=== PATIENT | female | born 1995 | race Caucasian/White ===

== ENCOUNTER 2019-03-24 20:38 | Emergency (ER) | payer OTHER ==
--- OUTSIDE RECORDS SUMMARY | 2019-03-24 20:40 | XMS REPORT | Clinical Summary ---
:1995 Author Organization [facility] Address [address] [place] [address] Care Team Providers Name Role Phone Unavailable Primary Care Provider Unavailable Allergies Active Allergy Reactions Severity Noted Date Comments Codeine Swelling 01/05/2016 Morphine Itching 01/05/2016 Penicillins Hives 01/05/2016 Medications Medication Sig Dispensed Refills Start Date End Date Status ibuprofen Take 1 tablet 20 tablet 0 11/20/2018 11/30/2018 (ADVIL,MOTRIN) 600 MG (600 mg total) tablet by mouth every 6 (six) hours as needed for up to 10 days. traMADol (ULTRAM) 50 Take 1 tablet 20 tablet 0 11/20/2018 11/30/2018 mg tablet (50 mg total) by mouth every 6 (six) hours as needed for up to 10 days. 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 Never 11/20/2018 How many drinks containing alcohol do you have on a typical Not asked day when you are drinking? How often do you have six or more drinks on one occasion? Not asked Sex Assigned at Date Recorded Not on file Job Start Date Occupation Industry Not on file Not on file Not on file Travel History Travel Start Travel End No recent travel history available. Last Filed Vital Signs Vital Sign Reading Time Taken Blood Pressure 114/84 11/20/2018 9:16 PM CDT Pulse 99 11/20/2018 9:16 PM CDT Temperature 37 C (98.6 F) 11/20/2018 9:16 PM CDT Respiratory Rate 18 11/20/2018 9:16 PM CDT Oxygen Saturation 100% 11/20/2018 9:16 PM CDT Inhaled Oxygen Concentration - - Weight 86.2 kg (190 lb) 11/20/2018 7:00 PM CDT Height 177.8 cm (5' 10") 11/20/2018 7:00 PM CDT Body Mass Index 27.26 11/20/2018 7:00 PM CDT Plan of Treatment Not on file Procedures Procedure Name Priority Date/Time Associated Comments Diagnosis REPORT OF PROCEDURE - 11/28/2018 3:11 ENDOSCOPY SCAN PM CDT CBC W/PLT COUNT & STAT 11/20/2018 7:56 Results for this AUTO DIFFERENTIAL PM CDT procedure are in the results section. PT/APTT STAT 11/20/2018 7:56 Results for this PM CDT procedure are in the results section. CBC W/PLT COUNT & STAT 11/20/2018 7:56 Results for this AUTO DIFFERENTIAL PM CDT procedure are in the results section. TROPONIN I STAT 11/20/2018 7:56 Results for this PM CDT procedure are in the results section. MAGNESIUM STAT 11/20/2018 7:56 Results for this PM CDT procedure are in the results section. BASIC METABOLIC PANEL STAT 11/20/2018 7:56 Results for this (7) PM CDT procedure are in the results section. XR CHEST 1 VIEW STAT 11/20/2018 7:21 Results for this PORTABLE/BEDSIDE PM CDT procedure are in the results section. ECG 12-LEAD Routine 11/20/2018 6:57 PM CDT Procedure Note - Interface, External Ris In - 11/20/2018 7:13 PM CDT Ventricular Rate 78 BPM Atrial Rate 78 BPM P-R Interval 126 ms QRS Duration 90 ms Q-T Interval 360 ms QTC Calculation(Bazett) 410 ms P Belmont 70 degrees R Belmont 75 degrees T Belmont 39 degrees Normal sinus rhythm Nonspecific ST and T wave abnormality Abnormal ECG No previous ECGs available ECG 12-LEAD STAT 11/20/2018 6:57 PM CDT after 03/23/2018 Results EKG-SCANNED (11/28/2018 3:11 PM CDT) Narrative Performed At PT/PTT (11/20/2018 7:56 PM CDT) Protime 13.1 11.7 - 14.[address] [facility] INR 1.0 <=[address]9 [facility] PTT 31.3 22.5 - 36.[address] [facility] Specimen Blood Narrative Performed At RECOMMENDED COUMADIN/WARFARIN INR THERAPY [facility] RANGES STANDARD DOSE: 2.0 - 3.0 Includes: PROPHYLAXIS for venous thrombosis, systemic embolization; TREATMENT for venous thrombosis and/or pulmonary embolus. HIGH RISK: Target INR is 2.5-3.5 for patients with mechanical heart valves. Performing Organization Address City/State/Zipcode Phone Number [facility] [address] [place] [address] [phone] CENTER CBC with platelet count + automated diff (11/20/2018 7:56 PM CDT) WBC 9.2 3.5 - 10.5 K/L [facility] RBC 4.81 3.93 - 5.22 M/L [facility] Hemoglobin 13.1 11.2 - 15.7 GM/DL [facility] Hematocrit 40.8 34.1 - 44.9 % [facility] MCV 84.8 79.4 - 94.[address] [facility] MCH 27.2 25.6 - 32.[address] [facility] MCHC 32.1 (L) 32.2 - 35.5 GM/DL [facility] RDW 14.1 11.7 - 14.4 % [facility] Platelets 279 150 - 450 K/CU MM [facility] MPV 10.3 9.4 - 12.[address] [facility] nRBC 0 0 - 0 /[address] [facility] % Neutros 64 % [facility] % Lymphs 26 % [facility] % Monos 7 % [facility] % Eos 3 % [facility] % Baso 1 % [facility] # Neutros 5.91 1.56 - 6.13 K/L [facility] # Lymphs 2.35 1.18 - 3.74 K/L [facility] # Monos 0.60 (H) 0.24 - 0.36 K/L [facility] # Eos 0.27 0.04 - 0.36 K/L [facility] # Baso 0.06 0.01 - 0.08 K/L [facility] Immature Granulocytes-Relative 0 0 - 1 % [facility] Specimen Blood Performing Organization Address City[facility] Phone Number [address] [address] [phone] CENTER Troponin I (11/20/2018 7:56 PM CDT) Troponin I <0.01 0.00 - 0.03 ng/mL [facility] Specimen Blood Narrative Performed At Troponin I (TnI) levels must be interpreted [facility] in the context of the presenting symptoms and the clinical findings. Elevated TnI levels indicate myocardial damage, but are not specific for ischemic heart disease. Elevated TnI levels are seen in patients with other cardiac conditions (including myocarditis and congestive heart failure), and slight TnI elevations occur in patients with other conditions, including sepsis, renal failure, acidosis, acute neurological disease, and persistent tachyarrhythmia. Performing Organization Address City/State/[facility] Phone Number [address] [phone] CENTER Magnesium (11/20/2018 7:56 PM CDT) Magnesium 2.4 1.6 - 2.6 mg/dL [facility] Specimen Blood Performing Organization Address City/State/Zipcode Phone Number [facility] [address] [place] [address] [place] Basic Metabolic Panel (11/20/2018 7:56 PM CDT) Sodium 139 136 - 145 meq/L [facility] Potassium 3.9 3.5 - 5.1 meq/L [facility] Chloride 108 (H) 98 - 107 meq/L [facility] CO2 21 (L) 22 - 29 meq/L [facility] BUN 10 7 - 21 mg/dL [facility] Creatinine 0.78 0.57 - 1.25 mg/dL [facility] Glucose 87 70 - 105 mg/dL [facility] Calcium 9.8 8.4 - 10.2 mg/dL [facility] EGFR Comment: INSUFFICIENT CLINICAL mL/min/1.73 sq m [facility] DATA TO CALCULATE ESTIMATED [facility] CENTER GFR. Specimen Blood Performing Organization Address City/State/Zipcode Phone Number [facility] [address] [place] [address] [place] XR chest 1 view portable / bedside (11/20/2018 7:21 PM CDT) Specimen Narrative Performed At FINAL REPORT RIS History: Chest pain. Comparison: None. Findings: A single view of the chest is submitted. The cardiomediastinal contours are unremarkable. There is no focal consolidation, pneumothorax, large pleural effusion or evidence of overt pulmonary edema. There is no acute bony abnormality. Impression: No acute abnormality. Signed: Davin Oconnell MD Report Verified Date/Time:11/20/2018 19:41:51 Reading Location: [address] Reading Room Procedure Note Interface, External Ris In - 11/20/2018 7:44 PM CDT FINAL REPORT History: Chest pain. Comparison: None. Findings: A single view of the chest is submitted. The cardiomediastinal contours are unremarkable. There is no focal consolidation, pneumothorax, large pleural effusion or evidence of overt pulmonary edema. There is no acute bony abnormality. Impression: No acute abnormality. Signed: Davin Oconnell MD Report Verified Date/Time: 11/20/2018 19:41:51 Reading Location: [address] Reading Room Performing Organization Address City/State/Zipcode Phone Number [facility] RIS ECG 12 lead (11/20/2018 6:57 PM CDT) Specimen Narrative Performed At Ventricular Rate 78 BPM [facility] MUSE Atrial Rate 78 BPM P-R Interval 126 ms QRS Duration 90 ms Q-T Interval 360 ms QTC Calculation(Bazett) 410 ms P Belmont 70 degrees R Belmont 75 degrees T [place] 39 degrees Normal sinus rhythm Nonspecific ST and T wave abnormality Abnormal ECG No previous ECGs available Confirmed by Annie LORA MICHAEL ([id number]) on 11/21/2018 7:27:53 AM Procedure Note Interface, External Ris In - 11/21/2018 7:28 AM CDT Ventricular Rate 78 BPM Atrial Rate 78 BPM P-R Interval 126 ms QRS Duration 90 ms Q-T Interval 360 ms QTC Calculation(Bazett) 410 ms P Belmont 70 degrees R Belmont 75 degrees T [place] 39 degrees Normal sinus rhythm Nonspecific ST and T wave abnormality Abnormal ECG No previous ECGs available Confirmed by Annie LORA MICHAEL ([id number]) on 11/21/2018 7:27:53 AM Performing Organization Address City/State/[facility] Phone Number GE MUSE after 03/23/2018 Insurance Payer Benefit Plan / Group Subscriber ID Type Phone Address [employer] - [place] C[employer] CIG[employer] HMO/POS/OPEN ACCESS xxxxxxxxx HMO/POS
--- OUTSIDE RECORDS SUMMARY | 2019-03-24 20:40 | XMS REPORT ---
:1995 Author Organization [facility] Address [address] [place] [id number] Care Team Providers Name Role Phone Unavailable Unavailable Unavailable Problems This patient has no known problems. Allergies, Adverse Reactions, Alerts This patient has no known allergies or adverse reactions. Medications This patient has no known medications. Results Test Description Test Time Test Comments Text Results Atomic Results Result Comments TROPONIN I 2018-11-20 20:25:00 Test Item Value Reference Range Comments TROPONIN I (BEAKER) (test pibn=869) < ng/mL 0.00-0.03 Troponin I (TnI) levels must be interpreted in the context of the presenting symptoms and the clinical findings. Elevated TnI levels indicate myocardial damage, but are not specific for ischemic heart disease. Elevated TnI levels are seen in patients with other cardiac conditions (including myocarditis and congestive heart failure), and slight TnI elevations occur in patients with other conditions, including sepsis, renal failure, acidosis, acute neurological disease, and persistent tachyarrhythmia.[id number] 20:18:00 Test Item Value Reference Range Comments MAGNESIUM (BEAKER) (test hlhq=505) 2.4 mg/dL 1.6-2.6 BASIC METABOLIC [id number] 20:18:00 Test Item Value Reference Range Comments SODIUM (BEAKER) (test 139 meq/L 136-145 swsw=997) POTASSIUM (BEAKER) (test 3.9 meq/L 3.5-5.1 bvle=089) CHLORIDE (BEAKER) (test 108 meq/L 98-107 gsbt=660) CO2 (BEAKER) (test 21 meq/L 22-29 obwp=400) BLOOD UREA NITROGEN 10 mg/dL 7-21 (BEAKER) (test tqhy=818) CREATININE (BEAKER) (test 0.78 mg/dL 0.57-1.25 audx=308) GLUCOSE RANDOM (BEAKER) 87 mg/dL 70-105 (test vtho=233) CALCIUM (BEAKER) (test 9.8 mg/dL 8.4-10.2 qqjz=449) EGFR (BEAKER) (test mL/min/1.73 sq m INSUFFICIENT CLINICAL DATA ylir=4434) TO CALCULATE ESTIMATED GFR. [id number] 20:13:00 Test Item Value Reference Range Comments PROTIME (BEAKER) (test ydwr=317) 13.1 seconds 11.7-14.7 INR (BEAKER) (test yjjd=430) 1.0 <=5.9 PARTIAL THROMBOPLASTIN TIME (BEAKER) (test 31.3 seconds 22.5-36.0 yuze=201) RECOMMENDED COUMADIN/WARFARIN INR THERAPY RANGESSTANDARD DOSE: 2.0 - 3.0 Includes: PROPHYLAXIS forvenous thrombosis, systemic embolization; TREATMENT for venous thrombosis and/or pulmonary embolus.HIGH RISK: Target INR is 2.5-3.5 for patients with mechanical heart valves.CBC W/PLT COUNT & AUTO [id number] 20:04:00 Test Item Value Reference Range Comments WHITE BLOOD CELL COUNT (BEAKER) (test wsme=931) 9.2 K/ L 3.5-10.5 RED BLOOD CELL COUNT (BEAKER) (test xttk=923) 4.81 M/ L 3.93-5.22 HEMOGLOBIN (BEAKER) (test ysnz=752) 13.1 GM/DL 11.2-15.7 HEMATOCRIT (BEAKER) (test rrkx=437) 40.8 % 34.1-44.9 MEAN CORPUSCULAR VOLUME (BEAKER) (test nnmy=194) 84.8 fL 79.4-94.8 MEAN CORPUSCULAR HEMOGLOBIN (BEAKER) (test 27.2 pg 25.6-32.2 gkgt=276) MEAN CORPUSCULAR HEMOGLOBIN CONC (BEAKER) (test 32.1 GM/DL 32.2-35.5 otvx=224) RED CELL DISTRIBUTION WIDTH (BEAKER) (test 14.1 % 11.7-14.4 fyno=451) PLATELET COUNT (BEAKER) (test gqqd=107) 279 K/CU MM 150-450 MEAN PLATELET VOLUME (BEAKER) (test lxkg=821) 10.3 fL 9.4-12.3 NUCLEATED RED BLOOD CELLS (BEAKER) (test 0 /100 WBC 0-0 ucnk=991) NEUTROPHILS RELATIVE PERCENT (BEAKER) (test 64 % gvwy=839) LYMPHOCYTES RELATIVE PERCENT (BEAKER) (test 26 % bfqb=698) MONOCYTES RELATIVE PERCENT (BEAKER) (test 7 % dvlh=739) EOSINOPHILS RELATIVE PERCENT (BEAKER) (test 3 % hqpa=969) BASOPHILS RELATIVE PERCENT (BEAKER) (test 1 % ymlj=549) NEUTROPHILS ABSOLUTE COUNT (BEAKER) (test 5.91 K/ L 1.56-6.13 nbsj=113) LYMPHOCYTES ABSOLUTE COUNT (BEAKER) (test 2.35 K/ L 1.18-3.74 vrcw=021) MONOCYTES ABSOLUTE COUNT (BEAKER) (test 0.60 K/ L 0.24-0.36 ipso=243) EOSINOPHILS ABSOLUTE COUNT (BEAKER) (test 0.27 K/ L 0.04-0.36 kfti=131) BASOPHILS ABSOLUTE COUNT (BEAKER) (test 0.06 K/ L 0.01-0.08 jcgw=156) IMMATURE GRANULOCYTES-RELATIVE PERCENT (BEAKER) 0 % 0-1 (test smtu=6315) RAD, CHEST, 1 VIEW, NON [id number] 19:41:00Reason for exam:->CHEST PAINIs the patient ?->UnknownFINAL REPORT History: Chest pain. Comparison: None. Findings: A single view of the chest is submitted. The cardiomediastinal contours are unremarkable. There is no focal consolidation, pneumothorax, large pleural effusion or evidence of overt pulmonary edema. There is no acute bony abnormality. Impression: No acute abnormality. Signed: Davin England MDReport Verified Date/Time: 11/20/2018 19: 41:51 Reading Location: [address] Reading Room
[2019-03-24 21:11] LABS: Absolute Lymphocytes (CBC) 2.9 K/uL (0.7-4.9); Basophils % 0.6 % (0-1.3); Eosinophils % 3.5 % (0-4.4); Hematocrit 39.2 % (36.0-45.0); Lymphocytes % 26.7 % (15.3-44.8); MPV 8.6 fL (7.6-11.3); Monocytes % 7.6 % (3.3-12.3); RBC Red Blood Cell Count 4.72 M/uL (3.86-4.86)
[2019-03-24 21:27] LABS: ALT/SGPT 27 U/L (12-78); AST/SGOT 12 U/L (15-37); Albumin 4.1 g/dL (3.4-5.0); Alkaline Phosphatase 89 U/L (45-117); BUN Blood Urea Nitrogen 16 mg/dL (7-18); Bicarbonate 25 mmol/L (21-32); Bilirubin Direct < 0.1 mg/dL (0-0.2); Bilirubin Total 0.2 mg/dL (0.2-1.0); Glucose Level 93 mg/dL (74-106); Lipase 126 U/L (73-393); Potassium 3.7 mmol/L (3.5-5.1); Protein, Total 7.9 g/dL (6.4-8.2); Sodium Level 142 mmol/L (136-145)
[2019-03-24] MEDS ORDERED: KETOROLAC 30 MG/ML INJ ONE (21:33)
[2019-03-24] MEDS ORDERED: ONDANSETRON 4 MG/2 ML VIAL ONE (21:35)
[2019-03-24 21:42] LABS: Urine Blood 2+ (NEG); Urine Glucose NEGATIVE (NEG); Urine Protein NEGATIVE (NEG); Urine Specific Gravity >1.030 (1.005-1.030); Urine pH 5.5 (5.0-7.0)
--- NOTE | 2019-03-24 22:40 | ER ---
Nurse's Notes [facility] Name: Cathleen Willson Age: 24 yrs Sex: Female : 1995 Arrival Date: 03/24/2019 Time: 20:42 Bed 25 Private MD: Diagnosis: Unspecified abdominal pain Presentation: 03/24 20:43 Presenting complaint: Patient states: "Im on my period, but I don't regularly cramp, so aj1 at first I thought it was just period cramps. I have pain at my belly button, and its just not getting better. I tried taking Tylenol, Motrin, and a hot bath" Denies N/V/D. Denies fever. Transition of care: patient was not received from another setting of care. Onset of symptoms was March 24, 2019 at 11:00. Risk Assessment: Do you want to hurt yourself or someone else? Patient reports no desire to harm self or others. Initial Sepsis Screen: Does the patient meet any 2 criteria? No. Patient's initial sepsis screen is negative. Does the patient have a suspected source of infection? Yes: Acute abdominal pain. Care prior to arrival: None. 20:43 Method Of Arrival: Ambulatory aj1 20:43 Acuity: MIGUEL 3 aj1 Triage Assessment: 20:46 General: Appears in no apparent distress. comfortable, Behavior is calm, cooperative, aj1 appropriate for age. Pain: Complains of pain in umbilical area Pain currently is 6 out of 10 on a pain scale. Neuro: Level of Consciousness is awake, alert, obeys commands. Cardiovascular: Patient's skin is warm and dry. Respiratory: Airway is patent Respiratory effort is even, unlabored, Respiratory pattern is regular, symmetrical. GI: Reports nausea. 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 - Social history:: Smoking status: Patient/guardian denies using tobacco. - Ebola Screening: : Patient denies travel to an Ebola-affected area in the 21 days before illness onset. Screenin:52 Abuse screen: Denies threats or abuse. Denies injuries from another. Nutritional ca1 screening: No deficits noted. Tuberculosis screening: No symptoms or risk factors identified. Fall Risk IV access (20 points). Assessment: 20:52 General: Appears in no apparent distress. comfortable, Behavior is calm, cooperative, ca1 appropriate for age. Pain: Complains of pain in umbilical area Pain does not radiate. Pain currently is 6 out of 10 on a pain scale. Pain began around 1100. Neuro: Level of Consciousness is awake, alert, obeys commands, Oriented to person, place, time, situation. Cardiovascular: Heart tones S1 S2 present Capillary refill < 3 seconds Patient's skin is warm and dry. Respiratory: Airway is patent Respiratory effort is even, unlabored, Respiratory pattern is regular, symmetrical, Breath sounds are clear bilaterally. GI: Abdomen is round non-distended, Bowel sounds present X 4 quads. Abd is soft X 4 quads Abdomen is tender to palpation in right upper quadrant. GI: Reports nausea, Patient currently denies diarrhea, vomiting. : Urine is clear. EENT: No deficits noted. No signs and/or symptoms were reported regarding the EENT system. Derm: Skin is intact, is healthy with good turgor, Skin is pink, warm \\T\\ dry. Musculoskeletal: Circulation, motion, and sensation intact. Capillary refill < 3 seconds, Range of motion: intact in all extremities. 21:39 Reassessment: Patient appears in no apparent distress at this time. Patient and/or ca1 family updated on plan of care and expected duration. Pain level reassessed. Patient is alert, oriented x 3, equal unlabored respirations, skin warm/dry/pink. 22:30 Reassessment: Patient appears in no apparent distress at this time. Patient and/or ca1 family updated on plan of care and expected duration. Pain level reassessed. Patient is alert, oriented x 3, equal unlabored respirations, skin warm/dry/pink. Vital Signs: 20:46 BP 141 / 91; Pulse 82; Resp 18; Temp 98.4; Pulse Ox 100% on R/A; Weight 87.09 kg (R); aj1 Height 5 ft. 10 in. (177.80 cm) (R); Pain 6/10; 21:39 BP 116 / 79; Pulse 96; Resp 16 S; Pulse Ox 100% on R/A; ca1 22:30 BP 122 / 77; Pulse 87; Resp 16 S; Temp 98.8(O); Pulse Ox 100% ; ca1 20:46 Body Mass Index 27.55 (87.09 kg, 177.80 cm) aj1 ED Course: 20:42 Patient arrived in ED. ds1 20:45 Triage completed. aj1 20:46 Arm band placed on Patient placed in an exam room. aj1 20:50 Marcela Alcantar, LUCIO is Primary Nurse. ca1 20:51 Mumtaz Graham, JOAN is PHCP. pm1 20:51 Tong Erickson MD is Attending Physician. pm1 20:52 Patient has correct armband on for positive identification. Placed in gown. Bed in low ca1 position. Call light in reach. Side rails up X 1. Pulse ox on. NIBP on. Warm blanket given. 20:52 No provider procedures requiring assistance completed. Inserted saline lock: 20 gauge ca1 in left antecubital area, using aseptic technique. Blood collected. 21:00 Radiology exam delayed due to lab results not completed at this time. (BUN/Creatinine) mw3 test not completed at this time. 21:[address] via wheelchair. ca1 21:53 Urine Dipstick--Ancillary (enter results) Sent. ca1 22:07 CT Abd/Pelvis - IV Contrast Only In Process Unspecified. EDMS 22:50 IV discontinued, intact, bleeding controlled, No redness/swelling at site. Pressure ca1 dressing applied. Administered Medications: 21:15 Drug: TORadol 30 mg Route: IVP; Site: left antecubital; ca1 22:30 Follow up: Response: No adverse reaction; Pain is decreased ca1 21:22 Drug: Zofran 4 mg Route: IVP; Site: left antecubital; ca1 22:00 Follow up: Response: No adverse reaction; Nausea is decreased ca1 Outcome: 22:38 Discharge ordered by . pm1 22:50 Discharged to home ambulatory. ca1 22:50 Condition: stable 22:50 Discharge instructions given to patient, Instructed on discharge instructions, follow up and referral plans. medication usage, Demonstrated understanding of instructions, follow-up care, medications, Prescriptions given X 2. 22:51 Patient left the ED. ca1 Signatures: Dispatcher [employer] EDAdeline Gomez, LUCIO RN aj1 Marta Guthrei ds1 Mumtaz Graham, PATENT LEATHER SORTER PATENT LEATHER SORTER pm1 Lala Brennan mw3 Marcela Alcantar RN RN ca1
--- NOTE | 2019-03-24 22:40 | EDPHYS ---
Physician Documentation [facility] Name: Cathleen Willson Age: 24 yrs Sex: Female : 1995 Arrival Date: 03/24/2019 Time: 20:42 Bed 25 Private MD: ED Physician Tong Erickson HPI: 03/24 21:00 This 24 yrs old Female presents to ER via Ambulatory with complaints of pm1 Abdominal Pain. 21:00 The patient presents with abdominal pain in the periumbilical area. Onset: The pm1 symptoms/episode began/occurred today. The symptoms do not radiate. Associated signs and symptoms: none. Pertinent negatives: nausea, vomiting, and diarrhea, chest pain, constipation, dysuria, fever, shortness of breath. The symptoms are described as crampy. Modifying factors: The symptoms are alleviated by nothing, the symptoms are aggravated by nothing. Severity of pain: in the emergency department the pain is actually worse. The patient has experienced a previous episode, many years ago, symptoms feel similar to ruptured ovarian cyst. The patient has not recently seen a physician. 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 - Social history:: Smoking status: Patient/guardian denies using tobacco. - Ebola Screening: : Patient denies travel to an Ebola-affected area in the 21 days before illness onset. ROS: 21:00 Constitutional: Negative for fever, chills, and weight loss, Eyes: Negative for injury, pm1 pain, redness, and discharge, ENT: Negative for injury, pain, and discharge, Neck: Negative for injury, pain, and swelling, Cardiovascular: Negative for chest pain, palpitations, and edema, Respiratory: Negative for shortness of breath, cough, wheezing, and pleuritic chest pain. 21:00 Back: Negative for injury and pain, : Negative for injury, discharge, and swelling, Patient currently on menstrual cycle MS/Extremity: Negative for injury and deformity, Skin: Negative for injury, rash, and discoloration, Neuro: Negative for headache, weakness, numbness, tingling, and seizure. 21:00 Abdomen/GI: Positive for abdominal pain, of the umbilical area, Negative for nausea, vomiting, and diarrhea. Exam: 21:00 Constitutional: This is a well developed, well nourished patient who is awake, alert, pm1 and in no acute distress. Head/Face: Normocephalic, atraumatic. Neck: Trachea midline, no thyromegaly or masses palpated, and no cervical lymphadenopathy. Supple, full range of motion without nuchal rigidity, or vertebral point tenderness. No Meningismus. Chest/axilla: Normal chest wall appearance and motion. Nontender with no deformity. No lesions are appreciated. Cardiovascular: Regular rate and rhythm with a normal S1 and S2. No gallops, murmurs, or rubs. Normal PMI, no JVD. No pulse deficits. Respiratory: Lungs have equal breath sounds bilaterally, clear to auscultation and percussion. No rales, rhonchi or wheezes noted. No increased work of breathing, no retractions or nasal flaring. 21:00 Back: No spinal tenderness. No costovertebral tenderness. Full range of motion. Skin: Warm, dry with normal turgor. Normal color with no rashes, no lesions, and no evidence of cellulitis. MS/ Extremity: Pulses equal, no cyanosis. Neurovascular intact. Full, normal range of motion. 21:00 Abdomen/GI: Inspection: abdomen appears normal, Bowel sounds: normal, Palpation: soft, mild abdominal tenderness, in the umbilical area, mass, is not appreciated, rebound tenderness, is not appreciated. 21:00 Neuro: Orientation: is normal, Motor: is normal, moves all fours, Sensation: is normal, no obvious gross deficits. Vital Signs: 20:46 BP 141 / 91; Pulse 82; Resp 18; Temp 98.4; Pulse Ox 100% on R/A; Weight 87.09 kg (R); aj1 Height 5 ft. 10 in. (177.80 cm) (R); Pain 6/10; 21:39 BP 116 / 79; Pulse 96; Resp 16 S; Pulse Ox 100% on R/A; ca1 22:30 BP 122 / 77; Pulse 87; Resp 16 S; Temp 98.8(O); Pulse Ox 100% ; ca1 20:46 Body Mass Index 27.55 (87.09 kg, 177.80 cm) aj1 MDM: 20:51 Patient medically screened. pm1 21:20 Data reviewed: vital signs. Data interpreted: Pulse oximetry: on room air is 100 %. pm1 Interpretation: normal. 22:37 Counseling: I had a detailed discussion with the patient and/or guardian regarding: the pm1 historical points, exam findings, and any diagnostic results supporting the discharge/admit diagnosis, lab results, radiology results, the need for outpatient follow up, to return to the emergency department if symptoms worsen or persist or if there are any questions or concerns that arise at home. 22:37 ED course: Patient does not want any medications or prescriptions stronger than pm1 ibuprofen or Tylenol because she has two children. . 22:37 Special discussion: Based on the patient's Hx, exam, and Dx evaluation, there is no pm1 indication for emergent surgery or inpatient Tx. It is understood by the patient/guardian that if the Sx's persist or worsen they need to return immediately for re-evaluation. 03/24 20:54 Order name: Basic Metabolic Panel; Complete Time: 21:30 pm03/24 20:54 Order name: CBC with Diff; Complete Time: 21:15 pm1 03/24 20:54 Order name: Creatinine for Radiology; Complete Time: 21:30 pm1 03/24 20:54 Order name: Hepatic Function; Complete Time: 21:30 pm03/24 20:54 Order name: Lipase; Complete Time: 21:30 pm03/24 21:13 Order name: Urine Dipstick--Ancillary (enter results) [facility] 03/24 20:54 Order name: IV Saline Lock; Complete Time: 21:21 pm03/24 20:54 Order name: Labs collected and sent; Complete Time: 21:22 pm1 03/24 20:54 Order name: Urine Dipstick-Ancillary (obtain specimen); Complete Time: 21:21 pm1 03/24 20:54 Order name: CT Abd/Pelvis - IV Contrast Only pm1 03/24 21:13 Order name: Urine --Ancillary (enter results); Complete Time: 21:48 [facility] 03/24 21:13 Order name: Urine Dipstick-Ancillary; Complete Time: 21:48 EDAR 03/24 20:54 Order name: Urine Test (obtain specimen); Complete Time: 21:21 pm1 Administered Medications: 21:15 Drug: TORadol 30 mg Route: IVP; Site: left antecubital; ca1 22:30 Follow up: Response: No adverse reaction; Pain is decreased ca1 21:22 Drug: Zofran 4 mg Route: IVP; Site: left antecubital; ca1 22:00 Follow up: Response: No adverse reaction; Nausea is decreased ca1 Disposition: 03/24/19 22:38 Discharged to Home. Impression: Unspecified abdominal pain. - Condition is Stable. - Discharge Instructions: Abdominal Pain, Adult. - Prescriptions for Bentyl 20 mg Oral Tablet - take 1 tablet by ORAL route every 6 hours As needed; 20 tablet. Zofran 4 mg Oral Tablet - take 1 tablet by ORAL route every 12 hours As needed; 20 tablet. - Medication Reconciliation Form, Thank You Letter, Antibiotic Education, Prescription Opioid Use form. - Follow up: Emergency Department; When: As needed; Reason: Worsening of condition. Follow up: Private Physician; When: 2 - 3 days; Reason: Recheck today's complaints, Continuance of care, Re-evaluation by your physician. - Problem is new. - Symptoms have improved. Addendum: 03/26/2019 04:46 Co-signature as Attending Physician, Tong Erickson MD I agree with the assessment and t w4 plan of care. Signatures: Dispatcher [employer] EDAR Adeline Watson RN RN aj1 Mumtaz Graham, NEW ORDER CLERK NEW ORDER CLERK pm1 Tong Erickson MD MD tw4 Marcela Alcantar RN RN ca1 Corrections: (The following items were deleted from the chart) 03/24 22:51 22:38 03/24/2019 22:38 Discharged to Home. Impression: Unspecified abdominal pain. ca1 Condition is Stable. Forms are Medication Reconciliation Form, Thank You Letter, Antibiotic Education, Prescription Opioid Use. Follow up: Emergency Department; When: As needed; Reason: Worsening of condition. Follow up: Private Physician; When: 2 - 3 days; Reason: Recheck today's complaints, Continuance of care, Re-evaluation by your physician. Problem is new. Symptoms have improved. pm1
[2019-03-24 22:57] VITALS: O2SAT 100
[2019-03-24 23:00] VITALS: BP 122/77; TEMP 98.8
--- NOTE | 2019-03-25 11:06 | RAD REPORT ---
EXAM DESCRIPTION: CT - Abdomen Pelvis W Contrast - 03/24/2019 10:35 pm CLINICAL HISTORY: 24-year-old female with abdominal pain. COMPARISON: None. TECHNIQUE: CT of the abdomen and pelvis was performed following intravenous administration of contra st. Oral contrast was not administered. Multiplanar reformatted images were provided. This exam was p erformed according to our departmental dose optimization program which includes use of automated expo sure control, adjustment of the mA and/or kV according to patient size and/or use of iterative recons truction technique. FINDINGS: Chest: Evaluation through the lung bases reveals no focal opacity, pleural effusion or pne umothorax. Heart size is within normal limits. No pericardial effusion. Abdomen and pelvis: The liver, gallbladder, pancreas, spleen, bilateral kidneys and bilateral adrenal glands are within normal limits. The vessels are patent and normal in caliber. No abdominopelvic lymph nodes are noted to be pathologically enlarged by CT measurement criteria. The bowel is within normal limits without abnormal bowel wall thickness or bowel dilation. No free air. No free abdominopelvic fluid collections. The appendix is within normal limits. The osseous structures are within normal limits. IMPRESSION: 1. No specific acute intra-abdominal findings are noted to suggest etiology of the patie nt's abdominal pain. Electronically signed by: Marie Graves MD 03/24/2019 10:31 PM CDT Due to temporary technical issues with the PACS/Fluency reporting system, reports are being signed by the in house radiologist as a courtesy to ensure prompt reporting. The interpreting radiologist is f ully responsible for the content of the report.
== END 2019-03-24 22:51 | disposition home or self-care (01) ==
LOC: ER 20:38
DX: R10.33 Periumbilical pain (principal); Z88.0 Allergy status to penicillin
CPT/HCPCS: 36415; 74177; 80048; 80076; 81003; 81025; 83690; 85025; 96374; 96375; 99284; J2405; Q9967

== ENCOUNTER 2019-10-06 15:11 | Emergency (ER) | payer OTHER ==
--- OUTSIDE RECORDS SUMMARY | 2019-10-06 15:14 | XMS REPORT ---
:1995 Author Organization [facility] Address [address] [place] [id number] Care Team Providers Name Role Phone Unavailable Unavailable Unavailable Problems This patient has no known problems. Allergies, Adverse Reactions, Alerts This patient has no known allergies or adverse reactions. Medications This patient has no known medications. Results Test Description Test Time Test Comments Text Results Atomic Results Result Comments TROPONIN I 2018-11-20 20:25:00 Test Item Value Reference Range Comments TROPONIN I (BEAKER) (test essa=172) < ng/mL 0.00-0.03 Troponin I (TnI) levels [...] failure, acidosis, acute neurological disease, and persistent tachyarrhythmia.[id number] 20:18:00 Test Item Value Reference Range Comments MAGNESIUM (BEAKER) (test nmey=510) 2.4 mg/dL 1.6-2.6 BASIC METABOLIC [id number] 20:18:00 Test Item Value Reference Range Comments SODIUM (BEAKER) (test 139 meq/L 136-145 gyit=524) POTASSIUM (BEAKER) (test 3.9 meq/L 3.5-5.1 ozrl=520) CHLORIDE (BEAKER) (test 108 meq/L 98-107 iauu=708) CO2 (BEAKER) (test 21 meq/L 22-29 obxz=248) BLOOD UREA NITROGEN 10 mg/dL 7-21 (BEAKER) (test wwqv=647) CREATININE (BEAKER) (test 0.78 mg/dL 0.57-1.25 turl=498) GLUCOSE RANDOM (BEAKER) 87 mg/dL 70-105 (test swll=639) CALCIUM (BEAKER) (test 9.8 mg/dL 8.4-10.2 nksb=768) EGFR (BEAKER) (test mL/min/1.73 sq m INSUFFICIENT CLINICAL DATA lrcs=3045) TO CALCULATE ESTIMATED GFR. [id number] 20:13:00 Test Item Value Reference Range Comments PROTIME (BEAKER) (test nyav=892) 13.1 seconds 11.7-14.7 INR (BEAKER) (test kirm=379) 1.0 <=5.9 PARTIAL THROMBOPLASTIN TIME (BEAKER) (test 31.3 seconds 22.5-36.0 bedw=074) RECOMMENDED COUMADIN/WARFARIN INR THERAPY RANGESSTANDARD DOSE: 2.0 - 3.0 Includes: PROPHYLAXIS forvenous thrombosis, systemic embolization; TREATMENT for venous thrombosis and/or pulmonary embolus.HIGH RISK: Target INR is 2.5-3.5 for patients with mechanical heart valves.CBC W/PLT COUNT & AUTO [id number] 20:04:00 Test Item Value Reference Range Comments WHITE BLOOD CELL COUNT (BEAKER) (test yluy=108) 9.2 K/ L 3.5-10.5 RED BLOOD CELL COUNT (BEAKER) (test lqxf=525) 4.81 M/ L 3.93-5.22 HEMOGLOBIN (BEAKER) (test hqvg=915) 13.1 GM/DL 11.2-15.7 HEMATOCRIT (BEAKER) (test bdqh=274) 40.8 % 34.1-44.9 MEAN CORPUSCULAR VOLUME (BEAKER) (test iwvo=721) 84.8 fL 79.4-94.8 MEAN CORPUSCULAR HEMOGLOBIN (BEAKER) (test 27.2 pg 25.6-32.2 borj=082) MEAN CORPUSCULAR HEMOGLOBIN CONC (BEAKER) (test 32.1 GM/DL 32.2-35.5 orud=836) RED CELL DISTRIBUTION WIDTH (BEAKER) (test 14.1 % 11.7-14.4 lgag=466) PLATELET COUNT (BEAKER) (test akck=003) 279 K/CU MM 150-450 MEAN PLATELET VOLUME (BEAKER) (test hrth=299) 10.3 fL 9.4-12.3 NUCLEATED RED BLOOD CELLS (BEAKER) (test 0 /100 WBC 0-0 notu=277) NEUTROPHILS RELATIVE PERCENT (BEAKER) (test 64 % zohx=757) LYMPHOCYTES RELATIVE PERCENT (BEAKER) (test 26 % pcyd=305) MONOCYTES RELATIVE PERCENT (BEAKER) (test 7 % vecv=866) EOSINOPHILS RELATIVE PERCENT (BEAKER) (test 3 % spdg=527) BASOPHILS RELATIVE PERCENT (BEAKER) (test 1 % kuwy=639) NEUTROPHILS ABSOLUTE COUNT (BEAKER) (test 5.91 K/ L 1.56-6.13 ldre=938) LYMPHOCYTES ABSOLUTE COUNT (BEAKER) (test 2.35 K/ L 1.18-3.74 ckyy=533) MONOCYTES ABSOLUTE COUNT (BEAKER) (test 0.60 K/ L 0.24-0.36 ejdn=419) EOSINOPHILS ABSOLUTE COUNT (BEAKER) (test 0.27 K/ L 0.04-0.36 wuhn=176) BASOPHILS ABSOLUTE COUNT (BEAKER) (test 0.06 K/ L 0.01-0.08 amqq=121) IMMATURE GRANULOCYTES-RELATIVE PERCENT (BEAKER) 0 % 0-1 (test cwox=9085) RAD, CHEST, 1 VIEW, NON [id number] 19:41:00Reason for exam:->CHEST PAINIs the patient ?->UnknownFINAL REPORT History: Chest pain. Comparison: None. Findings: A single view of the chest is submitted. The cardiomediastinal contours are unremarkable. There is no focal consolidation, pneumothorax, large pleural effusion or evidence of overt pulmonary edema. There is no acute bony abnormality. Impression: No acute abnormality. Signed: Davin England MDReport Verified Date/Time: 11/20/2018 19: 41:51 Reading Location: [address] Reading Room
[2019-10-06 15:51] LABS: Urine Blood NEGATIVE (NEG); Urine Glucose NEGATIVE (NEG); Urine Protein NEGATIVE (NEG)
[2019-10-06] MEDS ORDERED: KETOROLAC 30 MG/ML INJ ONE (16:08)
[2019-10-06] MEDS ORDERED: ONDANSETRON 4 MG/2 ML VIAL ONE (16:08)
[2019-10-06] MEDS ORDERED: NA CHLORIDE 0.9% 1,000 ML ONE (16:08)
[2019-10-06 16:21] LABS: Absolute Lymphocytes (CBC) 2.3 K/uL (0.7-4.9); Basophils % 0.9 % (0-1.3); Hematocrit 39.2 % (36.0-45.0); Lymphocytes % 28.6 % (15.3-44.8); MPV 9.2 fL (7.6-11.3); RBC Red Blood Cell Count 4.85 M/uL (3.86-4.86)
[2019-10-06 16:32] LABS: ALT/SGPT 26 U/L (12-78); AST/SGOT 16 U/L (15-37); Albumin 3.8 g/dL (3.4-5.0); Alkaline Phosphatase 77 U/L (45-117); BUN Blood Urea Nitrogen 12 mg/dL (7-18); Bicarbonate 25 mmol/L (21-32); Bilirubin Direct < 0.1 mg/dL (0-0.2); Bilirubin Total 0.2 mg/dL (0.2-1.0); Glucose Level 103 mg/dL (74-106); Lipase 112 U/L (73-393); Potassium 3.6 mmol/L (3.5-5.1); Protein, Total 7.3 g/dL (6.4-8.2); Sodium Level 142 mmol/L (136-145)
--- NOTE | 2019-10-06 16:35 | RAD REPORT ---
EXAM DESCRIPTION: CT - Abdomen Pelvis W Contrast - 10/06/2019 4:26 pm CLINICAL HISTORY: ABD PAIN COMPARISON: Abdomen Pelvis W Contrast dated 03/24/2019 TECHNIQUE: Biphasic, helical CT imaging of the abdomen and pelvis was performed following 100 ml non -ionic IV contrast. No oral contrast administered. All CT scans are performed using dose optimization technique as appropriate and may include automated exposure control or mA/KV adjustment according to patient size. FINDINGS: No suspicious findings in the lung bases. The liver, spleen, and pancreas show no suspicious findings. Gallbladder and biliary tree are also wi thout suspicious finding. Symmetric renal function is seen with no hydronephrosis or suspicious renal mass. No pyelonephritis o r acute parenchymal process. No bladder abnormalities. No adrenal abnormalities. No stomach or small bowel abnormality. No acute colon finding seen. Appendix is normal. Uterus and ov cole show no suspicious findings. No free air, free fluid or inflammatory stranding. No mass or bul ky lymphadenopathy. No omental thickening. No acute bone finding. Transverse oriented stranding is seen in the lower pelvic subcutaneous fat typical for a sc ar. There is abdominoplasty change to the anterior abdominal wall. No hernia defect is present. No ab scess, seroma or other suspicious soft tissue finding. IMPRESSION: Abdominoplasty surgical changes are noted with no abdominal wall hernia identified. No s eroma, mass or other suspicious abdominal wall or subcu fat finding. Intraperitoneal and retroperitoneal structures show no acute or significant finding.
--- NOTE | 2019-10-06 16:48 | EDPHYS ---
Physician Documentation [facility] Name: Cathleen Willson Age: 24 yrs Sex: Female : 1995 Arrival Date: 10/06/2019 Time: 15:14 Bed 7 Private MD: RAYMON Physician Alex Ibanez HPI: 10/06 15:42 This 24 yrs old Female presents to ER via Ambulatory with complaints of pm1 Dizziness, Abdominal Pain, Vomiting/Diarrhea. 15:42 The patient presents with abdominal pain in the left upper quadrant. Onset: The pm1 symptoms/episode began/occurred 1 month(s) ago. The symptoms do not radiate. Associated signs and symptoms: Pertinent positives: nausea, vomiting, and diarrhea, Pertinent negatives: chest pain, constipation, shortness of breath. The symptoms are described as vague. Modifying factors: The symptoms are alleviated by nothing, the symptoms are aggravated by movement. Severity of pain: in the emergency department the pain is actually worse. The patient has been recently seen by a physician: Sebastian SHIN for same complaint and has an Ultrasound ordered for Monday. Patient with on and off abdominal pain to LUQ for one month. Has occasional vomiting and diarrhea with it also. Recently saw Sebastian SHIN for same complaints and has an ultrasound ordered for Monday since MD believes that the pain might be attributed to a hernia. Patient had tummy tuck and breast lift in July. 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 - Coronavirus screen:: The patient has NOT traveled to [place], [place], or [place] in the past 14 days. - Social history:: Smoking status: Patient/guardian denies using tobacco. - Ebola Screening: : Patient denies travel to an Ebola-affected area in the 21 days before illness onset. ROS: 15:42 Constitutional: Negative for fever, chills, and weight loss, Cardiovascular: Negative pm1 for chest pain, palpitations, and edema, Respiratory: Negative for shortness of breath, cough, wheezing, and pleuritic chest pain. 15:42 Back: Negative for injury and pain, : Negative for injury, bleeding, discharge, and swelling, MS/Extremity: Negative for injury and deformity, Skin: Negative for injury, rash, and discoloration, Neuro: Negative for headache, weakness, numbness, tingling, and seizure. 15:42 Abdomen/GI: Positive for abdominal pain, nausea, vomiting, and diarrhea, Negative for constipation. 15:42 All other systems are negative. Exam: 15:42 Constitutional: This is a well developed, well nourished patient who is awake, alert, pm1 and in no acute distress. Head/Face: Normocephalic, atraumatic. Chest/axilla: Normal chest wall appearance and motion. Nontender with no deformity. No lesions are appreciated. Cardiovascular: Regular rate and rhythm with a normal S1 and S2. No gallops, murmurs, or rubs. No pulse deficits. Respiratory: Lungs have equal breath sounds bilaterally, clear to auscultation and percussion. No rales, rhonchi or wheezes noted. No increased work of breathing, no retractions or nasal flaring. 15:42 Back: No spinal tenderness. No costovertebral tenderness. Full range of motion. Skin: Warm, dry with normal turgor. Normal color with no rashes, no lesions, and no evidence of cellulitis. MS/ Extremity: Pulses equal, no cyanosis. Neurovascular intact. Full, normal range of motion. 15:42 Abdomen/GI: Inspection: abdomen appears normal, Bowel sounds: normal, Palpation: abdomen is soft and non-tender, in all quadrants, mass, is not appreciated, rebound tenderness, is not appreciated, Hernia: not appreciated. 15:42 Neuro: Orientation: is normal, Motor: is normal, moves all fours. Vital Signs: 15:19 BP 136 / 97; Pulse 85; Resp 18; Temp 97.9(TE); Pulse Ox 100% on R/A; Weight 95.25 kg aj1 (R); Height 5 ft. 10 in. (177.80 cm) (R); Pain 6/10; 16:50 BP 122 / 88; Pulse 80; Resp 16 S; Pulse Ox 100% on R/A; aa5 15:19 Body Mass Index 30.13 (95.25 kg, 177.80 cm) aj1 MDM: 15:21 Patient medically screened. arvind 16:46 Data reviewed: vital signs. Data interpreted: Pulse oximetry: on room air is 100 %. pm1 Interpretation: normal. Counseling: I had a detailed discussion with the patient and/or guardian regarding: the historical points, exam findings, and any diagnostic results supporting the discharge/admit diagnosis, lab results, radiology results, the need for outpatient follow up, to return to the emergency department if symptoms worsen or persist or if there are any questions or concerns that arise at home. 10/06 15:41 Order name: Urine Dipstick--Ancillary (enter results); Complete Time: 16:12 ms 10/06 15:41 Order name: Urine --Ancillary (enter results); Complete Time: 16:12 ms 10/06 15:57 Order name: Basic Metabolic Panel; Complete Time: 16:33 pm1 10/06 15:57 Order name: CBC with Diff; Complete Time: 16:33 pm1 10/06 15:57 Order name: Creatinine for Radiology; Complete Time: 16:33 pm1 10/06 15:57 Order name: Hepatic Function; Complete Time: 16:33 pm1 10/06 15:57 Order name: Lipase; Complete Time: 16:33 pm1 10/06 15:57 Order name: IV Saline Lock; Complete Time: 16:17 pm1 10/06 15:57 Order name: Labs collected and sent; Complete Time: 16:17 pm1 10/06 15:57 Order name: CT Abd/Pelvis - IV Contrast Only; Complete Time: 16:39 pm1 Administered Medications: 16:10 Drug: NS 0.9% 1000 ml Route: IV; Rate: 1000 ml; Site: right upper arm; aa5 16:56 Follow up: IV Status: Completed infusion; IV Intake: 200ml ; Provider notified pt only aa5 received 200mls, METER INSTALLER states it's ok to d/c pt home now. 16:10 Drug: Zofran 4 mg Route: IVP; Site: right upper arm; aa5 16:15 Follow up: Response: No adverse reaction aa5 16:12 Drug: TORadol - Ketorolac 15 mg Route: IVP; Site: right upper arm; aa5 16:15 Follow up: Response: No adverse reaction aa5 Disposition: 10/07 07:44 Co-signature as Attending Physician, Alex Ibanez MD I agree with the assessment and arvind plan of care. Disposition: 10/06/19 16:47 Discharged to Home. Impression: Unspecified abdominal pain, Vomiting, Diarrhea, unspecified. - Condition is Stable. - Discharge Instructions: Abdominal Pain, Adult, Diarrhea, Adult, Nausea and Vomiting, Adult. - Prescriptions for Bentyl 20 mg Oral Tablet - take 1 tablet by ORAL route every 6 hours As needed; 20 tablet. Zofran 4 mg Oral Tablet - take 1 tablet by ORAL route every 12 hours As needed; 20 tablet. - Medication Reconciliation Form, Thank You Letter, Antibiotic Education, Prescription Opioid Use form. - Follow up: Emergency Department; When: As needed; Reason: Worsening of condition. Follow up: Private Physician; When: 2 - 3 days; Reason: Recheck today's complaints, Continuance of care, Re-evaluation by your physician. - Problem is new. - Symptoms have improved. Signatures: Dispatcher [employer] EDMS Adeline Watson RN RN aj1 Alex Ibanez MD MD cha Calderon, Audri, RN RN aa5 Mumtaz Graham NP METER INSTALLER pm1 Corrections: (The following items were deleted from the chart) 10/06 17:00 16:47 10/06/2019 16:47 Discharged to Home. Impression: Unspecified abdominal pain; aa5 Vomiting; Diarrhea, unspecified. Condition is Stable. Forms are Medication Reconciliation Form, Thank You Letter, Antibiotic Education, Prescription Opioid Use. Follow up: Emergency Department; When: As needed; Reason: Worsening of condition. Follow up: Private Physician; When: 2 - 3 days; Reason: Recheck today's complaints, Continuance of care, Re-evaluation by your physician. Problem is new. Symptoms have improved. pm1
--- NOTE | 2019-10-06 16:48 | ER ---
Nurse's Notes [facility] Name: Cathleen Willson Age: 24 yrs Sex: Female : 1995 Arrival Date: 10/06/2019 Time: 15:14 Bed 7 Private MD: Diagnosis: Unspecified abdominal pain;Vomiting;Diarrhea, unspecified Presentation: 10/06 15:15 Presenting complaint: Patient states: LUQ abdominal pain, states that she went to her aj1 doctor about it on the 20 of September, and was told it was probably a hernia, she is scheduled to have an ultrasound on Monday, but today she decided that she couldn't wait because she is in too much pain. Patient also reports nausea and vomiting. Transition of care: patient was not received from another setting of care. Onset of symptoms was 2019. Risk Assessment: Do you want to hurt yourself or someone else? Patient reports no desire to harm self or others. Initial Sepsis Screen: Does the patient meet any 2 criteria? No. Patient's initial sepsis screen is negative. Does the patient have a suspected source of infection? Yes: Acute abdominal pain. Care prior to arrival: None. 15:15 Method Of Arrival: Ambulatory aj1 15:15 Acuity: MIGUEL 3 aj1 Triage Assessment: 15:19 General: Appears in no apparent distress. comfortable, Behavior is calm, cooperative, aj1 appropriate for age. Pain: Complains of pain in left upper quadrant. Neuro: Level of Consciousness is awake, alert, obeys commands. Cardiovascular: Patient's skin is warm and dry. Respiratory: Airway is patent Respiratory effort is even, unlabored, Respiratory pattern is regular, symmetrical. GI: Reports upper abdominal pain. 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 - Coronavirus screen:: The patient has NOT traveled to [place], [place], or [place] in the past 14 days. - Social history:: Smoking status: Patient/guardian denies using tobacco. - Ebola Screening: : Patient denies travel to an Ebola-affected area in the 21 days before illness onset. Screenin:30 Abuse screen: Denies threats or abuse. Nutritional screening: No deficits noted. aa5 Tuberculosis screening: No symptoms or risk factors identified. Fall Risk None identified. Assessment: 15:30 General: Appears uncomfortable, Behavior is calm, cooperative. Pain: Complains of pain aa5 in umbilical area and left upper quadrant Pain does not radiate. Pain currently is 6 out of 10 on a pain scale. Quality of pain is described as sharp, Is continuous. Neuro: Level of Consciousness is awake, alert, obeys commands, Oriented to person, place, time, situation. Cardiovascular: Patient's skin is warm and dry. Respiratory: Airway is patent Respiratory effort is even, unlabored, Respiratory pattern is regular, symmetrical. GI: Abdomen is flat, non-distended, Last BM was October 05, 2019. Bowel sounds present X 4 quads. Abd is soft X 4 quads Abdomen is tender to palpation in umbilical area and left upper quadrant Reports nausea, vomiting, Patient currently denies diarrhea. : No signs and/or symptoms were reported regarding the genitourinary system. EENT: No signs and/or symptoms were reported regarding the EENT system. Derm: Skin is pink, warm \T\ dry. Musculoskeletal: Range of motion: intact in all extremities. 16:10 Reassessment: Patient is alert, oriented x 3, equal unlabored respirations, skin aa5 warm/dry/pink. 16:16 Reassessment: Pt taken to CT via wheelchair . aa5 16:57 Reassessment: Patient is alert, oriented x 3, equal unlabored respirations, skin aa5 warm/dry/pink. Vital Signs: 15:19 BP 136 / 97; Pulse 85; Resp 18; Temp 97.9(TE); Pulse Ox 100% on R/A; Weight 95.25 kg aj1 (R); Height 5 ft. 10 in. (177.80 cm) (R); Pain 6/10; 16:50 BP 122 / 88; Pulse 80; Resp 16 S; Pulse Ox 100% on R/A; aa5 15:19 Body Mass Index 30.13 (95.25 kg, 177.80 cm) aj1 ED Course: 15:14 Patient arrived in ED. mr 15:18 Triage completed. aj1 15:19 Arm band placed on Patient placed in an exam room. aj1 15:20 Mumtaz Graham, JOAN is PHCP. pm1 15:20 Alex Ibanez MD is Attending Physician. pm1 15:24 Nuha Molina, LUCIO is Primary Nurse. aa5 15:30 Patient has correct armband on for positive identification. Placed in gown. Bed in low aa5 position. Call light in reach. Side rails up X 1. Pulse ox on. NIBP on. 16:10 Inserted saline lock: 22 gauge in right upper arm, using aseptic technique. aa5 16:25 CT Abd/Pelvis - IV Contrast Only In Process Unspecified. EDMS 16:26 CT completed. Patient tolerated procedure well. Patient moved back from CT. mw3 16:57 No provider procedures requiring assistance completed. IV discontinued, intact, aa5 bleeding controlled, No redness/swelling at site. Pressure dressing applied. 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 16:10 Drug: Zofran 4 mg Route: IVP; Site: right upper arm; aa5 16:15 Follow up: Response: No adverse reaction aa5 16:12 Drug: TORadol - Ketorolac 15 mg Route: IVP; Site: right upper arm; aa5 16:15 Follow up: Response: No adverse reaction aa5 Intake: 16:56 IV: 200ml; Total: 200ml. aa5 Outcome: 16:47 Discharge ordered by . pm1 16:57 Discharged to home ambulatory. aa5 16:57 Condition: stable 16:57 Discharge instructions given to patient, Instructed on discharge instructions, follow up and referral plans. medication usage, Demonstrated understanding of instructions, follow-up care, medications, Prescriptions given X 2. 17:00 Patient left the ED. aa5 Signatures: Dispatcher [employer] Adeline Hernandez, RN RN aj1 Tsering Grissom mr MolinaNuha ramirez RN RN aa5 Mumtaz Graham, JOAN HANDICRAFTS TEACHER pm1 Lala Brennan mw3 Corrections: (The following items were deleted from the chart) 16:59 16:56 IV Status: Completed infusion; IV Intake: 200ml aa5 aa5
[2019-10-06 17:07] VITALS: TEMP 97.9; O2SAT 100
[2019-10-06 17:08] VITALS: BP 122/88
== END 2019-10-06 17:00 | disposition home or self-care (01) ==
LOC: ER 15:11
DX: R11.10 Vomiting, unspecified (principal); R19.7 Diarrhea, unspecified; Z88.0 Allergy status to penicillin; Z88.5 Allergy status to narcotic agent
CPT/HCPCS: 96361; 85025; 80048; 36415; 81025; 80076; 81003; 83690; 74177; 96375; 96374; 99284; Q9967; J7030; J2405

== ENCOUNTER 2020-02-10 12:51 | Emergency (ER) | payer OTHER ==
[2020-02-10 15:08] LABS: Urine Blood 3+ (NEG); Urine Glucose NEGATIVE (NEG); Urine Protein NEGATIVE (NEG); Urine Specific Gravity 1.025 (1.005-1.030); Urine pH 5.5 (5.0-7.0)
[2020-02-10] MEDS ORDERED: MORPHINE 2 MG/ML SYR ONE (15:34)
[2020-02-10] MEDS ORDERED: NA CHLORIDE 0.9% 1,000 ML ONE (15:34)
[2020-02-10] MEDS ORDERED: ONDANSETRON 4 MG/2 ML VIAL ONE (15:34)
--- OUTSIDE RECORDS SUMMARY | 2020-02-10 16:18 | XMS REPORT | Continuity of Care Document ---
:1995 Author Organization [facility] t Address [facility] [place] [address] Care Team Providers Name Role Phone Unavailable Unavailable Unavailable Problems This patient has no known problems. Allergies, Adverse Reactions, Alerts Allergy Allergy Status Severity Reaction(s) Onset Inactive Treating Comm ents Source Name Type Date Date Clinician Codeine [facility] Morphine [facility] Active [facility] Penicill [facility] Active Hives [facility] reaction [facility] Social History Social Habit Start Date Stop Date Quantity Comments Source History [facility] Alcohol [facility] Std Drinks [facility] History [facility] Alcohol [facility] Binge [facility] Sex Assigned At [facility] History SDOH Alcohol 2018-11-20 2018-11-[address] [facility] - Frequency 00:00:00 00:00:00 [facility] Smoking Status Start Date Stop Date Source Never smoker [facility] Medications This patient has no known medications. Procedures This patient has no known procedures. Results Test Description Test Time Test Comments Results Result Comments Source TROPONIN I 2018-11-20 20:25:00 Test Item Value Reference Range Interpretation Comme nts TROPONIN I (BEAKER) (test code = 397) < ng/mL 0.00-0.03 Troponin I (TnI) levels [...] failure, acidosis, acute neurological disease, and persistent tachyarrhythmia.[id number] 20:18:00 Test Item Value Reference Range Interpretation Comments MAGNESIUM (BEAKER) (test code = 2.4 mg/dL 1.6-2.6 627) BASIC METABOLIC [id number] 20:18:00 Test Item Value Reference Range Interpretation Comments SODIUM (BEAKER) 139 meq/L 136-145 (test code = 381) POTASSIUM (BEAKER) 3.9 meq/L 3.5-5.1 (test code = 379) CHLORIDE (BEAKER) 108 meq/L 98-107 H (test code = 382) CO2 (BEAKER) (test 21 meq/L 22-29 L code = 355) BLOOD UREA NITROGEN 10 mg/dL 7-21 (BEAKER) (test code = 354) CREATININE (BEAKER) 0.78 mg/dL 0.57-1.25 (test code = 358) GLUCOSE RANDOM 87 mg/dL 70-105 (BEAKER) (test code = 652) CALCIUM (BEAKER) 9.8 mg/dL 8.4-10.2 (test code = 697) EGFR (BEAKER) (test mL/min/1.73 INSUFFIC IENT CLINICAL code = 1092) sq m DATA TO CALCULA TE ESTIMATED GFR. [id number] 20:13:00 Test Item Value Reference Range Interpretation Comments PROTIME (BEAKER) (test code = 13.1 seconds 11.7-14.7 759) INR (BEAKER) (test code = 370) 1.0 <=5.9 PARTIAL THROMBOPLASTIN TIME 31.3 seconds 22.5-36.0 (BEAKER) (test code = 760) RECOMMENDED COUMADIN/WARFARIN INR THERAPY RANGESSTANDARD DOSE: 2.0 - 3.0 Includes: PROPHYLAXIS forvenous thrombosis, systemic embolization; TREATMENT for venous thrombosis and/or pulmonary embolus.HIGH RISK: Target INR is 2.5-3.5 for patients with mechanical heart valves.CBC W/PLT COUNT & AUTO DIFFERENTIAL 2018-11-20 20:04:00 Test Item Value Reference Range Interpretation Comments WHITE BLOOD CELL COUNT (BEAKER) 9.2 K/ L 3.5-10.5 (test code = 775) RED BLOOD CELL COUNT (BEAKER) 4.81 M/ L 3.93-5.22 (test code = 761) HEMOGLOBIN (BEAKER) (test code = 13.1 GM/DL 11.2-15.7 410) HEMATOCRIT (BEAKER) (test code = 40.8 % 34.1-44.9 411) MEAN CORPUSCULAR VOLUME (BEAKER) 84.8 fL 79.4-94.8 (test code = 753) MEAN CORPUSCULAR HEMOGLOBIN 27.2 pg 25.6-32.2 (BEAKER) (test code = 751) MEAN CORPUSCULAR HEMOGLOBIN CONC 32.1 GM/DL 32.2-35.5 L (BEAKER) (test code = 752) RED CELL DISTRIBUTION WIDTH 14.1 % 11.7-14.4 (BEAKER) (test code = 412) PLATELET COUNT (BEAKER) (test 279 K/CU MM 150-450 code = 756) MEAN PLATELET VOLUME (BEAKER) 10.3 fL 9.4-12.3 (test code = 754) NUCLEATED RED BLOOD CELLS 0 /100 WBC 0-0 (BEAKER) (test code = 413) NEUTROPHILS RELATIVE PERCENT 64 % (BEAKER) (test code = 429) LYMPHOCYTES RELATIVE PERCENT 26 % (BEAKER) (test code = 430) MONOCYTES RELATIVE PERCENT 7 % (BEAKER) (test code = 431) EOSINOPHILS RELATIVE PERCENT 3 % (BEAKER) (test code = 432) BASOPHILS RELATIVE PERCENT 1 % (BEAKER) (test code = 437) NEUTROPHILS ABSOLUTE COUNT 5.91 K/ L 1.56-6.13 (BEAKER) (test code = 670) LYMPHOCYTES ABSOLUTE COUNT 2.35 K/ L 1.18-3.74 (BEAKER) (test code = 414) MONOCYTES ABSOLUTE COUNT (BEAKER) 0.60 K/ L 0.24-0.36 H (test code = 415) EOSINOPHILS ABSOLUTE COUNT 0.27 K/ L 0.04-0.36 (BEAKER) (test code = 416) BASOPHILS ABSOLUTE COUNT (BEAKER) 0.06 K/ L 0.01-0.08 (test code = 417) IMMATURE GRANULOCYTES-RELATIVE 0 % 0-1 PERCENT (BEAKER) (test code = 2801) RAD, CHEST, 1 VIEW, NON [id number] 19:41:00Reason for exam:->CHEST PAINIs the patient ?->UnknownFINAL REPORT History: Chest pain. Comparison: None. Findings: A single view of the chest is submitted. The cardiomediastinal contours are unremarkable. There is no focal consoli dation, pneumothorax, large pleural effusion or evidence of overt pulmonary edema. There is no acute bony abnormality. Impression: No acute abnormality. Signed: Davin England MDReport Verified Date/Time: 11/20/2018 19:41:51 Reading Location: [address] Reading Room
--- OUTSIDE RECORDS SUMMARY | 2020-02-10 16:18 | XMS REPORT | Clinical Summary ---
:1995 Author Organization [facility] Address [address] [place] [id number] Care Team Providers Name Role Phone Unavailable Primary Care Provider Unavailable Allergies Active Allergy Reactions Severity Noted Date Comments Codeine Swelling 01/05/2016 Morphine Itching 01/05/2016 Penicillins Hives 01/05/2016 Medications Not on file Active Problems Not on file Social History Tobacco Use Types Packs/Day Years [...] six or more drinks on one occasion? No t asked Sex Assigned at Date Recorded Not on file Job Start Date Occupation Industry Not on file Not on file Not on file Travel History Travel Start Travel End No recent travel history available. Last Filed Vital Signs Not on file Plan of Treatment Not on file Results Not on fileafter 02/09/2019 Insurance Payer Benefit Plan / Group Subscriber ID Type Phone A ddress C[employer] - MGD CARE CIGNA HMO/POS/OPEN ACCESS xxxxxxxxx HMO/POS
--- NOTE | 2020-02-10 18:25 | ER ---
Nurse's Notes [facility] Name: Cathleen Willson Age: 24 yrs Sex: Female : 1995 Arrival Date: 02/10/2020 Time: 12:55 Bed 26 Private MD: Diagnosis: Dysmenorrhea, unspecified Presentation: 02/09 13:15 Chief complaint:. Chief complaint: Patient states: low back throbbing, vaginal bleeding ss and pelvic discomfort that began this morning. Coronavirus screen: Proceed with normal triage. Patient denies a cough. Patient denies shortness of breath or difficulty breathing. Patient denies measured and/or subjective temperature greater than 100.4F prior to today's visit. Patient denies travel on a cruise ship or to a country the [facility] currently lists as an affected area. Patient denies contact with known and/or suspected case of COVID-19. Ebola Screen: Patient denies exposure to infectious person. Patient denies travel to an Ebola-affected area in the 21 days before illness onset. Initial Sepsis Screen: Does the patient meet any 2 criteria? No. Patient's initial sepsis screen is negative. Does the patient have a suspected source of infection? No. Patient's initial sepsis screen is negative. Risk Assessment: Do you want to hurt yourself or someone else? Patient reports no desire to harm self or others. Onset of symptoms was February 10, 2020. 13:15 Method Of Arrival: Ambulatory ss 13:15 Acuity: MIGUEL 3 ss Triage Assessment: 15:25 General: Appears in no apparent distress. Behavior is calm, cooperative. ls4 15:25 Pain: Complains of pain in groin Pain currently is 7 out of 10 on a pain scale. Quality ls4 of pain is described as heavy, pressure. : Reports pain in suprapubic area flank(s), with urination, vaginal bleeding that is PT IS ON HER MENSES Denies burning with urination, inability to void, urgency, vaginal itching. 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 - Social history:: Smoking status: Patient denies any tobacco usage or history of. Screenin:35 Abuse screen: Denies threats or abuse. Denies injuries from another. Nutritional ls4 screening: No deficits noted. Tuberculosis screening: No symptoms or risk factors identified. Fall Risk None identified. Assessment: 14:00 : Urine is clear. Derm: Skin is pink, warm \T\ dry. Musculoskeletal: No deficits noted. ls4 No signs and/or symptoms reported regarding the musculoskeletal system. 15:37 Reassessment: Patient appears in no apparent distress at this time. Patient and/or ls4 family updated on plan of care and expected duration. Pain level reassessed. Patient is alert, oriented x 3, equal unlabored respirations, skin warm/dry/pink. 15:50 Reassessment: Patient is alert, oriented x 3, equal unlabored respirations, skin aa5 warm/dry/pink. 16:00 Reassessment: Patient appears in no apparent distress at this time. Patient and/or ls4 family updated on plan of care and expected duration. Pain level reassessed. Patient is alert, oriented x 3, equal unlabored respirations, skin warm/dry/pink. 18:12 Reassessment: Patient appears in no apparent distress at this time. Patient and/or ls4 family updated on plan of care and expected duration. Pain level reassessed. Patient is alert, oriented x 3, equal unlabored respirations, skin warm/dry/pink. Vital Signs: 13:15 BP 125 / 82; Pulse 80; Resp 15; Temp 98.6(TE); Pulse Ox 100% on R/A; Weight 99.79 kg; Height 5 ft. 10 in. (177.80 cm); 18:12 BP 118 / 86; Pulse 79; Resp 18; Temp 98.4; Pulse Ox 99% on R/A; Pain 5/10; ls4 13:15 Body Mass Index 31.57 (99.79 kg, 177.80 cm) ED Course: 12:55 Patient arrived in ED. as 13:17 Triage completed. ss 13:18 Arm band placed on right wrist. ss 14:00 No apparent distress. ls4 14:00 Patient has correct armband on for positive identification. Bed in low position. Call ls4 light in reach. Side rails up X 1. 14:00 Pulse ox on. NIBP on. Warm blanket given. Verbal reassurance given. ls4 14:00 Assist provider with pelvic exam: Set up pelvic tray. Patient maintains SpO2 saturation ls4 greater than 95% on room air. 14:20 [facility]C [facility]. snw 14:20 Ugo Tellez MD is Attending Physician. snw 14:24 Kristy Greenfield, RN is Primary Nurse. ls4 15:50 Assist provider with pelvic exam: Performed by Verenice WRIGHT Specimens sent to aa5 lab. Patient tolerated well. 16:00 Patient did not have IV access during this emergency room visit. ls4 18:12 US Transvaginal Study (Probe) In Process Unspecified. EDMS Administered Medications: 19:54 Not Given (Patient Refused): TORadol 30 mg IM once ls4 Outcome: 18:24 Discharge ordered by . snw 18:58 Patient left the ED. ls4 18:58 Discharged to home ambulatory. ls4 18:58 Condition: good 18:58 Discharge instructions given to patient, Instructed on discharge instructions, follow up and referral plans. medication usage, safety practices, Demonstrated understanding of instructions, follow-up care, medications, Prescriptions given X 2. Signatures: Dispatcher [employer] EDMS Verenice Smith FNP-C GATE KEEPER-CsnAlexa Gneao Audri RN RN aa5 Marci Hui RN RN Kristy Greenfield, RN RN ls4 Corrections: (The following items were deleted from the chart) 22:50 19:55 Patient left the ED. ls4 ls4
--- NOTE | 2020-02-10 18:25 | EDPHYS ---
Physician Documentation [facility] Name: Cathleen Willson Age: 24 yrs Sex: Female : 1995 Arrival Date: 02/10/2020 Time: 12:55 Bed 26 Private MD: ED Physician Ugo Tellez HPI: 02/09 16:26 This 24 yrs old Female presents to ER via Ambulatory with complaints of snw Vaginal Bleeding, Pelvic Pain, Back Pain. 16:26 The patient presents with pelvic pain, that is located in/on the bilateral lower abd, snw the pain radiates to the back, the pain is described as constant, vaginal bleeding that is vaginal discharge, that is clear discharge, patient has not had similar discharge in the past. Onset: The symptoms/episode began/occurred suddenly. hemorrhagic cyst that necessitated emergent surgery. The patient has not recently seen a physician. 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 - Social history:: Smoking status: Patient denies any tobacco usage or history of. ROS: 16:25 Constitutional: Negative for fever, chills, and weight loss, Eyes: Negative for injury, snw pain, redness, and discharge, ENT: Negative for injury, pain, and discharge, Neck: Negative for injury, pain, and swelling, Cardiovascular: Negative for chest pain, palpitations, and edema, Respiratory: Negative for shortness of breath, cough, wheezing, and pleuritic chest pain, Abdomen/GI: Negative for abdominal pain, nausea, vomiting, diarrhea, and constipation, Back: Negative for injury and pain, MS/Extremity: Negative for injury and deformity, Skin: Negative for injury, rash, and discoloration, Neuro: Negative for headache, weakness, numbness, tingling, and seizure, Psych: Negative for depression, anxiety, suicide ideation, homicidal ideation, and hallucinations. 16:25 : Positive for pelvic pain, vaginal bleeding, vaginal discharge, menstrual abnormality, of the LMP 01/17/20. Exam: 16:25 Constitutional: This is a well developed, well nourished patient who is awake, alert, snw and in no acute distress. Head/Face: Normocephalic, atraumatic. Eyes: Pupils equal round and reactive to light, extra-ocular motions intact. Lids and lashes normal. Conjunctiva and sclera are non-icteric and not injected. Cornea within normal limits. Periorbital areas with no swelling, redness, or edema. ENT: Nares patent. No nasal discharge, no septal abnormalities noted. Tympanic membranes are normal and external auditory canals are clear. Oropharynx with no redness, swelling, or masses, exudates, or evidence of obstruction, uvula midline. Mucous membranes moist. Neck: Trachea midline, no thyromegaly or masses palpated, and no cervical lymphadenopathy. Supple, full range of motion without nuchal rigidity, or vertebral point tenderness. No Meningismus. Chest/axilla: Normal chest wall appearance and motion. Nontender with no deformity. No lesions are appreciated. Cardiovascular: Regular rate and rhythm with a normal S1 and S2. No gallops, murmurs, or rubs. Normal PMI, no JVD. No pulse deficits. Respiratory: Lungs have equal breath sounds bilaterally, clear to auscultation and percussion. No rales, rhonchi or wheezes noted. No increased work of breathing, no retractions or nasal flaring. Abdomen/GI: Soft, non-tender, with normal bowel sounds. No distension or tympany. No guarding or rebound. tenderness throughout left and right lower abdomen. Pelvic Exam: Normal external genitalia. Speculum exam with closed cervical os, no discharge + bleeding noted. Bimanual exam with normal adnexa, no adnexal or cervical motion tenderness. Normal uterus. Skin: Warm, dry with normal turgor. Normal color with no rashes, no lesions, and no evidence of cellulitis. MS/ Extremity: Pulses equal, no cyanosis. Neurovascular intact. Full, normal range of motion. Neuro: Awake and alert, GCS 15, oriented to person, place, time, and situation. Cranial nerves II-XII grossly intact. Motor strength 5/5 in all extremities. Sensory grossly intact. Cerebellar exam normal. Normal gait. Psych: Awake, alert, with orientation to person, place and time. Behavior, mood, and affect are within normal limits. Vital Signs: 13:15 BP 125 / 82; Pulse 80; Resp 15; Temp 98.6(TE); Pulse Ox 100% on R/A; Weight 99.79 kg; ss Height 5 ft. 10 in. (177.80 cm); 18:12 BP 118 / 86; Pulse 79; Resp 18; Temp 98.4; Pulse Ox 99% on R/A; Pain 5/10; ls4 13:15 Body Mass Index 31.57 (99.79 kg, 177.80 cm) ss MDM: 15:25 Patient medically screened. snw 18:24 Data reviewed: vital signs, nurses notes. Data interpreted: Pulse oximetry: on room air snw is 99 %. Interpretation: normal. Counseling: I had a detailed discussion with the patient and/or guardian regarding: the historical points, exam findings, and any diagnostic results supporting the discharge/admit diagnosis, lab results, radiology results, the need for outpatient follow up, to return to the emergency department if symptoms worsen or persist or if there are any questions or concerns that arise at home. Special discussion: Based on the patient's Hx, exam, and Dx evaluation, there is no indication for emergent surgery or inpatient Tx. It is understood by the patient/guardian that if the Sx's persist or worsen they need to return immediately for re-evaluation. Based on the history and exam findings, there is no indication for further emergent testing or inpatient evaluation. I discussed with the patient/guardian the need to see the OB Gyne specialist for further evaluation of the symptoms. I discussed with the patient/guardian the need to see the primary care provider for further evaluation of the symptoms. 02/09 14:22 Order name: Wet Prep; Complete Time: 16:28 snw 02/09 14:22 Order name: GC Probe snw 02/09 14:22 Order name: Urine Culture w 02/09 14:36 Order name: Urine Dipstick--Ancillary (enter results); Complete Time: 15:11 em1 02/09 14:36 Order name: Urine --Ancillary (enter results); Complete Time: 15:11 em1 02/09 14:22 Order name: Pelvic Exam Setup; Complete Time: 14:35 snw 02/09 14:22 Order name: Urine Test (obtain specimen); Complete Time: 14:34 snw 02/09 14:22 Order name: Urine Dipstick-Ancillary (obtain specimen); Complete Time: 14:34 snw 02/09 16:24 Order name: US Transvaginal Study (Probe); Complete Time: 18:54 snw Administered Medications: 19:54 Not Given (Patient Refused): TORadol 30 mg IM once ls4 Disposition: 02/10 03:34 Co-signature as Attending Physician, Ugo Tellez MD I agree with the assessment and kdr plan of care. Disposition: 02/10/20 18:24 Discharged to Home. Impression: Dysmenorrhea, unspecified. - Condition is Stable. - Discharge Instructions: Dysmenorrhea. - Prescriptions for Vitamin 27- 0.8 mg Oral Tablet - take 1 tablet by ORAL route once daily; 60 tablet. Diclofenac Sodium 75 mg Oral Tablet Sustained Release - take 1 tablet by ORAL route 2 times per day; 30 tablet. - Medication Reconciliation Form, Thank You Letter, Antibiotic Education, Prescription Opioid Use form. - Follow up: Emergency Department; When: As needed; Reason: Worsening of condition. Follow up: Private Physician; When: 2 - 3 days; Reason: Recheck today's complaints, Continuance of care, Re-evaluation by your physician. Signatures: Dispatcher [employer] EDIN Ugo Tellez MD MD [facility] Verenice Smith, PARTNERSHIP DEVELOPMENT MANAGER-C PARTNERSHIP DEVELOPMENT MANAGER-Csnw Marci Hui RN RN ss Kristy Greenfield RN RN ls4 Corrections: (The following items were deleted from the chart) 02/09 19:55 18:24 02/10/2020 18:24 Discharged to Home. Impression: Dysmenorrhea, unspecified. ls4 Condition is Stable. Forms are Medication Reconciliation Form, Thank You Letter, Antibiotic Education, Prescription Opioid Use. Follow up: Emergency Department; When: As needed; Reason: Worsening of condition. Follow up: Private Physician; When: 2 - 3 days; Reason: Recheck today's complaints, Continuance of care, Re-evaluation by your physician. snw
--- NOTE | 2020-02-10 18:36 | RAD REPORT ---
EXAM DESCRIPTION: US - Transvaginal Study Probe - 02/10/2020 6:11 pm CLINICAL HISTORY: Pelvic pain COMPARISON: none FINDINGS: The uterus measures 9 x 5 x 6cm. A fibroid is not seen. The endometrial stripe measures 1 centimeter The ovaries are normal in size and echotexture. The right and left adnexa unremarkable No significant free fluid is seen. IMPRESSION: Unremarkable pelvic ultrasound
[2020-02-10 20:26] VITALS: BP 118/86; TEMP 98.4; O2SAT 99
[2020-02-13 20:30] LABS: C.trachomatis RNA,TMA Not Detected (Not Detected)
== END 2020-02-10 19:55 | disposition home or self-care (01) ==
LOC: ER 12:51
DX: N94.6 Dysmenorrhea, unspecified (principal); Z88.0 Allergy status to penicillin; Z88.5 Allergy status to narcotic agent
CPT/HCPCS: 87088; 81025; 87210; 81003; 87590; 87490; 76830; 99284; J2270; J7030; J2405; 87086

== ENCOUNTER 2021-09-05 22:12 | Emergency (ER) | payer OTHER, SELFPAY ==
--- OUTSIDE RECORDS SUMMARY | 2021-09-05 22:16 | XMS REPORT | Continuity of Care Document ---
:1995 Author Organization [facility] t Address [address] [place] [address] Care Team Providers Name Role Phone Loi Hood Primary Care Physician DOV Attending Clinician Unavailable Omaghomamanda ENTERPRISE APPLICATION ADMINISTRATOR Attending Clinician Dvo ENTERPRISE APPLICATION ADMINISTRATOR Attending Clinician ANENE Attending Clinician Unavailable Haja Attending Clinician Patric Paul MD Attending Clinician Patric PAUL Attending Clinician Unavailable Patric PAUL Attending Clinician Unavailable Provider, Urgent Care Attending Clinician Unavailable Payers Payer Name Policy Type Policy Number Effective Date Expiration Date Halley MARTIN II [id number] 2018 00:00:00 [employer]ET[employer] O [id number] 2015 00:00:00 Problems Condition Condition Condition Status Onset Resolution Last Treating Co mments Source Name Details Category Date Date Treatment Clinician Date No known No known Disease Unive rs active active ity of problems problems [facility] Allergies, Adverse Reactions, Alerts Allergy Allergy Status Severity Reaction(s) Onset Inactive Treating Comm ents Source Name Type Date Date Clinician CODEINE Allergy Active Swelling [facility] MORPHINE Allergy Active Itching [facility] 00 [place] PENICILL Allergy Active Hives [facility] 00 [place] CODEINE DRUG Active Swelling [facility] INGREDI 01-04 ity of 00:00: [address] MORPHINE DRUG Active ITCHING Univers INGREDI 5-03 ity of 00:00: [place] 00 [facility] PENICILL Drug Active Hives [facility] INS Class 5-03 ity of 00:00: [place] 00 [facility] Codeine Propensi Active Swelling Unive rs ty to 5-03 ity of adverse 00:00: [place] reaction 00 Medical s Branch Morphine Propensi Active Itching Unive rs ty to 5 ity of adverse 00:00: [place] reaction 00 Medical s Branch Penicill Propensi Active Hives Univer s ins ty to 5 ity of adverse 00:00: [place] reaction 00 Medical s Branch Social History Social Habit Start Date Stop Date Quantity Comments Source Exposure to Yes [facility] SARS-CoV-2 (event) [facility] [place] Tobacco use and 2021-09-05 2021-09-05 Never used [facility] exposure [facility]:00[facility] Sex Assigned At [birth year] [facility] 00:00:00 00:00:00 Medical [place] Smoking Status Start Date Stop Date Source Never smoker [facility] Unknown if ever smoked [facility] Medications Ordered Filled Start Stop Current Ordering Indication Dosage Frequency Signature Comments Components Source Medication Medication Date Date Medication? Clinician (SIG) Name Name predniSONE 2019-09 Yes [id number] Prednisone [facility] 20 mg 0-26 40mg PO ity of tablet 00:00: daily X 5 [place] 00 days, then Medical 20mg PO Branch daily x 5 days, then 20mg PO every other day x 10 days triamcinolo 2019-09 Yes [id number] Apply to Univers ne 0-26 area(s) 2 ity of acetonide 00:00: (two) [place] 0.1 % cream 00 times Medical daily. Branch predniSONE 2019-09 Yes [id number] Prednisone Univers 20 mg 0-26 40mg PO ity of tablet 00:00: daily X 5 [place] 00 days, then Medical 20mg PO Branch daily x 5 days, then 20mg PO every other day x 10 days triamcinolo 2019-09 Yes [id number] Apply to Univers ne 0-26 area(s) 2 ity of acetonide 00:00: (two) [place] 0.1 % cream 00 times Medical daily. Branch predniSONE 2019-09 Yes [id number] Prednisone Univers 20 mg 0-26 40mg PO ity of tablet 00:00: daily X 5 [place] 00 days, then Medical 20mg PO Branch daily x 5 days, then 20mg PO every other day x 10 days triamcinolo 2019-09 Yes [id number] Apply to Univers ne 0-26 area(s) 2 ity of acetonide 00:00: (two) [place] 0.1 % cream 00 times Medical daily. Branch hydrocortis 2019-09 2020- No [id number] Apply to Univers one 1 % 0-10 10-18 affected ity of cream 00:00: 04:59 area(s) 2 [place] 00 :00 (two) Medical times Branch daily for 7 days. traMADOL 2016-0 Yes 50mg Take 1 Univers (ULTRAM) 50 5-03 tablet by ity of mg tablet 00:00: mouth [place] 00 every 6 Medical (six) Branch hours as needed for Pain (scale 7-10). naproxen 2016-0 Yes 550mg Take 1 Univer s sodium 5-03 tablet by ity of (ANAPROX) 00:00: mouth 2 [place] 550 mg 00 (two) Medical tablet times Branch daily with meals. Nitrofurant 2016-0 Yes 100mg Take 1 Uni vers oin&Nit. 5-03 capsule by ity o f [place] 00:[place]: mouth [place] (MACROBID) 00 (two) Medical 100 mg times Branch capsule daily. traMADOL 2016-0 Yes 50mg Take 1 Univers (ULTRAM) 50 5-03 tablet by ity of mg tablet 00:00: mouth [place] 00 every 6 Medical (six) Branch hours as needed for Pain (scale 7-10). naproxen 2016-0 Yes 550mg Take 1 Univer s sodium 5-03 tablet by ity of (ANAPROX) 00:00: mouth 2 [place] 550 mg 00 (two) Medical tablet times Branch daily with meals. Nitrofurant 2016-0 Yes 100mg Take 1 Uni vers oin&Nit. 5-03 capsule by ity o f [place] 00:[place]: mouth 2 [place] (MACROBID) 00 (two) Medical 100 mg times Branch capsule daily. traMADOL 2016-0 Yes 50mg Take 1 Univers (ULTRAM) 50 5-03 tablet by ity of mg tablet 00:00: mouth [place] 00 every 6 Medical (six) Branch hours as needed for Pain (scale 7-10). naproxen 2016-0 Yes 550mg Take 1 Univer s sodium 5-03 tablet by ity of (ANAPROX) 00:00: mouth 2 [place] 550 mg 00 (two) Medical tablet times Branch daily with meals. Nitrofurant 2016-0 Yes 100mg Take 1 Uni vers oin&Nit. 5-03 capsule by ity o f [place] 00:[place]: mouth 2 [place] (MACROBID) 00 (two) Medical 100 mg times Branch capsule daily. traMADOL 2016-0 Yes 50mg Take 1 Univers (ULTRAM) 50 5-03 tablet by ity of mg tablet 00:00: mouth [place] 00 every 6 Medical (six) Branch hours as needed for Pain (scale 7-10). naproxen 2016-0 Yes 550mg Take 1 Univer s sodium 5-03 tablet by ity of (ANAPROX) 00:00: mouth 2 [place] 550 mg 00 (two) Medical tablet times Branch daily with meals. Nitrofurant 2016-0 Yes 100mg Take 1 Uni vers oin&Nit. 5-03 capsule by ity o f [place] 00:00: mouth 2 [place] (MACROBID) 00 (two) Medical 100 mg times Branch capsule daily. Vital Signs Vital Name Observation Time Observation Value Comments Source BMI 2021-09-05 16:13:00 24.01 kg/m2 [facility] Oxygen saturation in 2021-09-05 16:13:00 98 /min [facility] Arterial blood by [facility] Pulse oximetry Branch Systolic blood 2021-09-05 16:13:00 113 mm[Hg] [facility] Diastolic blood 2021-09-05 16:13:00 79 mm[Hg] [facility] rate 2021-09-05 16:13:00 90 /min [facility] Body temperature 2021-09-05 16:13:00 37.33 Apple [facility] Respiratory rate 2021-09-05 16:13:00 18 /min [facility] Body height 2021-09-05 16:13:00 177.8 cm [facility] Body weight 2021-09-05 16:13:00 75.887 kg Universi ty [facility] Systolic blood 2020-06-13 14:46:00 125 mm[Hg] Univer sity of pressure [facility] Diastolic blood 2020-06-13 14:46:00 84 mm[Hg] Unive rsity of pressure [facility] Heart rate 2020-06-13 14:46:00 78 /min Universi [facility] Body temperature 2020-06-13 14:46:00 36.83 Apple [facility] 2020-06-13 14:46:00 18 /min [facility] Body height 2020-06-13 14:46:00 177.8 cm Universi ty [facility] Body weight 2020-06-13 14:46:00 104.327 kg Universi [facility] BMI 2020-06-13 14:46:00 33.00 kg/m2 [facility] Oxygen saturation in 2020-06-13 14:46:00 96 /min [facility] Arterial blood by [facility] Pulse oximetry Branch Procedures This patient has no known procedures. Encounters Start End Encounter Admission Attending Care Care Encounter Source Date/Time Date/Time Type Type Clinicians Facility Department ID 2021-09-05 2021-09-05 Outpatient R DOV [facility] [id number] Univers 10:20:00 10:38:43 [facility] 2021-09-05 2021-09-05 Urgent Maceyi, Chandrai [facility] [id number] Univers 10:20:00 10:38:43 [facility] [id number] [facility] [id number] Abhilash as ASTER?BLEA [id number] [address] MEDICAL OFFICE BUILDING 2021-09-05 2021-09-05 Outpatient R [facility] [id number] Univers 10:20:00 10:20:00 [id number] 2020-10-27 2020-10-27 Outpatient R [facility] [id number] Univers 13:20:00 13:20:00 [id number] [facility] 2020-10-27 2020-10-27 Outpatient R MAREN [facility] [id number] Univers 13:20:00 13:20:00 BATSHEVA marcia [facility] 2020-06-29 2020-06-29 Office Nick Smyth UN[facility]ERSIT [id number] Univers 14:16:22 15:06:03 Visit Abdulaziz Paul [facility] [id number] ity of [facility] [id number] [place] [id number] [address] 2020-06-29 2020-06-29 Outpatient R [facility] [id number] Univers 14:30:00 14:30:00 [id number] [facility] 2020-06-29 2020-06-29 Outpatient R ABDULAZIZ APUL [facility] [id number] Univers 14:30:00 14:30:00 ABDULAZIZ PAUL i [facility] 2020-06-13 2020-06-13 Urgent Provider, [facility] Care [facility] [id number] Univers 09:41:31 10:01:31 Care Dov [facility] [id number] ity of [place] [id number] Abhilash as Zia [id number] [address] Office [address] 2020-06-13 2020-06-[address] [facility] [id number] Univers 09:40:00 09:40:00 [facility] Results Test Description Test Time Test Comments [...] failure, acidosis, acute neurological disease, and persistent tachyarrhythmia.[id number] 20:18:00 Test Item Value Reference Range Interpretation Comments MAGNESIUM (BEAKER) (test code = 2.4 mg/dL 1.6-2.6 627) BASIC METABOLIC [id number] 20:18:00 Test Item Value Reference Range Interpretation [...] m DATA TO CALCULA TE ESTIMATED GFR. PT/[id number] 20:13:00 Test Item Value Reference Range Interpretation [...] = 2801) RAD, CHEST, 1 VIEW, NON [id number] 19:41:00Reason for exam:->CHEST PAINIs the patient ?->UnknownFINAL REPORT History: Chest pain. Comparison: None. Findings: A single view of the chest is submitted. The cardiomediastinal contours are unremarkable. There is no focal consoli dation, pneumothorax, large pleural effusion or evidence of overt pulmonary edema. There is no acute bony abnormality. Impression: No acute abnormality. Signed: Logan Oconnell Verified Date/Time: 11/20/2018 19:41:51 Reading Location: [address] Reading Room
--- NOTE | 2021-09-06 01:50 | ER ---
Nurse's Notes [facility] Name: Cathleen Willson Age: 26 yrs Sex: Female : 1995 Arrival Date: 09/05/2021 Time: 22:20 Bed Waiting Private MD: Diagnosis: Presentation: 09/06 00:00 Chief complaint: Patient states: she was feeling really sick yesterday with body aches, bb chills, fever went to urgent care and tested for Covid ut told results wouldn't be back for several days last night she started vomiting and afterwards has been having continuous body tremors. Coronavirus screen: chills, fever, muscle pain. Ebola Screen: No symptoms or risks identified at this time. Initial Sepsis Screen: Does the patient meet any 2 criteria? No. Patient's initial sepsis screen is negative. Does the patient have a suspected source of infection? No. Patient's initial sepsis screen is negative. Risk Assessment: Do you want to hurt yourself or someone else? Patient reports no desire to harm self or others. Onset of symptoms was September 05, 2021. 00:00 Method Of Arrival: Ambulatory bb 00:00 Acuity: MIGUEL 3 bb Triage Assessment: 00:02 General: Appears uncomfortable, Behavior is calm, cooperative. Pain: Complains of pain bb in back. Neuro: Level of Consciousness is awake, alert, obeys commands, Oriented to person, place, time, situation. Cardiovascular: Capillary refill < 3 seconds Patient's skin is warm and dry. Respiratory: Respiratory effort is even, unlabored. GI: Reports vomiting. Derm: Skin is pink, warm \T\ dry. Musculoskeletal: Circulation, motion, and sensation intact. pt with tremors. 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 - Social history:: Smoking status: Patient denies any tobacco usage or history of. Vital Signs: 00:00 BP 126 / 86; Pulse 84; Resp 16 S; Temp 98.3(O); Pulse Ox 99% on R/A; Weight 75.75 kg bb (R); Height 5 ft. 10 in. (177.80 cm) (R); 00:00 Body Mass Index 23.96 (75.75 kg, 177.80 cm) anita ED Course: 09/05 22:20 Patient arrived in ED. wm 09/06 00:02 Triage completed. bb 00:02 Arm band placed on Patient placed in waiting room, Patient notified of wait time. bb 01:48 Patient's name was called from ER lobby. No response. Unable to locate patient. Will bb disposition as left without being seen by a provider. Administered Medications: No medications were administered Outcome: 01:49 Patient left the ED. bb Signatures: Samantha Arnold RN RN bb Madelyn Adame
[2021-09-06 01:54] VITALS: BP 126/86; TEMP 98.3; O2SAT 99
== END 2021-09-06 01:49 | disposition left against medical advice (07) ==
LOC: ER 22:12
DX: Z53.21 Procedure and treatment not carried out due to patient leaving prior to being seen by health care provider (principal)
CPT/HCPCS: 99281

== ENCOUNTER 2023-02-12 00:31 | Emergency (ER) | payer SELFPAY ==
--- OUTSIDE RECORDS SUMMARY | 2023-02-12 00:38 | XMS REPORT | Continuity of Care Document ---
:1995 Author Organization [facility] t Address [address] [place] [address] Care Team Providers Name Role Phone BATSHEVA ENGEL Primary Care Physician Unavailable BATSHEVA ENGEL Attending Clinician Unavailable Taz SALES RECRUITING COORDINATOR, Batsheva Attending Clinician LISA ROSA Attending Clinician Unavailable Benedicto SALES RECRUITING COORDINATORLisa Ring Attending Clinician Unknown, Attending Attending Clinician Unavailable Doctor Unassigned, [place] Attending Clinician Unavailable Ebedvyn SALES RECRUITING COORDINATORTarun Attending Clinician TARUN MORILLO Attending Clinician Unavailable Kenia Easton Attending Clinician Unavailable Raya Woodall Attending Clinician Unavailable TED MONAE Attending Clinician Unavailable Omaghomi SALES RECRUITING COORDINATOR, Omayemamanda Attending Clinician Raúl SALES RECRUITING COORDINATORTed Ring Attending Clinician Nick Smyth Attending Clinician Abdulaziz Gentile MD Attending Clinician ABDULAZIZ GENTILE Attending Clinician Unavailable ABDULAZIZ GENTILE Attending Clinician Unavailable Provider, [facility] Attending Clinician Unavailable Kenia Easton Admitting Clinician Unavailable Payers Payer Name Policy Type Policy Number Effective Date Expiration Date Halley medina CIGPEGGY II [id number] 2018 00:00:00 [employer] [facility] [id number] 2015 00:00:00 Problems Condition Condition Condition Status Onset Resolution Last Treating Co mments Source Name Details Category Date Date Treatment Clinician Date Abscess of Abscess of Disease Active Overview : [facility] left thigh left thigh 2-20 Formattin ity of 00:00: g of this [place] note Medical might be Branch different from the original. Last Assessmen t & Plan: Formattin g of this note might be different from the original. Discussed different options of treatment with pt including I&D, Abx treatment , observati on.I&D would not necessari ly be beneficia l at this stage as the lesion seems to be very soft and not draining. Will go ahead to start Bactrim DS BID for 14 days, Reviewed possible side effects of med (s) with patient who agrees and voices emanuel causey.rtc in 2 weeks.Tarah rocha agrees with treatment plan and voices emanuel causey. All questions answered. Periumbili Periumbili Disease Active Overview : [facility] laura laura 1- Formattin ity of abdominal abdominal 00:00: [place] of [place] pain pain 00 note Medical might be Branch different from the original. Last Assessmen t & Plan: Formattin g of this note might be different from the original. Could be due to hernia. Recommend to get ultrasoun d. In the meantime avoid constipat ion, sneezing or coughing. In these situation s recommend to use a pillow to place on the abdomen and help decrease that sudden increased intra-abd ominal pressure. Will call with imaging report and if needed consider referring back to surgeon.P atient agrees with treatment plan and voices emanuel causey. All questions answered. Other Other Disease Active 2018-09 Overview: Univer s insomnia insomnia 10-09 Formattin ity of 00:00: g of this [place] note Medical might be Branch different from the original. Last Assessmen t & Plan: Formattin g of this note might be different from the original. Sx have not significa ntly improved. Will increase dose of atarax to 50 mg and may go up to 75 mg QHSReview ed possible side effects of med (s) with patient who agrees and voices emanuel causey.Penny ent agrees with treatment plan and voices emanuel causey. All questions answered. 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 Last Assessmen t & Plan: Formattin g of this note might be different from the original. Psycholog ical condition is improving with treatment .Continue current treatment regimen.P sychologi laura condition will be reassesse d 2 months. No known No known Disease Unive rs active active ity of problems problems [facility] Allergies, Adverse Reactions, Alerts Allergy Allergy Status Severity Reaction(s) Onset Inactive Treating Comm ents Source Name Type Date Date Clinician Penicill DA Active [place] diarrhea, 2016-09 [facility]ives[facility] [place] morphine DA Active MO itch,HIVES 2016-09 [facility] 09-22 [facility] [place] codeine DA Active MO Gums swell 2016-09 [facility] 09-22 [facility] [place] Codeine Drug Active Swelling [facility] Allergy -03 ity of 00:00: [place] 00 Medical Branch CODEINE DRUG Active High Swelling Univers INGREDI -03 ity of 00:00: [place] 00 Medical Branch MORPHINE DRUG Active ITCHING [facility] INGREDI -03 ity of 00:00: [place] 00 Medical Branch PENICILL Drug Active Hives Univers INS Class 5-03 ity of 00:00: [place] 00 Medical Branch Penicill Propensi Active Hives Univer s ins ty to 503 ity of adverse 00:00: [place] reaction 00 Medical s Branch CODEINE Allergy [facility] MORPHINE Allergy Active [facility] Codeine Propensi Active Swelling [facility] adverse 00:00: Medical reaction 00 Center s Morphine Propensi Active Itching [facility] adverse 00:00: Medical reaction 00 Center s Penicill Propensi Active Hives [facility] adverse 00:00: Medical reaction 00 Center s PENICILL Allergy Active Hives [facility] Social History Social Habit Start Date Stop Date Quantity Comments Source History SDOH [facility] Alcohol Binge Medical [facility] [facility] History SDOH [facility] Alcohol Std Medical Cent[facility] r Drinks Exposure to 2022-10-14 2022-10-24 Not sure [facility] [place] [facility]-CoV-2 00:00:00 14:43:00 [place] Medical (event) Branch Tobacco use and 2021-09-05 2021-09-05 Smokeless tobacco Un iversity of exposure 00:00:00 00:00:00 non-user [place] Medical Branch History SDOH 2018-11-21 2018-11-[address] [facility] Alcohol Frequency 00:00:00 00:00:[address] [facility] Alcohol intake 2018-11-20 2018-11-[address] [facility] 00:[facility]:00 00:00:00 non-drinker of Medical Ce nter alcohol (finding) Sex Assigned At [address] 00:[facility]00 [facility]00 [facility] Center Smoking Status Start Date Stop Date Source Never smoked tobacco [facility] [place] Tobacco smoking consumption [facility] unknown Branch Medications Ordered Filled Start Stop Current Ordering Indication Dosage Frequency Signature Comments Components Source Medication Medication Date Date Medication? Clinician (SIG) Name Name acetaminoph 2022- No Take by Un sherita en (TYLENOL 2-20 02-20 mouth. ity o f 8 HOUR 15:15: 00:00 [place] ORAL) 31 :00 Medical Branch acetaminoph 2022- No Take by Un sherita en (TYLENOL 2-20 02-20 mouth. ity o f 8 HOUR 15:15: 00:00 [place] ORAL) 31 :00 Medical Branch acetaminoph 2022- No Take by Un sherita en (TYLENOL 2-20 02-20 mouth. ity o f 8 HOUR 15:15: 00:00 [place] ORAL) 31 :00 Medical Branch diphenhydra 2022- No Take by Un sherita mine HCl 2-20 02-20 mouth. ity of (UNISOM 15:15: 00:00 [place] SLEEPMELTS 29 :00 Medical ORAL) Branch diphenhydra 0 2022- No Take by Un sherita mine HCl 2-20 02-20 mouth. ity of (UNISOM 15:15: 00:00 [place] SLEEPMELTS 29 :00 Medical ORAL) Branch diphenhydra 0 2022- No Take by Un sherita mine HCl 2-20 02-20 mouth. ity of (UNISOM 15:15: 00:00 [place] SLEEPMELTS 29 :00 Medical ORAL) Branch buPROPion 2022-0 Yes [id number] 300mg Take 1 U nivers XL 2-20 tablet by ity of (WELLBUTRIN 00:00: mouth [place] XL) 300 mg 00 the Medical 24 hr morning. Branch tablet buPROPion 2022-0 Yes [id number] 150mg Take 1 U nivers XL 2-20 tablet by ity of (WELLBUTRIN 00:[place]: [place] XL[place] 150 mg 00 bedtime. Medic al 24 hr Branch tablet buPROPion 2022-0 Yes [id number] 300mg Take 1 U nivers XL 2-20 tablet by ity of (WELLBUTRIN 00:00: [place] XL) 300 mg 00 the Medical 24 hr morning. Branch tablet buPROPion 2022-0 Yes [id number] 150mg Take 1 U nivers XL 2-20 tablet by ity of (WELLBUTRIN 00:00: [place] XL[place] 150 mg 00 bedtime. Medic al 24 hr Branch tablet buPROPion 2022-0 Yes [id number] 300mg Take 1 U nivers XL 2-20 tablet by ity of (WELLBUTRIN 00:00: [place] XL) 300 mg 00 the Medical 24 hr morning. Branch tablet buPROPion 2022-0 Yes [id number] 150mg Take 1 U nivers XL 2-20 tablet by ity of (WELLBUTRIN 00:00: [place] XL) 150 mg 00 bedtime. Medic al 24 hr Branch tablet methylPREDN 0 2022- No [id number] Take by Univers ISolone 4 2-20 02-27 mouth ity of mg tablets 00:00: 05:59 SEE-INSTRU [place] 00 :00 CTIONS for Medical 6 days. Branch follow package directions methylPREDN 2022- No [id number] [facility] mouth ity of mg tablets 00:00: 05:59 SEE-INSTRU [place] 00 :00 CTIONS for Medical 6 days. Branch follow package directions methylPREDN 2022- No [id number] Take by [facility] 4 10-24 mouth ity of mg tablets 00:00: 05:59 SEE-INSTRU [place] 00 :00 CTIONS for Medical 6 days. Branch follow package directions azithromyci Yes [id number] Z pack as Univers n 2-17 directed. ity of (ZITHROMAX 00:00: [place] Z-STEPHEN) 250 00 Medical mg tablet Branch azithromyci 2022- No [id number] Z pack as Univers n 2-17 - directed. ity of (ZITHROMAX 00:00: 00:00 [place] Z-STEPHEN) 250 00 :00 Medical mg tablet Branch azithromyci 2022- No [id number] Z pack as Univers n 2-17 - directed. ity of (ZITHROMAX 00:00: 00:00 [place] Z-STEPHEN) 250 00 :00 Medical mg tablet Branch azithromyci 2022- No [id number] Z pack as Univers n 2-17 - directed. ity of (ZITHROMAX 00:00: 00:00 [place] Z-STEPHEN) 250 00 :00 Medical mg tablet Branch doxepin 25 2022-0 Yes [id number] 25mg Take 1 U nivers mg capsule 1-30 capsule by ity of 00:00: mouth at [place] [address] bedtime. Medical Branch doxepin 25 2022-0 Yes [id number] 25mg Take 1 U nivers mg capsule 1-30 capsule by ity of 00:00: mouth at [place] [address] bedtime. Medical Branch doxepin 25 2022-0 Yes [id number] 25mg Take 1 U nivers mg capsule 1-30 capsule by ity of 00:00: mouth at [place] [address] bedtime. Medical Branch doxepin 25 0 3- No [id number] 25mg Take 1 Univers mg capsule 1-30 -20 capsule by it y of 00:00: 00:00 mouth at [place] 00 :00 bedtime. Medical Branch doxepin 25 2022-0 2022- No [id number] 25mg Take 1 Univers mg capsule 1-30 02-20 capsule by it y of 00:00: 00:00 mouth at [place] 00 :00 bedtime. Medical Branch doxepin 25 2022-0 2022- No [id number] 25mg Take 1 Univers mg capsule 1-30 02-20 capsule by it y of 00:00: 00:00 mouth at [place] 00 :00 bedtime. Medical Branch doxepin 50 2022-0 Yes [id number] 50mg Take 1 U nivers mg capsule 1-24 capsule by ity of 00:00: mouth at [place] [address] bedtime. Medical Branch propranoloL 2022-0 Yes [id number] 10mg Take 1 Univers 10 mg 1-24 tablet by ity of tablet 00:00: mouth 3 [place] [address] (three) Medical times Branch daily as needed for Other (anxiety). doxepin 50 2022-0 Yes [id number] 50mg Take 1 U nivers mg capsule 1-24 capsule by ity of 00:00: mouth at [place] [address] bedtime. Medical Branch propranoloL 2022-0 Yes [id number] 10mg Take 1 Univers 10 mg 1-24 tablet by ity of tablet 00:00: mouth 3 [place] (three) Medical times Branch daily as needed for Other (anxiety). doxepin 50 2022-0 Yes [id number] 50mg Take 1 U nivers mg capsule 1-24 capsule by ity of 00:00: mouth at [place] [address] bedtime. Medical Branch propranoloL 2022-0 Yes [id number] 10mg Take 1 Univers 10 mg 1-24 tablet by ity of tablet 00:00: mouth 3 [place] (three) Medical times Branch daily as needed for Other (anxiety). doxepin 50 2022-0 Yes [id number] 50mg Take 1 U nivers mg capsule 1-24 capsule by ity of 00:00: mouth at [place] [address] bedtime. Medical Branch propranoloL 2022-0 Yes [id number] 10mg Take 1 Univers 10 mg 1-24 tablet by ity of tablet 00:00: mouth 3 [place] [address] (three) Medical times Branch daily as needed for Other (anxiety). propranoloL 2022-0 Yes [id number] 10mg Take 1 Univers 10 mg 1-24 tablet by ity of tablet 00:00: mouth 3 [place] 00 (three) Medical times Branch daily as needed for Other (anxiety). propranoloL 3-0 Yes [id number] 10mg Take 1 Univers 10 mg 1-24 tablet by ity of tablet 00:00: mouth 3 [place] 00 (three) Medical times Branch daily as needed for Other (anxiety). propranoloL 2023-0 Yes [id number] 10mg Take 1 Univers 10 mg 1-24 tablet by ity of tablet 00:00: mouth 3 [place] 00 (three) Medical times Branch daily as needed for Other (anxiety). propranoloL 2022-0 2022- No [id number] 10mg Take 1 Univers 10 mg 1-24 02-20 tablet by ity of tablet 00:00: 00:00 mouth 3 [place] 00 :00 (three) Medical times Branch daily as needed for Other (anxiety). propranoloL 2022-0 2022- No [id number] 10mg Take 1 Univers 10 mg 1-24 02-20 tablet by ity of tablet 00:00: 00:00 mouth 3 [place] 00 :00 (three) Medical times Branch daily as needed for Other (anxiety). propranoloL 2022-0 2022- No [id number] 10mg Take 1 Univers 10 mg 1-24 02-20 tablet by ity of tablet 00:00: 00:00 mouth 3 [place] 00 :00 (three) Medical times Branch daily as needed for Other (anxiety). doxepin 50 2022-0 2022- No [id number] 50mg Take 1 Univers mg capsule 09-27-30 capsule by it y of 00:00: 00:00 mouth at [place] 00 :00 bedtime. Medical Branch doxepin 50 2022-0 2022- No [id number] 50mg Take 1 Univers mg capsule 09-27-30 capsule by it y of 00:00: 00:00 mouth at [place] 00 :00 bedtime. Medical Branch citalopram 2022-0 3- No [id number] 20mg Take 1 Univers (CELEXA) 20 -27 09-24 tablet by it y of mg tablet 00:00: 00:00 mouth in [place] 00 :00 the Medical morning. Branch citalopram 2022-0 3- No [id number] 20mg Take 1 Univers (CELEXA) 20 1-24 -24 tablet by it y of mg tablet 00:00: 00:00 mouth in [place] 00 :00 the Medical morning. Branch doxepin 50 2022- No [id number] 50mg Take 1 Univers mg capsule 09-27 capsule by it y of 00:00: 00:00 mouth at [place] 00 :00 bedtime. Medical Branch propranoloL 2022- No [id number] 10mg Take 1 Univers 10 mg 09-27 tablet by ity of tablet 00:00: 00:00 mouth 3 [place] 00 :00 (three) Medical times Branch daily as needed for Other (anxiety). traZODone 2021-09 Yes [id number] 50mg Take 1 Un sherita 50 mg 1-18 tablet by ity of tablet 00:00: mouth at [place] [address] bedtime. Medical Branch buPROPion 2021-09 Yes [id number] 150mg Take 1 Univers SR 1-18 tablet by ity of (WELLBUTRIN 00:00: [place] in [place] SR) 150 mg 00 the Medical SR tablet morning Branch and 1 tablet in the evening. traZODone 2021-09 Yes [id number] 50mg Take 1 Un sherita 50 mg 1-18 tablet by ity of tablet 00:00: mouth at [place] 00 bedtime. Medical Branch buPROPion 2021-09 Yes [id number] 150mg Take 1 Univers SR 1-18 tablet by ity of (WELLBUTRIN 00:00: mouth in [place] SR) 150 mg 00 the Medical SR tablet morning Branch and 1 tablet in the evening. traZODone 2021-09 Yes [id number] 50mg Take 1 Un sherita 50 mg 1-18 tablet by ity of tablet 00:00: mouth at [place] [address] bedtime. Medical Branch buPROPion 2021-09 Yes [id number] 150mg Take 1 Univers SR 1-18 tablet by ity of (WELLBUTRIN 00:00: mouth in [place] SR) 150 mg 00 the Medical SR tablet morning Branch and 1 tablet in the evening. buPROPion 2021-09 Yes [id number] 150mg Take 1 Univers SR 1-18 tablet by ity of (WELLBUTRIN 00:00: mouth in [place] SR) 150 mg 00 the Medical SR tablet morning Branch and 1 tablet in the evening. buPROPion 2021-09 Yes [id number] 150mg Take 1 Univers SR 1-18 tablet by ity of (WELLBUTRIN 00:00: mouth in [place] SR) 150 mg 00 the Medical SR tablet morning Branch and 1 tablet in the evening. buPROPion 2021-09 Yes [id number] 150mg Take 1 Univers SR 1-18 tablet by ity of (WELLBUTRIN 00:00: mouth in [place] SR) 150 mg 00 the Medical SR tablet morning Branch and 1 tablet in the evening. buPROPion 2021-09 Yes [id number] 150mg Take 1 Univers SR 1-18 tablet by ity of (WELLBUTRIN 00:00: mouth in [place] SR) 150 mg 00 the Medical SR tablet morning Branch and 1 tablet in the evening. buPROPion 2021-09 Yes [id number] 150mg Take 1 Univers SR 1-18 tablet by ity of (WELLBUTRIN 00:00: mouth in [place] SR) 150 mg 00 the Medical SR tablet morning Branch and 1 tablet in the evening. buPROPion 2021-09 Yes [id number] 150mg Take 1 Univers SR 1-18 tablet by ity of (WELLBUTRIN 00:00: mouth in [place] SR) 150 mg 00 the Medical SR tablet morning Branch and 1 tablet in the evening. buPROPion 2021-09 Yes [id number] 150mg Take 1 Univers SR 1-18 tablet by ity of (WELLBUTRIN 00:00: mouth in [place] SR) 150 mg 00 the Medical SR tablet morning Branch and 1 tablet in the evening. buPROPion 2021-09- No [id number] 150mg Take 1 Univers SR 1-18 02-20 tablet by ity of (WELLBUTRIN 00:00: 00:00 mouth in [place] SR) 150 mg 00 :00 the Medical SR tablet morning Branch and 1 tablet in the evening. buPROPion 2021-09- No [id number] 150mg Take 1 Univers SR 1-18 02-20 tablet by ity of (WELLBUTRIN 00:00: 00:00 mouth in [place] SR) 150 mg 00 :00 the Medical SR tablet morning Branch and 1 tablet in the evening. buPROPion 2021-09- No [id number] 150mg Take 1 Univers SR 1-18 02-20 tablet by ity of (WELLBUTRIN 00:00: 00:00 mouth in [place] SR) 150 mg 00 :00 the Medical SR tablet morning Branch and 1 tablet in the evening. traZODone 2021-09- No [id number] 50mg Take 1 U nivers 50 mg 1-18 -24 tablet by ity of tablet 00:00: 00:00 mouth at [place] 00 :00 bedtime. Medical Branch traZODone 2021-09- No [id number] 50mg Take 1 U nivers 50 mg 18 -24 tablet by ity of tablet 00:00: 00:00 mouth at [place] 00 :00 bedtime. Medical Branch No known 2021-09 No No known Unive rs medications 0-21 medication it y of 13:31: s [place] 57 Medical Branch diphenhydra 2021-09 Yes Take by Uni vers mine HCl 0-17 mouth. ity of (UNISOM 11:09: [place] [address] Medical ORAL) Branch acetaminoph 2021-09 Yes Take by Uni vers en (TYLENOL 0-17 mouth. ity of 8 HOUR 11:09: [place] ORAL) Medical Branch diphenhydra 2021-09 Yes Take by Uni vers mine HCl 0-17 mouth. ity of (UNISOM 11:09: [place] [address] Medical ORAL) Branch acetaminoph 2021-09 Yes Take by Uni vers en (TYLENOL 0-17 mouth. ity of 8 HOUR 11:09: [place] ORAL) Medical Branch diphenhydra 2021-09 Yes Take by Uni vers mine HCl 0-17 mouth. ity of (UNISOM 11:09: [place] [address] Medical ORAL) Branch acetaminoph 2021-09 Yes Take by Uni vers en (TYLENOL 0-17 mouth. ity of 8 HOUR 11:09: [place] ORAL) Medical Branch diphenhydra 2021-09 Yes Take by Uni vers mine HCl 0-17 mouth. ity of (UNISOM 11:09: [place] [address] Medical ORAL) Branch acetaminoph 2021-09 Yes Take by Uni vers en (TYLENOL 0-17 mouth. ity of 8 HOUR 11:09: [place] ORAL) Medical Branch diphenhydra 2021-09 Yes Take by Uni vers mine HCl 0-17 mouth. ity of (UNISOM 11:09: [place] [address] Medical ORAL) Branch acetaminoph 2021-09 Yes Take by Uni vers en (TYLENOL 0-17 mouth. ity of 8 HOUR 11:09: [place] ORAL) Medical Branch diphenhydra 2021-09 Yes Take by Uni vers mine HCl 0-17 mouth. ity of (UNISOM 11:09: [place] [address] Medical ORAL) Branch acetaminoph 2021-09 Yes Take by Uni vers en (TYLENOL 0-17 mouth. ity of 8 HOUR 11:09: [place] ORAL) Medical Branch diphenhydra 2021-09 Yes Take by Uni vers mine HCl 0-17 mouth. ity of (UNISOM 11:09: [place] [address] Medical ORAL) Branch acetaminoph 2021-09 Yes Take by Uni vers en (TYLENOL 0-17 mouth. ity of 8 HOUR 11:09: [place] ORAL) Medical Branch diphenhydra 2021-09 Yes Take by Uni vers mine HCl 0-17 mouth. ity of [facility]: [place] [address] Medical ORAL) Branch acetaminoph 2021-09 Yes Take by Uni vers en (TYLENOL 0-17 mouth. ity of 8 HOUR 11:09: [place] ORAL) Medical Branch diphenhydra 2021-09 Yes Take by Uni vers mine HCl 0-17 mouth. ity of (UNISOM 11:09: [place] [address] Medical ORAL) Branch acetaminoph 2021-09 Yes Take by Uni vers en (TYLENOL 0-17 mouth. ity of 8 HOUR 11:09: [place] ORAL) Medical Branch diphenhydra 2021-09 Yes Take by Uni vers mine HCl 0-17 mouth. ity of (UNISOM 11:09: [place] [address] Medical ORAL) Branch acetaminoph 2021-09 Yes Take by Uni vers en (TYLENOL 0-17 mouth. ity of 8 HOUR 11:09: [place] ORAL) Medical Branch diphenhydra 2021-09 Yes Take by Un sherita mine HCl 0-17 mouth. ity of (UNISOM 11:09: [place] [address] Medical ORAL) Branch acetaminoph 2021-09 Yes Take by Uni vers en (TYLENOL 0-17 mouth. ity of 8 HOUR 11:09: [place] ORAL) Medical Branch diphenhydra 2021-09 Yes Take by Uni vers mine HCl 0-17 mouth. ity of (UNISOM 11:09: [place] [address] Medical ORAL) Branch acetaminoph 2021-09 Yes Take by Uni vers en (TYLENOL 0-17 mouth. ity of 8 HOUR 11:09: [place] ORAL) 32 Medical Branch diphenhydra 2021-09 Yes Take by Uni vers mine HCl 0-17 mouth. ity of (UNISOM 11:09: [place] [address] Medical ORAL) Branch acetaminoph 2021-09 Yes Take by Uni vers en (TYLENOL 0-17 mouth. ity of 8 HOUR 11:09: [place] ORAL) Medical Branch diphenhydra 2021-09 Yes Take by Uni vers mine HCl 0-17 mouth. ity of (UNISOM 11:09: [place] [address] Medical ORAL) Branch acetaminoph 2021-09 Yes Take by Uni vers en (TYLENOL 0-17 mouth. ity of 8 HOUR 11:09: [place] ORAL) Medical Branch buPROPion 2021-09 Yes [id number] 150mg Take 1 Univers SR 0-17 tablet by ity of (WELLBUTRIN 00:00: mouth in [place] SR) 150 mg 00 the Medical SR tablet morning Branch and 1 tablet in the evening. buPROPion 2021-09 Yes [id number] 150mg Take 1 Univers SR 0-17 tablet by ity of (WELLBUTRIN 00:00: mouth in [place] SR) 150 mg 00 the Medical SR tablet morning Branch and 1 tablet in the evening. buPROPion 2021-09 Yes [id number] 150mg Take 1 Univers SR 0-17 tablet by ity of (WELLBUTRIN 00:00: mouth in [place] SR) 150 mg 00 the Medical SR tablet morning Branch and 1 tablet in the evening. buPROPion 2021-09 Yes [id number] 150mg Take 1 Univers SR 0-17 tablet by ity of (WELLBUTRIN 00:00: mouth in [place] SR) 150 mg 00 the Medical SR tablet morning Branch and 1 tablet in the evening. busPIRone 2021-09- No [id number] 10mg Take 1 Univers 10 mg 0-17 12- tablet by ity of tablet 00:00: 05:59 mouth 2 [place] 00 :00 (two) Medical times Branch daily as needed for Other (anxiety) for up to 45 days. busPIRone 2021-09- No [id number] 10mg Take 1 Univers 10 mg 0-17 12-02 tablet by ity of tablet 00:00: 05:59 mouth 2 [place] 00 :00 (two) Medical times Branch daily as needed for Other (anxiety) for up to 45 days. busPIRone 2021-09- No [id number] 10mg Take 1 Univers 10 mg 0-17 12-02 tablet by ity of tablet 00:00: 05:59 mouth 2 [place] 00 :00 (two) Medical times Branch daily as needed for Other (anxiety) for up to 45 days. busPIRone 2021-09- No [id number] 10mg Take 1 Univers 10 mg 0-17 12-02 tablet by ity of tablet 00:00: 05:59 mouth 2 [place] 00 :00 (two) Medical times Branch daily as needed for Other (anxiety) for up to 45 days. busPIRone 2021-09- No [id number] 10mg Take 1 Univers 10 mg 0-17 12-02 tablet by ity of tablet 00:00: 05:59 mouth 2 [place] 00 :00 (two) Medical times Branch daily as needed for Other (anxiety) for up to 45 days. busPIRone 2021-09- No [id number] 10mg Take 1 Univers 10 mg 0-17 12-02 tablet by ity of tablet 00:00: 05:59 mouth 2 [place] 00 :00 (two) Medical times Branch daily as needed for Other (anxiety) for up to 45 days. buPROPion 2021-09- No [id number] 150mg Take 1 Univers SR 0-17 11-18 tablet by ity of (WELLBUTRIN 00:00: 00:00 mouth in [place] SR) 150 mg 00 :00 the Medical SR tablet morning Branch and 1 tablet in the evening. buPROPion 2021-09- No [id number] 150mg Take 1 Univers SR 0-17 11-18 tablet by ity of (WELLBUTRIN 00:00: 00:00 mouth in [place] SR) 150 mg 00 :00 the Medical SR tablet morning Branch and 1 tablet in the evening. predniSONE 2019-09 Yes [id number] Prednisone Univers 20 mg 0-26 40mg PO ity of tablet 00:00: daily X 5 [place] 00 days, then Medical 20mg PO Branch daily x 5 days, then 20mg PO every other day x 10 days triamcinolo 2019-09 Yes [id number] Apply to Univers ne 0-26 area(s) 2 ity of acetonide 00:00: (two) [place] 0.1 % cream 00 times Medical daily. Branch predniSONE 2019-09 Yes [id number] Prednisone Univers 20 mg 0-26 40mg PO ity of tablet 00:00: daily X 5 [place] 00 days, then Medical 20mg PO Branch daily x 5 days, then 20mg PO every other day x 10 days triamcinolo 2019-09 Yes [id number] Apply to Univers ne 0-26 area(s) 2 ity of acetonide 00:00: (two) [place] 0.1 % cream 00 times Medical daily. [place] predniSONE 2019-09 Yes [id number] Prednisone Univers 20 mg 0-26 40mg PO ity of tablet 00:00: daily X 5 [place] 00 days, then Medical 20mg PO Branch daily x 5 days, then 20mg PO every other day x 10 days triamcinolo 2019-09 Yes [id number] Apply to Univers ne 0-26 area(s) 2 ity of acetonide 00:00: (two) [place] 0.1 % cream 00 times Medical daily. [place] predniSONE 2019-09 Yes [id number] Prednisone Univers 20 mg 0-26 40mg PO ity of tablet 00:00: daily X 5 [place] 00 days, then Medical 20mg PO Branch daily x 5 days, then 20mg PO every other day x 10 days triamcinolo 2019-09 Yes [id number] Apply to Univers ne 0-26 area(s) 2 ity of acetonide 00:00: (two) [place] 0.1 % cream 00 times Medical daily. Branch predniSONE 2019-09- No [id number] Prednisone Univers 20 mg 0-26 10-17 40mg PO ity of tablet 00:00: 00:00 daily X 5 [place] 00 :00 days, then Medical 20mg PO Branch daily x 5 days, then 20mg PO every other day x 10 days triamcinolo 2019-09- No [id number] Apply to Univers ne 0-26 10-17 area(s) 2 ity of acetonide 00:00: 00:00 (two) [place] 0.1 % cream 00 :00 times Medical daily. Branch predniSONE 2019-09- No [id number] Prednisone Univers 20 mg 06-20 40mg PO ity of tablet 00:00: 00:00 daily X 5 [place] 00 :00 days, then Medical 20mg PO Branch daily x 5 days, then 20mg PO every other day x 10 days triamcinolo 2019-09- No [id number] Apply to Univers ne 06-20 area(s) 2 ity of acetonide 00:00: 00:00 (two) [place] 0.1 % cream 00 :00 times Medical daily. Branch hydrocortis 2019-09- No [id number] Apply to Univers one 1 % 06-21 affected ity of cream 00:00: 04:59 area(s) [...] 100 mg times Branch capsule daily. traMADOL 2021- No 50mg Take 1 Univer s (ULTRAM) 50 5-03 10-17 tablet by it y of mg tablet 00:00: 00:00 mouth [place] 00 :00 every 6 Medical (six) Branch hours as needed for Pain (scale 7-10). naproxen 2021- No 550mg Take 1 Unive rs sodium 5-03 10-17 tablet by ity of (ANAPROX) 00:00: 00:00 mouth [place] 550 mg 00 :00 (two) Medical tablet times Branch daily with meals. Nitrofurant 2021- No 100mg Take 1 Un sherita oin&Nit. 5-03 10-17 capsule by ity of Macrocryst 00:00: 00:00 mouth 2 Abhilash as (MACROBID) 00 :00 (two) Medical 100 mg times Branch capsule daily. traMADOL No 50mg Take 1 Univer s (ULTRAM) 50 5-03 10-17 tablet by it y of mg tablet 00:00: 00:00 mouth [place] 00 :00 every 6 Medical (six) Branch hours as needed for Pain (scale 7-10). naproxen No 550mg Take 1 Unive rs sodium 5-03 10-17 tablet by ity of (ANAPROX) 00:00: 00:00 mouth 2 [place] 550 mg 00 :00 (two) Medical tablet times Branch daily with meals. Nitrofurant 2021- No 100mg Take 1 Un sherita oin&Nit. 5-03 10-17 capsule by ity of [place] 00:00: 00:00 mouth 2 Abhilash as (MACROBID) 00 :00 (two) Medical 100 mg times Branch capsule daily. Immunizations Ordered Filled Immunization Date Status Comments [facility] e Immunization Name Name Influenza Virus 2017-06-25 Completed Universit y of Vaccine Quad .5 mL 00:00:00 [facility] IM 6+ MO Branch TDAP 2017-06-25 Completed University 00:00:[address] [facility] Influenza Virus 2017-06-25 Completed Universit y of Vaccine [place] .5 mL 00:00:00 [facility] IM 6+ MO Branch TDAP 2017-06-25 Completed University 00:00:[address] [facility] Influenza Virus 2017-06-25 Completed Universit y of Vaccine [place] .5 mL 00:00:00 [facility] 6+ MO Branch TDAP 2017-06-25 Completed University of 00:00:[address] [facility] Influenza Virus 2016-06-10 Completed Universit y of Vaccine [place] .5 mL 00:00:00 [facility] 6+ MO Branch Influenza Virus 2016-06-10 Completed Universit y of Vaccine [place] .5 mL 00:00:00 [facility] 6+ MO Branch Influenza Virus 2016-06-10 Completed Universit y of Vaccine [place] .5 mL 00:00:00 [facility] 6+ MO Branch Influenza Virus 2016-05-20 Completed Universit y of Vaccine 00:00:[address] [facility] Influenza Virus 2016-05-20 Completed Universit y of Vaccine 00:00:[address] [facility] Influenza Virus 2016-05-20 Completed Universit y of Vaccine 00:00:[address] [facility] Influenza Virus 2016-05-20 Completed Universit y of Vaccine 00:00:[address] [facility] Influenza Virus 2016-05-20 Completed Universit y of Vaccine 00:00:[address] [facility] Influenza Virus 2016-05-20 Completed Universit y of Vaccine 00:00:[address] [facility] Influenza Virus 2016-05-20 Completed Universit y of Vaccine 00:00:[address] [facility] Influenza Virus 2016-05-20 Completed Universit y of Vaccine 00:00:[address] [facility] Influenza Virus 2016-05-20 Completed Universit y of Vaccine 00:00:[address] [facility] Influenza Virus 2016-05-20 Completed Universit y of Vaccine 00:00:[address] [facility] Influenza Virus 2016-05-20 Completed Universit y of Vaccine 00:00:[address] [facility] Influenza Virus 2016-05-20 Completed Universit y of Vaccine 00:00:[address] [facility] Influenza Virus 2016-05-20 Completed Universit y of Vaccine 00:00:[address] [facility] Influenza Virus 2016-05-20 Completed Universit y of Vaccine 00:00:[address] [facility] Influenza Virus 2016-05-20 Completed Universit y of Vaccine 00:00:[address] [facility] Influenza Virus 2016-05-20 Completed Universit y of Vaccine 00:00:[address] [facility] Influenza Virus 2016-05-20 Completed Universit y of Vaccine 00:00:[address] [facility] Vital Signs Vital Name Observation Time Observation Value Comments Source Systolic blood 2022-10-24 21:09:00 121 mm[Hg] Univer sity of pressure [place] [facility] Diastolic blood 2022-10-24 21:09:00 78 mm[Hg] Unive rsity of pressure [place] [facility] Heart rate 2022-10-24 21:09:00 72 /min Universi ty of [place] [facility] Body height 2022-10-24 21:09:00 177.8 cm Universi ty of [place] [facility] Body weight 2022-10-24 21:09:00 74.39 kg Universi ty of [place] [facility] BMI 2022-10-24 21:09:00 23.53 kg/m2 Universi ty of [place] [facility] Oxygen saturation in 2022-10-24 21:09:00 100 /min University of Arterial blood by [facility] Pulse oximetry Branch Systolic blood 2022-10-21 19:25:00 139 mm[Hg] Univer sity of pressure [place] [facility] Diastolic blood 2022-10-21 19:25:00 92 mm[Hg] Unive rsity of pressure [place] [facility] Heart rate 2022-10-21 19:25:00 87 /min Universi ty of [place] [facility] Body temperature 2022-10-21 19:25:00 37.28 Apple Univ ersity of [place] [facility] Respiratory rate 2022-10-21 19:25:00 16 /min Univ ersity of [place] [facility] Body weight 2022-10-21 19:25:00 73.891 kg Universi ty of [place] [facility] BMI 2022-10-21 19:25:00 23.37 kg/m2 Universi ty [facility] [place] [facility] Oxygen saturation in 2022-10-21 19:25:00 98 /min University of Arterial blood by [facility] Pulse oximetry Branch Systolic blood 2022-09-27 19:47:00 112 mm[Hg] Univer sity of pressure [place] [facility] Diastolic blood 2022-09-27 19:47:00 74 mm[Hg] Unive rsity of pressure [place] [facility] Heart rate 2022-09-27 19:47:00 88 /min Universi ty of [place] [facility] Body height 2022-09-27 19:47:00 177.8 cm Universi ty [facility] [place] [facility] Body weight 2022-09-27 19:47:00 71.895 kg Universi ty of [place] [facility] BMI 2022-09-27 19:47:00 22.74 kg/m2 Universi ty [facility] [place] [facility] Oxygen saturation in 2022-09-27 19:47:00 98 /min University of Arterial blood by [place] [facility] Pulse oximetry Branch Systolic blood 2022-07-22 19:39:00 120 mm[Hg] Univer sity of pressure [place] [facility] Diastolic blood 2022-07-22 19:39:00 81 mm[Hg] Unive rsity of pressure [place] [facility] Heart rate 2022-07-22 19:39:00 77 /min Universi ty of [place] [facility] Body height 2022-07-22 19:39:00 177.8 cm Universi ty [facility] [place] [facility] Body weight 2022-07-22 19:39:00 71.26 kg Universi ty [facility] [place] [facility] BMI 2022-07-22 19:39:00 22.54 kg/m2 Universi ty [facility] [place] [facility] Oxygen saturation in 2022-07-22 19:39:00 99 /min University of Arterial blood by [facility] Pulse oximetry Branch Systolic blood 2022-06-24 18:13:00 118 mm[Hg] Univer sity of pressure [place] [facility] Diastolic blood 2022-06-24 18:13:00 80 mm[Hg] Unive rsity of pressure [place] [facility] Heart rate 2022-06-24 18:13:00 88 /min Universi ty of [place] [facility] Body temperature 2022-06-24 18:13:00 37.56 Apple Univ ersity of [place] [facility] Respiratory rate 2022-06-24 18:13:00 16 /min Univ ersity of [place] [facility] Body height 2022-06-24 18:13:00 177.8 cm Universi ty [facility] [place] [facility] Body weight 2022-06-24 18:13:00 73.165 kg Universi ty [facility] [place] [facility] BMI 2022-06-24 18:13:00 23.14 kg/m2 Universi ty [facility] [place] [facility] Oxygen saturation in 2022-06-24 18:13:00 97 /min University of Arterial blood by [place] [facility] laura Pulse oximetry Branch Systolic blood 2022-06-20 16:09:00 120 mm[Hg] Univer sity of pressure [place] [facility] Diastolic blood 2022-06-20 16:09:00 82 mm[Hg] Unive rsity of pressure [place] [facility] Heart rate 2022-06-20 16:09:00 69 /min Universi ty of [place] [facility] Body height 2022-06-20 16:09:00 177.8 cm Universi ty [facility] [place] [facility] Body weight 2022-06-20 16:09:00 74.254 kg Universi ty [facility] [place] [facility] BMI 2022-06-20 16:09:00 23.49 kg/m2 Universi ty [facility] [place] [facility] Oxygen saturation in 2022-06-20 16:09:00 99 /min University of Arterial blood by [place] [employer] laura Pulse oximetry Branch Systolic blood 2021-09-05 16:13:00 113 mm[Hg] Univer sity of pressure [place] [facility] Diastolic blood 2021-09-05 16:13:00 79 mm[Hg] Unive rsity of pressure [place] [facility] Heart rate 2021-09-05 16:13:00 90 /min Universi ty [facility] [place] [facility] Body temperature 2021-09-05 16:13:00 37.33 Apple Univ ersity of [place] [facility] Respiratory rate 2021-09-05 16:13:00 18 /min Univ ersity of [place] [facility] Body height 2021-09-05 16:13:00 177.8 cm Universi ty [facility] [place] [facility] Body weight 2021-09-05 16:13:00 75.887 kg [facility]i [facility] [place] [facility] BMI 2021-09-05 16:13:00 24.01 kg/m2 [facility]i [facility] [place] [facility] Oxygen saturation in 2021-09-05 16:13:00 98 /min University of Arterial blood by [place] [employer] laura Pulse oximetry Branch Systolic blood 2020-06-13 14:46:00 125 mm[Hg] Univer sity of pressure [place] [facility] Diastolic blood 2020-06-13 14:46:00 84 mm[Hg] Unive rsity of pressure [place] [facility] Heart rate 2020-06-13 14:46:00 78 /min Universi ty [facility] [place] [facility] Body temperature 2020-06-13 14:46:00 36.83 Apple Univ ersity of [place] [facility] Respiratory rate 2020-06-13 14:46:00 18 /min Univ ersity of [place] [facility] Body height 2020-06-13 14:46:[address] [facility] Body weight 2020-06-13 14:46:[address] [facility] BMI 2020-06-13 14:46:00 33.00 kg/m2 [facility] Oxygen saturation in 2020-06-13 14:46:00 96 /min [facility] blood by [facility] Pulse oximetry Branch Procedures Procedure Date / Time Performing Clinician Source Performed EXTERNAL PROVIDER RECORDS 2022-09-12 06:01:00 Doctor Unassjohny, [facility] [place] [facility] POCT SARS-COV-2 ANTIGEN 2022-06-24 18:23:00 Tarun Morillo [facility] (BINAX NOW) [facility] POCT MOLECULAR FLU 2022-06-24 18:16:00 Unknown, Attending [facility] POCT MOLECULAR STREP 2022-06-24 18:10:00 Unknown, Attending [facility] CONSENT/REFUSAL FOR 2022-06-20 15:53:02 Doctor Unasasha, [facility] DIAGNOSIS AND TREATMENT [place] [facility] PATIENT FINANCIAL Doctor Meek, [facility] RESPONSIBILITY - ALL [place] [facility] FORMS Encounters Start End Encounter Admission Attending Care Care Encounter Source Date/Time Date/Time Type Type Clinicians Facility Department ID 2022-11-04 2022-11-04 Outpatient R TAZ [facility] [id number] Univers 14:30:00 14:30:00 [facility] 2022-10-24 2022-10-24 Outpatient R TAZ [facility] [id number] Univers 15:00:00 15:56:16 BATSHEVA tyler [facility] 2022-10-24 2022-10-24 [facility] [id number] Univers 15:00:00 15:56:16 [facility] [id number] it y andie HERNANDEZ 4.2.7.2.686 Abhilash as ASTER?BLEA [phone] Nj malcolm [address] MEDICAL OFFICE BUILDING 2022-10-21 2022-10-21 Outpatient R [facility] [id number] Univers 13:20:00 13:46:53 REENU ity of [facility] 2022-10-21 2022-10-21 Urgent Lisa Rosa [facility] 1.2.840.11 [id number] Univers 13:20:00 13:46:53 Care Unknown, Attending HEALTH [id number] ity of [place] 4.2.7.2.686 Abhilash as ASTER?BLEA [phone] [facility] [address] MEDICAL OFFICE BUILDING 2022-09-30 2022-09-30 Patient [facility] 1.2.840.114 [id number] Univers 00:00:00 00:00:00 Secure Msg Batsheva HEALTH [id number] ity of [place] 4.2.7.2.686 Abhilash as ASTER?BLEA [phone] [address] MEDICAL OFFICE [facility] 2022-09-27 2022-09-27 Outpatient R TAZ [facility] [id number] Univers 14:00:00 14:34:33 BATSHEVA ity [facility] 2022-09-27 2022-09-27 Office Taz [facility] 1.2.840.114 [id number] Univers 14:00:00 14:34:33 Visit Batsheva HEALTH 350.1.13.10 it y of [facility] 4.2.7.2.686 Abhilash as ASTER?BLEA [phone] [address] MEDICAL OFFICE [facility] 2022-09-27 2022-09-27 Telephone Taz [facility] 1.2.074.035 [id number] Univers 00:00:00 00:00:00 Batsheva HEALTH 350.1.13.10 it y of [place] 4.2.7.2.686 Abhilash as ASTER?BLEA [phone] [address] MEDICAL OFFICE BUILDING 2022-09-12 2022-09-12 Orders Doctor ANÍBAL 1.2.840.114 [id number] Univers 00:00:00 00:00:00 Only Unassigned, JOSE 350.1.13.10 ity of [place] [facility] 4.2.7.2.686 Abhilash as [phone] [address] 2022-07-22 2022-07-22 Office Taz [facility] 1.2.840.114 [id number] Univers 13:30:00 14:19:21 Visit [facility] 350.1.13.10 it y of [place] 4.2.7.2.686 Abhilash as ASTER?BLEA [phone] [facility] [address] MEDICAL OFFICE [facility] 2022-07-22 2022-07-22 Outpatient R TAZ [facility] [id number] Univers 13:30:00 14:19:21 BATSHEVA scott [facility] 2022-06-24 2022-06-24 Urgent VivianTarun hutchinson [facility] 1.2.840.114 [id number] Univers 11:00:00 11:20:00 Care Unknown, Attending HEALTH 350.1.13.10 ity of [place] 4.2.7.2.686 Abhilash as ASTER?BLEA [phone] [facility] [address] MEDICAL OFFICE [facility] 2022-06-24 2022-06-24 Outpatient R ROCIO [facility] [id number] Univers 11:00:00 11:00:00 TARUN scott [facility] 2022-06-22 2022-06-22 [facility] 1.2.840.114 [id number] Univers 00:00:00 00:00:00 Secure Msg [facility] 350.1.13.10 ity of [place] 4.2.7.2.686 Abhilash as ASTER?BLEA [phone] [address] MEDICAL OFFICE [facility] 2022-06-21 2022-06-21 Outpatient R TAZ [facility] [id number] Univers 10:00:00 10:00:00 BATSHEVA gerardomarcia [facility] 2022-06-20 2022-06-20 Outpatient R TAZ [facility] [id number] Univers 11:00:00 11:38:45 BATSHEVA ity [facility] 2022-06-20 2022-06-20 [facility] 1.2.840.114 [id number] Univers 11:00:00 11:38:45 Visit [facility] 350.1.13.10 it y of [place] 4.2.7.2.686 Abhilahs as ASTER?BLEA [id number] [facility] [address] MEDICAL OFFICE BUILDING 2022-06-20 2022-06-20 Orders Doctor ANÍBAL 1.2.840.114 [id number] Univers 00:00:00 00:00:00 Only Unassigned, JOSE 350.1.13.10 ity of [facility] 4.2.7.2.686 Abhilash as [phone] [address] 2022-01-01 2022-01-02 Inpatient EM Rustam [facility].01 [id number] [facility] 18:18:00 10:13:00 Kenia [facility] [place] 2022-01-01 2022-01-02 Inpatient EM Rustam [facility].01 [id number] [facility] 18:18:00 10:13:00 Kenia [id number] [facility] [place] 2021-12-30 2021-12-30 Emergency EM Jose C [facility] [id number] [facility] 10:50:00 16:24:00 Raya [address] [facility] [address] [facility] 2021-09-05 2021-09-05 Outpatient Martine MONAE [facility] [id number] Univers 10:20:00 10:38:43 TED ity [facility] 2021-09-05 2021-09-05 Urgent Omaghomi, Omayemi [facility] 1.2.840. 114 [id number] Univers 10:20:00 10:38:43 Cynthia Monae [facility] 350.1.13.10 ity of [place] 4.2.7.2.686 Abhilash as ASTER?BLEA [phone] [facility] [address] MEDICAL OFFICE [facility] 2020-10-27 2020-10-27 Outpatient R TAZ [facility] [id number] Univers 13:20:00 13:20:00 BATSHEVA ity [facility] 2020-06-29 2020-06-29 Office Nick Smyth UNIVERSIT 1.2.8 40.114 [id number] Univers 14:16:22 15:06:03 Visit Abdulaziz Gentile [facility] 350.1.13.10 ity of [facility] 4.2.7.2.686 [place] [phone] [facility] [address] 2020-06-29 2020-06-29 Outpatient R HUMBERTO ABDULAZIZ [facility] [id number] Univers 14:30:00 14:30:00 ABDULAZIZ GENTILE i ty [facility] 2020-06-13 2020-06-13 Urgent Provider, [facility] 1.2.840.114 [id number] Univers 09:41:31 10:01:31 [facility] 350.1.13.10 ity of [place] 4.2.7.2.686 Abhilash as Professio [phone] [address] Office Building One 2020-06-13 2020-06-13 Outpatient R RAÚL [facility] [id number] Univers 09:40:00 09:40:00 TED ity [facility] Orders Doctor ANÍBAL 1.2.840.114 [id number] Univers 00:00:00 00:00:00 Only Unassigned, JOSE 350.1.13.10 ity of [place] [facility] 4.2.7.2.686 Abhilash as [phone] [address] Results Test Description Test Time Test Comments Results Result Comments Source POCT MOLECULAR FLU 2022-06-24 18:28:02 Test Item Value Reference Range Interpretation Comme nts POCT Molecular FluA (test code = 91858-1) Negative Negative POCT Molecular FluB (test code = 07807-3) Negative Negative Lab Interpretation (test code = 60494-5) Normal [facility] SARS-COV-2 ANTIGEN (BINAX NOW)2022-06-24 18:23:00 Test Item Value Reference Range Interpretation Comments POCT SARS-COV-2 ANTIGEN Not Detected Not Detected (test code = 14938-8) On board controls Yes acceptable with C Line (test code = 3574) LOYDA (test code = LOYDA) accurate development and interpretation of all internal controls Lab Interpretation Normal (test code = 19812-9) [facility] MOLECULAR [id number] 18:18:49 Test Item Value Reference Range Interpretation Comments POCT Molecular Strep (test code = Negative Negative 34916-5) Lab Interpretation (test code = Normal 98803-0) [facility] 16:55:00 Test Item Value Reference Range Interpretation Comments SURGICAL (test code = SR) R UN DATE: 01/05/22 [facility] PAGE 1 RUN TIME: 1655 Specimen Inquiry RUN USER: INTERFACE P ATIENT: RUBIO WHITE LOC: U U #: [id number] AGE/SX: 26/F ROOM: [facility] RE01/01/22[facility] DR: Kenia Easton MD : 94 BED: A DIS: 01/02/22 STATUS: DIS Nirmala TLOC: SPEC #: [id number] RECD: 01/03/22 STATUS: SANDIP MESA #: [id number] SHIRLEY: 01/01/22- SUBM DR: Kenia Easton MD ENTERED: 01/03/22 SP TYPE: SURGICAL OTHR DR: DOES_NOT KNOW ORDERED: ANATOMIC SPEC, SPEC TRACK, [id number] COPIES TO: DOES_NOT KNOW Kenia Easton MD [address] [facility] [address] [place] [address] PROCEDURES: [id number] (01/05/22-1353) TISSUES: A. FALLOPIAN TUBE, LEFT - LEFT TUBE FINAL DIAGNOSIS A. FALLOPIAN TUBE, LEFT, ECTOPIC, SALPINGECTOMY: - Dilated fallopian tube with hemorrhage and scant chorionic villi, consistent with ectopic . GROSS DESCRIPTION Received in formalin labeled with Patient's name, , MRN and "fallopian tube ectopic";consists of a fallopian tube with fimbria that measures 7.5 cm in length; diameter rangesin size from 0.6 to 1.5 cm in greatest dimension (distal end close to the fimbria); themost distal end has a defect that measures 0.4 cm in diameter. Upon sectioning reveals alumen that measures up to 1.5 cm in diameter, filled by arora-brown, spongy material andblood clots. Hydrogen [employer] Operator sections are submitted in A1-Remaining specimen entirely submitted in 4 cassettes [id number] Technical component performed at [facility],[place] [address] , [place] [address] Unless gross only, the diagnosis is based upon microscopic examination.Immunohistochemistr y: This test was developed and its performance characteristicsdetermined by this laboratory. It has not been approved nor does it need approval by the CONTINUED ON NEXT PAGE R UN DATE: 01/05/22 [facility] PAGE 2 RUN TIME: 1655 Specimen Inquiry RUN USER: INTERFACE Halley FARIAS #: [id number] PATIENT: RUBIO WHITE #[id number] (Continued) GROSS DESCRIPTION (Continued) [facility]. Appropriate positive and negative controls are reviewed and judged to beacceptable. This laboratory is certified under the Clinical Laboratory ImprovementAmendments (CLIA-88) as qualified to perform high complexity clinical laboratory testing. CLINICAL INFORMATION 01/01/22, TIME IN FORMALIN 09:33, ECTOPIC . --------- Signed SIGNATURE ON FILE Prieto Redd 01/05/22 1655 END OF REPORT COVID 19 Asymptomatic IH [id number] 18:50:00 Test Item Value Reference Range Interpretation Comments COVID 19 NEGATIVE NEGATIVE This test has b een Asymptomatic IH AG authorize d only for the (test code = detection ofpro teins from COVNONPUIAG) SARS-CoV-2, not for any other viruses orpathogens. Ne gative results should be treated as presumptive andconfirmed wi th a molecular assay , if necessary for patientmanageme nt. Negative result s do not rule out COVID- 19 andshould not b e used as the sole basis for treatment orpat ient management deci sions, including infec tion controldecision s. Negative result s should be considered i n thecontext of a patient's recent exposure s, history and thepresence of clinical signs and symptoms consis tent withCOVID-19. T his test has not been FD A cleared or approved; th e test hasbeen authori rubid by FDA under an Emerge ncy Use Authorization(E UA) for use by laborato omid certified under the CLIA thatmeet the re quirements to perform mode rate, high or waivedcomple xity tests. This nicole t is authorized for use at thePoint of Car e (POC), i.e., in patien t care settingsoperati ng under a CLIA Certificat e of Waiver, Certifi bridgette ofCompliance, o r Certificate of Accreditation. This test is only authori zed for the duration of thedeclaration that circumstances e xist justifying theauthorizatio n of emergency use o f in vitro diagnostic test sfor detection and/o r diagnosis of CO VID-19 under Ejkljuy37 4(b)(1) of the Act, 21 U.S .C. 360bbb-3(b)(1), unless theauthorizatio n is terminated or r evoked sooner. HCG [id number] 16:19:00 Test Item Value Reference Range Interpretation Comments HCG SERUM (test 432 INTERPRETATI ON:VALUES BETWEEN code = HCG) 15-20 milliInte rnational units/mL NEED T O BERETESTED WITHIN 48 HOURS . All units for these ranges ar e in milliInternatio nalunits/mL0-1 WK AFTER CONCEP TION 0-50 1-2 WKS AFTER CORI PTION 40-3002-3 WKS AFTER CORI PTION 100-1,0003-4 WK S AFTER CONCEPTION 500- 6,0001-2 MONTHS AFTER CONCEPTIO N 5,000-200,0002- 3 MONTHS AFTER CONCEPTION 10,0 00-100,0002ND TRIMESTER 3,000 -50,0003RD TRIMESTER 1,000 -50,000 SPECIMENS WITH AN HCG LEVEL FROM 0-6 milliInternatio nalunits/mL SHOULD BE CONSI DERED NEGATIVE COMPREHENSIVE METABOLIC [id number] 16:15:00 Test Item Value Reference Range Interpretation Comments SODIUM (test code = NA) 138 mEq/L 135-145 N POTASSIUM (test code = K) 3.7 mEq/L 3.5-5.0 N CHLORIDE (test code = CL) 104 mEq/L 100-115 N CARBON DIOXIDE (test code = CO2) 26 mEq/L 22-31 N ANION GAP (test code = GAP) 11.40 10-20 N GLUCOSE (test code = GLU) 95 mg/dL 65-110 N BLOOD UREA NITROGEN (test code = 13 mg/dL 7-18 N BUN) GLOMERULAR FILTRATION RATE (test 100 ml/min >60 N code = GFR) CREATININE (test code = CREAT) 0.7 mg/dL 0.5-1.0 N TOTAL PROTEIN (test code = PROT) 7.1 gm/dL 6.3-8.2 N ALBUMIN (test code = ALB) 4.0 gm/dL 3.4-4.8 N CALCIUM (test code = CA) 8.5 mg/dL 8.4-10.2 N BILIRUBIN TOTAL (test code = BILT) 0.4 mg/dL 0.2-1.0 N SGOT/AST (test code = AST) 13 units/L 15-37 L SGPT/ALT (test code = ALT) 22 units/L 12-78 N ALKALINE PHOSPHATASE TOTAL (test 88 units/L 46-116 N code = ALKP) CBC W/AUTO [id number] 15:58:00 Test Item Value Reference Range Interpretation Comments WHITE BLOOD CELL (test code = WBC) 10.6 K/mm3 6.5-12.3 N RED BLOOD CELL (test code = RBC) 3.79 M/mm3 3.51-4.69 N HEMOGLOBIN (test code = HGB) 11.2 g/dL 10.1-13.8 N HEMATOCRIT (test code = HCT) 33.1 % 32.5-41.8 N MEAN CELL VOLUME (test code = MCV) 87.3 fL 84.6-96.6 N MEAN CELL HGB (test code = MCH) 29.6 pg 27.3-33.9 N MEAN CELL HGB CONCETRATION (test 33.8 gm/dL 32.0-34.2 N code = MCHC) RED CELL DISTRIBUTION WIDTH (test 12.5 % 12.2-16.3 N code = RDW) PLATELET COUNT (test code = PLT) 256 K/mm3 134-363 N MEAN PLATELET VOLUME (test code = 10.5 fL 9.2-12.7 N MPV) NEUTROPHIL % (test code = NT%) 72.6 % 57.9-77.3 N LYMPHOCYTE % (test code = LY%) 19.2 % 14.5-29.7 N MONOCYTE % (test code = MO%) 5.1 % 3.6-10.2 N EOSINOPHIL % (test code = EO%) 2.3 % 0.0-3.0 N BASOPHIL % (test code = BA%) 0.5 % 0.1-0.9 N NEUTROPHIL # (test code = NT#) 7.7 K/mm3 LYMPHOCYTE # (test code = LY#) 2.0 K/mm3 MONOCYTE # (test code = MO#) 0.5 K/mm3 EOSINOPHIL # (test code = EO#) 0.24 K/mm3 BASOPHIL # (test code = BA#) 0.1 K/mm3 RBC MORPHOLOGY REQUIRED (test code NORMAL NORMAL = RBCM) PLATELET MORPHOLOGY REQUIRED (test NORMAL NORMAL code = PLTMR) - US PREG UT [id number] 00:00:00 [facility] RUBIOCLAUDIA PEREZ : 1995 Sex: F Patient Name: RUBIO WHITE Unit No: [id number] Report Has Been Amended EXAMS: CPT CODE: [id number] US PREG UT TRANSVAGINAL 90291 Addendum - 01/01/2022 SIGNED 01/01/2022 ADDENDUM:[id number] US/[id number] Results were discussed with Iftikhar Carvalho , charge nurse at 6:33 p.m. on 01/01/2022. at 1833 Reported and signed by: Kenny Garcia Transcribed: 01/01/2022 (1833) Jose.CPS Report PROCEDURE INFORMATION: Exam: US First Trimester (Transabdominal), (Transvaginal), and US Duplex Artery or Vein (Ovaries) Limited Exam date and time: 01/01/2022 5:31 PM Age: 26 years old Clinical indication: complicated by abdominal or pelvic pain; Lower; First trimester (<14 weeks 0 days); Gestational age or lmp: 8; ; Prior surgery; Additional info: Ectopic preg tx'd with methotrexate on 12/30/21 TECHNIQUE: Imaging protocol: Real-time transabdominal and transvaginal obstetrical ultrasound of the maternal pelvis and a first trimester , less than 14 weeks 0 days, with image documentation. Transvaginal imaging was used for better evaluation of the endometrium, adnexa, and/or cervix. Real-time duplex ultrasound scan of the arterial or venous flow of the ovaries with B-mode, color Doppler flow and spectral waveform analysis. Complete obstetrical exam, limited duplex. COMPARISON: OT US PREG 1ST TRIMTR 12/30/2021 12:57 PM FINDINGS: Gestation: There is no intrauterine . MATERNAL: FINDINGS: Uterus: Anteverted. The uterus measures A 0.5 x 4.7 x 5.9 cm. Endometrial stripe measures 7 mm.Right ovary/adnexa: Measures 3.0 x 2.9 x 2.4 cm. Normal ovarian blood flow. There is a 1.8 cm hemorrhagic cyst. Left ovary/adnexa: Measures 2.4 x 2.5 x 2.3 cm. Normal ovarian blood flow. There is a 4.4x 2.7 x 2 point cm complex structure adjacent to the left ovary with adjacent complex fluid. Intraperitoneal space: There is moderate complex fluid adjacent to [facility] NAME: RUBIO WHITE Radiology Department PHYS: Polly Purvis MD [address] : 1995AGE: 26 SEX: [place] [address] LOC: NATHAN 3 PHONE #: [phone] EXAMDATE: 01/01/2022 STATUS: ADM IN FAX #: [phone] RAD NO: Page 1 Signed Report (CONTINUED) PatientName: RUBIO WHITE Unit No: [id number] Report Has Been Amended EXAMS: CPT CODE: [id number] US PREG UT TRANSVAGINAL 56535 (Continued) the left ovary and in the cul-de-sac. Urinary bladder: Unremarkble. IMPRESSION: 1. No intrauterine 2. Complex structure adjacent to the adnexa with adjacent complex free fluid. This is concerning for ruptured ectopic . Recommend correlation with beta HCG. at 1830 Reported and signed by: Kenny Garcia CC: Polly Hernandez MD; Kenia Easton MD Technologist: Sammie Mcintosh RDMS Probe: [id number] Trnscrbd D/ (1829) GCD.CPS Orig Print D/T: S: 01/01/2022 (1830) [facility] NAME: CHRISTOPHER,RUBIOCLAUDIA PEREZ Radiology Department PHYS: Polly Purvis MD [address] : 1995 AGE: 26 SEX: [place] [address] LOC: NATHAN 3 PHONE #: [phone] EXAM DATE: 01/01/2022 STATUS: ADM IN FAX #: [phone] RADNO: Page 2 Signed Report Patient Name: RUBIO WHITE Unit No: [id number] Report Has Been Amended EXAMS: CPT CODE: [id number] US PREG UT TRANSVAGINAL 11040 (Continued) [facility] NAME: RUBIO WHITE Radiology Department PHYS: Polly Purvis MD [address] : 1995 AGE: 26 SEX: F [place], [place] [address] LOC: NATHAN 3 PHONE #: [phone] EXAM DATE: 01/01/2022 STATUS: ADM IN FAX #: [phone] RAD NO: Page 3 Signed Report- DUP AB/PEL/SC/LTD 2022-01-01 00:00:00 [facility] : 1995 Sex: F Patient Name: RUBIO WHITE Unit No: [id number] Report Has Been Amended EXAMS:CPT CODE: [id number] DUP AB/PEL/SC/LTD 43941 Addendum - 01/01/2022 SIGNED 01/01/2022 ADDENDUM: [id number] US/DUPAPSLTD Results were discussed with Iftikhar Carvalho , charge nurse at 6:33 p.m. on 01/01/2022. at 1833 Reported and signed by: Kenny Garcia Transcribed: 01/01/2022 (1833) GCD.CPS Report PROCEDURE INFORMATION: Exam: US First Trimester (Transabdominal), (Transvaginal), and US Duplex Artery or Vein (Ovaries) Limited Exam date and time: 01/01/2022 5:31 PM Age: 26 years old Clinical indication: complicated by abdominal or pelvic pain; Lower; First trimester (<14 weeks 0 days); Gestational age or lmp: 8; ; Prior surgery; Additional info: Ectopic preg tx'd with methotrexate on 12/30/21 TECHNIQUE: Imaging protocol: Real-time transabdominal and transvaginal obstetrical ultrasound of the maternal pelvis and a first trimester , less than 14 weeks 0 days, with image documentation. Transvaginal imaging was used for better evaluation of the endometrium, adnexa, and/or cervix. Real-time duplex ultrasound scan of the arterial or venous flow of the ovaries with B-mode, color Doppler flow and s pectral waveform analysis. Complete obstetrical exam, limited duplex. COMPARISON: OT US PREG 1ST TRIMTR 12/30/2021 12:57 PM FINDINGS: Gestation: There is no intrauterine . MATERNAL: FINDINGS: Uterus: Anteverted. The uterus measures A 0.5 x 4.7 x 5.9 cm. Endometrial stripe measures 7 mm. Right o vary/adnexa: Measures 3.0 x 2.9 x 2.4 cm. Normal ovarian blood flow. There is a 1.8 cm hemorrhagic cyst. Left ovary/adnexa: Measures 2.4 x 2.5 x 2.3 cm. Normal ovarian blood flow. There is a 4.4 x 2.7 x 2 point cm complex structure adjacent to the left ovary with adjacent complex fluid. Intraperitoneal space: There is moderate complex fluid adjacent to [facility] NAME: RUBIO WHITE Radiology Department PHYS: Polly Purvis MD [address] : 1995 AGE: 26 SEX: F [place], [place] [address] LOC: COLLEEN 3 PHONE #: [phone] EXAM DATE: 01/01/2022 STATUS: ADM IN FAX #: [phone] RAD NO: Page 1 Signed Report (CONTINUED) Patient Name:CHRISTOPHERRUBIO Unit No: [id number] Report Has Been Amended EXAMS: CPT CODE: [id number] DUP AB/PEL/SC/LTD 43462 (Continued) the left ovary and in the cul-de-sac. Urinary bladder: Unremarkble. IMPRESSION: 1. No intrauterine 2. Complex structure adjacent to the adnexa with adjacent complex free fluid. This is concerning for ruptured ectopic . Recommend correlation with beta HCG. at 1830 Reported and signed by: Kenny Garcia CC: Polly Hernandez MD; Kenia Easton MD Technologist: Sammei Mcintosh RDMS Probe: Trnscrbd D/ (1829) GCD.CPS Orig Print D/T: S: 01/01/2022 (1829) [facility] NAME: RUBIO WHITE Radiology Department PHYS: Polly Purvis MD [address] : 1995 AGE: 26 SEX: F [place] [address] LOC: NATHAN 3 PHONE #: [phone] EXAM DATE: 01/01/2022 STATUS: ADM IN FAX #: [phone] RAD NO: Page 2 Signed Report Patient Name: RUBIO WHITE Unit No: [id number] Report Has Been Amended EXAMS: CPT CODE: [id number] DUP AB/PEL/SC/LTD 55366 (Continued) [facility] NAME: RUBIO WHITE Radiology Department PHYS: Polly Purvis MD [address] : 1995 AGE: 26 SEX: F [place] [address] LOC: NATHAN 3 PHONE #: [phone] EXAM DATE: 01/01/2022 STATUS: ADM IN FAX #: [phone] RAD NO: Page 3 Signed Report- US PREG EVAL 1ST [id number] 00:00:00 [facility] : 1995 Sex: F Patient Name: RUBIO WHITE Unit No: [id number] Report Has Been Amended EXAMS: CPT CODE: [id number] US PREG EVAL 1ST TRIMTR 92494 Addendum - 01/01/2022 SIGNED 01/01/2022 ADDENDUM: [id number] US/[id number] Results were discussed with Iftikhar Carvalho , charge nurse at 6:33 p.m. on 01/01/2022. at 1833 Reported and signed by: Kenny Garcia Transcribed: 01/01/2022 (1833) [facility].CPS Report PROCEDURE INFORMATION: Exam: US First Trimester (Transabdominal), (Transvaginal), and US Duplex Artery or Vein (Ovaries) Limited Exam date and time: 01/01/2022 5:31 PM Age: 26 years old Clinical indication: complicated by abdominal or pelvic pain; Lower; First trimester (<14 weeks 0 days); Gestational age or lm p: 8; ; Prior surgery; Additional info: Ectopic preg tx'd with methotrexate on 12/30/21 TECHNIQUE: Imaging protocol: Real-time transabdominal and transvaginal obstetrical ultrasound of the maternal pelvis and a first trimester , less than 14 weeks 0 days, with image documentation. Trans vaginal imaging was used for better evaluation of the endometrium, adnexa, and/or cervix. Real-time duplex ultrasound scan of the arterial or venous flow of the ovaries with B-mode, color Doppler flow and spectral waveform analysis. Complete obstetrical exam, limited duplex. COMPARISON: OT US PREG 1STTRIMTR 12/30/2021 12:57 PM FINDINGS: Gestation: There is no intrauterine . MATERNAL: FINDINGS: Uterus: Anteverted. The uterus measures A 0.5 x 4.7 x 5.9 cm. Endometrial stripe measures 7 mm. Right ovary/adnexa: Measures 3.0 x 2.9 x 2.4 cm. Normal ovarian blood flow. There is a 1.8 cm hemorrhagic cyst. Left ovary/adnexa: Measures 2.4 x 2.5 x 2.3 cm. Normal ovarian blood flow. There is a 4.4 x 2.7 x 2 point cm complex structure adjacent to the left ovary with adjacent complex fluid. Intraperitoneal space: There is moderate complex fluid adjacent to [facility] NAME: RUBIO WHITE Radiology Department PHYS: Polly Purvis MD [address] : 1995 AGE: 26 SEX: F [place], [place] [address] LOC: COLLEEN 3 PHONE #: [phone] EXAM DATE: 01/01/2022 STATUS: ADM IN FAX #: [phone] RAD NO: Page 1 Signed Report (CONTINUED) Patient Name: RUBIO WHITE Unit No: [id number] Report Has Been Amended EXAMS: CPT CODE: [id number] US PREG EVAL 1ST TRIMTR 02320 (Continued) the left ovary and in the cul-de-sac. Urinary bladder: Unremarkble. IMPRESSION: 1. No intrauterine 2. Complex structure adjacent to the adnexa with adjacent complex free fluid. This is concerning for ruptured ectopic . Recommend correlation with beta HCG. at 1830 Reported andsigned by: Kenny Garcia CC: Polly Hernandez MD; Kenia Easton MD Technologist: Sammie Mcintosh RDMS Probe: Trnscrbd D/ (1830) GCD.CPS Orig Print D/T: S: 01/01/2022 (1830) [facility] NAME: RUBIO WHITE Radiology Department PHYS: Polly Purvis MD [address] : 1995 AGE: 26 SEX: [place] [address] LOC: COLLEEN 3 PHONE #: [phone] EXAM DATE: 01/01/2022 STATUS: ADM IN FAX #: [phone] RAD NO: Page 2 Signed Report Patient Name: RUBIO WHITE Unit No: [id number] Report Has Been Amended EXAMS: CPT CODE: [id number] US PREG EVAL 1ST TRIMTR 86979 (Continued) [facility] NAME: RUBIO WHITE Radiology Department PHYS: Polly Purvis MD [address] : 1995 AGE: 26 SEX: [place] [address] LOC: NATHAN 3 PHONE #: [phone] EXAM DATE: 01/01/2022 STATUS: ADM IN FAX #: [phone] RAD NO: Page 3 Signed ReportUA RFLX MICR CULT IF INDICATED 2021-12-30 11:52:00 Test Item Value Reference Range Interpretation Comments UA COLOR (test code = COLU) YELLOW YELLOW UA APPEARANCE (test code = Slightly-Cloudy CLEAR APPU) UA GLUCOSE DIPSTICK (test NEGATIVE NEG code = DGLUU) UA BILIRUBIN DIPSTICK (test NEGATIVE NEG code = BILU) UA KETONE DIPSTICK (test code NEGATIVE NEG = KETU) UA SPECIFIC GRAVITY (test 1.016 1.001-1.035 N code = SGU) UA BLOOD DIPSTICK (test code 2+ NEG A = CIPRIANO) UA PH DIPSTICK (test code = 8.0 5-9 LAWRENCE) UA PROTEIN DIPSTICK (test NEGATIVE NEG code = PROU) UA UROBILINIOGEN DIPSTICK NEGATIVE mg/dL NEG (test code = URO) UA NITRITE DIPSTICK (test NEG NEG code = KIRAN) UA LEUKOCYTE ESTERASE TRACE NEG A DIPSTICK (test code = LEUU) UA WBC (test code = WBCU) 0-2 #/hpf NONE SEEN UA RBC (test code = RBCU) 0-2 #/hpf NONE SEEN UA EPITHELIAL CELLS (test RARE #/HPF RARE-FEW code = EPIU) UA MUCUS (test code = MUCU) RARE NONE SEEN Indication for culture: Suprapubic PainSpecimen Description: CLEAN CATCHHCG [id number] 11:41:00 Test Item Value Reference Range Interpretation Comments HCG SERUM (test 353 INTERPRETATI ON:VALUES BETWEEN code = HCG) 15-20 milliInte rnational units/mL NEED T O BERETESTED WITHIN 48 HOURS . All units for these ranges ar e in milliInternatio nalunits/mL0-1 WK AFTER CONCEP TION 0-50 1-2 WKS AFTER CORI PTION 40-3002-3 WKS AFTER CORI PTION 100-1,0003-4 WK S AFTER CONCEPTION 500- 6,0001-2 MONTHS AFTER CONCEPTIO N 5,000-200,0002- 3 MONTHS AFTER CONCEPTION 10,0 00-100,0002ND TRIMESTER 3,00 0-50,0003RD TRIMESTER 1,000 -50,000 SPECIMENS WITH AN HCG LEVEL FROM 0-6 milliInternatio nalunits/mL SHOULD BE CONSI DERED NEGATIVE CBC W/AUTO [id number] 11:33:00 Test Item Value Reference Range Interpretation Comments WHITE BLOOD CELL (test code = WBC) 10.3 K/mm3 6.5-12.3 N RED BLOOD CELL (test code = RBC) 4.49 M/mm3 3.51-4.69 N HEMOGLOBIN (test code = HGB) 13.1 g/dL 10.1-13.8 N HEMATOCRIT (test code = HCT) 39.7 % 32.5-41.8 N MEAN CELL VOLUME (test code = MCV) 88.4 fL 84.6-96.6 N MEAN CELL HGB (test code = MCH) 29.2 pg 27.3-33.9 N MEAN CELL HGB CONCETRATION (test 33.0 gm/dL 32.0-34.2 N code = MCHC) RED CELL DISTRIBUTION WIDTH (test 12.5 % 12.2-16.3 N code = RDW) PLATELET COUNT (test code = PLT) 309 K/mm3 134-363 N MEAN PLATELET VOLUME (test code = 10.4 fL 9.2-12.7 N MPV) NEUTROPHIL % (test code = NT%) 69.6 % 57.9-77.3 N LYMPHOCYTE % (test code = LY%) 20.2 % 14.5-29.7 N MONOCYTE % (test code = MO%) 7.1 % 3.6-10.2 N EOSINOPHIL % (test code = EO%) 2.2 % 0.0-3.0 N BASOPHIL % (test code = BA%) 0.7 % 0.1-0.9 N NEUTROPHIL # (test code = NT#) 7.2 K/mm3 LYMPHOCYTE # (test code = LY#) 2.1 K/mm3 MONOCYTE # (test code = MO#) 0.7 K/mm3 EOSINOPHIL # (test code = EO#) 0.23 K/mm3 BASOPHIL # (test code = BA#) 0.1 K/mm3 RBC MORPHOLOGY REQUIRED (test code NORMAL NORMAL = RBCM) PLATELET MORPHOLOGY REQUIRED (test NORMAL NORMAL code = PLTMR) BASIC METABOLIC [id number] 11:33:00 Test Item Value Reference Range Interpretation Comments SODIUM (test code = NA) 137 mEq/L 135-145 N POTASSIUM (test code = K) 3.8 mEq/L 3.5-5.0 N CHLORIDE (test code = CL) 101 mEq/L 100-115 N CARBON DIOXIDE (test code = CO2) 28 mEq/L 22-31 N ANION GAP (test code = GAP) 11.50 10-20 N GLUCOSE (test code = GLU) 93 mg/dL 65-110 N BLOOD UREA NITROGEN (test code = 12 mg/dL 7-18 N BUN) GLOMERULAR FILTRATION RATE (test 100 ml/min >60 N code = GFR) CREATININE (test code = CREAT) 0.7 mg/dL 0.5-1.0 N CALCIUM (test code = CA) 8.8 mg/dL 8.4-10.2 N LIVER [id number] 11:33:00 Test Item Value Reference Range Interpretation Comments TOTAL PROTEIN (test code = PROT) 8.2 gm/dL 6.3-8.2 N ALBUMIN (test code = ALB) 4.8 gm/dL 3.4-4.8 N BILIRUBIN TOTAL (test code = BILT) 0.3 mg/dL 0.2-1.0 N BILIRUBIN DIRECT (test code = 0.1 mg/dL <0.2 N BILD) SGOT/AST (test code = AST) 10 units/L 15-37 L SGPT/ALT (test code = ALT) 20 units/L 12-78 N ALKALINE PHOSPHATASE TOTAL (test 86 units/L 46-116 N code = ALKP) - DUP AB/PEL/SC/[id number] 00:00:00 [facility] 1995 Sex: F Patient Name: RUBIO WHITE Unit No: [id number] EXAMS: CPT CODE: [id number] DUP AB/PEL/SC/LTD 35838 PROCEDURE INFORMATION: Exam: US First Trimester (Transabdominal), (Transvaginal), and US Duplex Artery or Vein (Ovaries) Limited Exam date and time: 12/30/2021 12:57 PMAge: 26 years old Clinical indication: Abdominal or pelvic symptoms: Pelvic pain; Lmp or gestationalage (in weeks): 8w 2d; ; Prior surgery; Surgery date: 6+ months; Surgery type: Tummy tuck LABS AND CLINICAL REPORTS: Last menstrual period start date: 11/02/2021 Gestational age by LMP: 8 weeks, 2 days Estimated due date by last menstrual period: 08/09/2022 TECHNIQUE: Imaging protocol: Real-time transabdominal and transvaginal obstetrical ultrasound of the maternal pelvis and a first trimester , less than 14 weeks 0 days, with image documentation. Transvaginal imaging was used for better evaluation of the endometrium, adnexa, and/or cervix. Real-time duplex ultrasound scan of the ar terial or venous flow of the ovaries with B-mode, color Doppler flow and spectral waveform analysis.Complete obstetrical exam, limited duplex. COMPARISON: 1. OT US PREG AFTER 1ST TRI 06/15/2017 5:11 PM 2. OT US PELVIS COMPLETE 01/05/2016 8:56 PM FINDINGS: Gestation: No intrauterine gestational sac. MATERNAL: Uterus: Anteverted uterus measures 8.7 x 5.4 x 6.6 cm. Normal contour and myometrial echogenicity. The endometrium is homogeneous and measures 7.6 mm in thickness. Cervix: Unremarkable. Right ovary/adnexa: The right ovary measures 3.6 x 2.8 x 3.6 cm. Normal contour. Normal blood flow. 2.2 x 2.6 x 2.7 cm complex cystic lesion with lace-like internal septations compatible with a hemorrhagic cyst.Left ovary/adnexa: The left ovary measures 2.7 x 1.9 x 2.6 cm. Normal contour. Normal blood flow. Dominant follicle measures 1.6 x 1.3 x 1.4 cm. Anechoic para ovarian cyst measures 1.2 x 1.3 x 1.1 cm. Complex adnexal mass with an echogenic rim and cystic center measures 1.6 x 1.2 x 1.3 cm, concerning for an ectopic . No visualized yolk sac or pole. Some peripheral vascularity is seen by color Doppler. Intraperitoneal space: Small to moderate amount of free fluid in the pelvis. IMPRESSION: 1. Left adnexal mass concerning for ectopic . 2. Small to moderate free fluid in the pelvis. 3. Hemorrhagic right ovarian cyst. [facility] NAME: RUBIO WHITE Radiology Department PHYS: SANIA.Raya Springer [address] : 1995 AGE: 26 SEX: F [place], [place] [address] LOC: MAK PHONE #: [phone] EXAM DATE: 12/30/2021 STATUS: BOO [place] FAX #: [phone] RAD NO: Page 1 Signed Report (CONTINUED) Patient Name: RUBIO WHITE Unit No: [id number] EXAMS: CPT CODE: [id number] DUP AB/PEL/SC/LTD 69735 (Continued) Findings were discussed with Raya Woodall at 12/30/2021 2:14 PM CDT. at 1415 Reported and signed by: Jair Lennon MD CC: Kenia Easton MD; Raya Woodall MD Technologist: Courtney Bustillo RDMS, RVT Probe: Trnscrbd D/ (141) GCD.CPS Orig Print D/T: S: 12/30/2021 (1415) [facility] NAME: RUBIO WHITE Radiology Department PHYS: PETCA. - Raya Woodall [address] : 1995 AGE: 26 SEX: F [place] [address] LOC: ChristianeERS PHONE #: [phone] EXAMDATE: 12/30/2021 STATUS: REG ER FAX #: [phone] RAD NO: Page 2 Signed Report Patient Name: RUBIO WHITE Unit No: [id number] EXAMS: CPT CODE: [id number] DUP AB/PEL/SC/LTD 86627 (Continued) [facility] NAME: RUBIO WHITE Radiology Department PHYS: PETCA. - Raya Woodall [address] : 1995 AGE: 26 SEX: F [place] [address] LOC: ChristianeERS PHONE #: [phone] EXAM DATE: 12/30/2021 STATUS: REG ER FAX #: [phone] RAD NO:Page 3 Signed Report - US PREG UT [id number] 00:00:00 [facility] : 1995 Sex: F Patient Name: RUBIO WHITE Unit No: [id number] EXAMS: CPT CODE: [id number] US PREG UTTRANSVAGINAL 31073 PROCEDURE INFORMATION: Exam: US First Trimester (Transabdominal), (Transvaginal), and US Duplex Artery or Vein (Ovaries) Limited Exam date and time: 12/30/2021 12:57 PM Age: 26 years old Clinical indication: Abdominal or pelvic symptoms: Pelvic pain; Lmp or gestat ional age (in weeks): 8w 2d; ; Prior surgery; Surgery date: 6+ months; Surgery type: Tummy tuck LABS AND CLINICAL REPORTS: Last menstrual period start date: 11/02/2021 Gestational age by LMP: 8weeks, 2 days Estimated due date by last menstrual period: 08/09/2022 TECHNIQUE: Imaging protocol: Real-time transabdominal and transvaginal obstetrical ultrasound of the maternal pelvis and a first trimester , less than 14 weeks 0 days, with image documentation. Transvaginal imaging was usedfor better evaluation of the endometrium, adnexa, and/or cervix. Real-time duplex ultrasound scan ofthe arterial or venous flow of the ovaries with B-mode, color Doppler flow and spectral waveform analysis. Complete obstetrical exam, limited duplex. COMPARISON: 1. OT US PREG AFTER 1ST TRI 06/15/2017 5:11 PM 2. OT US PELVIS COMPLETE 01/05/2016 8:56 PM FINDINGS: Gestation: No intrauterine gestational sac. MATERNAL: Uterus: Anteverted uterus measures 8.7 x 5.4 x 6.6 cm. Normal contour and myometrial echogenicity. The endometrium is homogeneous and measures 7.6 mm in thickness. Cervix: Unremarkable. Right ovary/adnexa: The right ovary measures 3.6 x 2.8 x 3.6 cm. Normal contour. Normal blood flow. 2.2x 2.6 x 2.7 cm complex cystic lesion with lace-like internal septations compatible with a hemorrhagic cyst. Left ovary/adnexa: The left ovary measures 2.7 x 1.9 x 2.6 cm. Normal contour. Normal blood flow. Dominant follicle measures 1.6 x 1.3 x 1.4 cm. Anechoic para ovarian cyst measures 1.2 x 1.3 x 1.1 cm. Complex adnexal mass with an echogenic rim and cystic center measures 1.6 x 1.2 x 1.3 cm, concerning for an ectopic . No visualized yolk sac or pole. Some peripheral vascularity isseen by color Doppler. Intraperitoneal space: Small to moderate amount of free fluid in the pelvis. IMPRESSION: 1. Left adnexal mass concerning for ectopic . 2. Small to moderate free fluid inthe pelvis. 3. Hemorrhagic right ovarian cyst. [facility] NAME: RUBIO WHITE ANA Radiology Department PHYS: . - Raya Woodall [address] : 1995 AGE: 26 SEX: F [place], [place] [address] LOC: MAK PHONE #: [phone] EXAM DATE: 12/30/2021 STATUS: REG ER FAX #: [phone] RAD NO: Page 1 Signed Report (CONTINUED) Patient Name: RUBIO WHITE Unit No: [id number] EXAMS: CPT CODE: [id number] PREG UT TRANSVAGINAL 03033 (Continued) Findings were discussed with Raya Woodall at 12/30/2021 2:14 PM CDT. at 1415 Reported and signed by: Jair Lennon [facility]: Kenia Easton MD; Raya Woodall MD Technologist: Courtney Bustillo RDMS, RVT Probe: [id number] Trnscrbd D/ (1415) GCD.CPS Orig Print D/T: S: 12/30/2021 (1415) [facility] NAME: RUPA WHITECLAUDIA PEREZ Radiology Department PHYS: . - Raya Woodall [address] : 1995 AGE: 26 SEX: F [place], [place] [address] LOC: ChristianeERS PHONE #: [phone] EXAM DATE: 12/30/2021 STATUS: REG ER FAX #: [phone] RAD NO: Page 2 Signed Report Patient Name: RUBIO WHITE Unit No: [id number] EXAMS: CPT CODE: [id number] US PREG UTTRANSVAGINAL 22961 (Continued) [facility] NAME: RUBIO WHITE Radiology Department PHYS: SANIA.Ronda Raya Woodall [address] : 1995 AGE: 26 SEX: F [place], [place] [address] LOC: MAK PHONE #: [phone] EXAM DATE: 12/30/2021 STATUS: REGER FAX #: [phone] RAD NO: Page 3 Signed Report- US PREG EVAL 1ST [id number] 00:00:00 [facility] 1995 Sex: F Patient Name: RUBIO WHITE Unit No: [id number] EXAMS: CPT CODE: [id number] US PREG EVAL 1ST TRIMTR 46081 PROCEDURE INFORMATION: Exam: US First Trimester (Transabdominal), (Transvaginal), and US Duplex Artery or Vein (Ovaries) Limited Exam date and time: 12/30/2021 12:57 PM Age: 26 years old Clinical indication: Abdominal or pelvic symptoms: Pelvic pain; Lmp or gestati onal age (in weeks): 8w 2d; ; Prior surgery; Surgery date: 6+ months; Surgery type: Tummy tuck LABS AND CLINICAL REPORTS: Last menstrual period start date: 11/02/2021 Gestational age by LMP: 8 weeks, 2 days Estimated due date by last menstrual period: 08/09/2022 TECHNIQUE: Imaging protocol: Real-time transabdominal and transvaginal obstetrical ultrasound of the maternal pelvis and a first trimester , less than 14 weeks 0 days, with image documentation. Transvaginal imaging was used for better evaluation of the endometrium, adnexa, and/or cervix. Real-time duplex ultrasound scan of the arterial or venous flow of the ovaries with B-mode, color Doppler flow and spectral waveform analysis. Complete obstetrical exam, limited duplex. COMPARISON: 1. OT US PREG AFTER 1ST TRI 06/15/2017 5:11 PM 2. OT US PELVIS COMPLETE 01/05/2016 8:56 PM FINDINGS: Gestation: No intrauterine gestational sac. MATERNAL: Uterus: Anteverted uterus measures 8.7 x 5.4 x 6.6 cm. Normal contour and myometrial echogenicity. The endometrium is homogeneous and measures 7.6 mm in thickness. Cervix: Unremarkable. Right ovary/adnexa: The right ovary measures 3.6 x 2.8 x 3.6 cm. Normal contour. Normal blood flow. 2.2 x2.6 x 2.7 cm complex cystic lesion with lace-like internal septations compatible with a hemorrhagic cyst. Left ovary/adnexa: The left ovary measures 2.7 x 1.9 x 2.6 cm. Normal contour. Normal blood flow. Dominant follicle measures 1.6 x 1.3 x 1.4 cm. Anechoic para ovarian cyst measures 1.2 x 1.3 x 1.1cm. Complex adnexal mass with an echogenic rim and cystic center measures 1.6 x 1.2 x 1.3 cm, concerning for an ectopic . No visualized yolk sac or pole. Some peripheral vascularity is seen by color Doppler. Intraperitoneal space: Small to moderate amount of free fluid in the pelvis. IMPRESSION: 1. Left adnexal mass concerning for ectopic . 2. Small to moderate free fluid in the pelvis. 3. Hemorrhagic right ovarian cyst. [facility] NAME: RUBIO WHITE Radiology Department PHYS: PETCA.01 - Raya Woodall [address] : 1995 AGE: 26 SEX: F [place] [address] LOC: MAK PHONE #: [phone] EXAM DATE: 12/30/2021 STATUS: REG ER FAX #: [phone] RAD NO: Page 1 Signed Report (CONTINUED) Patient Name: RUBIO WHITE Unit No: [id number] EXAMS: CPT CODE: [id number] US PREG EVAL 1ST TRIMTR 67420 (Continued) Findings were discussed with Raya Woodall at 12/30/2021 2:14 PM CDT. at 1415 Reported and signed by: Jair Lennon MD CC: Kenia Eastno MD; Raya Woodall MD Technologist: Courtney Bustillo RDMS, RVT Probe: Trnscrbd D/ (1415) GCD.CPS Orig Print D/T: S: 12/30/2021 (1415) [facility] NAME: RUBIO WHITE Radiology Department PHYS: PETCA. - Raya Woodall [address]DOB: 1995 AGE: 26 SEX: F [place] [address] LOC: MAK PHONE #: [phone] EXAM DATE: 12/30/2021 STATUS: REG ER FAX #: [phone] RAD NO: Page 2 Signed Report Patient Name: RUBIO WHITE Unit No: [id number] EXAMS: CPT CODE: [id number] US PREG EVAL 1ST TRIMTR 47516 (Continued) [facility] NAME: RUBIO WHITE Radiology Department PHYS: PETCA.01 - Jose CRaya acuña D [address] : 1995 AGE: 26 SEX: F [place] [address] LOC: MAK PHONE #: [phone] EXAM DATE: 12/30/2021 STATUS: BOO ER FAX #: [phone] RAD NO: Page 3 Signed [id number] 20:25:00 Test Item Value Reference Range Interpretation Comments TROPONIN I (BEAKER) (test code = 397) [...] failure, acidosis, acute neurological disease, and persistent tachyarrhythmia.[id number] 20:18:00 Test Item Value Reference Range Interpretation Comments MAGNESIUM (BEAKER) (test code = 2.4 mg/dL 1.6-2.6 627) BASIC METABOLIC [id number] 20:18:00 Test Item Value Reference Range Interpretation [...] m DATA TO CALCULA TE ESTIMATED GFR. [id number] 20:13:00 Test Item Value Reference Range Interpretation Comments PROTIME (BEAKER) (test code = 13.1 seconds 11.7-14.7 759) INR (BEAKER) (test code = 370) 1.0 <=5.9 PARTIAL THROMBOPLASTIN TIME 31.3 seconds 22.5-36.0 (BEAKER) (test code = 760) RECOMMENDED COUMADIN/WARFARIN INR THERAPY RANGESSTANDARD DOSE: 2.0 - 3.0 Includes: PROPHYLAXIS for venous thrombosis, systemic embolization; TREATMENT for venous thrombosis and/or pulmonary embolus.HIGH RISK: Target INR is 2.5-3.5 for patients with mechanical heart valves.CBC W/PLT COUNT & AUTO [id number] 20:04:00 Test Item Value Reference Range Interpretation [...] = 2801) RAD, CHEST, 1 VIEW, NON [id number] 19:41:00Reason for exam:->CHEST PAINIs the patient ?->UnknownFINAL REPORT History: Chest pain. Comparison: None. Findings: A single view of the chest is submitted. The cardiomediastinal contours are unremarkable. There is no focal consolidati on, pneumothorax, large pleural effusion or evidence of overt pulmonary edema. There is no acute bony abnormality. Impression: No acute abnormality. Signed: Davin England MDReport Verified Date/Time: 11/20/2018 19:41:51 Reading Location: [address] Reading Room Notes Date/Time Note Provider Source 2022-01-02 06:38:00-00:00 [facility] ([facility]) Gynecology Post Prog Note REPORT#:[id number] REPORT STATUS: Signed DATE:01/02/22 TIME: 637 PATIENT: RUBIO WHITE UNIT #: [id number] ROOM/BED: [address] : [birth year] AGE: 26 SEX: F ATTEND: Joanne Easton MD ADM AUTHOR: Hazel Shipley MD * ALL edits or amendments must be made on the el [email or web address] document * General ORM Surgeries: Surgery Date and Time: 01/01/2022 1930 Primary Procedure: LAPAROSCOPY LEFT SPALPINGECT KAILA Post-op: day 1 Subjective Patient reports: Yes: ambulating, flatus/bowel movement, pain con trolled, tolerating diet, voiding/urinating. No: complaints, abdominal sincere n, chills, fever, heartburn, nausea. Objective General VS/I O: Last Documented: Result Date Time Pulse Ox 97 01/03 336 B/P 95/51 01/02 033 B/P Mean 0.0 01/03 336 O2 Delivery Room air 01/03 336 Temp 98.2 01/03 336 Pulse 83 01/03 336 Resp 18 01/03 336 O2 Flow Rate 10 01/01 2116 24 hour I O ending at 0700: 01/02 0700 01/01 1900 Intake Total 1750.00 Output Total 625 Balance 1125.00 Intake, IV 1550.00 Intake, Oral 200 Number Voids 1 Output, 100 Estimated Blood Loss Output, Urine 525 Patient 160 lb Weight Weight Stated/Reported Measurement Method PATIENT WEIGHT: Weight (lb): Weight (oz): Weight (kg): 72.727 Physical Exam General appearance: alert, awake, oriented, no a cute distress, pleasant, conversational, mental status normal, no respira tory distress Wound/incision: Location: Abdomen Site condition: c/d/i x 3 Abdomen: non-tender, soft, no distention, no gua rding Extremities: full range of motion, moves all Neuro/LOGISTICS ADMINISTRATOR: alert, oriented X 3, normal speech Psychiatry: normal affect, normal judgement/insi ght, normal mood Current Medications Medications: Active Meds + DC'd Last 24 Hrs Acetaminophen (ACETAMINOPHEN 325 MG TAB) 650 MG Q6H PRN PRN PO Al Hydrox/Mg Hydrox/Simethicone (MYLANTA 30 ML S ASSISTED) 30 ML ASDIR PRN PO Dextrose/Lactated Ringer's (DEXTROSE 5% IN LACTA RONALDO RINGERS 1000 ML) 1,000 ML ASDIR IV Docusate Sodium (DOCUSATE SODIUM 100 MG CAP) 100 MG BID PRN PRN PO Ibuprofen (IBUPROFEN 600 MG TAB) 600 MG Q6H PRN PRN PO Ondansetron HCl (ZOFRAN 2 MG/ML 4 MG SYR) 4 MG Q 6H PRN PRN IV Simethicone (SIMETHICONE 80 MG TAB) 160 MG Q6H P RN PRN PO Fentanyl Citrate (SUBLIMAZE 2 ML) 0 .STK-MED ONE .ROUTE (DC) Glycopyrrolate (ROBINUL 0.2 MG/ML 5 ML VIAL) 0 . STK-MED ONE .ROUTE (DC) Ketorolac Tromethamine (TORADOL 60 MG SYRINGE) 0 .STK-MED ONE .ROUTE (DC ) Neostigmine [place] (NEOSTIGMINE METHYLSULFATE 1 :1000 10 ML VIAL) 0 .STK-MED ONE .ROUTE (DC) Ondansetron HCl (ZOFRAN 2 MG/ML 4 MG SYR) 0 .STK -MED ONE .ROUTE (DC) Dexmedetomidine HCl (PRECEDEX 100MCG/ML 2ML VIAL ) 0 .STK-MED ONE .ROUTE (DC) Sodium Chloride (Sodium Chloride 100 mL - OR/EVERARDO U STOCK) 100 ML .STK-MED ONE INJ (DC) Sevoflurane (SEVOFLURANE 250ML BOTTLE) 0 .STK-ME D ONE .ROUTE (DC) Dexamethasone Sodium Phosphate (Decadron 4 Mg/mL Inj) 0 .STK-MED ONE .ROUTE (DC) Fentanyl Citrate (SUBLIMAZE 2 ML) 50 MCG PACU DIR PRN PRN IV (DC) Hydromorphone HCl (DILAUDID) 0.5 MG PACU Q5MIN P RN PRN IV (DC) Ondansetron HCl (ZOFRAN 2 MG/ML 4 MG SYR) 4 MG P ACU ONCE PRN IV (DC) Promethazine HCl (PROMETHAZINE HCL 25 MG) 12.5 M G PACU ONCE PRN IM (DC) Fentanyl Citrate (SUBLIMAZE 2 ML) 0 .STK-MED ONE .ROUTE (DC) Lidocaine HCl (XYLOCAINE 2% INJ PF 5 ML) 0 .STK- MED ONE .ROUTE (DC) Midazolam HCl (VERSED 2 MG/2 ML VIAL) 0 .STK-MED ONE .ROUTE (DC) Propofol (DIPRIVAN 10MG/ML 20 ML AMP) 0 .STK-MED ONE .ROUTE (DC) Rocuronium [place] (ZEMURON 10 MG/ML 5 ML VIAL) 5 ML .STK-MED ONE INJ ( DC) Bupivacaine HCl (SENSORCAINE PF 0.25% 30 ML) 0 . STK-MED ONE .ROUTE (DC) Morphine Sulfate (Morphine Sulfate) [address] A IV (DCr) Ondansetron HCl (ZOFRAN 2 MG/ML 4 MG SYR) 4 MG X 1ED STA IV (DC) Sodium Chloride (SODIUM CHLORIDE 0.9% - 1000 ML) 1,000 ML X1ED STA IV ( DC) Diagnosis, Assessment Plan Free Text A P: Pt is a 26 yo A1 POD #1 s/p laparoscopic lef t salpingectomy for ectopic doing well - Pt AFVSS, pain controlled on tylenol and impro surjit from before surgery, ambulating, tolerated PO, and spontaneously void ing. - ok for d/c home with f/u in the office in 2 we eks Electronically Signed by Hazel Shipley MD 01/02/22 at 0640 RPT #:[id number] END OF REPORT 2022-01-01 21:25:00-00:00 [facility] ([facility]) Clinical Note REPORT#:[id number] REPORT STATUS: Signed DATE:01/01/22 TIME: 2124 PATIENT: RUBIO WHITE UNIT #: [id number] [address] AGE: 26 SEX: F ATTEND: Joanne Easton MD ADM AUTHOR: Maria A Alberto MD * ALL edits or amendments must be made on the el [email or web address] document * Clinical Note Note: assisted on laparoscopic left salpingectomy for ruptured ectopic by Dr. Shipley; no surgical assists or residents av ailable Maria A Alberto MD Electronically Signed by Maria A Alberto MD on at 2126 RPT #:[id number] END OF REPORT 2022-01-01 21:24:00-00:00 [facility] ([facility]) Full Op Note REPORT#:[id number] REPORT STATUS: Signed DATE:01/01/22 TIME: 2123 PATIENT: RUBIO WHITE UNIT #: [id number] ROOM/BED: [facility] : 94 AGE: 26 SEX: F ATTEND: Joanne Easton MD ADM AUTHOR: Hazel Shipley MD * ALL edits or amendments must be made on the el [email or web address] document * Operative Report ORM Surgeries: Surgery Date and Time: 01/01/20221929 Primary Procedure: LAPAROSCOPY LEFT SPALPINGECT KAILA Start date: 01/01/22 Start time: 1999 Pre-procedure diagnosis: Ruptured left ectopic Post-procedure diagnosis: Ruptured left ectopic Procedures performed: Laparoscopic left salpingectomy Technique/Procedure: Patient was taken to the operating room where ge neral anesthesia was induced. She was placed in the dorsal lithotomy p osition in the [facility]. She was prepped and draped in the [facility] sterile fashion. A time out was then performed. A weighted speculum was plac ed in the posterior vaginal vault, and the anterior lip of the cervix was grasped with a single-toot hed tenaculum. The cerivx was dilated to facilitate entry of the Trisha cannula, which was attached to the tenaculum, and the speculum was removed. A red rubber catheter was placed into the bladder, and allowed to freely drain. This was secured to the drapes with a clamp. Attention was then turned to the abdomen where a 5 mm infraumbilical incision was made with the knife. The Veress needle was then introduced into the abdomen , however high opening pressure was note d. The Optivue trocar was then used to directly enter the abdomen through the umbilical port site. Once intra- abdominal placement was confirmed, the CO2 gas w as insufflated. Under direct visualization, two additional 5 mm ports were pl aced in the lateral lower abdominal wall. The abdomen was then surveyed wi th findings as below. The hemoperitoneum was evacuated. The left fallopian tube was grasped, elevated, and transected from its surrounding tissue with the Harmonic scalpel. Hemostasis was noted. The la paroscope was then moved to the left lower quadrant port, and the umbilical port was removed . The skin incision was extended to 10 mm, and a 10 mm trocar was introduced under dire ct visualization. A laparoscopic specimen bag was introduced through the 10 mm port, and the specimen was placed in the bag. The bag was then removed through the umbilicus without difficulty. This was submitted to Pathol deann. The abdomen was again observed and noted to be hemostatic. The abdomin al procedure was then completed. The CO2 gas was removed as much as po ssible, and all ports were removed under direct visualization. The fascia o f the umbilical incision was closed with 0 vicryl in a lkjomw-np-ibaej. The s kin at all sites was closed with 4-0 monocryl in a subcuticular stitch. The skin was then covered with Dermabond. The weighted speculum was then placed into the v agina, and the cannula was removed from the cervix. The tenaculum w as also removed. Hemostasis was noted. The red rubber catheter was removed. The proced ure was then completed. The patient tolerated the procedure well. She was ta олег out of the lithotomy position and awakened from general anesthesia. S he was transported to the recovery room in stable condition. All sponge, l ap, needle, and instrument counts were correct. Primary Surgeon: MD Quinten Fur Trimming Machine Operator(s): Maria A Alberto MD Anesthesia: general anesthesia Operative findings: Ruptured left ectopic pregna ncy in the distal fallopian tube. Hemoperitoneum of approximately 100 cc of clot and fresh blood. No rmal ovaries bilaterally. Normal right fallopian tube. Uterus and cervix n ormal in appearance. Complications: none Estimated blood loss in ml's: 100 mL of hemoperi toneum Specimens removed/altered: Left fallopian tube w ith ectopic Implant(s): none Fluids: 700 mL Urine output: 25 mL Approach: laparoscopic Disposition: plan to D/C home, PACU Counts: Sponge count: correct Instrument count: correct Needle count: correct Electronically Signed by Hazel Shipley MD 01/01/22 at 2139 RPT #:[id number] END OF REPORT 2022-01-01 18:08:00-00:00 [facility] ([facility]) History Physical - Adult REPORT#:[id number] REPORT STATUS: Signed DATE:01/01/22 TIME: 1807 PATIENT: RUBIO WHITE UNIT #: [id number] ROOM/BED: [place] [address] : 94 AGE: 26 SEX: F ATTEND: Joanne Easton MD ADM AUTHOR: Hazel Shipley MD * ALL edits or amendments must be made on the [employer]/computer document * History of Present Illness HPI Chief complaint: severe abdominal pain PCP: PCP: Kenia Easton MD HPI: Pt is a 26 yo with k nown ectopic s/p methotrexate treatment on 12/30/21 who presents today with worsenin g abdominal pain. She reports that her pain is severe, not resolved with percocet. It i s associated with nausea. She has had a ruptured hemorrhagic cyst befo re, and this pain is much more severe. She is also having vaginal bleeding, but this st arted before the ectopic was diagnosed. History Past medical history: Reports: (ovarian cyst s ). Additional medical history: Kim'halley Cole Additional surgical history: R shoulder surgery, R shoulder reconstruction, L aparoscopic cystectomy, Abdominoplasty/breast lift, Gastric sleeve Additional family history: Noncontributory Alcohol use: Denies EtOH use Drug use: Denies recreational drugs Smoking status: Smoking status for patients 13 years old or old er: Never Smoker Medication/Allergy-Vaccine Hx Medications: Home Medications: Medication Dose/Rte/Freq Days Qty Entered Last Max Daily Dose Reviewed PNV WITH FE 1 TAB PO DAILY 06/15/17 FUMARATE/FA 1538 () Strength: 1 EACH TAB IBUPROFEN (MOTRIN) 800 MG PO 30 08/31/17 Strength: 800 MG TAB Q8H PRN PRN MILD TO 1311 MODERATE PAIN Current Hospital Medications: Central Nervous System Agents Sig/Miguel Start time Last Medication Dose Route Stop Time Status Admin Morphine Sulfate 4 MG X1ED STA 01/01 1710 DCr 0 01/01 (Morphine Sulfate) IV 01/01 1711 171 Electrolytic, Caloric, And Nivia Sig/Miguel Start time Last Medication Dose Route Stop Time Status Admin Sodium Chloride 1,000 ML X1ED STA 01/01 1710 DC 01/01 (SODIUM CHLORIDE IV 01/01 1711 171 0.9% - 1000 ML) Gastrointestinal Drugs Sig/Miguel Start time Last Medication Dose Route Stop Time Status Admin Ondansetron HCl 4 MG X1ED STA 01/01 1710 DC (ZOFRAN 2 MG/ML 4 MG IV 01/01 1711 1714 SYR) Allergies: Coded Allergies: Penicillins (Intermediate, diarrhea, hives. 07/05 05/21) codeine (Intermediate, Gums swell 07/23/17) Review of Systems All systems rev neg: except as marked Physical Exam VS/I O Vital Signs: Date Time Temp Pulse Resp B/P B/P Pulse O2 O2 F low FiO2 Mean Ox Delivery Rate 01/01 1524 98.4 88 18 122/78 92 100 Room air PATIENT WEIGHT: Weight (lb): Weight (oz): Weight (kg): 72.727 General appearance: alert, awake, oriented, no a cute distress, pleasant, conversational, mental status normal, no respira tory distress Head/Eyes: atraumatic, clear cornea, EOMI, normo cephalic ENT: moist mucosal membranes Neck: full range of motion, non-tender Abdomen/GI: soft, no guarding, no rebound, + mod TTP throughout Genitourinary: deferred Extremities: moves all, no edema-all extremities Musculoskeletal: full range of motion, normal in spection Neuro/LOGISTICS ADMINISTRATOR: alert, oriented X 3, NL cerebellar function, normal speech, no motor deficits, no sensory deficits, CNII-XII grossly intact Skin: dry, intact, no gross abnormalities Psychiatry: normal affect, normal judgment/insig ht, normal mood Results Findings/Data: Laboratory Tests: 01/01 1539 Chemistry Sodium (135 - 145 mEq/L) 138 Potassium (3.5 - 5.0 mEq/L) 3.7 Chloride (100 - 115 mEq/L) 104 Carbon Dioxide (22 - 31 mEq/L) 26 Anion Gap (10 - 20) 11.40 BUN (7 - 18 mg/dL) 13 Creatinine (0.5 - 1.0 mg/dL) 0.7 Glomerular Filtr Rate (>60 ml/min) 100 Glucose (65 - 110 mg/dL) 95 Calcium (8.4 - 10.2 mg/dL) 8.5 Total Bilirubin (0.2 - 1.0 mg/dL) 0.4 AST (15 - 37 units/L) 13 L ALT (12 - 78 units/L) 22 Total Alk Phosphatase (46 - 116 units/L) 88 Total Protein (6.3 - 8.2 gm/dL) 7.1 Albumin (3.4 - 4.8 gm/dL) 4.0 Hematology WBC (6.5 - 12.3 K/mm3) 10.6 RBC (3.51 - 4.69 M/mm3) 3.79 Hgb (10.1 - 13.8 g/dL) 11.2 Hct (32.5 - 41.8 %) 33.1 MCV (84.6 - 96.6 fL) 87.3 MCH (27.3 - 33.9 pg) 29.6 MCHC (32.0 - 34.2 gm/dL) 33.8 RDW (12.2 - 16.3 %) 12.5 Plt Count (134 - 363 K/mm3) 256 MPV (9.2 - 12.7 fL) 10.5 Neut % (Auto) (57.9 - 77.3 %) 72.6 Lymph % (Auto) (14.5 - 29.7 %) 19.2 [place] % (Auto) (3.6 - 10.2 %) 5.1 Eos % (Auto) (0.0 - 3.0 %) 2.3 Baso % (Auto) (0.1 - 0.9 %) 0.5 Neut # (Auto) (K/mm3) 7.7 Lymph # (Auto) (K/mm3) 2.0 [place] # (Auto) (K/mm3) 0.5 Eos # (Auto) (K/mm3) 0.24 Baso # (Auto) (K/mm3) 0.1 Miscellaneous Maternal Serum HCG 432 Radiology data: Recent Impressions: ULTRASOUND - US PREG UT TRANSVAGINAL 01/01 1731 Report Impression - Status: SIGNED Entered: 01/01/20221829 IMPRESSION: 1. No intrauterine 2. Complex structure adjacent to the adnexa with adjacent complex free fluid. This is concerning for ruptured ecto pic . Recommend correlation with beta HCG. Impression By: Kenny Murphy ULTRASOUND - DUP AB/PEL/SC/LTD 01/01 1731 Report Impression - Status: SIGNED Entered: 01/01/20221829 IMPRESSION: 1. No intrauterine 2. Complex structure adjacent to the adnexa with adjacent complex free fluid. This is concerning for ruptured ecto pic . Recommend correlation with beta HCG. Impression By: Kenny Murphy ULTRASOUND - US PREG EVAL 1ST TRIMTR 01/01 1731 Report Impression - Status: SIGNED Entered: 01/01/2022 1830 IMPRESSION: 1. No intrauterine 2. Complex structure adjacent to the adnexa with adjacent complex free fluid. This is concerning for ruptured ecto pic . Recommend correlation with beta HCG. Impression By: Kenny Murphy Diagnosis, Assessment Plan Additional comments: Pt is a 26 yo with ruptured left ectopic , failed medical management - Pt counseled in the ER on the risks and benefits of proceeding with definitive surgical therapy. We reviewed proceeding with di agnostic laparoscopy, removal of ectopic and possibly hemoperitoneum , possible salpingectomy, possible oopherectomy, possible conversion to op en procedure. Risks including pain, bleeding, infection, injury to surrounding structures, and blood transfusion were reviewed. All questions answere d. Consents signed in ER. - T S, COVID test pending - Dross Skimmer and OR team notified. Electronically Signed by Hazel Shipley MD 01/01/22 at 1902 RPT #:[id number] END OF REPORT 2022-01-01 17:27:00-00:00 [facility] ([facility]) EMERGENCY PROVIDER REPORT REPORT#:[id number] REPORT STATUS: Signed DATE:01/01/22 TIME: 172 PATIENT: RUBIO WHITE UNIT #: [id number] ROOM/BED: [address]A AGE: 26 SEX: F PCP PHYS: Kenia Easton MD SERVICE AUTHOR: Polly Hernandez MD * ALL edits or amendments must be made on the el [employer]/computer document * HPI-Abd Pain F Under 40 General Initial Greet Date/Time 01/01/22 1524 Presentation Chief Complaint Abdominal pain Hx Obtained From Patient Free Text HPI Notes Free Text HPI Notes 26-year-old female treated for left ectopic 2 days ago on 2021 with methotrexate presents for progressivel y worsening abdominal pain. Patient reports lower abdomi nal and low back pain that is described as "severe, " and worsened daily since o nset. Patient also reports heavier vaginal bleeding with use of 3 pads today. Patient denies fever b ut reports nausea and one episode of vomiting today. Patient last took pre scribed Percocet at 0900 this morning. Risk-Abd Pain F Under 40 )( Ectopic Risk factors reviewed Review of Systems ROS Statements All systems rev neg except as marked. Focused Review of Systems Constitutional Denies: Fever. Respiratory Denies: Cough, non-productive, Cough, productive , Shortness of breath. Cardiovascular Denies: Chest pain. GI Denies: Abdominal pain, Nausea, Vomiting. Female Reports: Pelvic pain, Pregna nt, Vaginal bleeding - abnl. Denies: Dysuria, Flank pain. Musculoskeletal Reports: Back pain. Denies: Extremity pain, Extr emity swelling. Past Medical History - Adult Stated Complaint S/P ECTOPIC PREG, LOWER ABD SINCERE N/VAG BLEEDING Allergies Coded Allergies: Penicillins (Intermediate, diarrhea, hives. 07/05 05/21) codeine (Intermediate, Gums swell 07/23/17) Home Medications Discontinued Reported Medications PNV WITH FE FUMARATE/FA () 1 TAB PO JANE Y Physical Exam Vital Signs Vital Signs First Documented: Result Date Time Pulse Ox 100 01/01 1524 B/P 122/78 01/01 1524 B/P Mean 92 01/01 1524 O2 Delivery Room air 01/01 1524 Temp 98.4 01/01 1524 Pulse 88 01/01 1524 Resp 18 01/01 1524 Last Documented: Result Date Time Pulse Ox 100 01/01 1524 B/P 122/78 01/01 1524 B/P Mean 92 01/01 1524 O2 Delivery Room air 01/01 1524 Temp 98.4 01/01 1524 Pulse 88 01/01 1524 Resp 18 01/01 1524 Review of Vital Signs Reviewed Focused PE General/Const General/Const Awake, Alert, No acute di stress, Well appearing, Well developed , Well hydrated, Well nourished, Cooperative, No t toxic appearing MS Head Head Atraumatic, Normocephalic Resp/Chest Respiratory/Chest Atraumatic, Breath sounds NL, Breath sounds = bilat, No respiratory distress, No rales, No rhonchi Cardiovascular Cardiovascular Heart rate NL, Regular rhythm, H eart sounds NL, No gallop, No murmurs Abdomen/GI Abdomen/GI Atraumatic, Soft Text/Dict Notes severe diffuse abdominal tenderness with guardin g and rebound MS Back Back Atraumatic, Inspection NL Text/Dict Notes moderate bilateral CVAT Skin Skin Atraumatic, Color NL, No rash, War m, Dry, Intact, Turgor NL, No swelling Neurologic Neurologic Oriented X3, Speech NL, CN II - XII intact, Gait NL Interpretation Diagnostics Lab Results Interpretation Results Laboratory Tests 01/01/22 153: [Embedded Image Not Available] Laboratory Tests: 01/01 1539 Chemistry Sodium (135 - 145 mEq/L) 138 Potassium (3.5 - 5.0 mEq/L) 3.7 Chloride (100 - 115 mEq/L) 104 Carbon Dioxide (22 - 31 mEq/L) 26 Anion Gap (10 - 20) 11.40 BUN (7 - 18 mg/dL) 13 Creatinine (0.5 - 1.0 mg/dL) 0.7 Glomerular Filtr Rate (>60 ml/min) 100 Glucose (65 - 110 mg/dL) 95 Calcium (8.4 - 10.2 mg/dL) 8.5 Total Bilirubin (0.2 - 1.0 mg/dL) 0.4 AST (15 - 37 units/L) 13 L ALT (12 - 78 units/L) 22 Total Alk Phosphatase (46 - 116 units/L) 88 Total Protein (6.3 - 8.2 gm/dL) 7.1 Albumin (3.4 - 4.8 gm/dL) 4.0 Hematology WBC (6.5 - 12.3 K/mm3) 10.6 RBC (3.51 - 4.69 M/mm3) 3.79 Hgb (10.1 - 13.8 g/dL) 11.2 Hct (32.5 - 41.8 %) 33.1 MCV (84.6 - 96.6 fL) 87.3 MCH (27.3 - 33.9 pg) 29.6 MCHC (32.0 - 34.2 gm/dL) 33.8 RDW (12.2 - 16.3 %) 12.5 Plt Count (134 - 363 K/mm3) 256 MPV (9.2 - 12.7 fL) 10.5 Neut % (Auto) (57.9 - 77.3 %) 72.6 Lymph % (Auto) (14.5 - 29.7 %) 19.2 [place] % (Auto) (3.6 - 10.2 %) 5.1 Eos % (Auto) (0.0 - 3.0 %) 2.3 Baso % (Auto) (0.1 - 0.9 %) 0.5 Neut # (Auto) (K/mm3) 7.7 Lymph # (Auto) (K/mm3) 2.0 [place] # (Auto) (K/mm3) 0.5 Eos # (Auto) (K/mm3) 0.24 Baso # (Auto) (K/mm3) 0.1 Miscellaneous Maternal Serum HCG 432 Recent Impressions: ULTRASOUND - US PREG UT TRANSVAGINAL 01/01 1731 Report Impression - Status: SIGNED Entered: 01/01/20221829 IMPRESSION: 1. No intrauterine 2. Complex structure adjacent to the adnexa with adjacent complex free fluid. This is concerning for ruptured ecto pic . Recommend correlation with beta HCG. Impression By: Kenny Murphy ULTRASOUND - DUP AB/PEL/SC/LTD 01/01 1731 Report Impression - Status: SIGNED Entered: 01/01/20221829 IMPRESSION: 1. No intrauterine 2. Complex structure adjacent to the adnexa with adjacent complex free fluid. This is concerning for ruptured ecto pic . Recommend correlation with beta HCG. Impression By: Kenny Murphy ULTRASOUND - US PREG EVAL 1ST TRIMTR 01/01 1731 Report Impression - Status: SIGNED Entered: 01/01/20221829 IMPRESSION: 1. No intrauterine 2. Complex structure adjacent to the adnexa with adjacent complex free fluid. This is concerning for ruptured ecto pic . Recommend correlation with beta HCG. Impression By: Kenny Murphy Re-Evaluation MDM ED Course Medication(s) Ordered Medication(s) Ordered: Central Nervous System Agents Sig/Miguel Start time Last Medication Dose Route Stop Time Status Admin Morphine Sulfate 4 MG X1ED STA 01/01 1710 DCr 0 01/01 IV 01/01 1711 1714 Electrolytic, Caloric, And Nivia Sig/Miguel Start time Last Medication Dose Route Stop Time Status Admin Sodium Chloride 1,000 ML X1ED STA 01/01 1710 DC 01/01 IV 01/01 1711 1714 Gastrointestinal Drugs Sig/Miguel Start time Last Medication Dose Route Stop Time Status Admin Ondansetron HCl 4 MG X1ED STA 01/01 1710 DC IV 01/01 171 1714 Consultation Consultation Referral/Consult Name Hazel Shipley MD Custom Designer Called COMMUNICATION ASSISTANT, On-call physician Requested Call Time 172 Requested Call Date 01/01/22 Call Returned Call returned Call Returned Time 172 Call Returned Date 01/01/22 Custom Designer Will see patient (in ER when back fr om [place]) Patient Discharge Departure Vital Signs/Condition Vital Signs First Documented: Result Date Time Pulse Ox 100 01/01 1524 B/P 122/78 01/01 1524 B/P Mean 92 01/01 1524 O2 Delivery Room air 01/01 1524 Temp 98.4 01/01 1524 Pulse 88 01/01 1524 Resp 18 01/01 1524 Last Documented: Result Date Time Pulse Ox 100 01/01 1524 B/P 122/78 01/01 1524 B/P Mean 92 01/01 1524 O2 Delivery Room air 01/01 1524 Temp 98.4 01/01 1524 Pulse 88 01/01 1524 Resp 18 01/01 1524 All vital signs available at the time of this en try have been reviewed. Condition Stable Clinical Impression Clinical Impression Primary Impression: Ruptured ectopic Time of Impression 1809 Disposition Decision Admit Admit Physician Name Kenia Easton MD Admit Physician COMMUNICATION ASSISTANT Request Time 1810 Request Date 01/01/22 )( Admission Accepts Yes )( Accepted Time 1810 )( Accepted Date 01/01/22 Discharge/Care Plan (Auto) Prescriptions Current Visit Scripts KETOROLAC (TORADOL) 10 MG PO Q6H PRN PRN PAIN 5 Days #20 TABS traMADol (ULTRAM) 50 MG PO Q6H PRN PRN ACUTE SINCERE N 5 Days #20 TABS at 0712 RPT #:[id number] END OF REPORT 2021-12-30 10:53:00-00:00 [facility] ([facility]) EMERGENCY PROVIDER REPORT REPORT#:[id number] REPORT STATUS: Signed DATE:12/30/21 TIME: 1052 PATIENT: RUBIO WHITE UNIT #: [id number] ROOM/BED: AGE: 26 SEX: F PCP PHYS: Kenia Easton MD SERVICE AUTHOR: Raya Woodall MD * ALL edits or amendments must be made on the [email or web address] document * HPI- Female Free Text HPI Notes Free Text HPI Notes CC: pelvic pain + VB x 3 days History: LMP: 11/08/21 AMEENA: - [place]: 7w3d PMH: Carmen-Danlos Symptoms: suprapubic pain (with radiation to criss k), VB (brown) Pain Scale: *8 out of 10 on pain scale Exacerbating Factors: sitting upright Alleviating Factors: none Meds Taken: none COVID Sx: none Vaccination Status: n/a ObGyn: Kenia Easton General Initial Greet Date/Time 12/30/21 105 Presentation Chief Complaint Pelvic pain, Vaginal bleeding )( Sudden in Onset? No Review of Systems ROS Statements All systems rev neg except as marked. Free Text ROS Notes Free Text ROS Notes Focused Review of Systems Constitutional Denies: Chills, Fever, Lethargy. GI Denies: Abdominal pain, Diarrhea, Nausea, Vomiti ng. Female Reports: , Vaginal bleeding - abnl. Musculoskeletal Denies: Back pain, Extremity pain. Endocrine Denies: Polyuria, Weight loss. Skin Denies: Diaphoresis, Rash. Neurologic Denies: Change LOC, Dizziness, Focal weakness, H eadache, Numbness, Slurred speech. Additional Review of Systems Respiratory Denies: Pleuritic pain, Shortness of breath. Cardiovascular Denies: Chest pain, Dyspnea on exertion, Palpita tions. Past Medical History - Adult Stated Complaint POSSIBLE ECTOPIC,NT SURE HOW MA [place] WKS Allergies Coded Allergies: Penicillins (Intermediate, diarrhea, hives. 07/05 05/21) codeine (Intermediate, Gums swell 07/23/17) Home Medications Active Scripts KETOROLAC (TORADOL) 10 MG PO Q6H PRN PRN PAIN 5 Days #20 TABS Prov: 01/03/22 traMADol (ULTRAM) 50 MG PO Q6H PRN PRN ACUTE SINCERE N 5 Days #20 TABS Prov: 01/03/22 Discontinued Reported Medications PNV WITH FE FUMARATE/FA () 1 TAB PO JANE Y Past Medical History: Reports: (ovarian cyst s ). Additional Surgical History one year ago lap for hemo cyst and removed cyst Physical Exam Vital Signs Vital Signs First Documented: Result Date Time Pulse Ox 100 12/30 1056 B/P 123/72 12/30 1056 B/P Mean 89 12/30 1056 O2 Delivery Room air 12/30 1056 Temp 98.7 12/30 1056 Pulse 83 12/30 1056 Resp 19 12/30 1056 Last Documented: Result Date Time Pulse Ox 100 12/30 1623 B/P 114/72 12/30 1623 B/P Mean 86 12/30 1623 O2 Delivery Room air 12/30 1623 Temp 98.9 12/30 1623 Pulse 63 12/30 1623 Resp 18 12/30 1623 Review of Vital Signs Reviewed, Vital signs norm al Focused PE General/Const General/Const Awake, Alert, Well appearing Resp/Chest Respiratory/Chest Breath sounds NL, Breath soun ds = bilat, No respiratory distress, No rales, No rhonchi, No wheezing Cardiovascular Cardiovascular Heart rate NL, Regular rhythm, H eart sounds NL, Peripheral circulation NL Abdomen/GI Abdomen/GI Soft, Non-tender, No guarding, No re bound MS Back Back Inspection NL, Non-tender, No CVA tenderne ss Skin Skin Color NL, No rash, Warm, Dry, Turgor NL Genitourinary Female Genitourinary External genitalia NL, No bleeding, No discharge, No cervical motion tend, Os closed, No adnexal mass , No adnexal tenderness, No uterine enlargement, No uterine mass, No lesions or rash Interpretation Diagnostics Lab Results Interpretation Results Laboratory Tests 12/30/21 1101: [Embedded Image Not Available] Laboratory Tests: 12/30 12/30 12/30 1107 1104 1101 Chemistry Sodium (135 - 145 mEq/L) 137 Potassium (3.5 - 5.0 mEq/L) 3.8 Chloride (100 - 115 mEq/L) 101 Carbon Dioxide (22 - 31 mEq/L) 28 Anion Gap (10 - 20) 11.50 BUN (7 - 18 mg/dL) 12 Creatinine (0.5 - 1.0 mg/dL) 0.7 Glomerular Filtr Rate (>60 ml/min) 100 Glucose (65 - 110 mg/dL) 93 Calcium (8.4 - 10.2 mg/dL) 8.8 Total Bilirubin (0.2 - 1.0 mg/dL) 0.3 Direct Bilirubin (<0.2 mg/dL) 0.1 AST (15 - 37 units/L) 10 L ALT (12 - 78 units/L) 20 Total Alk Phosphatase (46 - 116 units/L) 86 Total Protein (6.3 - 8.2 gm/dL) 8.2 Albumin (3.4 - 4.8 gm/dL) 4.8 Hematology WBC (6.5 - 12.3 K/mm3) 10.3 RBC (3.51 - 4.69 M/mm3) 4.49 Hgb (10.1 - 13.8 g/dL) 13.1 Hct (32.5 - 41.8 %) 39.7 MCV (84.6 - 96.6 fL) 88.4 MCH (27.3 - 33.9 pg) 29.2 MCHC (32.0 - 34.2 gm/dL) 33.0 RDW (12.2 - 16.3 %) 12.5 Plt Count (134 - 363 K/mm3) 309 MPV (9.2 - 12.7 fL) 10.4 Neut % (Auto) (57.9 - 77.3 %) 69.6 Lymph % (Auto) (14.5 - 29.7 %) 20.2 [place] % (Auto) (3.6 - 10.2 %) 7.1 Eos % (Auto) (0.0 - 3.0 %) 2.2 Baso % (Auto) (0.1 - 0.9 %) 0.7 Neut # (Auto) (K/mm3) 7.2 Lymph # (Auto) (K/mm3) 2.1 [place] # (Auto) (K/mm3) 0.7 Eos # (Auto) (K/mm3) 0.23 Baso # (Auto) (K/mm3) 0.1 Miscellaneous Maternal Serum HCG 353 Urines Urine Color (YELLOW) YELLOW Urine Appearance (CLEAR) Slightly-Cloudy Urine pH (5 - 9) 8.0 Ur Specific [place] (1.001 - 1.035) 1.016 Urine Protein (NEG) NEGATIVE Urine Glucose (UA) (NEG) NEGATIVE Urine Ketones (NEG) NEGATIVE Urine Blood (NEG) 2+ H Urine Nitrite (NEG) NEG Urine Bilirubin (NEG) NEGATIVE Urine Urobilinogen (NEG mg/dL) NEGATIVE Ur Leukocyte Esterase (NEG) TRACE H Urine RBC (NONE SEEN #/hpf) 0-2 Urine WBC (NONE SEEN #/hpf) 0-2 Ur Epithelial Cells (RARE - FEW #/HPF) RARE Urine Mucus (NONE SEEN) RARE Recent Impressions: ULTRASOUND - DUP AB/PEL/SC/LTD 12/30 1314 Report Impression - Status: SIGNED Entered: 12/30/20211414 IMPRESSION: 1. Left adnexal mass concerning for ectopic preg ibis. 2. Small to moderate free fluid in the pelvis. 3. Hemorrhagic right ovarian cyst. Findings were discussed with Raya Woodall at 12/30/2021 2:14 PM CDT. Impression By: Lalo Lennon MD ULTRASOUND - US PREG UT TRANSVAGINAL 12/30 1314 Report Impression - Status: SIGNED Entered: 12/30/20211414 IMPRESSION: 1. Left adnexal mass concerning for ectopic preg ibis. 2. Small to moderate free fluid in the pelvis. 3. Hemorrhagic right ovarian cyst. Findings were discussed with Raya Woodall at 12/30/2021 2:14 PM CDT. Impression By: Lalo Lennon MD ULTRASOUND - US PREG EVAL 1ST TRIMTR 12/30 1314 Report Impression - Status: SIGNED Entered: 12/30/2021 1415 IMPRESSION: 1. Left adnexal mass concerning for ectopic preg ibis. 2. Small to moderate free fluid in the pelvis. 3. Hemorrhagic right ovarian cyst. Findings were discussed with Raya Woodall at 12/30/2021 2:14 PM CDT. Impression By: Lalo Lennon MD Lab Imaging Statement Laboratory radiographic studies reviewed and con sidered in the medical decision-making. Re-Evaluation MDM Free Text MDM Notes Free Text MDM Notes A/P: 26yo @ 7w3d WF with PMH as above p/w V B 1. Labs 2. TVUS 3. UA 4. Meds 5. Re-assess ADDENDUM Time: 1610 Labs significant for low B-hCG (353). TV US shows L ectopic without evidence of rupture. Case d/w Dr. Easton (ObGyn); recommends MTX - spoke with Pt at the bedside regarding risks, benefits, and return pr ecautions. Pt re-assessed; symptoms improved. Results of work-up d/w Pt; vo iced understanding. Ok for DC home with PCP follow-up ED Course Medication(s) Ordered Medication(s) Ordered: Antineoplastic Agents Sig/Miguel Start time Last Medication Dose Route Stop Time Status Admin Methotrexate Sodium 95 MG X1ED STA 12/30 1430 A C 12/30 Device 1 EA IM 12/30 1817 1546 Central Nervous System Agents Sig/Miguel Start time Last Medication Dose Route Stop Time Status Admin Morphine Sulfate 4 MG X1ED STA 12/30 1451 DCr 0 12/30 IV 12/30 1452 1533 Acetaminophen 1,000 MG X1ED STA 12/30 1054 DC 12/30 PO 12/30 1055 1114 Electrolytic, Caloric, And Nivia Sig/Miguel Start time Last Medication Dose Route Stop Time Status Admin Sodium Chloride 1,000 ML X1ED STA 12/30 1054 DC 12/30 IV 12/30 1153 1113 Patient Discharge Departure Vital Signs/Condition Vital Signs First Documented: Result Date Time Pulse Ox 100 12/30 1056 B/P 123/72 12/30 1056 B/P Mean 89 12/30 1056 O2 Delivery Room air 12/30 1056 Temp 98.7 12/30 1056 Pulse 83 12/30 1056 Resp 19 12/30 1056 Last Documented: Result Date Time Pulse Ox 100 12/30 1623 B/P 114/72 12/30 1623 B/P Mean 86 12/30 1623 O2 Delivery Room air 12/30 1623 Temp 98.9 12/30 1623 Pulse 63 12/30 1623 Resp 18 12/30 1623 All vital signs available at the time of this en try have been reviewed. Clinical Impression Clinical Impression Primary Impression: Ectopic of left ov kath Secondary Impressions: Pelvic pain affecting pre gnancy Disposition Decision Discharge )( Discharged to Home Yes )( Time 1614 )( Date 12/30/21 Discharge/Care Plan Counseled Regarding Diagnosi s, Lab results, Imaging studies, Prescriptions, Need for follow-up, When to return to ED Patient Instructions ED Methotrexate for Ectopic ... Referrals Provider Referral: Kenia Easton MD Address: [address] [place] [id number] Discharge Note I have spoken with the patie nt and/or caregivers. I have explained the patient's condition, diagnoses and wendie atment plan based on the information available to me at this time. I have answered the patient's and/ or caregiver's questions and addressed any concerns. The patient and/or careg sherita have as good an understanding of the patient 's diagnosis, condition and treatment plan as can be expected at this point. The vital signs have bee n stable. The patient's condition is stable and appr opriate for discharge from the emergency department. The patient will pursue further outpatient evalu ation with the primary care physician or other designated or consulting phys ician as outlined in the discharge instructions. The patient and/or caregivers are agreeable to this plan of care and follow-up instructions have been exp lained in detail. The patient and/or caregivers have received these instructio ns in written format and have expressed an understanding of the discharge inst ructions. The patient and/or caregivers are aware that any significant change in condition or worsening of symptoms should prompt an immediate return to [facility] or the closest emergency department or a call to 911. Quality Measures US in Preg w/AP/VB Trans-abd/vag US done, Preg l ocation documented RH- Risk Fet Bld Exposure No risk blood ex pos at 0617 RPT #:[id number] END OF REPORT
[2023-02-12] MEDS ORDERED: ONDANSETRON 4 MG/2 ML VIAL ONE (00:52)
[2023-02-12] MEDS ORDERED: NA CHLORIDE 0.9% 1,000 ML ONE (00:52)
[2023-02-12 00:58] LABS: Absolute Lymphocytes (CBC) 4.5 K/uL (0.7-4.9); Hematocrit 33.4 % (36.0-45.0); Lymphocytes % 47.2 % (15.3-44.8); MCV 86.2 fL (80-100); MPV 8.6 fL (7.6-11.3); RBC Red Blood Cell Count 3.88 M/uL (3.86-4.86)
[2023-02-12 01:12] LABS: Potassium 3.2 mEq/L (3.5-5.1)
[2023-02-12] MEDS ORDERED: DIPHENHYDRAMINE 50 MG/ML VIAL ONE (02:10)
[2023-02-12] MEDS ORDERED: PROMETHAZINE INJ 25 MG/ML AMP ONE (02:10)
--- NOTE | 2023-02-12 02:52 | EDPHYS ---
Physician Documentation [facility] Name: Cathleen Willson Age: 28 yrs Sex: Female : 1995 Arrival Date: 02/12/2023 Time: 00:31 Bed 2 Private MD: ED Physician Gibran Guillaume HPI: 02/12 00:43 This 28 yrs old Female presents to ER via Unassigned with complaints of ams. 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 Last tetanus immunization: > 10 years ago Flu vaccine is not up to date. - Social history:: Smoking status: Patient denies any tobacco usage or history of. Patient uses alcohol, occasionally. Patient/guardian denies using street drugs. ROS: 00:43 Unable to obtain ROS due to altered mental status. bs3 Exam: 00:43 Constitutional: This is a well developed, well nourished patient who is actively dry bs3 heaving Head/Face: Normocephalic, atraumatic. Eyes: Pupils equal round and reactive to light, extra-ocular motions intact. Lids and lashes normal. ENT: mmm, no posterior phyarngeal erythema Neck: Trachea midline, no thyromegaly, no neck stiffness Chest/axilla: Normal chest wall appearance and motion. Nontender with no deformity. No lesions are appreciated. Cardiovascular: Regular rate and rhythm with a normal S1 and S2. symmetric pulses in upper extremities Skin: Warm, dry with normal turgor. Normal color with no rashes, no lesions, and no evidence of cellulitis. MS/ Extremity: Pulses equal, no cyanosis. Neurovascular intact. Full, normal range of motion. Neuro: Alert and oriented times self and location no focal deficits Vital Signs: 00:35 BP 119 / 75; Pulse 84; Resp 18; Temp 97.4; Pulse Ox 99% on R/A; Weight 65.77 kg; Height pf1 5 ft. 10 in. ; 01:49 BP 96 / 72; Pulse 80; Resp 16; Pulse Ox 100% on R/A; rv 02:49 BP 103 / 76; Pulse 83; Resp 18; Temp 98.1(O); Pulse Ox 99% on R/A; rv 00:35 Body Mass Index 20.81 (65.77 kg, 177.8 cm) pf1 MDM: 00:36 Patient medically screened. bs3 00:43 Differential Diagnosis: electrolyte abnormality, alcohol intoxication, hypoglycemia. bs3 Data reviewed: vital signs, nurses notes. ED course: Will give antiemetic we will hydrate and reassess. 02:50 ED course: Labs notable for slight hypokalemia likely secondary to vomiting patient bs3 reassessed at 251 she is feeling much better she thinks that she can go home she had no additional vomiting after the Phenergan return precautions given to mother and fianc at. 02/12 00:42 Order name: Test, Serum; Complete Time: bs3 02/12 00:42 Order name: Ethanol; Complete Time: bs3 02/12 00:42 Order name: CBC with Diff; Complete Time: bs3 02/12 00:42 Order name: BMP; Complete Time: : bs3 Administered Medications: 00:50 Drug: NS 0.9% IV 1000 ml Route: IV; Rate: 1000 ml; Site: left forearm; rv 01:48 Follow up: IV Status: Completed infusion; IV Intake: 1000ml rv 00:50 Drug: Ondansetron IVP 8 mg Route: IVP; Site: left forearm; rv 01:48 Follow up: Response: No adverse reaction; Marked relief of symptoms rv 02:14 Drug: diphenhydrAMINE IVP 12.5 mg Route: IVP; Site: left forearm; rv 02:49 Follow up: Response: No adverse reaction; Marked relief of symptoms rv 02:14 Drug: Promethazine IVP 25 mg Route: IVP; Site: left forearm; rv 02:49 Follow up: Response: No adverse reaction; Marked relief of symptoms rv Disposition: 02:52 Chart complete. bs3 Disposition Summary: 02/12/23 02:51 Discharge Ordered Location: Home bs3 Problem: new bs3 Symptoms: have improved bs3 Condition: Stable bs3 Diagnosis - Alcohol use, unspecified with intoxication bs3 Followup: bs3 - With: Private Physician - When: 5 - 6 days - Reason: Re-evaluation by your physician Discharge Instructions: - Discharge Summary Sheet bs3 - Alcohol Intoxication, [id number] bs3 Forms: - Medication Reconciliation Form bs3 - Thank You Letter bs3 Prescriptions: - ondansetron 8 mg Oral tablet,disintegrating - take 1 tablet by ORAL route every 8 hours; 12 tablet; Refills: 0, Product bs3 Selection Permitted Signatures: Dispatcher [employer] Garett Mcneal RN RN rv Gibran Guillaume MD MD bs3 Livia Tom RN RN pf1
--- NOTE | 2023-02-12 02:52 | ER ---
Nurse's Notes [facility] Name: Cathleen Willson Age: 28 yrs Sex: Female : 1995 Arrival Date: 02/12/2023 Time: 00:31 Bed 2 Private MD: Diagnosis: Alcohol use, unspecified with intoxication Presentation: 02/12 00:35 Chief complaint: Parent and/or Guardian states: alcohol intoxication with concerned of pf1 patient's eyes rolling back into head with vomiting x 10 episodes,onset tonight. Mother stated patient has been celebrating her birthday, drinking vodka shots with pickle juice chasers tonight. 00:35 Method Of Arrival: Wheelchair pf1 00:35 Coronavirus screen: Vaccine status: Patient reports being unvaccinated. Client denies pf1 travel out of the [place] in the last 14 days. Ebola Screen: Patient negative for fever greater than or equal to 101.5 degrees Fahrenheit, and additional compatible Ebola Virus Disease symptoms. Initial Sepsis Screen: Does the patient meet any 2 criteria? No. Patient's initial sepsis screen is negative. Does the patient have a suspected source of infection? No. Patient's initial sepsis screen is negative. Risk Assessment: Do you want to hurt yourself or someone else? Unable to obtain. 00:35 Acuity: MIGUEL 3 pf1 00:52 Onset of symptoms was February 12, 2023. rv Triage Assessment: 00:51 General: Appears uncomfortable, Behavior is cooperative. Pain: Denies pain. EENT: No rv signs and/or symptoms were reported regarding the EENT system. Neuro: Level of Consciousness is obeys commands, Oriented to person, place, time, situation. Cardiovascular: Capillary refill < 3 seconds Patient's skin is warm and dry. Respiratory: Airway is patent Respiratory effort is even, unlabored. GI: Abdomen is non-distended, Reports nausea. 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 Last tetanus immunization: > 10 years ago Flu vaccine is not up to date. - Social history:: Smoking status: Patient denies any tobacco usage or history of. Patient uses alcohol, occasionally. Patient/guardian denies using street drugs. Screenin:50 [facility] ED Fall Risk Assessment (Adult) History of falling in the last 3 months, rv including since admission No falls in past 3 months (0 pts). [facility] ED Fall Risk Assessment (Adult) Confusion or Disorientation No (0 pts) Intoxicated or Sedated Yes (3 pts) Impaired Gait Yes (1 pt) Mobility Assist Device Used No (0 pt) Altered Elimination No (0 pt) Score/Fall Risk Level 3 or more points = High Risk Oriented to surroundings, Maintained a safe environment, Educated pt \T\ family on fall prevention, incl call for assistance when getting out of bed, Assessed \T\ reinforced patient's understanding of fall precautions, Provided non-skid footwear, Hourly rounding (assess needs \T\ fall precautionary measures) done, Used ambulatory aids as needed (educated on \T\ assisted with), Used gait belt as appropriate Implemented a Fall Risk Plan of Care, Apply high fall risk patient identification: yellow non skid footwear/ fall signage, Placed fall mat w/ non beveled edge next to bed, Activated bed/chair alarm, Remained w/in arm's length of patient and in sight while toileting, Offered frequent toileting (1:1 observation), Remained with patient while ambulating, Utilized family, sitter, or virtual taffy puller as indicated. Abuse screen: Denies threats or abuse. Denies injuries from another. Nutritional screening: No deficits noted. Tuberculosis screening: No symptoms or risk factors identified. Vital Signs: 00:35 BP 119 / 75; Pulse 84; Resp 18; Temp 97.4; Pulse Ox 99% on R/A; Weight 65.77 kg; Height pf1 5 ft. 10 in. ; 01:49 BP 96 / 72; Pulse 80; Resp 16; Pulse Ox 100% on R/A; rv 02:49 BP 103 / 76; Pulse 83; Resp 18; Temp 98.1(O); Pulse Ox 99% on R/A; rv 00:35 Body Mass Index 20.81 (65.77 kg, 177.8 cm) pf1 ED Course: 00:35 Patient arrived in ED. bp1 00:36 Gibran Guillaume MD is Attending Physician. bs3 00:41 Garett Upton RN is Primary Nurse. rv 00:50 Triage completed. pf1 00:50 Inserted saline lock: 20 gauge in left forearm, using aseptic technique. Blood rv collected. 00:51 Patient has correct armband on for positive identification. Placed in gown. Bed in low rv position. Call light in reach. Side rails up X2. Adult w/ patient. 00:53 No provider procedures requiring assistance completed. rv 00:53 Arm band placed on right wrist. rv 02:59 IV discontinued, intact, bleeding controlled, No redness/swelling at site. Pressure rv dressing applied. Administered Medications: 00:50 Drug: NS 0.9% IV 1000 ml Route: IV; Rate: 1000 ml; Site: left forearm; rv 01:48 Follow up: IV Status: Completed infusion; IV Intake: 1000ml rv 00:50 Drug: Ondansetron IVP 8 mg Route: IVP; Site: left forearm; rv 01:48 Follow up: Response: No adverse reaction; Marked relief of symptoms rv 02:14 Drug: diphenhydrAMINE IVP 12.5 mg Route: IVP; Site: left forearm; rv 02:49 Follow up: Response: No adverse reaction; Marked relief of symptoms rv 02:14 Drug: Promethazine IVP 25 mg Route: IVP; Site: left forearm; rv 02:49 Follow up: Response: No adverse reaction; Marked relief of symptoms rv Medication: 00:53 VIS not applicable for this client. rv Intake: 01:48 IV: 1000ml; Total: 1000ml. rv Outcome: 02:51 Discharge ordered by . bs3 02:59 Discharged to home ambulatory, with family. rv 02:59 Condition: improved 02:59 Discharge instructions given to family, Instructed on discharge instructions, follow up and referral plans. medication usage, Demonstrated understanding of instructions, follow-up care, medications, Prescriptions given X 1. 02:59 Patient left the ED. rv Signatures: Garett Upton, RN RN rv Darlene Cortez bp1 Gibran Guillaume MD MD bs3 Livia Tom RN RN pf1
[2023-02-12 03:20] VITALS: BP 103/76; TEMP 98.1; O2SAT 99
== END 2023-02-12 02:59 | disposition home or self-care (01) ==
LOC: ER 00:31
DX: F10.929 Alcohol use, unspecified with intoxication, unspecified (principal)
CPT/HCPCS: 36415; 80048; 82077; 84703; 85025; 96361; 96374; 96375; 99284; J1200; J2405; J2550; J7030

== ENCOUNTER 2023-07-29 18:36 | Emergency (ER) | payer SELFPAY ==
--- OUTSIDE RECORDS SUMMARY | 2023-07-29 18:41 | XMS REPORT | Continuity of Care Document ---
:1995 Author Organization [facility] t Address [address] [place] [address] Care Team Providers Name Role Phone Batsheva Jaffe Primary Care Physician BATSHEVA ENGEL Attending Clinician Unavailable Batsheva Jaffe Attending Clinician LISA ROSA Attending Clinician Unavailable Lisa Ramos Attending Clinician Unknown, Attending Attending Clinician Unavailable Doctor Unassigned, [place] Attending Clinician Unavailable Tarun Ponce Attending Clinician TARUN MORILLO Attending Clinician Unavailable Kenia Easton Attending Clinician Unavailable Raya Woodall Attending Clinician Unavailable TED MONAE Attending Clinician Unavailable [place] ROGER Omayemi Attending Clinician Ted Jordan Attending Clinician Nick Smyth Attending Clinician Abdulaziz Gentile MD Attending Clinician ABDULAZIZ GENTILE Attending Clinician Unavailable ABDULAZIZ GENTILE Attending Clinician Unavailable Provider, [facility] Attending Clinician Unavailable Kenia Easton Admitting Clinician Unavailable Payers Payer Name Policy Type Policy Number Effective Date Expiration Date Maegan MARTIN II [id number] 2018 00:00:00 AESADIE O [id number] 2015 00:00:00 Problems Condition Condition Condition Status Onset Resolution Last Treating Co mments Source Name Details Category Date Date Treatment Clinician Date Abscess of Abscess of Disease Active Overview : [facility] left thigh left thigh 2-20 [facility] ity of 00:00: g of this [place] note Medical might be Branch different from [...] Disease Active Overview : Univers laura laura 1-27 [facility] ity of abdominal abdominal 00:00: g [...] Active 2018-09 Overview: Univer s insomnia insomnia 2- [facility] ity of 00:00: g of this [place] note Medical might be Branch different from [...] All questions answered. 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 [place] morphine DA Active MO itch,HIVES 2016-09 [facility] 09-22 [facility] [place] codeine DA Active MO Gums swell 2016-09 [facility] 09-22 [facility] [place] Codeine Drug Active Swelling Univers Allergy 5-03 ity of 00:00: [place] 00 Medical Branch CODEINE DRUG Active High Swelling Univers INGREDI 5-03 ity of 00:00: [place] 00 Medical Branch MORPHINE DRUG Active ITCHING Univers INGREDI 5-03 ity of 00:00: [place] 00 Medical Branch PENICILL Drug Active Hives Univers INS Class 5-03 ity of 00:00: [place] 00 Medical Branch Penicill Propensi Active Hives Univer s ins ty to 5-03 ity of adverse 00:00: [place] reaction 00 Medical s Branch CODEINE Allergy [facility] MORPHINE Allergy Active [facility] Codeine Propensi Active Swelling [facility] adverse 00:00: Medical reaction 00 Center s Morphine Propensi Active [facility]ching [facility] adverse 00:00: Medical reaction 00 Center s Penicill Propensi Active Hives [facility] adverse 00:00: Medical reaction 00 Center s PENICILL Allergy Active Hives [facility] Social History Social Habit Start Date Stop Date Quantity Comments Source History SDOH [facility] Alcohol Std Drinks Medica l Center History SDOH [facility] Alcohol Binge Medical [address] Sexual orientation [facility] Exposure to 2022-10-14 2022-10-24 Not sure [facility] SARS-CoV-2 (event) 00:00:00 14:43:00 [facility] History of Social 2022-06-20 2022-06-20 Univers ity of function 00:00:00 00:00:00 [facility] Tobacco use and 2021-09-05 2021-09-05 Smokeless Universit y of exposure 00:00:00 00:00:00 tobacco non-user [facility] dical [place] History SDOH 2018-11-21 2018-11-[address] [facility] Alcohol Frequency 00:00:00 00:00:00 [facility] Alcohol intake 2018-11-20 2018-11-[address] [facility] 00:00:00 00:00:00 non-drinker of [facility] nter alcohol (finding) Sex Assigned At [address] [facility] kes 00:00:00 00:00:00 [facility] Smoking Status Start Date Stop Date Source Never smoked tobacco [facility] Tobacco smoking consumption [facility] Medications Ordered Filled Start Stop Current Ordering Indication Dosage Frequency Signature Comments Components Source Medication Medication Date Date Medication? Clinician (SIG) Name Name acetaminoph 2022- No Take by Un sherita en (TYLENOL 2-20 02-20 mouth. ity o f 8 HOUR 15:15: 00:00 [place] ORAL) 31 :00 [facility] acetaminoph 2022- No Take by Un sherita en (TYLENOL 2-20 02-20 mouth. ity o f 8 HOUR 15:15: 00:00 [place] ORAL) 31 :00 [facility] acetamino 2022- No Take by Un sherita en (TYLENOL 2-20 02-20 mouth. ity o f 8 HOUR 15:15: 00:00 [place] ORAL) 31 :00 Medical Branch diphenhydra 2022- No Take by Un sherita mine HCl 2-20 02-20 mouth. ity of (UNISOM 15:15: 00:00 [place] SLEEPMELTS 29 :00 Medical ORAL) Branch diphenhydra 2022- No Take by Un [place] mine HCl 2-20 02-20 mouth. ity of (UNISOM 15:15: 00:00 [place] SLEEPMELTS 29 :00 Medical ORAL) Branch diphenhydra 2022- No Take by Un [place]ita mine HCl 2-20 02-20 mouth. ity of (UNISOM 15:15: 00:00 [place] SLEEPMELTS 29 :00 Medical ORAL) Branch buPROPion 2022-0 Yes [id number] 300mg Take 1 U nivers XL 2-20 tablet by ity of (WELLBUTRIN 00:00: [place] in [place] XL[place] 300 mg 00 the Medical 24 hr morning. Branch tablet buPROPion 2022-0 Yes [id number] 150mg Take 1 U nivers XL 2-20 tablet by ity of (WELLBUTRIN [place] XL[place] 150 mg 00 bedtime. Medic al 24 hr Branch tablet buPROPion 2022-0 Yes [id number] 300mg Take 1 U nivers XL 2-20 tablet by ity of (WELLBUTRIN 00:00: [place] in [place] XL) 300 mg 00 the Medical 24 hr morning. Branch tablet buPROPion 2022-0 Yes [id number] 150mg Take 1 U nivers XL 2-20 tablet by ity of (WELLBUTRIN 00:[place]: [place] XL[place] 150 mg 00 bedtime. Medic al 24 hr Branch tablet buPROPion 2022-0 Yes [id number] 300mg Take 1 U nivers XL 2-20 tablet by ity of (WELLBUTRIN 00:00: [place] XL) 300 mg 00 the Medical 24 hr morning. Branch tablet buPROPion 2022-0 Yes [id number] 150mg Take 1 U nivers XL 2-20 tablet by ity of (WELLBUTRIN 00:[place]: [place] XL[place] 150 mg 00 bedtime. Medic al 24 hr Branch tablet methylPREDN 2022-0 2022- No [id number] Take by [facility] [place] [facility] 4 10-24 mouth ity of mg tablets 00:00: 05:59 SEE-INSTRU [place] 00 :00 CTIONS for Medical 6 days. Branch follow package directions methylPREDN 2022-0 2022- No [id number] Take by [facility] [place] [facility] 4 10-24 mouth ity of mg tablets 00:00: 05:59 SEE-INSTRU [place] 00 :00 CTIONS for Medical 6 days. Branch follow package directions methylPREDN 2022-0 2022- No [id number] Take by [facility] [place] [facility] 4 10-24 mouth ity of mg tablets 00:00: 05:59 SEE-INSTRU [place] 00 :00 CTIONS for Medical 6 days. Branch follow package directions azithromyci Yes [id number] Z pack as [facility] n 2-17 directed. ity of (ZITHROMAX 00:00: [place] Z-STEPHEN) 250 00 Medical mg tablet Branch azithromyci 2022- No [id number] Z pack as [facility] n 2-17 02- directed. ity of (ZITHROMAX 00:00: 00:00 [place] Z-STEPHEN) 250 00 :00 Medical mg tablet Branch azithromyci 2022- No [id number] Z pack as [facility] n 2-17 02- directed. ity of (ZITHROMAX 00:00: 00:00 [place] Z-STEPHEN) 250 00 :00 Medical mg tablet Branch azithromyci 2022-0 2022- No [id number] Z pack as [facility] n 2-17 02-20 directed. ity of (ZITHROMAX 00:00: 00:00 [place] Z-STEPHEN) 250 00 :00 Medical mg tablet Branch doxepin 25 2022-0 Yes [id number] 25mg Take 1 U nivers mg capsule 1-30 capsule by ity of 00:00: mouth at [place] [address] bedtime. Medical Branch doxepin 25 2022-0 Yes [id number] 25mg Take 1 U nivers mg capsule 1-30 capsule by ity of 00:00: mouth at [place] 00 bedtime. Medical Branch doxepin 25 2022-0 Yes [id number] 25mg Take 1 U nivers mg capsule 1-30 capsule by ity of 00:00: mouth at [place] 00 bedtime. Medical Branch doxepin 25 2022-0 2022- No [id number] 25mg Take 1 Univers mg capsule 1-30 02-20 capsule by it y of 00:00: 00:00 mouth at [place] 00 :00 bedtime. Medical Branch doxepin 25 2022-0 2022- No [id number] 25mg Take 1 Univers mg capsule 1-30 02-20 capsule by it y of 00:00: 00:00 mouth at [place] 00 :00 bedtime. Medical Branch doxepin 25 2022-0 2022- No [id number] 25mg Take 1 Univers mg capsule 1-30 02-20 capsule by it y of 00:00: 00:00 mouth at [place] 00 :00 bedtime. Medical Branch doxepin 50 2022-0 Yes [id number] 50mg Take 1 U nivers mg capsule 1-24 capsule by ity of 00:00: mouth at [place] [address] bedtime. Medical Branch propranoloL 2022-0 Yes [id number] 10mg Take 1 Univers 10 mg 1-24 tablet by ity of tablet 00:00: mouth 3 [place] [address] (three) Medical times Branch daily as needed for Other (anxiety). doxepin 50 2022-0 Yes [id number] 50mg Take 1 U nivers mg capsule 1-24 capsule by ity of 00:00: mouth at [place] [address] bedtime. Medical Branch propranoloL 2022-0 Yes [id number] 10mg Take 1 Univers 10 mg 1-24 tablet by ity of tablet 00:00: mouth 3 [place] 00 (three) Medical times Branch daily as needed for Other (anxiety). doxepin 50 2022-0 Yes [id number] 50mg Take 1 U nivers mg capsule 1-24 capsule by ity of 00:00: mouth at [place] 00 bedtime. Medical Branch propranoloL 2022-0 Yes [id number] 10mg Take 1 Univers 10 mg 1-24 tablet by ity of tablet 00:00: mouth 3 [place] 00 (three) Medical times Branch daily as needed for Other (anxiety). doxepin 50 2022-0 Yes [id number] 50mg Take 1 U nivers mg capsule 1-24 capsule by ity of 00:00: mouth at [place] [address] bedtime. Medical Branch propranoloL 2022-0 Yes [id number] 10mg Take 1 Univers 10 mg 1-24 tablet by ity of tablet 00:00: mouth 3 00 (three) Medical times Branch daily as needed for Other (anxiety). propranoloL 2022-0 Yes [id number] 10mg Take 1 Univers 10 mg 1-24 tablet by ity of tablet 00:00: mouth 3 [place] 00 (three) Medical times Branch daily as needed for Other (anxiety). propranoloL 2022-0 Yes [id number] 10mg Take 1 Univers 10 mg 1-24 tablet by ity of tablet 00:00: mouth 3 [place] 00 (three) Medical times Branch daily as needed for Other (anxiety). propranoloL 2022-0 Yes [id number] 10mg Take 1 Univers 10 mg 1-24 tablet by ity of tablet 00:00: mouth 3 00 (three) Medical times Branch daily as needed for Other (anxiety). propranoloL 2022-2022- No [id number] 10mg Take 1 Univers 10 mg 1-24 02-20 tablet by ity of tablet 00:00: 00:00 mouth 3 [place] 00 :00 (three) Medical times Branch daily as needed for Other (anxiety). propranoloL 2022-2022- No [id number] 10mg Take 1 Univers 10 mg 1-24 02-20 tablet by ity of tablet 00:00: 00:00 mouth 3 [place] 00 :00 (three) Medical times Branch daily as needed for Other (anxiety). propranoloL 2022-2022- No [id number] 10mg Take 1 Univers 10 mg 1-24 02-20 tablet by ity of tablet 00:00: 00:00 mouth 3 [place] 00 :00 (three) Medical times Branch daily as needed for Other (anxiety). doxepin 50 2022-2022- No [id number] 50mg Take 1 Univers mg capsule -27 09-30 capsule by it y of 00:00: 00:00 mouth at [place] 00 :00 bedtime. Medical Branch doxepin 50 2022-0 2022- No [id number] 50mg Take 1 Univers mg capsule -24 -30 capsule by it y of 00:00: 00:00 mouth at [place] 00 :00 bedtime. Medical Branch citalopram 2022-0 2022- No [id number] 20mg Take 1 Univers (CELEXA) 20 -24 01-24 tablet by it y of mg tablet 00:00: 00:00 mouth in [place] 00 :00 the Medical morning. Branch citalopram 2022- No [id number] 20mg Take 1 Univers (CELEXA) 20 09-27 tablet by it y of mg tablet 00:00: 00:00 mouth in [place] 00 :00 the Medical morning. Branch doxepin 50 2022- No [id number] 50mg Take 1 Univers mg capsule 09-27 capsule by it y of 00:00: 00:00 mouth at [place] 00 :00 bedtime. Medical Branch propranoloL 2022- No [id number] 10mg Take 1 Univers 10 mg 09-27 tablet by ity of tablet 00:00: 00:00 mouth 3 [place] 00 :00 (three) Medical times Branch daily as needed for Other (anxiety). traZODone 2021-09 Yes [id number] 50mg Take 1 Un sherita 50 mg 1-18 tablet by ity of tablet 00:00: mouth at [place] 00 bedtime. Medical Branch buPROPion 2021-09 Yes [id number] 150mg Take 1 Univers SR 1-18 tablet by ity of (WELLBUTRIN 00:00: mouth in [place] SR) 150 mg 00 the Medical SR tablet morning Branch and 1 tablet in the evening. traZODone 2021-09 Yes [id number] 50mg Take 1 Un sherita 50 mg 1-18 tablet by ity of tablet 00:00: mouth at [place] 00 bedtime. Medical Branch buPROPion 2021-09 Yes [id number] 150mg Take 1 Univers SR 1-18 tablet by ity of (WELLBUTRIN 00:00: mouth in [place] SR) 150 mg 00 the Medical SR tablet morning Branch and 1 tablet in the evening. traZODone 2021-09 Yes [id number] 50mg Take 1 Un sherita 50 mg 1-18 tablet by ity of tablet 00:00: mouth at [place] 00 bedtime. Medical Branch buPROPion 2021-09 Yes [id number] 150mg Take 1 Univers SR 1-18 tablet by ity of (WELLBUTRIN 00:00: mouth in [place] SR) 150 mg 00 the Medical SR tablet morning Branch and 1 tablet in the evening. buPROPion 2021-09 Yes [id number] 150mg Take 1 Univers SR 1-18 tablet by ity of (WELLBUTRIN 00:00: mouth in [place] SR) 150 mg 00 the Medical SR tablet morning Branch and 1 tablet in the evening. buPROPion 2021-09 Yes [id number] 150mg Take 1 Univers SR 1-18 tablet by ity of (WELLBUTRIN 00:00: mouth in [place] SR) 150 mg 00 the Medical SR tablet morning Branch and 1 tablet in the evening. buPROPion 2021-09 Yes [id number] 150mg Take 1 Univers SR 1-18 tablet by ity of (WELLBUTRIN 00:00: mouth in [place] SR) 150 mg 00 the Medical SR tablet morning Branch and 1 tablet in the evening. buPROPion 2021-09 Yes [id number] 150mg Take 1 Univers SR 1-18 tablet by ity of (WELLBUTRIN 00:00: mouth in [place] SR) 150 mg 00 the Medical SR tablet morning Branch and 1 tablet in the evening. buPROPion 2021-09 Yes [id number] 150mg Take 1 Univers SR 1-18 tablet by ity of (WELLBUTRIN 00:00: mouth in [place] SR) 150 mg 00 the Medical SR tablet morning Branch and 1 tablet in the evening. buPROPion 2021-09 Yes [id number] 150mg Take 1 Univers SR 1-18 tablet by ity of (WELLBUTRIN 00:00: mouth in [place] SR) 150 mg 00 the Medical SR tablet morning Branch and 1 tablet in the evening. buPROPion 2021-09 Yes [id number] 150mg Take 1 Univers SR 1-18 tablet by ity of (WELLBUTRIN 00:00: mouth in [place] SR) 150 mg 00 the Medical SR tablet morning Branch and 1 tablet in the evening. buPROPion 2021-09- No [id number] 150mg Take 1 Univers SR 1-18 02-20 tablet by ity of (WELLBUTRIN 00:00: 00:00 mouth in [place] SR) 150 mg 00 :00 the Medical SR tablet morning Branch and 1 tablet in the evening. buPROPion 2021-09- No [id number] 150mg Take 1 Univers SR 1-18 02-20 tablet by ity of (WELLBUTRIN 00:00: 00:00 mouth in [place] SR) 150 mg 00 :00 the Medical SR tablet morning Branch and 1 tablet in the evening. buPROPion 2021-09- No [id number] 150mg Take 1 Univers SR 18 -20 tablet by ity of (WELLBUTRIN 00:00: 00:00 mouth in [place] SR) 150 mg 00 :00 the Medical SR tablet morning Branch and 1 tablet in the evening. traZODone 2021-09- No [id number] 50mg Take 1 U nivers 50 mg 09-2124 tablet by ity of tablet 00:00: 00:00 mouth at [place] 00 :00 bedtime. Medical Branch traZODone 2021-09- No [id number] 50mg Take 1 U nivers 50 mg 09-2124 tablet by ity of tablet 00:00: 00:00 mouth at [place] 00 :00 bedtime. Medical Branch No known 2021-09 No No known Unive rs medications 0-21 medication it y of 13:31: s [place] 57 Medical Branch diphenhydra 2021-09 Yes Take by Uni vers mine HCl 0-17 mouth. ity of (UNISOM 11:09: [place] [address] Medical ORAL) Branch acetaminoph 2021-09 Yes Take by Uni vers en (TYLENOL 0-17 mouth. ity of 8 HOUR 11:09: [place] ORAL) Medical Branch diphenhydra 2021-09 Yes Take by Uni vers mine HCl 0-17 mouth. ity of (UNISOM 11:09: [place] [address] Medical ORAL) Branch acetaminoph 2021-09 Yes Take by Uni vers en (TYLENOL 0-17 mouth. ity of 8 HOUR 11:09: [place] ORAL) Medical Branch diphenhydra 2021-09 Yes Take by Uni vers mine HCl 0-17 mouth. ity of (UNISOM 11:09: [place] [address] Medical ORAL) Branch acetaminoph 2021-09 Yes Take by Uni vers en (TYLENOL 0-17 mouth. ity of 8 HOUR 11:09: [place] ORAL) Medical Branch diphenhydra 2021-09 Yes Take by Uni vers mine HCl 0-17 mouth. ity of (UNISOM 11:09: [place] [address] Medical ORAL) Branch acetaminoph 2021-09 Yes Take by Uni vers en (TYLENOL 0-17 mouth. ity of 8 HOUR 11:09: [place] ORAL) Medical Branch diphenhydra 2021-09 Yes Take by Uni vers mine HCl 0-17 mouth. [facility] ([facility]: [place] [address] Medical ORAL) Branch acetaminoph 2021-09 Yes Take by Uni vers en (TYLENOL 0-17 mouth. ity of 8 HOUR 11:09: [place] ORAL) Medical Branch diphenhydra 2021-09 Yes Take by Uni vers mine HCl 0-17 mouth. ity of ([facility]: [place] [address] Medical ORAL) Branch acetaminoph 2021-09 Yes Take by Uni vers en (TYLENOL 0-17 mouth. ity of 8 HOUR 11:09: [place] ORAL) Medical Branch diphenhydra 2021-09 Yes Take by Uni vers mine HCl 0-17 mouth. ity of ([facility] 11:[facility]: [place] [address] Medical ORAL) Branch acetaminoph 2021-09 Yes Take by Uni vers en (TYLENOL 0-17 mouth. ity of 8 HOUR 11:09: [place] ORAL) Medical Branch diphenhydra 2021-09 Yes Take by Uni vers mine HCl 0-17 mouth. ity of ([facility] 11:[facility]: [place] [address] Medical ORAL) Branch acetaminoph 2021-09 Yes Take by Uni vers en (TYLENOL 0-17 mouth. ity of 8 HOUR 11:09: [place] ORAL) Medical Branch diphenhydra 2021-09 Yes Take by Uni vers mine HCl 0-17 mouth. ity of ([facility]: [place] [address] Medical ORAL) Branch acetaminoph 2021-09 Yes Take by Uni vers en (TYLENOL 0-17 mouth. ity of 8 HOUR 11:09: [place] ORAL) Medical Branch diphenhydra 2021-09 Yes Take by Uni vers mine HCl 0-17 mouth. ity of ([facility]: [place] [address] Medical ORAL) Branch acetaminoph 2021-09 Yes Take by Uni vers en (TYLENOL 0-17 mouth. ity of 8 HOUR 11:09: [place] ORAL) Medical Branch diphenhydra 2021-09 Yes Take by Uni vers mine HCl 0-17 mouth. ity of (UNISOM 11:09: [place] [address] Medical ORAL) Branch acetaminoph 2021-09 Yes Take by Uni vers en (TYLENOL 0-17 mouth. ity of 8 HOUR 11:09: [place] ORAL) Medical Branch diphenhydra 2021-09 Yes Take by Uni vers mine HCl 0-17 mouth. ity of ([facility]: [place] [address] Medical ORAL) Branch acetaminoph 2021-09 Yes Take by Uni vers en (TYLENOL 0-17 mouth. ity of 8 HOUR 11:09: [place] ORAL) Medical Branch diphenhydra 2021-09 Yes Take by Uni vers mine HCl 0-17 mouth. ity of (UNISOM 11:09: [place] [address] Medical ORAL) Branch acetaminoph 2021-09 Yes Take by Uni vers en (TYLENOL 0-17 mouth. ity of 8 HOUR 11:09: [place] ORAL) Medical Branch diphenhydra 2021-09 Yes Take by Uni vers mine HCl 0-17 mouth. ity of (UNISOM 11:09: [place] [address] Medical ORAL) Branch acetaminoph 2021-09 Yes Take by Uni vers en (TYLENOL 0-17 mouth. ity of 8 HOUR 11:09: [place] ORAL) Medical Branch buPROPion 2021-09 Yes [id number] 150mg Take 1 Univers SR 0-17 tablet by ity of (WELLBUTRIN 00:00: mouth in [place] SR) 150 mg 00 the Medical SR tablet morning Branch and 1 tablet in the evening. buPROPion 2021-09 Yes [id number] 150mg Take 1 Univers SR 0-17 tablet by ity of (WELLBUTRIN 00:00: mouth in [place] SR) 150 mg 00 the Medical SR tablet morning Branch and 1 tablet in the evening. buPROPion 2021-09 Yes [id number] 150mg Take 1 Univers SR 0-17 tablet by ity of (WELLBUTRIN 00:00: mouth in [place] SR) 150 mg 00 the Medical SR tablet morning Branch and 1 tablet in the evening. buPROPion 2021-09 Yes [id number] 150mg Take 1 Univers SR 0-17 tablet by ity of (WELLBUTRIN 00:00: mouth in [place] SR) 150 mg 00 the Medical SR tablet morning Branch and 1 tablet in the evening. busPIRone 2021-09- No [id number] 10mg Take 1 Univers 10 mg 0-17 12-02 tablet by ity of tablet 00:00: 05:59 mouth 2 [place] 00 :00 (two) Medical times Branch daily as needed for Other (anxiety) for up to 45 days. busPIRone 2021-09- No [id number] 10mg Take 1 Univers 10 mg 0-17 12-02 tablet by ity of tablet 00:00: 05:59 mouth 2 [place] 00 :00 (two) Medical times Branch daily as needed for Other (anxiety) for up to 45 days. busPIRone 2021-09- No [id number] 10mg Take 1 Univers 10 mg 0-17 12-02 tablet by ity of tablet 00:00: 05:59 mouth 2 [place] 00 :00 (two) Medical times Branch daily as needed for Other (anxiety) for up to 45 days. busPIRone 2021-09- No [id number] 10mg Take 1 Univers 10 mg 0-17 12-02 tablet by ity of tablet 00:00: 05:59 mouth 2 [place] 00 :00 (two) Medical times Branch daily as needed for Other (anxiety) for up to 45 days. busPIRone 2021-09- No [id number] 10mg Take 1 Univers 10 mg 0-17 12-02 tablet by ity of tablet 00:00: 05:59 mouth 2 [place] 00 :00 (two) Medical times Branch daily as needed for Other (anxiety) for up to 45 days. busPIRone 2021-09- No [id number] 10mg Take 1 Univers 10 mg 0-17 12-02 tablet by ity of tablet 00:00: 05:59 mouth 2 [place] 00 :00 (two) Medical times Branch daily as needed for Other (anxiety) for up to 45 days. buPROPion 2021-09- No [id number] 150mg Take 1 Univers SR 0-17 11-18 tablet by ity of (WELLBUTRIN 00:00: 00:00 mouth in [place] SR) 150 mg 00 :00 the Medical SR tablet morning Branch and 1 tablet in the evening. buPROPion 2021-09- No [id number] 150mg Take 1 Univers SR 0-17 11-18 tablet by ity of (WELLBUTRIN 00:00: 00:00 mouth in [place] SR) 150 mg 00 :00 the Medical SR tablet morning Branch and 1 tablet in the evening. predniSONE 2019-09 Yes [id number] Prednisone Univers 20 mg 0-26 40mg PO ity of tablet 00:00: daily X 5 [place] 00 days, then Medical 20mg PO Branch daily x 5 days, then 20mg PO every other day x 10 days triamcinolo 2019-09 Yes [id number] Apply to Univers ne 0-26 area(s) 2 ity of acetonide 00:00: (two) [place] 0.1 % cream 00 times Medical daily. [place] predniSONE 2019-09 Yes [id number] Prednisone Univers 20 mg 0-26 40mg PO ity of tablet 00:00: daily X 5 [place] 00 days, then Medical 20mg PO Branch daily x 5 days, then 20mg PO every other day x 10 days triamcinolo 2019-09 Yes [id number] Apply to Univers ne 0-26 area(s) 2 ity of acetonide 00:00: (two) [place] 0.1 % cream 00 times Medical daily. [place] predniSONE 2019-09 Yes [id number] Prednisone Univers 20 mg 0-26 40mg PO ity of tablet 00:00: daily X 5 [place] 00 days, then Medical 20mg PO Branch daily x 5 days, then 20mg PO every other day x 10 days triamcinolo 2019-09 Yes [id number] Apply to Univers ne 0-26 area(s) 2 ity of acetonide 00:00: (two) [place] 0.1 % cream 00 times Medical daily. [place] predniSONE 2019-09 Yes [id number] Prednisone Univers 20 mg 0-26 40mg PO ity of tablet 00:00: daily X 5 [place] 00 days, then Medical 20mg PO Branch daily x 5 days, then 20mg PO every other day x 10 days triamcinolo 2020 Yes [id number] Apply to Univers ne 0-26 area(s) 2 ity of acetonide 00:00: (two) [place] 0.1 % cream 00 times Medical daily. [place] predniSONE 2019-09- No [id number] Prednisone Univers 20 mg 0-26 10-17 40mg PO ity of tablet 00:00: 00:00 daily X 5 [place] 00 :00 days, then Medical 20mg PO Branch daily x 5 days, then 20mg PO every other day x 10 days triamcinolo 2019-09- No [id number] Apply to Univers ne 0-06-20 area(s) 2 ity of acetonide 00:00: 00:00 (two) [place] 0.1 % cream 00 :00 times Medical daily. Branch predniSONE 2019-09- No [id number] Prednisone Univers 20 mg 006-20 40mg PO ity of tablet 00:00: 00:00 daily X 5 [place] 00 :00 days, then Medical 20mg PO Branch daily x 5 days, then 20mg PO every other day x 10 days triamcinolo 2019-09- No [id number] Apply to Univers ne 006-20 area(s) 2 ity of acetonide 00:00: 00:00 (two) [place] 0.1 % cream 00 :00 times Medical daily. Branch hydrocortis 2019-09- No [id number] Apply to Univers one 1 % 006-21 affected ity of cream 00:00: 04:59 area(s) [...] tablet times Branch daily with meals. Nitrofurant Yes 100mg Take 1 Uni vers oin&Nit. [...] times Branch capsule daily. Immunizations Ordered Filled Date Status Comments Source Immunization Name Immunization Name Influenza Virus 2017-06-25 Completed Universit y of Vaccine Quad .5 mL 00:00:00 [facility] IM 6+ MO Branch TDAP 2017-06-25 Completed University of 00:00:00 [facility] Influenza Virus 2017-06-25 Completed Universit y of Vaccine Quad .5 mL 00:00:00 [facility] IM 6+ MO Branch TDAP 2017-06-25 Completed University of 00:00:00 [facility] Influenza Virus 2017-06-25 Completed Universit y of Vaccine Quad .5 mL 00:00:00 [facility] IM 6+ MO Branch TDAP 2017-06-25 Completed University of 00:00:00 [facility] Influenza Virus 2016-06-10 Completed Universit y of Vaccine Quad .5 mL 00:00:00 [facility] IM 6+ MO Branch Influenza Virus 2016-06-10 Completed Universit y of Vaccine Quad .5 mL 00:00:00 [facility] IM 6+ MO Branch Influenza Virus 2016-06-10 Completed Universit y of Vaccine Quad .5 mL 00:00:00 [facility] 6+ MO Branch Influenza Virus 2016-05-20 Completed Universit y of Vaccine 00:00:00 [facility] Influenza Virus 2016-05-20 Completed Universit y of Vaccine 00:00:00 [facility] Influenza Virus 2016-05-20 Completed Universit y of Vaccine 00:00:00 [facility] Influenza Virus 2016-05-20 Completed Universit y of Vaccine 00:00:00 [facility] Influenza Virus 2016-05-20 Completed Universit y of Vaccine 00:00:00 [facility] Influenza Virus 2016-05-20 Completed Universit y of Vaccine 00:00:00 [facility] Influenza Virus 2016-05-20 Completed Universit y of Vaccine 00:00:00 [facility] Influenza Virus 2016-05-20 Completed Universit y of Vaccine 00:00:00 [facility] Influenza Virus 2016-05-20 Completed Universit y of Vaccine 00:00:00 [facility] Influenza Virus 2016-05-20 Completed Universit y of Vaccine 00:00:00 [facility] Influenza Virus 2016-05-20 Completed Universit y of Vaccine 00:00:00 [facility] Influenza Virus 2016-05-20 Completed Universit y of Vaccine 00:00:00 [facility] Influenza Virus 2016-05-20 Completed Universit y of Vaccine 00:00:00 [facility] Influenza Virus 2016-05-20 Completed Universit y of Vaccine 00:00:00 [facility] Influenza Virus 2016-05-20 Completed Universit y of Vaccine 00:00:00 [facility] Influenza Virus 2016-05-20 Completed Universit y of Vaccine 00:00:00 [facility] Influenza Virus 2016-05-20 Completed Universit y of Vaccine 00:00:00 [facility] Influenza Virus Unknown Completed Universit y of Vaccine [facility] Influenza Virus Unknown Completed Universit y of Vaccine Quad .5 mL [facility] IM 6+ MO Branch (FLUZONE/FLULAVAL/F LUARIX) Influenza Virus Unknown Completed Universit y of Vaccine Quad .5 mL [facility] IM 6+ MO Branch (FLUZONE/FLULAVAL/F LUARIX) TDAP Unknown Completed [facility] Vital Signs Vital Name Observation Time Observation Value Comments Source Systolic blood 2022-10-24 21:09:00 121 mm[Hg] Univer sity of pressure [facility] Diastolic blood 2022-10-24 21:09:00 78 mm[Hg] Unive rsity of [facility] Heart rate 2022-10-24 21:09:00 72 /min Universi ty [facility] Body height 2022-10-24 21:09:00 177.8 cm Universi ty [facility] Body weight 2022-10-24 21:09:00 74.39 kg Universi ty [facility] BMI 2022-10-24 21:09:00 23.53 kg/m2 Universi ty [facility] Oxygen saturation in 2022-10-24 21:09:00 100 /min [facility] Arterial blood by [facility] Pulse oximetry Branch Systolic blood 2022-10-21 19:25:00 139 mm[Hg] Univer sity of pressure [facility] Diastolic blood 2022-10-21 19:25:00 92 mm[Hg] Unive rsity of pressure [facility] Heart rate 2022-10-21 19:25:00 87 /min Universi ty of [facility] Body temperature 2022-10-21 19:25:00 37.28 Apple [facility] Respiratory rate 2022-10-21 19:25:00 16 /min [facility] Body weight 2022-10-21 19:25:00 73.891 kg Universi ty of [facility] BMI 2022-10-21 19:25:00 23.37 kg/m2 Universi ty [facility] [place] [facility] Oxygen saturation in 2022-10-21 19:25:00 98 /min University of Arterial blood by [facility] Pulse oximetry Branch Systolic blood 2022-09-27 19:47:00 112 mm[Hg] Univer sity of pressure [place] [facility] Diastolic blood 2022-09-27 19:47:00 74 mm[Hg] Unive rsity of pressure [facility] Heart rate 2022-09-27 19:47:00 88 /min Universi ty [facility] [place] [facility] Body height 2022-09-27 19:47:00 177.8 cm Universi ty [facility] [place] [facility] Body weight 2022-09-27 19:47:00 71.895 kg Universi ty [facility] [place] [facility] BMI 2022-09-27 19:47:00 22.74 kg/m2 Universi ty [facility] [place] [facility] Oxygen saturation in 2022-09-27 19:47:00 98 /min University of Arterial blood by [facility] Pulse oximetry Branch Systolic blood 2022-07-22 19:39:00 120 mm[Hg] Univer sity of pressure [place] [facility] Diastolic blood 2022-07-22 19:39:00 81 mm[Hg] Unive rsity of pressure [facility] Heart rate 2022-07-22 19:39:00 77 /min Universi ty [facility] [place] [facility] Body height 2022-07-22 19:39:00 177.8 cm Universi ty [facility] [place] [facility] Body weight 2022-07-22 19:39:00 71.26 kg Universi ty [facility] [place] [facility] BMI 2022-07-22 19:39:00 22.54 kg/m2 Universi ty [facility] [place] [facility] Oxygen saturation in 2022-07-22 19:39:00 99 /min University of Arterial blood by [facility] Pulse oximetry Branch Systolic blood 2022-06-24 18:13:00 118 mm[Hg] Univer sity of pressure [facility] Diastolic blood 2022-06-24 18:13:00 80 mm[Hg] Unive rsity of pressure [facility] Heart rate 2022-06-24 18:13:00 88 /min Universi ty of [place] [facility] Body temperature 2022-06-24 18:13:00 37.56 Apple Univ ersity of [place] [facility] Respiratory rate 2022-06-24 18:13:00 16 /min Univ ersity of [place] [facility] Body height 2022-06-24 18:13:00 177.8 cm Universi ty [facility] [place] [facility] Body weight 2022-06-24 18:13:00 73.165 kg Universi ty [facility] [place] [facility] BMI 2022-06-24 18:13:00 23.14 kg/m2 Universi ty of [place] [facility] Oxygen saturation in 2022-06-24 18:13:00 97 /min University of Arterial blood by [facility] Pulse oximetry Branch Systolic blood 2022-06-20 16:09:00 120 mm[Hg] Univer sity of pressure [facility] Diastolic blood 2022-06-20 16:09:00 82 mm[Hg] Unive rsity of pressure [facility] Heart rate 2022-06-20 16:09:00 69 /min Universi ty [facility] [place] [facility] Body height 2022-06-20 16:09:00 177.8 cm Universi ty [facility] [place] [facility] Body weight 2022-06-20 16:09:00 74.254 kg Universi ty [facility] [place] [facility] BMI 2022-06-20 16:09:00 23.49 kg/m2 Universi ty [facility] [place] [facility] Oxygen saturation in 2022-06-20 16:09:00 99 /min University of Arterial blood by [facility] Pulse oximetry Branch Systolic blood 2021-09-05 16:13:00 113 mm[Hg] Univer sity of pressure [place] [facility] Diastolic blood 2021-09-05 16:13:00 79 mm[Hg] Unive rsity of pressure [facility] Heart rate 2021-09-05 16:13:00 90 /min Universi ty [facility] [place] [facility] Body temperature 2021-09-05 16:13:00 37.33 Apple Univ ersity of [place] [facility] Respiratory rate 2021-09-05 16:13:00 18 /min Univ ersity of [place] [facility] Body height 2021-09-05 16:13:00 177.8 cm Universi ty [facility] [place] [facility] Body weight 2021-09-05 16:13:00 75.887 kg Universi ty [facility] [place] [facility] BMI 2021-09-05 16:13:00 24.01 kg/m2 Universi ty [facility] [place] [facility] Oxygen saturation in 2021-09-05 16:13:00 98 /min [place] of Arterial blood by [facility] Pulse oximetry Branch Systolic blood 2020-06-13 14:46:00 125 mm[Hg] Univer sity of pressure [facility] Diastolic blood 2020-06-13 14:46:00 84 mm[facility]Hg[facility] 2020-06-13 14:46:00 78 /min [facility] Body temperature 2020-06-13 14:46:00 36.83 Apple [facility] Respiratory rate 2020-06-13 14:46:00 18 /min [facility] Body height 2020-06-13 14:46:00 177.8 cm [facility] Body weight 2020-06-13 14:46:00 104.327 kg [facility] BMI 2020-06-13 14:46:00 33.00 kg/m2 [facility] Oxygen saturation in 2020-06-13 14:46:00 96 /min University Arterial blood by [facility] Pulse oximetry Branch Procedures Procedure Date / Time Performing Clinician Source Performed EXTERNAL PROVIDER RECORDS 2022-09-12 06:01:00 Doctor Unasasha, [facility] [place] [facility] POCT SARS-COV-2 ANTIGEN 2022-06-24 18:23:00 Tarun Morillo [facility] (BINAX NOW) [facility] POCT MOLECULAR FLU 2022-06-24 18:16:00 Unknown, Attending [facility] POCT MOLECULAR STREP 2022-06-24 18:10:00 Unknown, Attending [facility] CONSENT/REFUSAL FOR 2022-06-20 15:53:02 Doctor Meek [facility] DIAGNOSIS AND TREATMENT [place] [facility] [address] PATIENT FINANCIAL Doctor Meek [facility] RESPONSIBILITY - ALL [place] [facility] FORMS Encounters Start End Encounter Admission Attending Care Care Encounter Source Date/Time Date/Time Type Type Clinicians Facility Department ID 2022-11-04 2022-11-04 Outpatient Martine ENGEL [facility] [id number] Univers 14:30:00 14:30:00 BATSHEVA scott [facility] 2022-10-24 2022-10-24 Outpatient R EVERYLEY [facility] [id number] Univers 15:00:00 15:56:16 BATSHEVA ity [facility] 2022-10-24 2022-10-24 [facility] 1.2.840.114 [id number] Univers 15:00:00 15:56:16 Visit [facility] 350.1.13.10 it y of [place] 4.2.7.2.686 Abhilash as ASTER?BLEA [phone] [address] MEDICAL OFFICE [facility] 2022-10-21 2022-10-21 [facility] [id number] Univers 13:20:00 13:46:53 REENU ity [facility] 2022-10-21 2022-10-21 Urgent Ángela Rosamary [facility] 1.2.840.11 [id number] Univers 13:20:00 13:46:53 Care Unknown, Attending HEALTH 350.1.13.10 ity of [place] 4.2.7.2.686 Abhilash as ASTER?BLEA [id number] [facility] [address] MEDICAL OFFICE [facility] 2022-09-30 2022-09-30 Patient [facility] 1.2.840.114 [id number] Univers 00:00:00 00:00:00 Secure Msg Batsheva HEALTH 350.1.13.10 [facility] 4.2.7.2.686 Abhilash as ASTER?BLEA [id number] [address] MEDICAL OFFICE [facility] 2022-09-27 2022-09-27 Outpatient [facility] [id number] Univers 14:00:00 14:34:33 BATSHEVA marcia [facility] 2022-09-27 2022-09-27 Office [facility] 1.2.840.114 [id number] Univers 14:00:00 14:34:33 Visit [facility] 350.1.13.10 it y of [place] 4.2.7.2.686 Abhilash as ASTER?BLEA [id number] [address] MEDICAL OFFICE [facility] 2022-09-27 2022-09-27 Telephone [facility] [id number] [id number] Univers 00:00:00 00:00:00 Batsheva HEALTH 350.1.13.10 it [facility] 4.2.7.2.686 Abhilash as ASTER?BLEA [id number] [address] OFFICE [facility] 2022-09-12 2022-09-12 Orders Doctor ANÍBAL 1.2.840.114 [id number] Univers 00:00:00 00:00:00 Only Unassigned, JOSE 350.1.13.10 ity of [place] [facility] 4.2.7.2.686 Abhilash as [id number] [address] 2022-07-22 2022-07-22 Office [facility] 1.2.840.114 [id number] Univers 13:30:00 14:19:21 Visit Batsheva HEALTH 350.1.13.10 it y [facility] 4.2.7.2.686 Abhilash as ASTER?BLEA [id number] [address] OFFICE [facility] 2022-07-22 2022-07-22 Outpatient R TAZ [facility] [id number] Univers 13:30:00 14:19:21 BATSHEVA ity [facility] 2022-06-24 2022-06-24 Urgent Tarun Morillo [facility] 1.2.840.114 [id number] Univers 11:00:00 11:20:00 Care Unknown, Attending HEALTH 350.1.13.10 ity of [place] 4.2.7.2.686 Abhilash as ASTER?BLEA [id number] [address] MEDICAL OFFICE [facility] 2022-06-24 2022-06-24 Outpatient R ROCIO [facility] [id number] Univers 11:00:00 11:00:00 TARUN scott [facility] 2022-06-22 2022-06-22 Patient [facility] 1.2.840.114 [id number] Univers 00:00:00 00:00:00 Secure Msg Batsheva HEALTH 350.1.13.10 ity [facility] 4.2.7.2.686 Abhilash as ASTER?BLEA [id number] [address] MEDICAL OFFICE [facility] 2022-06-21 2022-06-21 Outpatient R TAZ [facility] [id number] Univers 10:00:00 10:00:00 BATSHEVACHRISSY scott [facility] 2022-06-20 2022-06-20 Outpatient R TAZ [facility] [id number] Univers 11:00:00 11:38:45 BATSHEVACHRISSY scott [facility] 2022-06-20 2022-06-20 Office [facility] 1.2.840.114 [id number] Univers 11:00:00 11:38:45 Visit Batsheva HEALTH 350.1.13.10 it y of [place] 4.2.7.2.686 Abhilash as ASTER?BLEA [id number] [address] OFFICE [facility] 2022-06-20 2022-06-20 Patient Taz [facility] 1.2.840.114 [id number] Univers 00:00:00 00:00:00 Secure Msg Batsheva HEALTH 350.1.13.10 ity of [place] 4.2.7.2.686 Abhilash as ASTER?BLEA [id number] [address] OFFICE [facility] 2022-06-20 2022-06-20 Orders Doctor ANÍBAL 1.2.840.114 [id number] Univers 00:00:00 00:00:00 Only Unassigned, JOSE 350.1.13.10 ity of [place] [facility] 4.2.7.2.686 Abhilash as [id number] [address] 2022-01-01 2022-01-02 Inpatient EM Easton [facility] MEDI.01 [id number] [facility] 18:18:00 10:13:00 Kenia [facility] 2022-01-01 2022-01-02 Inpatient EM MK Easton MEDI.01 [id number] [facility] 18:18:00 10:13:00 Kenia [id number] [facility] [place] 2021-12-30 2021-12-30 Emergency EM Jose C [facility] [id number] [facility] 10:50:00 16:24:00 Raya 31 [facility] 2021-09-05 2021-09-05 Outpatient R DOV [facility] [id number] Univers 10:20:00 10:38:43 TED ity [facility] 2021-09-05 2021-09-05 Urgent Rhea Centeno [facility] 1.2.840. 114 [id number] Univers 10:20:00 10:38:43 [facility] 350.1.13.10 [facility] 4.2.7.2.686 Abhilash as ASTER?BLEA [id number] Ct malcolm SÁNCHEZ [address] MEDICAL OFFICE BUILDING 2020-10-27 2020-10-27 Outpatient R TAZ [facility] [id number] Univers 13:20:00 13:20:00 BATSHEVA scott [facility] 2020-06-29 2020-06-29 Office Nick Smyth UNIVERSIT 1.2.8 40.114 [id number] Univers 14:16:22 15:06:03 Visit Abdulaziz Gentile [facility] 350.1.13.10 ity of [facility] 4.2.7.2.686 [place] [id number] [address] 2020-06-29 2020-06-29 Outpatient R ABDULAZIZ GENTILE [facility] 10 [id number] Univers 14:30:00 14:30:00 ABDULAZIZ GENTILE i ty [facility] 2020-06-13 2020-06-13 Urgent Provider, [facility] Urgent Care [facility] 1.2.840.114 [id number] Univers 09:41:31 10:01:31 Care [place] [facility] 350.1.13.10 ity of [place] 4.2.7.2.686 Abhilash as Professio [id number] malcolm panchal [address] [employer] 2020-06-13 2020-06-13 Outpatient R DOV [facility] [id number] Univers 09:40:00 09:40:00 TED ity [facility] Orders Doctor SPANGLER 1.2.840.114 [id number] 00:00:00 00:00:00 Only Unassigned, JOSE 350.1.13.10 ity of [place] [facility] 4.2.7.2.686 Abhilash as [phone] [address] Results Test Description Test Time Test Comments Results Result Comments Source POCT MOLECULAR FLU 2022-06-24 18:28:02 Test Item Value Reference Range Interpretation Comme nts POCT Molecular FluA (test code = 34447-7) Negative Negative POCT Molecular FluB (test code = 76997-1) Negative Negative Lab Interpretation (test code = 30731-8) Normal [facility] SARS-COV-2 ANTIGEN (BINAX NOW)2022-06-24 18:23:00 Test Item Value Reference Range Interpretation Comments POCT SARS-COV-2 ANTIGEN Not Detected Not Detected (test code = 35589-0) On board controls Yes acceptable with C Line (test code = 3574) LOYDA (test code = LOYDA) accurate development and interpretation of all internal controls Lab Interpretation Normal (test code = 46839-8) [facility] MOLECULAR [id number] 18:18:49 Test Item Value Reference Range Interpretation Comments POCT Molecular Strep (test code = Negative Negative 70044-5) Lab Interpretation (test code = Normal 81993-8) [facility] 16:55:00 Test Item Value Reference Range Interpretation Comments SURGICAL (test code = SR) R UN DATE: 01/05/22 [facility] PAGE 1 RUN TIME: 2135 Specimen Inquiry RUN USER: INTERFACE P ATIENT: RUBIO WHITE LOC: NIECY U #: [id number] AGE/SX: 26/F ROOM: [facility] RE01/01/22REG DR: Kenia Easton MD : 94 BED: A DIS: 01/02/22 STATUS: DIS Nirmala TLOC: SPEC #: [id number] RECD: 01/03/22 STATUS: SANDIP REQ #: [id number] SHIRLEY: 01/01/22- SUBM DR: Kenia Easton MD ENTERED: 01/03/22 SP TYPE: SURGICAL OTHR DR: DOES_NOT KNOW ORDERED: ANATOMIC SPEC, SPEC TRACK, [id number] COPIES TO: DOES_NOT KNOW Kenia Easton MD [address] [place] [address] PROCEDURES: 93739 (01/05/22) TISSUES: A. FALLOPIAN TUBE, LEFT - LEFT [...] filled by arora-brown, spongy material andblood clots. Carpenter Apprentice sections are submitted in A1-Remaining specimen entirely submitted in 4 cassettes [id number] Technical component performed at [id number] , [place] [address] Unless gross only, the diagnosis is based upon microscopic examination.Immunohistochemistr y: This test was developed and its performance characteristicsdetermined by this laboratory. It has not been approved nor does it need approval by the CONTINUED ON NEXT PAGE R UN DATE: 01/05/22 [facility] PAGE 2 RUN TIME: 1655 Specimen Inquiry RUN USER: INTERFACE S PEC #: [id number] PATIENT: HALIE WHITELYN ANA #[id number] (Continued) GROSS DESCRIPTION (Continued) FDA. Appropriate positive and negative controls are reviewed and judged to beacceptable. This laboratory is certified under the Clinical Laboratory ImprovementAmendments (CLIA-88) as qualified to perform high complexity clinical laboratory testing. CLINICAL INFORMATION 01/01/22, TIME IN FORMALIN 09:33, ECTOPIC . --------- Signed SIGNATURE ON FILE Prieto Redd 01/05/22 7405 END OF REPORT COVID 19 Asymptomatic IH [id number] 18:50:00 Test Item Value Reference Range Interpretation [...] or approved; th e test hasbeen authori peri by FDA under an Emerge ncy Use [...] and/o r diagnosis of CO VID-19 under Ygevboc52 4(b)(1) of the Act, 21 U.S .C. 360bbb-3(b)(1), unless theauthorizatio n is terminated or r evoked sooner. HCG [id number] 16:19:00 Test Item Value Reference Range Interpretation [...] SHOULD BE CONSI DERED NEGATIVE COMPREHENSIVE METABOLIC [id number] 16:15:00 Test Item Value Reference Range Interpretation [...] 46-116 N code = ALKP) CBC W/AUTO [id number] 15:58:00 Test Item Value Reference Range Interpretation [...] code = PLTMR) - US PREG UT [id number] 00:00:00 [facility] AZLEName: RUBIO WHITE : 1995 Sex: F Patient Name: RUBIO WHITE Unit No: [id number] Report Has Been Amended EXAMS: CPT CODE: [id number] US PREG UT TRANSVAGINAL 65229 Addendum - 01/01/2022 SIGNED 01/01/2022 ADDENDUM: [id number] US/USPRUTTRVG Results were discussed with Iftikhar Carvalho , charge nurse at 6:33 p.m. on 01/01/2022. at 1839 Reported and signed by: Kenny Garcia Transcribed: 01/01/2022 (0920) [facility] Report PROCEDURE INFORMATION: Exam: US First Trimester (Transabdominal), (Transvaginal), and US Duplex Artery or Vein (Ovaries)Limited Exam date and time: 01/01/2022 5:31 PM [...] 14 weeks 0 days, with image documentation. Tra nsvaginal imaging was used for better evaluation of [...] moderate complex fluid adjacent to The Woman's [facility] NAME: RUBIO WHITE ANA Radiology Department PHYS: Polly Purvis MD [address] : 1995AGE: 26 SEX: F [place], [place] [address] LOC: COLLEEN 3 PHONE #: [phone] EXAM DATE: 01/01/2022 STATUS: ADM IN FAX #: [phone] RAD NO: Page 1 Signed Report (CONTINUED) Patient Name: RUBIO WHITE Unit No: [id number] Report Has Been Amended EXAMS: CPT CODE: [id number] US PREG UT TRANSVAGINAL 65097 (Continued) the left ovary and in the cul-de-sac. Urinary bladder: Unremarkble. IMPRESSION: 1. No intrauterine 2. Complex structure adjacent to the adnexa with adjacent complex free fluid. This is concerning for ruptured ectopic . Recommend correlation with beta HCG. at 1830 Reported and signed by: Kenny Garcia CC: Polly Hernandez MD; Kenia Easton MD Technologist: Sammie Mcintosh, [facility] Probe: [id number] Trnscrbd D/ (1829) GCD.CPS Orig Print D/T: S: 01/01/2022 (183) [facility] NAME: RUBIO WHITE Radiology Department PHYS: Polly Purvis MD [address] : 1995 AGE: 26 SEX: F [place] [address] : NATHAN 3 PHONE #: [phone] EXAM DATE: 01/01/2022 STATUS: ADM IN FAX #: [phone] RAD NO: Page 2 Signed Report Patient Name: RUBIO WHITE Unit No: [id number] Report Has Been Amended EXAMS: CPT CODE: [id number] PREG UT TRANSVAGINAL 71607 (Continued) [facility] NAME: HALIE WHITELYN ANA Radiology Department PHYS: Polly Purvis MD [address] : 1995 AGE: 26 SEX: F [place] [address] LOC: NATHAN 3 PHONE #: [phone] EXAM DATE: 01/01/2022 STATUS: ADM IN FAX #: [phone] RAD NO: Page 3 Signed Report- DUP AB/PEL/SC/LTD 2022-01-01 00:00:00 [facility] AZLEName: RUBIO WHITE : 1995 Sex: F Patient Name: RUBIO WHITE Unit No: [id number] Report Has Been Amended EXAMS: CPT CODE: [id number] DUP AB/PEL/SC/LTD 52793 Addendum - 01/01/2022 SIGNED 01/01/2022 ADDENDUM: [id number] US/DUPAPSLTD Results were discussed with Iftikhar Carvalho , charge nurse at 6:33 p.m. on 01/01/2022. at 1833 Reported and signed by: Kenny Garcia Transcribed: 01/01/2022 (1833) D.CPS Report PROCEDURE INFORMATION: Exam: US FirstTrimester (Transabdominal), (Transvaginal), and US Duplex Artery or Vein (Ovaries) LimitedExam date and time: 01/01/2022 5:31 PM Age: [...] There is a 4.4 x 2.7 x 2point cm complex structure adjacent to the left ovary with adjacent complex fluid. Intraperitoneal space: There is moderate complex fluid adjacent to [facility] NAME: RUBIO WHITE Radiology Department PHYS: Polly Purvis MD [address] : 1995 AGE: 26 SEX: F [place] [address] LOC: COLLEEN Finney PHONE #: [phone] EXAM DATE: 01/01/2022 STATUS: ADM IN FAX #: [phone] RAD NO: Page 1 Signed Report (CONTINUED) Patient Name: RUBIO BUTLER Unit No: [id number] Report Has Been Amended EXAMS: CPT CODE: [id number] DUP AB/PEL/SC/LTD 66426 (Continued) the left ovary and in the cul-de-sac. Urinary bladder: Unremarkble.IMPRESSION: 1. No intrauterine 2. Complex structure adjacent to the adnexa with adjacent complex free fluid. This is concerning for ruptured ectopic . Recommend correlation with betaHCG. at 1830 Reported and signed by: Kenny Garcia CC: Polly Hernandez MD; Kenia Easton MD Technologist: Sammie Mcintosh RDMS Probe: Trnscrbd D/ (1829) GCD.CPS Orig Print D/T: S: 01/01/2022 (1829) [facility] NAME: CHRISTOPHER,RUBIOCLAUDIA PEREZ Radiology Department PHYS: Polly Purvis MD [address] : 1995 AGE: 26 SEX: F [place] [id number] LOC: NATHANSU 3 PHONE #:[phone] EXAM DATE: 01/01/2022 STATUS: ADM IN FAX #: [phone] RAD NO: Page 2 Signed Report P atient Name: RUBIO WHITE Unit No: [id number] Report Has Been Amended EXAMS: CPT CODE: [id number] DUP AB/PEL/SC/LTD 88328 (Continued) [facility] NAME: RUBIO WHITE Radiology Department PHYS: Polly Purvis MD [address] : 1995 AGE: 26 SEX: F [place], [place] [address] LOC: NATHAN 3 PHONE #: [phone] EXAM DATE: 01/01/2022 STATUS: ADM IN FAX #: [phone] RAD NO: Page 3 Signed Report- US PREG EVAL 1ST [id number] 00:00:00 [facility] 1995 Sex: F Patient Name: RUBIO WHITE Unit No: [id number] Report Has Been Amended EXAMS: CPT CODE: [id number] US PREG EVAL 1ST TRIMTR 44688 Addendum - 01/01/2022 SIGNED 01/01/2022 ADDENDUM: [id number] US/AAKAAN6IUR Results were discussed with Iftikhar Carvalho , charge nurse at 6:33 p.m. on 01/01/2022. at 1833 Reported and signed by: Kenny Garcia Transcribed: 01/01/2022 (1833) LEROY.CPS Report PROCEDURE INFORMATION: Exam: US First Trimester [...] moderate complex fluid adjacent to [facility] NAME: RUBIO WHITE Radiology Department PHYS: Polly Purvis MD [address] : 1995 AGE: 26 SEX: F [place], [place] [address] LOC: COLLEEN 3 PHONE #: [phone] EXAM DATE: 01/01/2022 STATUS: ADM IN FAX #: [phone] RAD NO: Page 1 Signed Report (CONTINUED) Patient Name: RUBIO WHITE Unit No: [id number] Report Has Been Amended EXAMS: CPT CODE: [id number] US PREG EVAL 1ST TRIMTR 96726 (Continued) the left ovary and in the cul-de-sac. Urinary bladder:Unremarkble. IMPRESSION: 1. No intrauterine 2. Complex structure adjacent to the adnexa with adjacent complex free fluid. This is concerning for ruptured ectopic . Recommend correlation with beta HCG. at 1830 Reported and signed by: Kenny Garcia CC: Polly Hernandez MD; Kenia Easton MD Technologist: Sammie Mcintosh RDMS Probe: Trnscrbd D/ (1829) GCD.CPS Orig Print D/T: S: 01/01/2022 (1829) [facility] NAME: RUBIO WHITE Radiology Department PHYS: Polly Purvis MD [address] : 1995 AGE: 26 SEX: F [place] [address] LOC: COLLEEN 3 PHONE #: [phone] EXAM DATE: 01/01/2022 STATUS: ADM IN FAX #: [phone] RAD NO: Page 2 Signed Report Patient Name: RUBIO WHITE Unit No: [id number] Report Has Been Amended EXAMS: CPT CODE: [id number] US PREG EVAL 1ST TRIMTR 41007 (Continued) [facility] NAME: RUBIO WHITE Radiology Department PHYS: Polly Purvis MD [address] : 0 1995 AGE: 26 SEX: F [place] [address] LOC: COLLEEN 3 PHONE #: [phone] EXAM DATE: 01/01/2022 STATUS: ADM IN FAX #: [phone] RAD NO: Page 3 Signed ReportUA RFLX [...] for culture: Suprapubic PainSpecimen Description: CLEAN CATCHHCG [id number] 11:41:00 Test Item Value Reference Range Interpretation [...] CONCEPTION 10,0 00-100,0002ND TRIMESTER 3,000 -50,0003RD TRIMESTER 1,00 0-50,000 SPECIMENS WITH AN HCG LEVEL FROM 0-6 milliInternatio nalunits/mL SHOULD BE CONSI DERED NEGATIVE CBC W/AUTO [id number] 11:33:00 Test Item Value Reference Range Interpretation [...] NORMAL NORMAL code = PLTMR) BASIC METABOLIC [id number] 11:33:00 Test Item Value Reference Range Interpretation [...] = CA) 8.8 mg/dL 8.4-10.2 N LIVER [id number] 11:33:00 Test Item Value Reference Range Interpretation [...] 46-116 N code = ALKP) - DUP AB/PEL/SC/[id number] 00:00:[address] [facility] 1995 Sex: F Patient Name: RUBIO WHITE Unit No: [id number] EXAMS: CPT CODE: [id number] DUP AB/PEL/SC/LTD 18662 PROCEDURE INFORMATION: Exam: US First Trimester (Transabdominal), (Transvaginal), and US Duplex Artery or Vein (Ovaries) Limited Exam date and time: 12/30/2021 12:57 PM Age: 26 years old Clinical indication: Abdominal or pelvic symptoms: Pelvic pain; Lmp or gestational age (in weeks): 8w 2d; ; Prior surgery; Surgery date: 6+ months; Surgery type: Tummy tuck LABS AND CLINICAL REPORTS: Last menstrual period start date: 11/02/2021 Gestational age by LMP: 8 weeks,2 days Estimated due date by last menstrual period: 08/09/2022 TECHNIQUE: Imaging protocol: Real-time transabdominal and transvaginal obstetrical ultrasound of the maternal pelvis and a first trimesterpregnancy, less than 14 weeks 0 days, with image documentation. Transvaginal imaging was used for better evaluation of the endometrium, adnexa, and/or cervix. Real-time duplex ultrasound scan of the art erial or venous flow of the ovaries with B-mode, color Doppler flow and spectral waveform analysis. Complete obstetrical exam, limited duplex. COMPARISON: 1. OT US PREG AFTER 1ST TRI 06/15/2017 5:11 PM2. OT US PELVIS COMPLETE 01/05/2016 8:56 PM FINDINGS: Gestation: No intrauterine gestational sac. MATERNAL: Uterus: Anteverted uterus measures 8.7 x 5.4 x 6.6 cm. Normal contour and myometrial echogenicity. The endometrium is homogeneous and measures 7.6 mm in thickness. Cervix: Unremarkable. Right ovary/adnexa: The right ovary measures 3.6 x 2.8 x 3.6 cm. Normal contour. Normal blood flow. 2.2 x 2.6 x2.7 cm complex cystic lesion with lace-like internal septations compatible with a hemorrhagic cyst. L eft ovary/adnexa: The left ovary measures 2.7 x [...] or pole. Some peripheral vascularity is seen bycolor Doppler. Intraperitoneal space: Small to moderate amount of free fluid in the pelvis. IMPRESSION: 1. Left adnexal mass concerning for ectopic . 2. Small to moderate free fluid in the pelvis. 3. Hemorrhagic right ovarian cyst. [facility] NAME: RUBIO WHITE Ra diology Department PHYS: . Raya Woodall [address] : 1995 AGE: 26 SEX: F [place] [address] LOC: ChristianeERS PHONE #: [phone] EXAM DATE: 12/30/2021 STATUS: REG ER FAX #: [phone] RAD NO: Page 1 Signed Report (CONTINUED) Patient Name: MURALI WHITE Unit No: [id number] EXAMS: CPT CODE: [id number] DUP AB/PEL/SC/LTD 36635 (Continued) Findingswere discussed with Raya Woodall at 12/30/2021 2:14 PM CDT. at 1415 Reported and signed by: Jair Lennon MD CC: Kenia Easton MD; Raya Woodall MD Technologist: Courtney Bustillo RDMS, RVT Probe: Trnscrbd D/ (1415) GCD.CPS Orig Print D/T: S: 12/30/2021 (1415) [facility] NAME: RUBIO WHITE Radiology Department PHYS: SANIA. Raya Woodall [address] : 1995 AGE: 26 SEX: F [place] [address] LOC: ChristianeERS PHONE #: [phone] EXAM DATE: 12/30/2021 STATUS: REG ER FAX #: [phone] RAD NO: Page 2 Signed Report Patient Name: RUBIO WHITE Unit No: [id number] EXAMS: CPT CODE: [id number] DUP AB/PEL/SC/LTD 38587 (Continued)[facility] NAME: RUBIO WHITE Radiology Department PHYS: PETCA. - Pet Raya acuña [address] : 1995 AGE: 26 SEX: F [place], [place] [address] LOC: FJenniERS PHONE #: [phone] EXAM DATE: 12/30/2021 STATUS: REG ER FAX #: [phone] RAD NO: Page 3 Signed Report- US PREG UT [id number] 00:00:00 [facility] 1995 Sex: F Patient Name: RUBIO WHITE Unit No: [id number] EXAMS: CPT CODE: [id number] US PREG UTTRANSVAGINAL 06472 PROCEDURE INFORMATION: Exam: US First Trimester (Transabdominal), [...] pelvis. 3. Hemorrhagic right ovarian cyst. [facility] NAME: RUBIO WHITE Radiology Department PHYS: SANIA.01 - Raya Woodall [address] : 1995 AGE: 26 SEX: F [place], [place] [address] LOC: F.ERS PHONE #: [phone] EXAM DATE: 12/30/2021 STATUS: REG ER FAX #: [phone] RAD NO: Page 1 Signed Report (CONTINUED) Patient Name: RUBIO WHITE Unit No: [id number] EXAMS: CPT CODE: [id number] US PREG UT TRANSVAGINAL 78543 (Continued) Findings were discussed with Raya Woodall at 12/30/2021 2:14 PM CDT. at 1415 Reported and signed by: Jair Lennon MD CC: Kenia Easton MD; Raya Woodall MD Technologist: Courtney Bustillo RDMS, RVT Probe: [id number] Trnscrbd D/ (1414) GCD.CPS Orig Print D/T: S: 12/30/2021 (141) [facility] NAME: RUBIO WHITE Radiology Department PHYS: LARRYCA.Ronda - Raya Woodall [address] : 1995 AGE: 26 SEX: F [place] [address] LOC: ChristianeERS PHONE #: [phone] EXAM DATE: 12/30/2021 STATUS: REG ER FAX #: [phone] RAD NO: Page 2 Signed Report Patient Name: RUBIO WHITE Unit No: [id number] EXAMS: CPT CODE: [id number] US PREG UT TRANSVAGINAL 50043 (Continued) [facility] NAME: RUBIO WHITE Radiology Department PHYS: LARRYCA.01 - Raya Woodall [address] : 1995 AGE: 26 SEX: F [place] [address] LOC: ChristianeERS PHONE #: [phone] EXAM DATE: 12/30/2021 STATUS: REG ER FAX #: [phone] RAD NO: Page 3 Signed Report- US PREG EVAL 1ST [id number] 00:00:00 [facility] : 1995 Sex: F Patient Name: RUBIO WHITE Unit No: [id number] EXAMS: CPT CODE: [id number] US PREG EVAL 1ST TRIMTR 79765 PROCEDURE INFORMATION: Exam: US First Trimester (Transabdominal), [...] pelvis. 3. Hemorrhagic right ovarian cyst. [facility] NAME: RUBIO WHITE Radiology Department PHYS: PETCA. - Raya Woodall [address] : 1995 AGE: 26SEX: F [place], [place] [address] LOC: MAK PHONE #: [phone] EXAM DATE: 12/30/2021 STATUS: REG ER FAX #: [phone] RAD NO: Page 1 Signed Report (CONTINUED) Patient Name: RUBIO WHITE Unit No: [id number] EXAMS: CPT CODE: [id number] US PREG EVAL 1ST TRIMTR 21786 (Continued) Findings were discussed with Raya Woodall at 12/30/2021 2:14 PM CDT. at 1410 Reported and signed by: Jair Lennon MD CC: Kenia Easton MD; Raya Woodall MD Technologist: Courtney Bustillo RDMS, RVT Probe: Trnscrbd D/ (1415) GCD.CPS Orig Print D/T: S: 12/30/2021 (1415) [facility] NAME: RUBIO WHITE Radiology Department PHYS: PETCA. - Jose C,Raya D [address] : 1995 AGE: 26 SEX: F [place] [address] LOC: ChristianeERS PHONE #: [phone] EXAM DATE: 12/30/2021 STATUS: REG ER FAX #: [phone] RAD NO: Page 2 Signed Report Patient Name: RUBIO WHITE Unit No: [id number] EXAMS: CPT CODE: [id number] US PREG EVAL 1ST TRIMTR 13383 (Continued) [facility] NAME: RUBIO WHITE Radiology Department PHYS: PETCA. - Jose CRaya torres D [address] : 1995 AGE: 26 SEX: F [place] [address] LOC: ChristianeERS PHONE #: [phone] EXAM DATE: 12/30/2021 STATUS: REG ER FAX #: [phone] RAD NO: Page 3 Signed ReportTROPOHAZEL [id number] 20:25:00 Test Item Value Reference Range Interpretation Comments TROPONIN I (BEJUANI) (test code = 397) < ng/mL 0.00-0.03 [...] failure, acidosis, acute neurological disease, and persistent tachyarrhythmia.[id number] 20:18:00 Test Item Value Reference Range Interpretation Comments MAGNESIUM (BEAKER) (test code = 2.4 mg/dL 1.6-2.6 627) BASIC METABOLIC [id number] 20:18:00 Test Item Value Reference Range Interpretation [...] m DATA TO CALCULA TE ESTIMATED GFR. PT/[id number] 20:13:00 Test Item Value Reference Range Interpretation [...] mechanical heart valves.CBC W/PLT COUNT & AUTO [id number] 20:04:00 Test Item Value Reference Range Interpretation [...] = 2801) RAD, CHEST, 1 VIEW, NON [id number] 19:41:00Reason for exam:->CHEST PAINIs the patient ?->UnknownFINAL REPORT History: Chest pain. Comparison: None. Findings: A single view of the chest is submitted. The cardiomediastinal contours are unremarkable. There is no focal consolidati on, pneumothorax, large pleural effusion or evidence of overt pulmonary edema. There is no acute bony abnormality. Impression: No acute abnormality. Signed: Davin England MDReport Verified Date/Time: 11/20/2018 19:41:51 Reading Location: [address] Room Notes Date/Time Note Provider Source 2022-01-02 06:38:00 [id number]:38:00 [facility] ([facility])Gynecology Post Prog NoteREPORT#:[id number] REPORT STATUS: SignedDATE:01/02/22 TIME: 637 PATIENT: RUBIO WHITE UNIT #: [id number]#: [id number] [address] [birth year] AGE: 26 SEX: F ATTEND: Kenia Easton [facility] AUTHOR: Hazel Shipley MD * ALL edits or amendments must be made on the electronic/computer document * GeneralORM Surgeries: Surgery Date and Time: 01/01/20221929 Primary Procedure: LAPAROSCOPY LEFT SPALPINGECTOMY Post-op: day 1 SubjectivePatient reports:Yes: ambulating, flatus/bowel movement, pain controlled, tolerating diet, voiding/urinating. No: complaints, abdominal pain, chills, fever, heartburn, nausea. Objective GeneralVS/I O:Last Documented: Result Date Time Pulse Ox 97 01/02 0336 B/P 95/51 01/02 0336 B/P Mean 0.0 01/02 033 6 O2 Delivery Room air 01/03 336 Temp 98.2 01/02 033 Pulse 83 01/02 0336 Resp 18 01/02 033 O2 Flow Rate 10 01/01 2116 24 hour I O ending at 0700: 01/02 0700 01/01 1900 Intake Total 1750.00 Output Total 625 Balance 1125.00 Intake, IV 1550.00 Intake, Oral 200 Number Voids 1 Output, 100 Estimated Blood Loss Output, Urine 525 Patient 160 lb Weight Weight Stated/Reported Measurement Method PATIENT WEIGHT: Weight (lb): Weight (oz): Weight (kg): 72.727 Physical ExamGeneral appearance: alert, awake, oriented, no acute distress, pleasant, conversational, mental status normal, no respiratory distressWound/incision: Location:Abdomen Site condition: c/d/i x 3Abdomen: non-tender, soft, n o distention, no guardingExtremities: full range o f motion, moves allNeuro/KITCHEN STEWARDESS: alert, oriented X 3, normal speechPsychiatry: normal affect, normal judgement/insight, normal mood Current MedicationsMedications:Active Meds + DC'd Last 2 4 HrsAcetaminophen (ACETAMINOPHEN 325 MG TAB) 650 MG Q6H PRN PRN PO Al Hydrox/Mg Hydrox/Simethicon e (MYLANTA 30 ML SUSP) 30 ML ASDIR PRN PO Dextrose/Lactated Ringer's (DEXTROSE 5% IN LACTATED RINGERS 1000 ML) 1,000 ML ASDIR IV Docusate Sodium (DOCUSATE SODIUM 100 MG CAP) 100 MG BID PRN PRN PO Ibuprofen (IBUPROFEN 600 MG TAB) 600 MG Q6H PRN PRN PO Ondansetron HCl (ZOFRAN 2 MG/ML 4 MG SYR) 4 MG Q6H PRN PRN IV Simethicone (SIMETHICONE 80 MG TAB) 160 MG Q6H PRN PRN PO Fentanyl Citrate (SUBLIMAZE 2 ML) 0 .STK-MED ONE .ROUTE (DC) Glycopyrrolate (ROBINUL 0.2 MG/ML 5 ML VIAL) 0 .STK-MED ONE .ROUTE (DC) Ketorolac Tromethamine (TORADOL 60 MG SYRINGE) 0 .STK-MED ONE .ROUTE (DC) Neostigmine Lefors (NEOSTIGMINE METHYLSULFATE 1:1000 10 ML VIAL) 0 .STK-MEDONE .ROUTE (DC) Ondansetron HCl (ZOFRAN 2 MG/ML 4 MG SYR) 0 .STK-MED ONE .ROUTE (DC) Dexmedetomidine HCl (PRECEDEX 100MCG/ML 2ML VIAL ) 0 .STK-MED ONE .ROUTE (DC) Sodium Chloride (Sodium Chloride 100 mL - OR/NICU STOCK) 100 ML .STK-MED ONE INJ (DC) Sevoflurane (SEVOFLURANE 250ML BOTTLE) 0 .STK-MED ONE .ROUTE (DC) Dexamethasone Sodium Phosphate (Decadron 4 Mg/mL Inj) 0 .STK-MED ONE .ROUTE (DC) Fentanyl Citrate (SUBLIMAZE 2 ML) 50 MCG PACU ASDIR PRN PRN IV (DC) Hydromorphone HCl (DILAUDID) 0.5 MG PACU Q5MIN PRN PRN IV (DC) Ondansetron HCl (ZOFRAN 2 MG/ML 4 MG SYR) 4 MG PACU ONCE PRN IV (DC) Promethazine HCl (PROMETHAZINE HCL 25 MG) 12.5 M G PACU ONCE PRN IM (DC) Fentanyl Citrate (SUBLIMAZ E 2 ML) 0 .STK-MED ONE .ROUTE (DC) Lidocaine HCl (XYLOCAINE 2% INJ PF 5 ML) 0 .STK-MED ONE .ROUTE (DC) Midazolam HCl (VERSED 2 MG/2 ML VIAL) 0 .STK-MED ONE .ROUTE (DC) Propofol (DIPRIVAN 10MG/ML 20 ML AMP) 0 .STK-MED ONE .ROUTE (DC) Rocuronium Lefors (ZEMURON 10 MG/ML 5 ML VIAL) 5 ML .STK-MED ONE INJ (DC) Bupivacaine HCl (SENSORCAINE PF 0.25% 30 ML) 0 .STK-MED ONE .ROUTE (DC) Morphine Sulfate (Morphine Sulfate) 4 MG X1ED STA IV (DCr) Ondansetron HCl (ZOFRAN 2 MG/ML 4 MG SYR) 4 MG X1ED STA IV (DC) Sodium Chloride (SODIUM CHLORIDE 0.9% - 1000 ML) 1,000 ML X1ED STA IV (DC) Diagnosis, Assessment PlanFree Text A P:Pt is a 26 yo A1 POD #1 s/ p laparoscopic left salpingectomy for ectopic doing well- Pt AFVSS, pain controlled on tylenol and improved from before surgery, ambulating, tolerated PO, and spontaneously voiding.- ok for d/c home with f/u in the office in 2 weeks at 0640 RPT #:[id number] OF REPORT PRProgress [id number]:38:00F.[id number] l able for patient rcetLZDUMQNELYRYLV8491-50-87E38:40:35 2022-01-01 21:25:00 [id number]:25:[address] [facility] ([facility])Clinical NoteREPORT#:[id number] REPORT STATUS: SignedDATE:01/01/22 TIME: 2124 PATIENT: RUBIO WHITE UNIT #: [id number]#: [id number] ROOM/BED: [facility]-ADOB: [birth year] AGE: 26 SEX: F ATTEND: Kenia Easton AUTHOR: Maria A Alberto MD * ALL edits or amendments must be made on the electronic/computer document * Clinical NoteNote:assisted on laparoscopic left salpingectomy for ruptured ectopic by Dr. Shipley; no surgical assists or residents available Maria A Alberto MD at 2126 RPT #:[id number] OF REPORT CLClinical [id number]:25:00F.[id number] l able for patient pnjcEZVASDBKDEHGXB1883-97-05V59:26:34 2022-01-01 21:24:00 [id number]:24:[address] [facility] ([facility])Full Op NoteREPORT#:[id number] REPORT STATUS: SignedDATE:01/01/22 TIME: 2123 PATIENT: RUBIO WHITE UNIT #: [id number]#: [id number] ROOM/BED: [facility]-ADOB: [birth year] AGE: 26 SEX: F ATTEND: Kenia Easton [facility] AUTHOR: Hazel Shipley MD * ALL edits or amendments must be made on the electronic/computer document * Operative ReportORM Surgeries: Surgery Date an d Time: 01/01/2022 193 Primary Procedure: LAPAROSCOPY LEFT SPALPINGECTOMY Start date: 01/01/22Start time: 1999Pre-procedure diagnosis:Ruptured left ectopic pregnancyPost-procedure diagnosis:Ruptured left ectopic pregnancyProcedures performed:Laparoscopic left salpingectomyTechnique/Procedure:Patient was taken to the operating room where general anesthesia was induced. She was placed in the dorsal lithotomy position in the [facility]. She was prepped and draped in the usual sterile fashion. A time out was then performed. A weighted speculum was placed in the posterior vaginal vault, and the anterior lip of the cervi x was grasped with a single-toothed tenaculum. The cerivx was dilated to facilitate entry of the Trisha cannula, which was attached to the tenaculum, and the speculum was removed. A red rubber catheter was placed into the bladder, and allowed to freely drain. This was secured to the drapes with aclamp. Attention was then turned to the abdomen where a 5 mm infraumbilical incision was made with the knife. The Veress needle was then introduced into the abdomen, however high opening pressure was noted. The Optivue trocar was then used to directly enter the abdomen through the umbilical port site. Once intra-abdominal placement was confirmed, the CO2 gas was insufflated. Under direct visualization, two additional 5 mm ports were placed in the lateral lower abdominal wall. The abdomen was then surveyed with findings as below. The hemoperitoneum was evacuated. The left fallopian tube was grasped, elevated, and transected from its surrounding tissue with the Harmonic scalpel . Hemostasis was noted. The laparoscope was then moved to the left lower quadrantport, and the umbilical port was removed. The skin incision wa s extended to 10 mm, and a 10 mm trocar was introduced under direct visualization. A laparoscopic specimen bag was introduced through the 10 mm port, and the specimen was placed in the bag. The bag was then removed through the umbilicus without difficulty. This was submitted to Pathology. The abdomen was again observed and noted to be hemostatic. The abdominal procedure was then completed. The CO2 gas was removed as much as possible, and all ports were removed under direct visualization. The fascia of the umbilical incision was closed with 0 vicryl in a pzcvir-pd-hmirz. The skin at all sites was close d with 4-0 monocryl in a subcuticular stitch. The skin was then covered with Dermabond. The weighted speculum was then placed into the vagina, and the cannula was removed from the cervix. The tenaculum was also removed. Hemostasis was noted. The red rubber catheter wa s removed. The procedure was then completed. The patient tolerated the procedure well. She was taken out of the lithotomy position and awakened from general anesthesia. She was transported to the recovery room in stable condition. All sponge, lap, needle, and instrument counts were correct.Primary Surgeon: NILA Shipleyssistant(s) : Soo Silvathesia: general anesthesiaOperative findings:Ruptured left ectopic in the distal fallopian tube. Hemoperitoneum ofapproximately 100 cc of clot an d fresh blood. Normal ovaries bilaterally. Normal right fallopian tube. Uterus and cervix normal i n appearance.Complications: noneEstimated blood loss in ml's: 100 mL of hemoperitoneumSpecimens removed/altered: Left fallopian tube with ectopi c pregnancyImplant(s): noneFluids:700 mLUrine output:25 mLApproach: laparoscopicDisposition: plan to D/C home, PACUCounts: Sponge count: correct Instrument count: correct Needle count: correct at 2139 RPT #:[id number] O F REPORT OPOperative pfbltb4521-11-40I93:24:00F.[id number] a ilable for patient jbttOBBMBSSFNOWCCN8515-97-35V61:39:45 2022-01-01 18:08:00 [id number]:08:00 [facility] ([facility])History Physical - AdultREPORT#:[id number] REPORT STATUS: SignedDATE:01/01/22 TIME: 1808 PATIENT: RUBIO WHITE UNIT #: [id number]#: [id number] [facility] [birth year] AGE: 26 SEX: F ATTEND: Kenia Easton [facility] AUTHOR: Hazel Shipley MD * ALL edits or amendments must be made on the electronic/computer document * History of Present Illness HPIChief complaint:severe abdominal painPCP:PCP: Kenia Easton MD HPI:Pt is a 26 yo with known ectopic s/p methotrexate treatment on12/30/21 who presents today with worsening abdominal pain. She reports that her pain is severe, not resolved with percocet. It i s associated with nausea. She has had a ruptured hemorrhagic cyst before, and this pain is much more severe. She is also having vaginal bleeding , but this started before the ectopic wa s diagnosed. HistoryPast medical history:Reports: (ovarian cysts ). Additional medical history:Ehler's DanlosAdditional surgical history:R shoulder surgery, R shoulder reconstruction, Laparoscopic cystectomy, Abdominoplasty/breast lift, Gastric sleeveAdditional family history:NoncontributoryAlcohol use: Denies EtOH useDrug use: Denies recreational drugsSmoking status: Smoking status for patients 13 years old or older: Never Smoker Medication/Allergy-Vaccin e HxMedications:Home Medications: Medication Dose/Rte/Freq Days Qty Entered Last Max Daily Dose Reviewed PNV WITH FE 1 TAB PO DAILY 7 FUMARATE/FA 1538 () Strength: 1 EACH TA B IBUPROFEN (MOTRIN) 800 MG PO 30 08/31/17 Strength: 800 MG TAB Q8H PRN PRN MILD TO 1311 MODERATE PAIN Current Hospital Medications:Central Nervous System Agents Sig/Sc h Start time Last Medication Dose Route Stop Time Status Admin Morphine Sulfate 4 MG X1ED STA 12/05 0 1710 DCr 01/01 (Morphine Sulfate) IV 01/01 1711 1714 Electrolytic, Caloric, And Nivia Sig/Miguel Star t time Last Medication Dose Route Stop Time Status Admin Sodium Chloride 1,000 ML X1ED STA 01/01 1710 DC 01/01 (SODIUM CHLORIDE IV 01/01 1711 171 4 0.9% - 1000 ML) Gastrointestinal Drugs Sig/Miguel Start time Last Medication Dose Route Stop Time Status Admin Ondansetron HCl 4 MG X1ED STA 01/01 1710 DC 01/01 (ZOFRAN 2 MG/ML 4 MG IV 01/01 1711 1714 SYR) Allergies:Coded Allergies:Penicillins (Intermediate, diarrhea, hives. 07/23/17)codeine (Intermediate, Gums swell 07/23/17) Review of SystemsAll systems rev neg: except as marked Physical ExamVS/I OVital Signs: Date Time Temp Pulse Resp B/P B/P Pulse O2 O2 Flow FiO2 Mean O x Delivery Rate 01/01 1524 98.4 88 18 122/78 92 10 0 Room air PATIENT WEIGHT: Weight (lb): Weight (oz): Weight (kg): 72.727 General appearance: alert, awake, oriented, no acute distress, pleasant, conversational, mental status normal, no respiratory distressHead/Eyes: atraumatic, clear cornea, EOMI, normocephalicENT: moist mucosal membranesNeck: full range of motion, non-tenderAbdomen/GI: soft, no guarding, no rebound, + mod TTP throughoutGenitourinary: deferredExtremities: moves all, no edema-all extremitiesMusculoskeletal: full range of motion , normal inspectionNeuro/KITCHEN STEWARDESS: alert, oriented X 3, NL cerebellar function, normal speech, no motor deficits, no sensory deficits, CNII-XII grossly intactSkin: dry, intact, no gross abnormalitiesPsychiatry: normal affect, normal judgment/insight, normal mood ResultsFindings/Data:Laboratory Tests: 01/01 1539 Chemistry Sodium (135 - 145 mEq/L) 138 Potassium (3.5 - 5.0 mEq/L) 3.7 Chloride (100 - 115 mEq/L) 104 Carbon Dioxide (22 - 31 mEq/L) 26 Anion Gap (10 - 20) 11.40 BUN (7 - 18 mg/dL) 13 Creatinine (0.5 - 1.0 mg/dL) 0.7 Glomerular Filt r Rate (>60 ml/min) 100 Glucose (65 - 110 mg/dL) 95 Calcium (8.4 - 10.2 mg/dL) 8.5 Total Bilirubi n (0.2 - 1.0 mg/dL) 0.4 AST (15 [...] (57.9 - 77.3 %) 72.6 Lymph % (Auto ) (14.5 - 29.7 %) 19.2 [place] % (Auto) (3.6 - 10.2 % ) 5.1 Eos % (Auto) (0.0 - 3.0 %) 2.3 Baso % (Auto) (0.1 - 0.9 %) 0.5 Neut # (Auto) (K/mm3) 7.7 Lymp h # (Auto) (K/mm3) 2.0 [place] # (Auto) (K/mm3) 0.5 Eos # (Auto) (K/mm3) 0.24 Baso # (Auto) (K/mm3) 0.1 Miscellaneous Maternal Serum HCG 432 Radiology data:Recent Impressions:ULTRASOUND - U S PREG UT TRANSVAGINAL 01/01 1731 Report Impression - Status: SIGNED Entered: 01/01/20221829 IMPRESSION: 1. No intrauterine pregnancy2. Complex structure adjacent to the adnexa with adjacent complex free fluid. This is concerning for ruptured ectopic . Recommend correlation with beta HCG. Impression By: Ever Murphy - [facility] AB/PEL/SC/LTD 01/01 1731 Report Impression - Status: SIGNED Entered: 01/01/20221829 IMPRESSION: 1. No intrauterine pregnancy2. Complex structure adjacent to the adnexa with adjacent complex free fluid. This is concerning for ruptured ectopic . Recommend correlation with beta HCG. Impression By: Lubna MurphyOUND - US PRE G EVAL 1ST TRIMTR 01/01 1731 Report Impression - Status: SIGNED Entered: 01/01/2022 1830 IMPRESSION: 1. No intrauterine pregnancy2. Complex structure adjacent to the adnexa with adjacent complex free fluid. This is concerning for ruptured ectopic . Recommend correlation with beta HCG. Impression By: LuceroAB61 - Kenny Garcia Diagnosis, Assessment PlanAdditional comments:Pt is a 26 yo with ruptured left ectopic , failed medical management- Pt counseled in the E R on the risks and benefits of proceeding with definitivesurgical therapy. We reviewed proceeding with diagnostic laparoscopy, removal of ectopic and possibly hemoperitoneum , possible salpingectomy, possible oopherectomy, possible conversion to open procedure. Risks including pain, bleeding, infection, injury to surrounding structures, and blood transfusion were reviewed. All questions answered. Consents signed in ER.- T S, COVID test pending- Commercial Credit Specialist and OR team notified. at 1902 RPT #:[id number] OF REPORT HPHistor y and physical [id number]:08:00F.[id number] 2 AVAvailable for patient [id number]:02:29 2022-01-01 17:27:00 [id number]:27:00 [facility] ([facility])EMERGENCY PROVIDER REPORTREPORT#:[id number] REPORT STATUS: SignedDATE:01/01/22 TIME: 1727 PATIENT: RUBIO WHITE UNIT #: [id number]#: [id number] ROOM/BED: .2604-AAGE: 26 SEX: F PCP PHYS: Colin Easton AUTHOR: Polly Hernandez MD * ALL edits or amendments must be made on the electronic/computer document * HPI-Abd Pain F Under 40 GeneralInitial Greet Date/Time 01/01/22 1524 PresentationChief Complaint Abdominal painH x Obtained From Patient Free Text HPI NotesFree Text HPI [id number] female treated fo r left ectopic 2 days ago on 12/30/2021 with methotrexate presents for progressively worsening abdominal pain. Patient reports lower abdominal and low back pain that is described as "severe," and worsened daily since onset. Caroline cardenas also reports heavier vaginal bleedingwith use of 3 pads today. Patient denies fever but reports nausea and one episode of vomiting today. Caroline cardenas last took prescribed Percocet at 0900 this morning. Risk-Abd Pain F Under 40)( Ectopic Risk factors reviewed Review of System s ROS StatementsAll systems rev neg except as marked. Focused Review of SystemsConstitutionalDenies: Fever. RespiratoryDenies: Cough, non-productive, Cough, productive, Shortness of breath. CardiovascularDenies: Chest pain. GIDenies: Abdominal pain, Nausea, Vomiting. FemaleReports: Pelvic pain, , Vaginal bleeding - abnl. Denies: Dysuria, Flankpain. MusculoskeletalReports: Back pain. Denies: Extremity pain, Extremity swelling. Past Medical History - AdultStated Complaint S/P ECTOPIC PREG , LOWER ABD PAIN/VAG BLEEDINGAllergiesCoded Allergies:Penicillins (Intermediate, diarrhea, hives. 07/23/17)codeine (Intermediate, Gums swel l 07/23/17) Home MedicationsDiscontinued Reported MedicationsPNV WITH FE FUMARATE/FA () 1 TAB PO DAILY Physical Exam Vital SignsVital SignsFirst Documented: Result Date Time Pulse Ox 100 01/01 1524 B/P 122/78 01/01 1524 B/P Mean 92 01/01 1524 O2 Delivery Room air 01/01 1524 Temp 98.4 01/01 1524 Pulse 88 01/01 1524 Resp 18 04/3 0 1524 Last Documented: Result Date Time Pulse Ox 100 01/01 1524 B/P 122/78 01/01 1524 B/P Mean 92 01/01 1524 O2 Delivery Room air 01/01 1524 Temp 98.4 01/01 1524 Pulse 88 01/01 1524 Resp 18 04/3 0 1524 Review of Vital Signs Reviewed Focused PEGeneral/Const General/Const Awake, Alert, N o acute distress, Well appearing, Well developed, Well hydrated, Well nourished, Cooperative, Not toxic appearingMS Head Head Atraumatic, NormocephalicResp/Chest Respiratory/Chest Atraumatic, Breath sounds NL, Breath sounds = bilat, No respiratory distress, No rales, No rhonchiCardiovascular Cardiovascular Heart rate NL, Regular rhythm, Heart sounds NL, No gallop, No murmursAbdomen/GI Abdomen/GI Atraumatic, Soft Text/Dict Notessevere diffuse abdominal tenderness with guarding and reboundMS Back Back Atraumatic, Inspection NL Text/Dict Notesmoderate bilateral CVATSkin Skin Atraumatic , Color NL, No rash, Warm, Dry, Intact, Turgor NL, No swellingNeurologic Neurologic Oriented X3, Speech NL, CN II - XII intact, Gait NL Interpretation Diagnostics Lab Results InterpretationResultsLaboratory Tests 01/01/221538:[Embedded Image Not Available]Laboratory Tests: 01/01 1539 Chemistry Sodium (135 - 145 mEq/L) 138 Potassium (3.5 - 5.0 mEq/L) 3.7 Chloride (100 - 115 mEq/L) 104 Carbon Dioxide (2 2 - 31 mEq/L) 26 Anion Gap (10 - 20) 11.40 BUN (7 - 18 mg/dL) 13 Creatinine (0.5 - 1.0 mg/dL) 0.7 Glomerular Filtr Rate (>60 ml/min) 100 Glucose (65 - 110 mg/dL) 95 Calcium (8.4 - 10.2 mg/dL) 8.5 Total Bilirubin (0.2 - 1.0 mg/dL) 0.4 AST (1 5 - 37 units/L) 13 L ALT (12 - 78 units/L) 22 Total Alk Phosphatase (46 - 116 units/L) 88 Tota l Protein (6.3 - 8.2 gm/dL) 7.1 Albumin (3.4 - 4.8 gm/dL) 4.0 Hematology WBC (6.5 - 12.3 K/mm3) 10.6 RBC (3.51 - 4.69 M/mm3) 3.79 Hgb (10.1 - 13.8 g/dL) 11.2 Hct (32.5 - 41.8 %) 33.1 MCV (84.6 - 96.6 fL) 87.3 MCH (27.3 - 33.9 pg) 29.6 MCHC (32.0 - 34.2 gm/dL) 33.8 RDW (12.2 - 16.3 % ) 12.5 Plt Count (134 - 363 K/mm3) 256 MPV (9.2 - 12.7 fL) 10.5 Neut % (Auto) (57.9 - 77.3 %) 72.6 Lymph % (Auto) (14.5 - 29.7 %) 19.2 [place] % (Auto ) (3.6 - 10.2 %) 5.1 Eos % (Auto) (0.0 - 3.0 %) 2. 3 Baso % (Auto) (0.1 - 0.9 %) 0.5 Neut # (Auto) (K/mm3) 7.7 Lymph # (Auto) (K/mm3) 2.0 [place] # (Auto) (K/mm3) 0.5 Eos # (Auto) (K/mm3) 0.24 Baso # (Auto) (K/mm3) 0.1 Miscellaneous Maternal Serum HCG 432 Recent Impressions:ULTRASOUND - US PREG UT TRANSVAGINAL 01/01 1731 Report Impression - Status: SIGNED Entered: 01/01/20221829 IMPRESSION: 1. No intrauterine pregnancy2. Complex structure adjacent to the adnexa with adjacent complex free fluid. This is concerning for ruptured ectopic . Recommend correlation with beta HCG. Impression By: Ever Murphy - DUP AB/PEL/SC/LTD 01/01 1731 Report Impression - Status: SIGNED Entered: 01/01/20221829 IMPRESSION: 1. No intrauterine pregnancy2. Complex structure adjacent to the adnexa with adjacent complex free fluid. This is concerning for ruptured ectopic . Recommend correlation with beta HCG. Impression By: Ever Murphy - US PRE G EVAL 1ST TRIMTR 01/01 1731 Report Impression - Status: SIGNED Entered: 01/01/20221829 IMPRESSION: 1. No intrauterine pregnancy2. Complex structure adjacent to the adnexa with adjacent complex free fluid. This is concerning for ruptured ectopic . Recommend correlation with beta HCG. Impression By: Asha Garcia, Ahmad [facility] ED CourseMedication(s) OrderedMedication(s) Ordered:Central Nervous System Agents Sig/Miguel Start time Last Medication Dose Route Stop Time Status Admin Morphine Sulfate 4 MG X1ED STA 043 0 1710 DCr 01/01 IV 01/01 171 1714 Electrolytic, Caloric, And Nivia Sig/Miguel Start time Last Medication Dose Route Stop Time Status Admin Sodium Chloride 1,000 ML X1ED STA 01/01 1710 DC 01/01 IV 01/01 171 1714 Gastrointestinal Drugs Sig/Miguel Start time Last Medication Dose Route Stop Time Status Admin Ondansetron HCl 4 MG X1ED STA 01/01 1710 DC 01/01 IV 01/01 171 1714 ConsultationConsultation Referral/Consult Name Hazel Shipley MD Furnace Combination Analyst Called [employer]ER[employer]INGER, On-call physician Requested Call Time 1728 Requested Call Date 01/01/22 Call Returned Call returned Call Returned Time 1728 Call Returned Date 01/01/22 Furnace Combination Analyst Will see patient (in [place] when back from [place]) Patient Discharge Departure Vital Signs/ConditionVital SignsFirst Documented : Result Date Time Pulse Ox 100 01/01 1524 B/P 122/78 / 1524 B/P Mean 92 / 1524 O2 Delivery Room air 01/01 1524 Temp 98.4 / 152 4 Pulse 88 01/01 1524 Resp 18 01/01 1524 Last Documented: Result Date Time Pulse Ox 100 01/01 1524 B/P 122/78 / 1524 B/P Mean 92 / 152 4 O2 Delivery Room air 01/01 1524 Temp 98.4 01/01 1524 Pulse 88 01/01 1524 Resp 18 01/01 1524 All vital signs available at the time of this entry have been reviewed. Condition Stable Clinical ImpressionClinical ImpressionPrimary Impression: Ruptured ectopic pregnancyTime of Impression 181 0 Disposition DecisionAdmit Admit Physician Name Kenia Easton MD Admit Physician COMMERCIAL SINGER Request Time 1810 Request Date 01/01/22 )( Admission Accepts Yes )( Accepted Time 1810 )( Accepted Date 01/01/22 Discharge/Care Plan(Auto) PrescriptionsCurrent Visit ScriptsKETOROLAC (TORADOL) 10 MG PO Q6H PRN PRN PAIN 5 Days #20 TABS traMADol (ULTRAM) 50 MG PO Q6H PRN PRN ACUT E PAIN 5 Days #20 TABS at 0712RPT #:[id number] OF REPORTEDEmergency department [id number]:27:00F.[id number] a ilable for patient [id number]:12:17 2021-12-30 10:53:00 [id number]:53:00 [facility])EMERGENCY PROVIDER REPORTREPORT#:[id number] REPORT STATUS: SignedDATE:12/30/21 TIME: 105 PATIENT: RUBIO WHITE UNIT #: [id number]#: [id number] ROOM/BED:AGE: [age] SEX: F PCP PHYS: Kenia Easton AUTHOR: Raya Woodall MD * ALL edits or amendments must be made on the electronic/computer document * HPI- Female Srinath e Text HPI NotesFree Text HPI NotesCC: pelvic pain + VB x 3 days History: [id number]: 11/08/21EDD: -GA: 3x0tGRK: Carmen-DanlosSymptoms: suprapubic pain (with radiation to back), VB (brown)Pain Scale: *8 out of 10 on pain scaleExacerbating Factors: sitting uprightAlleviating Factors: noneMeds Taken: noneCOVID Sx: noneVaccination Status: n/aObGyn: Kenia Easton [facility] Greet Date/Time 12/30/21 1053 PresentationChief Complaint Pelvic pain, Vaginal bleeding)( Sudden in Onset? No Review of Systems ROS StatementsAll systems rev neg except as marked. Free Text ROS NotesFree Text ROS NotesFocused Review of SystemsConstitutionalDenies: Chills, Fever, Lethargy. GIDenies: Abdominal pain, Diarrhea, Nausea, Vomiting. FemaleReports: , Vaginal bleeding - abnl. MusculoskeletalDenies: Back pain, Extremity pain. EndocrineDenies: Polyuria, Weight loss. SkinDenies: Diaphoresis, Rash. NeurologicDenies: Change LOC, Dizziness, Focal weakness, Headache, Numbness, Slurred speech. Additional Review of SystemsRespiratoryDenies: Pleuritic pain, Shortness of breath. CardiovascularDenies: Chest pain, Dyspnea on exertion, Palpitations. Past Medical History - AdultStated Complaint POSSIBLE ECTOPIC,NT SURE HOW MANY WKSAllergiesCoded Allergies:Penicillins (Intermediate, diarrhea, hives. 07/23/17)codeine (Intermediate, Gums swel l 07/23/17) Home MedicationsActive ScriptsKETOROLA C (TORADOL) 10 MG PO Q6H PRN PRN PAIN 5 Days #20 TABS Prov: 01/03/22traMADol (ULTRAM) 50 MG PO Q6 H PRN PRN ACUTE PAIN 5 Days #20 TABS Prov: 2 Discontinued Reported MedicationsPNV WITH FE FUMARATE/FA () 1 TAB PO DAILY Past Medical History:Reports: (ovarian cysts ). Additional Surgical Historyone year ago lap for hemo cyst and removed cyst Physical Exam Vital SignsVital SignsFirst Documented: Result Date Time Pulse Ox 100 12/30 1056 B/P 123/72 12/30 1056 B/P Mean 89 12/30 1056 O2 Delivery Room ai r 12/30 1056 Temp 98.7 12/30 1056 Pulse 83 12/30 1056 Resp 19 12/30 1056 Last Documented: Result Date Time Pulse Ox 100 12/30 1623 B/P 114/72 12/30 1623 B/P Mean 86 12/30 1623 O2 Delivery Room air 12/30 1623 Temp 98.9 12/30 1623 Pulse 6 3 12/30 1623 Resp 18 12/30 1623 Review of Vital Signs Reviewed, Vital signs normal Focused PEGeneral/Const General/Const Awake, Alert, Well appearingResp/Chest Respiratory/Chest Breath sounds NL, Breath sounds = bilat, No respiratory distress, No rales, No rhonchi, No wheezingCardiovascular Cardiovascular Heart rate NL, Regular rhythm, Heart sounds NL, Peripheral circulation NLAbdomen/GI Abdomen/GI Soft, Non-tender, No guarding, No reboundMS Back Back Inspection NL, Non-tender, No CVA tendernessSkin Skin Color NL, No rash, Warm, Dry, Turgor NLGenitourinary Female Genitourinary External genitalia NL, No bleeding, No discharge, No cervical motion tend, Os closed, No adnexal mass , No adnexal tenderness, No uterine enlargement, N o uterine mass, No lesions or rash Interpretation Diagnostics Lab Results InterpretationResultsLaboratory Tests 12/30/21 1101:[Embedded Image Not Available]Laboratory Tests: 12/30 12/30 12/30 1107 1104 1101 Chemistr y Sodium (135 - 145 mEq/L) 137 Potassium (3.5 - 5. 0 mEq/L) 3.8 Chloride (100 - 115 mEq/L) 101 Carbon Dioxide (22 - 31 mEq/L) 28 Anion Gap (10 - 20) 11.50 BUN (7 - 18 mg/dL) 12 Creatinine (0.5 - 1. 0 mg/dL) 0.7 Glomerular Filtr Rate (>60 ml/min) 10 0 Glucose (65 - 110 mg/dL) 93 Calcium (8.4 - 10.2 mg/dL) 8.8 Total Bilirubin (0.2 - 1.0 mg/dL) 0. 3 Direct Bilirubin (<0.2 mg/dL) 0.1 AST (15 - 37 units/L) 10 L ALT (12 - 78 units/L) 20 Total Al k Phosphatase (46 - 116 units/L) 86 Total [...] % (Auto) (14.5 - 29.7 %) 20.2 [place] % (Auto) (3.6 - 10.2 %) 7.1 Eos % (Auto) (0.0 - 3.0 %) 2.2 Baso % (Auto) (0.1 - 0.9 %) 0.7 Neut # (Auto) (K/mm3) 7.2 Lymph # (Auto) (K/mm3) 2.1 [place] # (Auto) (K/mm3) 0.7 Eos # (Auto) (K/mm3) 0.23 Baso # (Auto) (K/mm3) 0.1 Miscellaneous Maternal Serum HCG 353 Urines Urine Color (YELLOW) YELLOW Urine Appearance (CLEAR) Slightly-Cloudy Urine pH (5 - 9) 8.0 Ur Specific [place] (1.001 - 1.035) 1.016 Urine Protein (NEG) NEGATIVE Urine Glucose (UA) (NEG) NEGATIVE Urine Ketones (NEG) NEGATIVE Urin e Blood (NEG) 2+ H Urine Nitrite (NEG) NEG Urine Bilirubin (NEG) NEGATIVE Urine Urobilinogen (NEG mg/dL) NEGATIVE Ur Leukocyte Esterase (NEG) TRAC E H Urine RBC (NONE SEEN #/hpf) 0-2 Urine WBC (NON E SEEN #/hpf) 0-2 Ur Epithelial Cells (RARE - FEW #/HPF) RARE Urine Mucus (NONE SEEN) RARE Recent Impressions:ULTRASOUND - DUP AB/PEL/SC/LTD 12/30 1314 Report Impression - Status: SIGNED Entered: 12/30/2021 141 IMPRESSION: 1. Left adnexal mass concerning for ectopic . 2 . Small to moderate free fluid in the pelvis. 3. Hemorrhagic right ovarian cyst. Findings were discussed with Raya Woodall at 12/30/2021 2:14 PM CDT. Impression By: Lalo - SHERRI CoffmanOUND - US PREG UT TRANSVAGINAL 12/30 1314 Report Impression - Status: SIGNED Entered: 12/30/20211414 IMPRESSION: 1. Left adnexal mass concerning for ectopic . 2. Small to moderate free fluid in the pelvis. 3. Hemorrhagic right ovaria n cyst. Findings were discussed with Raya Woodall at 12/30/2021 2:14 PM CDT. Impression By: Lalo Lennon MDULTRASOUND - US PREG EVAL 1ST TRIMTR 12/30 1315 Report Impression - Status: SIGNED Entered: 12/30/2021 1415 IMPRESSION: 1. Left adnexal mass concerning for ectopic . 2. Small to moderate free fluid in the pelvis. 3. Hemorrhagic right ovaria n cyst. Findings were discussed with Raya Woodall at 12/30/2021 2:14 PM CDT. Impression By: Lalo Lennon MD Lab Imaging StatementLaboratory radiographic studies reviewe d and considered in the medical decision-making. Re-Evaluation MDM Free Text MDM NotesFree Text MDM NotesA/P: 26yo @ 7w3d WF with PMH as above p/w VB1. Labs2. TVUS3. UA4. Meds5. Re-assessADDENDUMTime: 1610Labs significant for low B-hCG (353). TVUS shows L ectopic withou t evidence of rupture. Case d/w Dr. Easton (ObGyn) ; recommends MTX - spoke with Pt at the bedside regarding risks, benefits, and return precautions. Pt re-assessed; symptoms improved. Results of work-up d/w Pt; voiced understanding. Ok for DC home with PCP follow-up ED CourseMedication(s) OrderedMedication(s) Ordered:Antineoplastic Agents Sig/Miguel Start time Last Medication Dose Route Stop Time Status Admi n Methotrexate Sodium 95 MG X1ED STA 12/30 1430 AC 12/30 Device 1 EA IM 12/30 1817 1546 Central Nervous System Agents Sig/Miguel Start time Last Medication Dose Route Stop Time Status Admin Morphine Sulfate 4 MG X1ED STA 12/30 1451 DCr 12/30 IV 12/30 1452 1533 Acetaminophen 1,000 MG X1ED STA 12/30 1054 DC 12/30 PO 12/30 1055 1114 Electrolytic, Caloric, And Nivia Sig/Miguel Start tabatha e Last Medication Dose Route Stop Time Status Admi n Sodium Chloride 1,000 ML X1ED STA 12/30 1054 DC 12/30 IV 12/30 1153 1113 Patient Discharge Departure Vital Signs/ConditionVital SignsFirst Documented: Result Date Time Pulse Ox 100 12/30 1056 B/P 123/72 12/30 1056 B/P Mean 89 12/30 105 6 O2 Delivery Room air 12/30 1056 Temp 98.7 12/30 1056 Pulse 83 12/30 1056 Resp 19 12/30 1056 Las t Documented: Result Date Time Pulse Ox 100 12/30 1623 B/P 114/72 12/30 1623 B/P Mean 86 12/30 1623 O2 Delivery Room air 12/30 1623 Temp 98.9 12/30 1623 Pulse 63 12/30 1623 Resp 18 12/30 162 3 All vital signs available at the time of this entry have been reviewed. Clinical ImpressionClinical ImpressionPrimary Impression: Ectopic of left ovarySecondary Impressions: Pelvic pain affecting Disposition DecisionDischarge )( Discharged to Home Yes )( Time 1614 )( Date 12/30/21 Discharge/Care PlanCounseled Regarding Diagnosis , Lab results, Imaging studies, Prescriptions, Needfor follow-up, When to return to EDPatient Instructions ED Methotrexate for Ectopic ...ReferralsProvider Referral: Kenia Easton MD Address: [address] [place] [address] Discharge NoteI have spoken with the patient and/or caregivers. I have explained the patient'scondition, diagnoses and treatment plan based on the information available to meat this time. I have answered the patient's and/or caregiver's questions and addressed any concerns . The patient and/or caregivers have as good an understanding of the patient's diagnosis, condition and treatment plan as can beexpected a t this point. The vital signs have been stable. Th e patient's condition is stable and appropriate fo r discharge from the emergency department. The patient will pursue further outpatient evaluatio n with the primary care physician or other designated or consulting physician as outlined i n the discharge instructions. The patient and/or caregivers are agreeable to this planof care and follow-up instructions have been explained in detail. The patient and/or caregivers have received these instructions in written format an d have expressed an understanding of the discharge instructions. The patient and/or caregivers are aware that any significant change in condition o r worsening of symptoms should prompt an immediate return to this or the closest emergency department or a call to 911. Quality MeasuresUS in Preg w/AP/VB Trans-abd/vag US done, Preg location documentedRH- Risk Fet Bld Exposure No risk blood expos at 0617RPT #:[id number] OF REPORTTexas [facility] department [id number]:53:00F.[id number] a ilable for patient [id number]:17:44
--- NOTE | 2023-07-29 19:24 | RAD REPORT ---
EXAM DESCRIPTION: RAD - Chest Single View - 07/29/2023 7:17 pm CLINICAL HISTORY: CHEST PAIN Chest pain. COMPARISON: CHEST PA AND LAT 2 VIEW dated 09/09/2013; CHEST PA AND LAT 2 VIEW dated 09/20/2011; ABDOMEN 1 VIEW KUB dated 09/09/2008 FINDINGS: Portable technique limits examination quality. The lungs are grossly clear. The heart is normal in size. No displaced fractures. IMPRESSION: No acute intrathoracic process suspected.
[2023-07-29 20:21] LABS: Absolute Lymphocytes (CBC) 2.1 K/uL (0.7-4.9); Hematocrit 33.5 % (36.0-45.0); MCV 84.5 fL (80-100); MPV 8.8 fL (7.6-11.3); Platelets 266 thou/uL (152-406); RBC Red Blood Cell Count 3.97 M/uL (3.86-4.86)
[2023-07-29 20:28] LABS: Specific Gravity 1.028 (1.005-1.030)
[2023-07-29 20:40] LABS: ALT/SGPT 25 U/L (13-56); AST/SGOT 12 U/L (15-37); Albumin 3.7 g/dL (3.4-5.0); Alkaline Phosphatase 56 U/L (45-117); BUN Blood Urea Nitrogen 16 mg/dL (7-18); Bicarbonate 27 mEq/L (21-32); Bilirubin Total 0.2 mg/dL (0.2-1.0); Glomerular Filtration Rate 105 ml/min (=/>90); Glucose Level 112 mg/dL (74-106); Lipase 35 U/L (13-75); Magnesium 2.2 mg/dL (1.6-2.4); Potassium 3.9 mEq/L (3.5-5.1); Protein, Total 7.1 g/dL (6.4-8.2); Sodium Level 141 mEq/L (136-145); Troponin High Sensitivity 4.6 pg/mL (<58.9)
[2023-07-29 21:05] LABS: Bilirubin Direct < 0.1 mg/dL (0-0.2); Bilirubin Indirect, Calculated ND mg/dL (0.2-0.8)
[2023-07-29] MEDS ORDERED: ONDANSETRON 4 MG/2 ML VIAL ONE (21:39)
[2023-07-29] MEDS ORDERED: NA CHLORIDE 0.9% 1,000 ML ONE (21:39)
--- NOTE | 2023-07-29 21:44 | RAD REPORT ---
EXAM DESCRIPTION: CT - Angio Aorta For Dissection - 07/29/2023 9:17 pm CLINICAL HISTORY: Chest pain radiating to the back. chest pain;Abd pain COMPARISON: Abdomen Pelvis W Contrast dated 10/06/2019; Abdomen Pelvis W Contrast dated 03/24/2019 TECHNIQUE: CT angiography of the aorta was performed with MIPs. All CT scans are performed using dose optimization technique as appropriate and may include automated exposure control or mA/KV adjustment according to patient size. FINDINGS: A left aortic arch is present with normal branching pattern of the great vessels.No acute aortic finding is seen such as aneurysm, penetrating ulcer or dissection. The celiac axis, SMA, JOSUE and renal arteries are patent. No evidence of pulmonary embolism. The lungs are clear. The liver demonstrates no focal mass or biliary dilatation.The spleen, pancreas, adrenal glands and k idneys are within normal limits for arterial phase imaging. No bowel obstruction, free fluid or abscess.The appendix is not identified as a discrete structure, h owever, no secondary findings of appendicitis are identified. No pathologic enlarged lymphadenopathy identified. No fracture or worrisome bone lesion seen. IMPRESSION: No acute aortic finding is demonstrated.
[2023-07-29] MEDS ORDERED: LORazepam 2 MG/ML VIAL ONE (21:46)
--- NOTE | 2023-07-29 22:13 | ER ---
Nurse's Notes [facility] Name: Cathleen Willson Age: 28 yrs Sex: Female : 1995 Arrival Date: 07/29/2023 Time: 18:36 Bed 6 Private MD: Diagnosis: Chest pain, unspecified Presentation: 07/29 18:43 Chief complaint: Patient states: chest pain, neck pain, nausea, and hand numbness. ko1 Coronavirus screen: At this time, the client does not indicate any symptoms associated with coronavirus-19. Ebola Screen: No symptoms or risks identified at this time. Initial Sepsis Screen: Does the patient meet any 2 criteria? No. Patient's initial sepsis screen is negative. Does the patient have a suspected source of infection? No. Patient's initial sepsis screen is negative. Risk Assessment: Do you want to hurt yourself or someone else? Patient reports no desire to harm self or others. Onset of symptoms was July 29, 2023. 18:43 Method Of Arrival: Ambulatory ko1 18:43 Acuity: MIGUEL 3 ko1 Triage Assessment: 18:45 General: Appears distressed, uncomfortable, Behavior is cooperative, appropriate for ko1 age, anxious. Pain: Complains of pain in chest and abdomen. Cardiovascular: Reports chest pain. CAMPUS EXECUTIVE DIRECTOR: 18:45 LMP 07/29/2023, unknown ko1 Historical: - Allergies: 18:45 Codeine; ko1 18:45 PENICILLINS; ko1 - PMHx: 18:45 ADD; Ehlersdandos; Ovarian cyst; ko1 - PSHx: 18:45 breast lift; dental surgery; gastric sleeve; ovarian cyst; Tonsillectomy; Tummy tuck; ko1 - Immunization history:: Adult Immunizations unknown. - Social history:: Smoking status: Patient denies any tobacco usage or history of. Screenin:35 [facility] ED Fall Risk Assessment (Adult) History of falling in the last 3 months, km8 including since admission No falls in past 3 months (0 pts) Confusion or Disorientation No (0 pts) Intoxicated or Sedated No (0 pts) Impaired Gait No (0 pts) Mobility Assist Device Used No (0 pt) Altered Elimination No (0 pt) Score/Fall Risk Level 0 - 2 = Low Risk Oriented to surroundings, Maintained a safe environment, Educated pt \T\ family on fall prevention, incl call for assistance when getting out of bed, Assessed \T\ reinforced patient's understanding of fall precautions. Abuse screen: Denies threats or abuse. Denies injuries from another. Nutritional screening: No deficits noted. Tuberculosis screening: No symptoms or risk factors identified. Assessment: 21:35 General: Appears in no apparent distress. uncomfortable, Behavior is calm, cooperative, km8 appropriate for age. Pain: Complains of pain in chest Pain does not radiate. Pain began suddenly. Neuro: Pham Agitation-Sedation Scale (RASS): 0 - Alert and Calm Level of Consciousness is awake, alert, obeys commands, Oriented to person, place, time, situation. Cardiovascular: Reports chest pain, Capillary refill < 3 seconds Patient's skin is warm and dry. Rhythm is regular. Respiratory: Airway is patent Respiratory effort is even, unlabored, Respiratory pattern is regular, symmetrical. GI: No signs and/or symptoms were reported involving the gastrointestinal system. : No signs and/or symptoms were reported regarding the genitourinary system. EENT: No signs and/or symptoms were reported regarding the EENT system. Derm: No signs and/or symptoms reported regarding the dermatologic system. Skin is intact, is healthy with good turgor, Skin is dry, Skin is pink, warm \T\ dry. normal, Skin temperature is warm. Musculoskeletal: No signs and/or symptoms reported regarding the musculoskeletal system. Range of motion: intact in all extremities. Vital Signs: 18:43 BP 131 / 82; Pulse 79; Resp 18; Temp 98.8; Pulse Ox 100% ; ko1 21:30 BP 110 / 78; Pulse 65; Resp 16; Pulse Ox 100% on R/A; km8 22:00 BP 116 / 77; Pulse 63; Resp 16; Pulse Ox 100% on R/A; km8 Lola Coma Score: 21:35 Eye Response: spontaneous(4). Motor Response: obeys commands(6). Verbal Response: km8 oriented(5). Total: 15. ED Course: 18:38 Patient arrived in ED. mr 18:38 Pat Houston FNP-C [facility]. kb 18:38 Radha Galeano MD is Attending Physician. kb 18:45 Triage completed. ko1 18:45 Arm band placed on right wrist. Patient placed in an exam room, on a stretcher, on ko1 electronic device monitor, on pulse oximetry, Patient notified of wait time. 19:19 XRAY Chest (1 view) In Process Unspecified. EDMS 20:10 Test, Urine Sent. cm10 20:10 Basic Metabolic Panel Sent. cm10 20:10 CBC with Diff Sent. cm10 20:10 D-Dimer Sent. cm10 20:10 LFT's Sent. cm10 20:10 Magnesium Sent. cm10 20:10 Troponin HS Sent. cm10 20:10 Initial lab(s) drawn, by me, sent to lab. EKG done, by ED staff, reviewed by Pat WRIGHT. Inserted saline lock: 20 gauge in left antecubital area, using aseptic technique. Blood collected. 21:19 CT Aorta for Dissection In Process Unspecified. EDMS 21:35 Patient has correct armband on for positive identification. Bed in low position. Call km8 light in reach. Side rails up X 1. Client placed on continuous cardiac and pulse oximetry monitoring. NIBP monitoring applied. Door closed. Lights dimmed. 21:35 Patient maintains SpO2 saturation greater than 95% on room air. km8 22:29 Provided Education on: d/c teaching. km8 22:29 No provider procedures requiring assistance completed. IV discontinued, intact, km8 bleeding controlled, No redness/swelling at site. Pressure dressing applied. Administered Medications: 21:35 Drug: Ativan IVP 0.5 mg IVP once Route: IVP; Site: left antecubital; 8 22:31 Follow up: Response: No adverse reaction km8 21:35 Drug: NS 0.9% IV 1000 ml IV at 1000 ml once Route: IV; Rate: 1000 ml; Site: left km8 antecubital; 22:31 Follow up: IV Status: Completed infusion; IV Intake: 1000ml km8 21:35 Drug: Ondansetron IVP 4 mg IVP once; over 2 minutes Route: IVP; Site: left antecubital; km8 22:31 Follow up: Response: No adverse reaction km8 Medication: 22:29 VIS not applicable for this client. km8 Intake: 22:31 IV: 1000ml; Total: 1000ml. km8 Outcome: 22:13 Discharge ordered by . kb 22:29 Discharged to home ambulatory, km8 22:29 Condition: good 22:29 Discharge instructions given to patient, Instructed on discharge instructions, follow up and referral plans. Demonstrated understanding of instructions, follow-up care, 22:31 Patient left the ED. km8 Signatures: Dispatcher [employer] EDMS Pat Houston, CONTACT CENTER REP-C CONTACT CENTER REP-Ckb Grissom Tsering, Reg Reg mr Mariana Avila, RN RN ko1 Clau Kauffman RN RN cm10 Mariah Bustillos, LUCIO RN km8 Corrections: (The following items were deleted from the chart) 18:45 18:45 Allergies: Morphine; ko1 ko1
--- NOTE | 2023-07-29 22:13 | EDPHYS ---
Physician Documentation [facility] [place] [place] Name: Cathleen Willson Age: 28 yrs Sex: Female : 1995 Arrival Date: 07/29/2023 Time: 18:36 Bed 6 Private MD: ED Physician Radha Galeano HPI: 07/29 22:53 This 28 yrs old Female presents to ER via Ambulatory with complaints of Chest Pain, kb neck pain, Numbness Of Hand, Nausea. 22:53 Patient is a 28-year-old female with a history of Carmen-Danlos, POTS, anxiety who kb presents for chest pain that radiates to the back, shortness of breath, tingling in bilateral hands, abdominal pain. States symptoms started 3 days ago and has not gotten any better, she looked on [employer] and started getting worried so she came in for evaluation. States the symptoms feel similar to previous anxiety attacks but are a little different. Also reports she is supposed to have her aorta evaluated every 6 months but she has not done that in a long time.. 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 - Social history:: Smoking status: Patient denies any tobacco usage or history of. ROS: 22:03 Constitutional: Negative for fever, chills, and weight loss, kb 22:51 Cardiovascular: Positive for chest pain, kb 22:51 Respiratory: Positive for shortness of breath, 22:51 Back: Positive for pain at rest, 22:51 Neuro: Positive for tingling, of the right hand and left hand, 22:51 All other systems are negative, Exam: 21:58 Constitutional: This is a well developed, well nourished patient who is awake, alert, kb and in no acute distress. Head/Face: Normocephalic, atraumatic. ENT: Moist Mucous membranes Cardiovascular: Regular rate Respiratory: Respirations even and unlabored. No increased work of breathing. Talking in full sentences Abdomen/GI: Soft, non-tender. No distention Skin: Warm, dry with normal turgor. Normal color. MS/ Extremity: Pulses equal, no cyanosis. Neurovascular intact. Full, normal range of motion. Neuro: Awake and alert, GCS 15, oriented to person, place, time, and situation. Moves all extremities. Normal gait. 21:58 ECG was reviewed by the Attending Physician. Vital Signs: 18:43 BP 131 / 82; Pulse 79; Resp 18; Temp 98.8; Pulse Ox 100% ; ko1 21:30 BP 110 / 78; Pulse 65; Resp 16; Pulse Ox 100% on R/A; km8 22:00 BP 116 / 77; Pulse 63; Resp 16; Pulse Ox 100% on R/A; km8 Olla Coma Score: 21:35 Eye Response: spontaneous(4). Motor Response: obeys commands(6). Verbal Response: km8 oriented(5). Total: 15. MDM: 18:38 Patient medically screened. kb 22:48 Data reviewed: vital signs, nurses notes. kb 22:52 Differential diagnosis: abnormal EKG, acute myocardial infarction, anxiety, Aortic kb dissection. Care significantly affected by the following chronic conditions: Carmen-Danlos, POTS. 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 07/29 18:51 Order name: Basic Metabolic Panel; Complete Time: 21:06 kb 07/29 18:51 Order name: CBC with Diff; Complete Time: 20:24 kb 07/29 18:51 Order name: D-Dimer; Complete Time: 20:31 kb 07/29 18:51 Order name: LFT's; Complete Time: 21:06 kb 07/29 18:51 Order name: Magnesium; Complete Time: 21:06 kb 07/29 18:51 Order name: Troponin HS; Complete Time: 21:06 kb 07/29 18:51 Order name: Lipase; Complete Time: 21:06 kb 07/29 19:07 Order name: Test, Urine; Complete Time: 20:34 ds4 07/29 18:51 Order name: XRAY Chest (1 view); Complete Time: 19:27 kb 07/29 18:51 Order name: CT Aorta for Dissection; Complete Time: 21:47 kb 07/29 18:51 Order name: EKG; Complete Time: 18:52 kb 07/29 18:51 Order name: Cardiac monitoring; Complete Time: 21:14 kb 07/29 18:51 Order name: EKG - Nurse/Tech; Complete Time: 20:10 kb 07/29 18:51 Order name: IV Saline Lock; Complete Time: 20:10 kb 07/29 18:51 Order name: Labs collected and sent; Complete Time: 20:10 kb 07/29 18:51 Order name: O2 Per Protocol; Complete Time: 21:14 kb 07/29 18:51 Order name: O2 Sat Monitoring; Complete Time: 21:14 kb EC:58 Rate is 70 beats/min. Rhythm is regular. QRS [place] is Normal. PA interval is normal at kb 118 msec. QRS interval is normal at 82 msec. QT interval is normal at 425 msec. Administered Medications: 21:35 Drug: Ativan IVP 0.5 mg IVP once Route: IVP; Site: left antecubital; [facility] 22:31 Follow up: Response: No adverse reaction [facility] 21:35 Drug: NS 0.9% IV 1000 ml IV at 1000 ml once Route: IV; Rate: 1000 ml; Site: left [facility] antecubital; 22:31 Follow up: IV Status: Completed infusion; IV Intake: 1000ml [facility] 21:35 Drug: Ondansetron IVP 4 mg IVP once; over 2 minutes Route: IVP; Site: left antecubital; [facility] 22:31 Follow up: Response: No adverse reaction [facility] Disposition Summary: 07/29/23 22:13 Discharge Ordered Notes: Location: Home Condition: Stable kb Diagnosis - Chest pain, unspecified kb Followup: kb - With: Emergency Department - When: As needed - Reason: Worsening of condition Followup: kb - With: Private Physician - When: 2 - 3 days - Reason: Recheck today's complaints, Continuance of care, Re-evaluation by your physician Discharge Instructions: - Discharge Summary Sheet kb - Nonspecific Chest Pain, Adult, [id number] kb Forms: - Medication Reconciliation Form kb - Thank You Letter kb - Antibiotic Education kb - Prescription Opioid Use kb - Patient Portal Instructions kb - Leadership Thank You Letter kb Signatures: Dispatcher [employer] Pat Garza, ROGER-C ROGER-Mariana Zheng, RN RN ko1 Mariah Bustillos RN RN km8 Corrections: (The following items were deleted from the chart) 18:45 18:45 Allergies: Morphine; ko1 ko1
[2023-07-29 22:48] VITALS: TEMP 98.8; O2SAT 100
[2023-07-29 22:53] VITALS: BP 116/77
--- NOTE | 2023-07-31 16:53 | EKG ---
Test Date: 2023-07-29 Test Time: 20:07:40 Ui U[employer] Web Developer: ADRIAN MEASUREMENT RESULTS: Intervals: Rate: 70 AK: 118 QRSD: 82 QT: 394 QTc: 425 [place]: P: 72 AK: 118 QRS: 76 T: 33 INTERPRETIVE STATEMENTS: Normal sinus rhythm Normal ECG No previous ECG available for comparison Electronically Signed On 07-31-23 16:51:45 CONCRETE TESTER by Quan Carrasquillo
== END 2023-07-29 22:31 | disposition home or self-care (01) ==
LOC: ER 18:36
DX: R07.9 Chest pain, unspecified (principal)
CPT/HCPCS: 36415; 71045; 71275; 74175; 80048; 80076; 81025; 83690; 83735; 84484; 85025; 85379; 93005; 96361; 96374; 96375; 99285; J2405; J7030; Q9967

== ENCOUNTER → 2023-10-22 | Emergency (ER) | payer SELFPAY ==
[~2023-10-22] MED LIST: METOCLOPRAMIDE 10 MG/2mL INJ ONE; NA CHLORIDE 0.9% 2,000 ML ONE
[2023-10-22 18:14] LABS: Hematocrit 31.3 % (36.0-45.0); Lymphocytes % 16.3 % (15.3-44.8); MCV 82.3 fL (80-100); MPV 8.4 fL (7.6-11.3); Platelets 288 thou/uL (152-406)
[2023-10-22 18:30] LABS: Albumin 3.4 g/dL (3.4-5.0); Bilirubin Total 0.2 mg/dL (0.2-1.0)
[2023-10-22 20:29] LABS: Specific Gravity 1.028 (1.005-1.030); Urine Bacteria None Seen /HPF (<20); Urine Bilirubin NEGATIVE (Negative); Urine Blood Negative (Negative); Urine Clarity Clear (Clear); Urine Color Light-Yellow (Yellow); Urine Glucose NEGATIVE (Negative); Urine Mucus Slight /HPF (None Seen); Urine Protein NEGATIVE (Negative); Urine RBC <5 /HPF (None Seen); Urine Urobilinogen Normal (Normal); Urine pH 6.5 (5.0-7.0)
--- NOTE | 2023-10-22 20:35 | EDPHYS ---
Physician Documentation [facility] Name: Cathleen Willson Age: 28 yrs Sex: Female : 1995 Arrival Date: 10/22/2023 Time: 17:31 Bed 13 Private MD: ED Physician Chester Austin HPI: 10/22 17:45 This 28 yrs old Female presents to ER via Ambulatory with complaints of 8 weeks sb4 , Nausea/Vomiting. 17:46 The patient presents to the emergency department with nausea and vomiting, that started sb4 14 day(s) ago. The estimated gestational age is 8 weeks. course: care: private OB physician, Leakage of Fluid: none appreciated, Ultrasound: the patient had an ultrasound, which was normal, Risk/complications: no obvious risks or complications are appreciated. Previous pregnancies:. Associated signs and symptoms:. nausea and vomiting for 2 weeks, can no longer hold anything down. been taking zofran and B6 without any relief. no vag bleeding/discharge or abnormal abdominal cramping. 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 - Social history:: Smoking status: Patient denies any tobacco usage or history of. ROS: 17:46 Constitutional: Negative for fever, chills, and weight loss, sb4 17:46 Abdomen/GI: Positive for nausea and vomiting, 17:46 All other systems are negative, Exam: 17:46 Head/Face: Normocephalic, atraumatic. Eyes: Extra-ocular motions intact. Periorbital sb4 areas with no swelling, redness, or edema. Cardiovascular: Regular rate and rhythm with a normal S1 and S2. Respiratory: Lungs have equal breath sounds bilaterally, clear to auscultation and percussion. No rales, rhonchi or wheezes noted. No increased work of breathing, no retractions or nasal flaring. Abdomen/GI: Soft, non-tender, no distension. Skin: Warm, dry with normal turgor. Normal color with no rashes, no lesions, and no evidence of cellulitis. MS/ Extremity: Pulses equal, no cyanosis. Neurovascular intact. Full, normal range of motion. Neuro: Awake and alert, GCS 15, oriented to person, place, time, and situation. Motor strength 5/5 in all extremities. Sensory grossly intact. 17:46 Constitutional: The patient appears alert, awake, uncomfortable, 17:46 ENT: Mouth: Oral mucosa: dry, Vital Signs: 17:37 BP 118 / 75; Pulse 97; Resp 16; Temp 98.7; Pulse Ox 100% ; ko1 19:00 BP 101 / 63; Pulse 89; Resp 16; Pulse Ox 100% on R/A; Pain 0/10; pf1 20:00 BP 116 / 82; Pulse 92; Resp 16; Pulse Ox 100% on R/A; Pain 0/10; pf1 19:00 Pain Scale: Adult pf1 20:00 Pain Scale: Adult pf1 MDM: 17:44 Patient medically screened. sb4 20:34 Data reviewed: vital signs, nurses notes, lab test result(s), and as a result, I will sb4 discharge patient. Counseling: I had a detailed discussion with the patient and/or guardian regarding the historical points, exam findings, and any diagnostic results supporting the discharge/admit diagnosis, lab results, to return to the emergency department if symptoms worsen or persist or if there are any questions or concerns that arise at home. 10/22 17:45 Order name: CBC with Diff; Complete Time: 18:19 sb4 10/22 17:45 Order name: CMP; Complete Time: 18:31 sb4 10/22 18:44 Order name: UAM; Complete Time: 20:33 sb4 10/22 17:45 Order name: IV Saline Lock; Complete Time: 18:22 sb4 18 17:45 Order name: Labs collected and sent; Complete Time: 18:22 sb4 18 20:12 Order name: PO challenge; Complete Time: 20:25 sb4 Administered Medications: 18:12 Drug: NS 0.9% IV 2000 ml IV at 1 bolus Per protocol; 1000 mL bolus Route: IV; Rate: 1 nj1 bolus; Site: right forearm; 20:10 Follow up: Response: No adverse reaction; Marked relief of symptoms; IV Status: pf1 Completed infusion; IV Intake: 2000ml 18:12 Drug: metoCLOPramide IVP 10 mg IVP once; over 1 to 2 minutes Route: IVP; Site: right nj1 forearm; 19:00 Follow up: Response: No adverse reaction; Marked relief of symptoms; Nausea is decreasedpf1 Disposition: 10/23 07:13 Co-signature as Attending Physician, Chester Austin MD I reviewed the patient's care rt provided by the Advanced Practice Provider and agree with the diagnosis and treatment plan. Disposition Summary: 10/22/23 20:35 Discharge Ordered Notes: Location: Home sb4 Problem: an ongoing problem sb4 Symptoms: have improved sb4 Condition: Stable sb4 Diagnosis - Vomiting of , unspecified sb4 Followup: sb4 - With: Emergency Department - When: As needed - Reason: Trouble breathing, Worsening of condition Discharge Instructions: - Discharge Summary Sheet sb4 - Morning Sickness, [id number] sb4 Forms: - Thank You Letter sb4 - Patient Portal Instructions sb4 - Leadership Thank You Letter sb4 Signatures: Dispatcher [employer] Mariana Gunn, RN RN Loren Perera PA-C PA-C sb4 Chester Austin MD MD rt Nieves England RN RN nj1 Livia Tom RN pf1
--- NOTE | 2023-10-22 20:35 | ER ---
Nurse's Notes [facility] Name: Cathleen Willson Age: 28 yrs Sex: Female : 1995 Arrival Date: 10/22/2023 Time: 17:31 Bed 13 Private MD: Diagnosis: Vomiting of , unspecified Presentation: 10/22 17:37 Chief complaint: Patient states: nauseated, throwing up foam, has a rx for zofran and ko1 its not helping, cant pee and feels dehydrated. Coronavirus screen: At this time, the client does not indicate any symptoms associated with coronavirus-19. Ebola Screen: No symptoms or risks identified at this time. Initial Sepsis Screen: Does the patient meet any 2 criteria? No. Patient's initial sepsis screen is negative. Does the patient have a suspected source of infection? No. Patient's initial sepsis screen is negative. Risk Assessment: Do you want to hurt yourself or someone else? Patient reports no desire to harm self or others. Onset of symptoms is unknown. 17:37 Method Of Arrival: Ambulatory ko1 17:37 Acuity: MIGUEL 3 ko1 Triage Assessment: 17:42 General: Appears distressed, ill, Behavior is calm, cooperative, appropriate for age. ko1 Pain: Denies pain. GI: Reports cramping, intolerance of fluids, intolerance of food, nausea, vomiting. 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 - Social history:: Smoking status: Patient denies any tobacco usage or history of. Screenin:12 [facility] ED Fall Risk Assessment (Adult) Score/Fall Risk Level 0 - 2 = Low Risk nj1 Oriented to surroundings, Maintained a safe environment, Hourly rounding (assess needs \\T\\ fall precautionary measures) done. Abuse screen: Denies threats or abuse. Denies injuries from another. Nutritional screening: No deficits noted. Tuberculosis screening: No symptoms or risk factors identified. Assessment: 18:12 General: Appears in no apparent distress. ill, Behavior is calm, cooperative, nj1 appropriate for age. Pain: Denies pain. Neuro: No deficits noted. Cardiovascular: No deficits noted. Patient's skin is warm and dry. Respiratory: Airway is patent Respiratory effort is even, unlabored. GI: Reports intolerance of fluids, intolerance of food, nausea, vomiting. 19:00 General: Appears in no apparent distress. comfortable, well groomed, well developed, pf1 Behavior is calm, cooperative, appropriate for age, quiet. 19:00 Pain: Denies pain. Neuro: No deficits noted. Level of Consciousness is awake, alert, pf1 obeys commands, Oriented to person, place, time, situation. Cardiovascular: No deficits noted. Capillary refill < 3 seconds Patient's skin is warm and dry. Respiratory: No deficits noted. Airway is patent Respiratory effort is even, unlabored, Respiratory pattern is regular, symmetrical. GI: Reports intolerance of fluids, intolerance of food, nausea, vomiting. : No deficits noted. No signs and/or symptoms were reported regarding the genitourinary system. EENT: No deficits noted. No signs and/or symptoms were reported regarding the EENT system. 20:00 Reassessment: Patient appears in no apparent distress at this time. Patient and/or pf1 family updated on plan of care and expected duration. Pain level reassessed. Patient is alert, oriented x 3, equal unlabored respirations, skin warm/dry/pink. Patient states symptoms have improved. 20:31 Reassessment: PO challenge completed. Patient tolerated water and crackers. pf1 Vital Signs: 17:37 BP 118 / 75; Pulse 97; Resp 16; Temp 98.7; Pulse Ox 100% ; ko1 19:00 BP 101 / 63; Pulse 89; Resp 16; Pulse Ox 100% on R/A; Pain 0/10; pf1 20:00 BP 116 / 82; Pulse 92; Resp 16; Pulse Ox 100% on R/A; Pain 0/10; pf1 19:00 Pain Scale: Adult pf1 20:00 Pain Scale: Adult pf1 ED Course: 17:34 Patient arrived in ED. im 17:34 Loren Merlos PA-C is PHCP. sb4 17:34 Chester Austin MD is Attending Physician. sb4 17:42 Triage completed. ko1 17:42 Arm band placed on right wrist. Patient placed in waiting room, Patient notified of ko1 wait time. 17:58 Nieves England, RN is Primary Nurse. nj1 18:12 Patient has correct armband on for positive identification. Bed in low position. Call nj1 light in reach. Adult w/ patient. Provided Education on: call light, fall precautions. 19:00 Report given to Nguyen VALDES. nj1 20:25 UAM Sent. pf1 20:44 No provider procedures requiring assistance completed. IV discontinued, intact, pf1 bleeding controlled, No redness/swelling at site. Pressure dressing applied. Administered Medications: 18:12 Drug: NS 0.9% IV 2000 ml IV at 1 bolus Per protocol; 1000 mL bolus Route: IV; Rate: 1 nj1 bolus; Site: right forearm; 20:10 Follow up: Response: No adverse reaction; Marked relief of symptoms; IV Status: pf1 Completed infusion; IV Intake: 2000ml 18:12 Drug: metoCLOPramide IVP 10 mg IVP once; over 1 to 2 minutes Route: IVP; Site: right nj1 forearm; 19:00 Follow up: Response: No adverse reaction; Marked relief of symptoms; Nausea is decreasedpf1 Medication: 20:44 VIS not applicable for this client. pf1 Intake: 20:10 IV: 2000ml; Total: 2000ml. pf1 Outcome: 20:35 Discharge ordered by . sb4 20:43 Discharged to home ambulatory, with family, pf1 20:43 Condition: improved 20:43 Discharge instructions given to patient, family, Instructed on discharge instructions, follow up and referral plans. Demonstrated understanding of instructions, follow-up care, 20:44 Patient left the ED. pf1 Signatures: Mariana Avila RN RN ko1 Loren Merlos PA-C PA-C sb4 Livia Tom, RN RN pf1 Nieves England, RN RN nj1 Mikki Mccann im
[2023-10-22 20:55] VITALS: BP 116/82; TEMP 98.7; O2SAT 100
== END ==
LOC: ER 17:31
DX: O21.9 Vomiting of pregnancy, unspecified (principal); Z3A.08 8 weeks gestation of pregnancy
CPT/HCPCS: 36415; 80053; 81001; 85025; J2765; J7030

== ENCOUNTER 2024-10-11 12:34 | Emergency (ER) | payer BC ==
[2024-10-11 13:20] LABS: Absolute Basophils 0.1 K/uL (0-0.5); Absolute Eosinophils 0.3 K/uL (0-0.5); Absolute Lymphocytes (CBC) 1.6 K/uL (0.7-4.9); Absolute Monocytes 0.4 K/uL (0.1-1.3); Absolute Neutrophil 3.1 K/uL (1.8-8.0); Eosinophils % 5.5 % (0-4.4); Hemoglobin 12.7 g/dL (12.0-15.0); Lymphocytes % 29.4 % (15.3-44.8); MCHC 34.4 g/dL (32.0-36.0); MCV 87.3 fL (80-100); MPV 8.5 fL (7.6-11.3); Monocytes % 7.6 % (3.3-12.3); Neutrophils % 56.5 % (41.7-73.7); Platelets 258 thou/uL (152-406); RBC Red Blood Cell Count 4.24 M/uL (3.86-4.86); Red Cell Distribution Width 13.8 % (12.1-15.2)
[2024-10-11 13:31] LABS: Specific Gravity 1.028 (1.005-1.030)
[2024-10-11 13:32] LABS: PT Prothrombin Time 11.9 SECONDS (9.4-12.5); Protime INR 1.13
--- NOTE | 2024-10-11 13:34 | RAD REPORT ---
EXAM: Chest Single View HISTORY: CHEST PAIN COMPARISON: 07/29/2023 FINDINGS: LUNGS/PLEURA: The lungs are clear. No pleural effusions or pneumothorax. No pulmonary edema. MEDIASTINUM: The mediastinal silhouette is within normal limits. CARDIAC: The cardiac silhouette is within normal limits. UPPER ABDOMEN: No significant abnormality. BONES: No acute abnormality. LINES/TUBES/OTHER: N/A IMPRESSION: No evidence of acute cardiopulmonary disease.
[2024-10-11 13:35] LABS: D-Dimer < 0.215 FEUug/mL (0-0.500)
[2024-10-11 13:41] LABS: Anion Gap 8.8 mEq/L (5.0-15.0); BUN Blood Urea Nitrogen 12 mg/dL (7-18); Bicarbonate 26 mEq/L (21-32); Glomerular Filtration Rate 120 ml/min (=/>90); Glucose Level 92 mg/dL (74-106); NT PRO-BNP 31 pg/mL (<125); Potassium 3.8 mEq/L (3.5-5.1); Sodium Level 141 mEq/L (136-145)
[2024-10-11 13:46] LABS: Troponin High Sensitivity < 3.0 pg/mL (<58.9)
--- NOTE | 2024-10-11 13:57 | EDPHYS ---
Physician Documentation [facility] Name: Cathleen Willson Age: 29 yrs Sex: Female : 1995 Arrival Date: 10/11/2024 Time: 12:34 Bed 20 Private MD: ED Physician Dao Galindo HPI: 10/11 13:03 This 29 yrs old Female presents to ER via Ambulatory with complaints of Chest ec2 Pain, Shortness Of Breath, Dizziness. 13:03 Patient arrives today for evaluation of chest pain, shortness of breath as well as ec2 dizziness. Reports that she has been experiencing the symptoms for the past 3 days. Reports that she is experiencing upper chest tightness. Recent date of delivery approximately 5 months ago. Otherwise history of Carmen-Danlos syndrome. No known aortic pathology.. 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 - Infectious Disease History:: Denies. - Social history:: Smoking status: Patient denies any tobacco usage or history of. Patient/guardian denies using alcohol, street drugs. ROS: 13:04 Constitutional: as per hpi ec2 Exam: 13:04 Constitutional: GEN: NAD Head: atraumatic Eyes: EOMI Ears: External ears are ec2 normal. CV: regular rate LUNGS: no respiratory distress ABD: non-distended SKIN: no evidence of rashes MSK: no evidence of trauma, no chest wall TTP or deformities or crepitus Vital Signs: 12:40 BP 139 / 90; Pulse 83; Resp 15; Temp 98.3; Pulse Ox 100% ; Weight 68.04 kg; Height 5 cm10 ft. 10 in. ; Pain 7/10; 13:00 BP 122 / 81; Pulse 82; Resp 19; Pulse Ox 100% ; me1 14:00 BP 108 / 85; Pulse 77; Resp 18; Pulse Ox 100% ; me1 12:40 Body Mass Index 21.52 (68.04 kg, 177.8 cm) cm10 12:40 Pain Scale: Adult cm10 MDM: 13:03 Medical Screening Exam initiated ec2 13:04 Data reviewed: vital signs, nurses notes. ED course: Patient arrives today for ec2 evaluation of chest pain. Examination is unrevealing. Will obtain lab work, EKG, chest x-ray. Differential diagnoses considered include processes such as ACS, PE, dissection. EKG obtained, independently reviewed and interpreted by me, shows normal sinus rhythm, rate of 76, no acute ST segment elevations, intervals are nonactionable.. 13:55 ED course: Metabolic profile reassuring. BNP within normal ranges, troponin is ec2 detectable, CBC reassuring, D-dimer within normal ranges. Chest x-ray is nonacute. Negative testing. On reassessment patient is well-appearing no acute distress. Doubt ACS or PE.. 10/11 12:43 Order name: Basic Metabolic Panel; Complete Time: 13:54 ec2 10/11 12:43 Order name: CBC with Diff; Complete Time: 13:38 ec2 10/11 12:43 Order name: D-Dimer; Complete Time: 13:38 ec2 10/11 12:43 Order name: NT PRO-BNP; Complete Time: 13:54 ec2 10/11 12:43 Order name: PT-INR; Complete Time: 13:38 ec2 10/11 12:43 Order name: Troponin HS; Complete Time: 13:54 ec2 10/11 12:43 Order name: Test, Urine; Complete Time: 13:38 ec2 10/11 12:43 Order name: XRAY Chest (1 view); Complete Time: 13:38 ec2 10/11 12:43 Order name: Cardiac monitoring; Complete Time: 13:14 ec2 10/11 12:43 Order name: EKG - Nurse/Tech; Complete Time: 13:02 ec2 10/11 12:43 Order name: IV Saline Lock; Complete Time: 13:14 ec2 10/11 12:43 Order name: Labs collected and sent; Complete Time: 13:14 ec2 10/11 12:43 Order name: O2 Per Protocol; Complete Time: 13:14 ec2 10/11 12:43 Order name: O2 Sat Monitoring; Complete Time: 13:14 ec2 Administered Medications: No medications were administered Disposition Summary: 10/11/24 13:56 Discharge Ordered Notes: Location: Home ec2 Condition: Stable ec2 Diagnosis - Chest pain, unspecified ec2 Followup: ec2 - With: Private Physician - When: - Reason: Re-evaluation by your physician Discharge Instructions: - Discharge Summary Sheet ec2 - Nonspecific Chest Pain, Adult, [id number] ec2 Forms: - Work release form [id number] - Medication Reconciliation Form ec2 - Antibiotic Education ec2 - Prescription Opioid Use ec2 - Patient Portal Instructions ec2 - Leadership Thank You Letter ec2 Prescriptions: - Pepcid 20 mg Oral Tablet - take 1 tablet ORAL route once daily; 20 tablet; Refills: 0, Product Selection ec2 Permitted Signatures: Dispatcher [employer] Clau Melgoza RN RN cm10 Dao Galindo MD MD ec2 Corrections: (The following items were deleted from the chart) 12:43 12:43 Chest Single View+RAD.RAD.BRZ ordered. JASMIN CASTELLNAOS
--- NOTE | 2024-10-11 13:57 | ER ---
Nurse's Notes [facility] Name: Cathleen Willson Age: 29 yrs Sex: Female : 1995 Arrival Date: 10/11/2024 Time: 12:34 Bed 20 Private MD: Diagnosis: Chest pain, unspecified Presentation: 10/11 12:40 Chief complaint: Patient states: Chest pain to the center of chest that radiates to cm10 left shoulder onset 3 days ago. Pt states that the pain is not getting any better and is now having some shortness of breath and dizziness. Pt reports being 4 months post . Coronavirus screen: Client denies travel out of the [place] in the last 14 days. Ebola Screen: Patient denies travel to an Ebola-affected area in the 21 days before illness onset. Initial Sepsis Screen: Does the patient meet any 2 criteria? No. Patient's initial sepsis screen is negative. Does the patient have a suspected source of infection? No. Patient's initial sepsis screen is negative. Risk Assessment: Do you want to hurt yourself or someone else? Patient reports no desire to harm self or others. Onset of symptoms was October 08, 2024. 12:40 Method Of Arrival: Ambulatory cm10 12:40 Acuity: MIGUEL 2 cm10 Triage Assessment: 12:42 General: Appears in no apparent distress. comfortable, Behavior is calm, cooperative. cm10 Pain: Complains of pain in chest Pain radiates to left scapular area Pain currently is 7 out of 10 on a pain scale. Quality of pain is described as pressure, Pain began 2-3 days ago. Neuro: No deficits noted. Level of Consciousness is awake, alert, obeys commands, Oriented to person, place, time, situation, Appropriate for age. Respiratory: No deficits noted. Airway is patent Respiratory effort is even, unlabored, Respiratory pattern is regular, symmetrical. HUC OB: 14:13 LMP N/A - , Not me1 Historical: - Allergies: 12:40 Codeine; cm10 12:40 PENICILLINS; cm10 - PMHx: 12:40 ADD; Ehlersdandos; Ovarian cyst; cm10 - PSHx: 12:40 breast lift; dental surgery; gastric sleeve; ovarian cyst; Tonsillectomy; Tummy tuck; cm10 - Immunization history:: Adult Immunizations up to date. - Infectious Disease History:: Denies. - Social history:: Smoking status: Patient denies any tobacco usage or history of. Patient/guardian denies using alcohol, street drugs. Screenin:00 [facility] ED Fall Risk Assessment (Adult) History of falling in the last 3 months, me1 including since admission No falls in past 3 months (0 pts) Confusion or Disorientation No (0 pts) Intoxicated or Sedated No (0 pts) Impaired Gait No (0 pts) Mobility Assist Device Used No (0 pt) Altered Elimination No (0 pt) Score/Fall Risk Level 0 - 2 = Low Risk Maintained a safe environment, Provided non-skid footwear, Hourly rounding (assess needs \T\ fall precautionary measures) done. Abuse screen: Denies threats or abuse. Nutritional screening: No deficits noted. Tuberculosis screening: No symptoms or risk factors identified. Assessment: 13:00 General: Appears in no apparent distress. well groomed, well developed, well nourished, me1 Behavior is calm, cooperative, appropriate for age, Reports Chest pain to the center of chest that radiates to left shoulder onset 3 days ago. Pt states that the pain is not getting any better and is now having some shortness of breath and dizziness. Pt reports being 4 months post . Pain: Complains of pain in chest Pain radiates to back and left scapular area Pain currently is 7 out of 10 on a pain scale. Quality of pain is described as shooting, Pain began 2-3 days ago. Is continuous. Neuro: Level of Consciousness is awake, alert, obeys commands, Oriented to person, place, time, situation, Appropriate for age. Neuro: Reports dizziness. Cardiovascular: Patient's skin is warm and dry. Respiratory: Airway is patent Respiratory effort is even, unlabored, Respiratory pattern is regular, symmetrical. Respiratory: Reports shortness of breath on exertion. GI: No signs and/or symptoms were reported involving the gastrointestinal system. : No signs and/or symptoms were reported regarding the genitourinary system. EENT: No signs and/or symptoms were reported regarding the EENT system. Derm: Skin is intact, is healthy with good turgor, Skin is pink, warm \T\ dry. Musculoskeletal: No signs and/or symptoms reported regarding the musculoskeletal system. Vital Signs: 12:40 BP 139 / 90; Pulse 83; Resp 15; Temp 98.3; Pulse Ox 100% ; Weight 68.04 kg; Height 5 cm10 ft. 10 in. ; Pain 7/10; 13:00 BP 122 / 81; Pulse 82; Resp 19; Pulse Ox 100% ; me1 14:00 BP 108 / 85; Pulse 77; Resp 18; Pulse Ox 100% ; me1 12:40 Body Mass Index 21.52 (68.04 kg, 177.8 cm) cm10 12:40 Pain Scale: Adult cm10 ED Course: 12:36 Patient arrived in ED. im 12:36 Dao Galindo MD is Attending Physician. ec2 12:42 Triage completed. cm10 12:42 Arm band placed on left wrist. Patient placed in an exam room, on a stretcher. cm10 12:52 Lala Choe, LUCIO is Primary Nurse. me1 13:00 Patient has correct armband on for positive identification. Bed in low position. Call sc1 light in reach. Side rails up X 1. Provided Education on: POC. Verbalized understanding.. Client placed on continuous cardiac and pulse oximetry monitoring. NIBP monitoring applied. security monitor on. Pulse ox on. NIBP on. 13:00 No provider procedures requiring assistance completed. Patient maintains SpO2 sc1 saturation greater than 95% on room air. 13:02 EKG done, by ED staff, reviewed by Dao Galindo MD. sc1 13:12 XRAY Chest (1 view) In Process Unspecified. EDMS 13:14 Basic Metabolic Panel Sent. me1 13:14 CBC with Diff Sent. me1 13:14 D-Dimer Sent. me1 13:14 NT PRO-BNP Sent. me1 13:14 PT-INR Sent. me1 13:14 Troponin HS Sent. me1 13:15 Initial lab(s) drawn, by sc, sent to lab. Inserted saline lock: 22 gauge in right me1 antecubital area, using aseptic technique. 14:21 IV discontinued, intact, bleeding controlled, No redness/swelling at site. Pressure me1 dressing applied. Administered Medications: No medications were administered Medication: 13:00 VIS not applicable for this client. sc1 Outcome: 13:56 Discharge ordered by . ec2 14:21 Discharged to home ambulatory, sc1 14:21 Condition: stable 14:21 Discharge instructions given to patient, Instructed on discharge instructions, follow up and referral plans. medication usage, Demonstrated understanding of instructions, follow-up care, medications, Prescriptions given X 1, 14:22 Patient left the ED. me1 Signatures: Dispatcher [employer] EDMikki Mccarty Clarissa, RN RN cm10 Lala Choe RN RN me1 Dao Galindo MD MD ec2 Corrections: (The following items were deleted from the chart) 14:07 12:40 Chief complaint: Patient states: Chest pain to the center of chest that radiates me1 to left shoulder onset 3 days ago. Pt states that the pain is not getting any better and is now having some shortness of breath and dizziness. Pt reports being 4 months post cm10
[2024-10-11 14:46] VITALS: TEMP 98.3; O2SAT 100
[2024-10-11 14:48] VITALS: BP 108/85
== END 2024-10-11 14:22 | disposition home or self-care (01) ==
LOC: ER 12:34
DX: R07.9 Chest pain, unspecified (principal); R42 Dizziness and giddiness; R06.02 Shortness of breath
CPT/HCPCS: 36415; 71045; 80048; 81025; 83880; 84484; 85025; 85379; 85610; 93005; 99284

== ENCOUNTER 2025-01-16 22:24 | Emergency (ER) | payer BC ==
[2025-01-16] MEDS ORDERED: NA CHLORIDE 0.9% 1,000 ML ONE (23:41)
[2025-01-16 23:53] LABS: Absolute Basophils 0.1 K/uL (0-0.5); Absolute Eosinophils 0.2 K/uL (0-0.5); Absolute Lymphocytes (CBC) 2.2 K/uL (0.7-4.9); Absolute Monocytes 0.6 K/uL (0.1-1.3); Absolute Neutrophil 3.9 K/uL (1.8-8.0); Basophils % 0.9 % (0-1.3); Eosinophils % 3.4 % (0-4.4); Hemoglobin 12.8 g/dL (12.0-15.0); Lymphocytes % 30.7 % (15.3-44.8); MCH 28.9 pg (27.0-35.0); MCHC 34.5 g/dL (32.0-36.0); MCV 83.7 fL (80-100); Nucleated Red Blood Cells % 0.2 % (0-0); Platelets 228 thou/uL (152-406); RBC Red Blood Cell Count 4.42 M/uL (3.86-4.86); Red Cell Distribution Width 13.1 % (12.1-15.2)
[2025-01-16 23:56] LABS: Specific Gravity 1.029 (1.005-1.030)
[2025-01-16 23:58] LABS: Specific Gravity 1.029 (1.005-1.030); Urine Bacteria <20 /HPF (<20); Urine Bilirubin NEGATIVE (Negative); Urine Blood Negative (Negative); Urine Clarity Extremely Turbid (Clear); Urine Color Yellow (Yellow); Urine Glucose NEGATIVE (Negative); Urine Ketones NEGATIVE (Negative); Urine Micro Reflex YN NO BILL MICROSCOPIC; Urine Mucus 4+ /HPF (None Seen); Urine Nitrite NEGATIVE (Negative); Urine Protein 1+ (Negative); Urine RBC None Seen /HPF (None Seen); Urine Urobilinogen Normal (Normal); Urine WBC <5 /HPF (<5); Urine pH 5.5 (5.0-7.0)
[2025-01-17 00:10] LABS: Barbiturates NEGATIVE (NEGATIVE); Benzodiazepines NEGATIVE (NEGATIVE); Cocaine NEGATIVE (NEGATIVE); METHAMPHETAM POSITIVE (NEGATIVE); Methadone NEGATIVE (NEGATIVE); Opiates NEGATIVE (NEGATIVE); Phencyclidine NEGATIVE (NEGATIVE); THC Cannibis NEGATIVE (NEGATIVE)
[2025-01-17 00:22] LABS: ALT/SGPT 22 U/L (13-56); AST/SGOT < 10 U/L (15-37); Albumin 4.1 g/dL (3.4-5.0); Albumin/Globulin Ratio 1.3 (1.1-1.8); Alkaline Phosphatase 71 U/L (45-117); Anion Gap 8.3 mEq/L (5.0-15.0); BUN Blood Urea Nitrogen 13 mg/dL (7-18); Bicarbonate 26 mEq/L (21-32); Bilirubin Direct < 0.2 mg/dL (0-0.2); Bilirubin Indirect, Calculated 0.3 mg/dL (0.2-0.8); Bilirubin Total 0.5 mg/dL (0.2-1.0); Globulin 3.2 g/dL (2.3-3.5); Glomerular Filtration Rate 124 ml/min (=/>90); Glucose Level 101 mg/dL (74-106); Potassium 3.3 mEq/L (3.5-5.1); Protein, Total 7.3 g/dL (6.4-8.2); Sodium Level 138 mEq/L (136-145)
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
--- NOTE | 2025-01-17 00:40 | ER ---
Nurse's Notes [facility] Name: Cathleen Willson Age: 29 yrs Sex: Female : 1995 Arrival Date: 01/16/2025 Time: 22:24 Bed 8 Private MD: Diagnosis: Anxiety disorder, unspecified;Hypokalemia Presentation: 01/16 22:58 Chief complaint: Patient states: Patient states she has right sided facial numbness and km10 feels like a lump is in her jaw. Also explains she had near sync[place], explaining she felt dizzy prior lowering herself to ground, denies injury and remembers the whole episode. Pt reports being under a lot os stress lately and insomnia. Coronavirus screen: At this time, the client does not indicate any symptoms associated with coronavirus-19. Ebola Screen: No symptoms or risks identified at this time. Initial Sepsis Screen: Does the patient meet any 2 criteria? No. Patient's initial sepsis screen is negative. Does the patient have a suspected source of infection? No. Patient's initial sepsis screen is negative. Risk Assessment: Do you want to hurt yourself or someone else? Patient reports no desire to harm self or others. 22:58 Method Of Arrival: Ambulatory km10 23:05 Chief complaint: Patient states: S/P FALL EARLIER TODAY. PT STATES SHE BEGAN HAVING br2 RIGHT THROAT/JAW PAIN WITH NUMBNESS AND RLQ RADIATES TO RT FLANK PAIN THAT STARTED YESTERDAY. PT DENIES LOC OR HITTING HEAD. PT HAS BEEN UNDER A LOT OF STRESS LATELY AND IS TEARFUL DURING TRIAGE. Coronavirus screen: Client denies travel out of the [place] in the last 14 days. Ebola Screen: Patient denies exposure to infectious person. Initial Sepsis Screen: Does the patient meet any 2 criteria? No. Patient's initial sepsis screen is negative. Does the patient have a suspected source of infection? No. Patient's initial sepsis screen is negative. Risk Assessment: Do you want to hurt yourself or someone else? Patient reports no desire to harm self or others. Onset of symptoms was January 15, 2025. 23:05 Method Of Arrival: Wheelchair br2 23:05 Acuity: MIGUEL 3 br2 Triage Assessment: 23:08 General: Appears distressed, Behavior is crying. Pain: Denies pain. EENT: Reports pain br2 in right jaw, right cheek and right mandible. 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 - Infectious Disease History:: Denies. - Social history:: Smoking status: Patient denies any tobacco usage or history of. Patient uses alcohol, but reports only rare drinking. Patient/guardian denies using alcohol, street drugs. Screenin:09 [facility] ED Fall Risk Assessment (Adult) History of falling in the last 3 months, km10 including since admission Yes- single mechanical fall (1 pt) Confusion or Disorientation No (0 pts) Intoxicated or Sedated No (0 pts) Impaired Gait No (0 pts) Mobility Assist Device Used No (0 pt) Altered Elimination No (0 pt) Score/Fall Risk Level 0 - 2 = Low Risk Maintained a safe environment, Educated pt \\T\\ family on fall prevention, incl call for assistance when getting out of bed, Hourly rounding (assess needs \\T\\ fall precautionary measures) done. Abuse screen: Denies threats or abuse. Denies injuries from another. Nutritional screening: No deficits noted. Tuberculosis screening: No symptoms or risk factors identified. Assessment: 23:06 General: Appears in no apparent distress. Behavior is anxious. Pain: Denies pain. km10 Neuro: Level of Consciousness is awake, alert, Oriented to person, place, time, situation. Cardiovascular: No deficits noted. Respiratory: Respiratory effort is even, unlabored. Psych: 23:56 [place] Suicide Severity Screening: In the past month, have you wished you were km10 or wished you could go to sleep and not wake up? Patient responds "No." "In the past month, have you actually had any thoughts of killing yourself?" Patient responds "no." "In your lifetime, have you ever done anything, started to do anything, or prepared to do anything to end your life?" Patient responds "no.". Subjective: Patient's mood is stress. Objective: Patient is cooperative, Speech is normal, Affect is appropriate. Vital Signs: 23:04 BP 123 / 81; Pulse 72; Resp 14; Temp 98.8(O); Pulse Ox 100% on R/A; km10 01/17 00:46 BP 133 / 81; Pulse 63; Resp 18; Pulse Ox 98% on R/A; km10 ED Course: 01/16 22:27 Patient arrived in ED. gm2 22:35 Kimber Lamas MD is Attending Physician. gb1 22:58 Rossy Leger RN is Primary Nurse. km10 23:08 Triage completed. br2 23:08 Arm band placed on. br2 23:10 Patient has correct armband on for positive identification. Bed in low position. Side km10 rails up X2. Adult w/ patient. Provided Education on: plan of care. Client placed on continuous cardiac and pulse oximetry monitoring. NIBP monitoring applied. 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 Door closed. Noise minimized. Warm blanket given. Pillow given. 23:10 Inserted saline lock: 20 gauge in right antecubital area, using aseptic technique. km10 23:43 CBC with Diff Sent. ha1 23:43 Basic Metabolic Panel Sent. ha1 23:43 ETOH Level Sent. ha1 23:43 Hepatic Function Sent. ha1 01/17 00:47 No provider procedures requiring assistance completed. IV discontinued, intact, km10 bleeding controlled, No redness/swelling at site. Pressure dressing applied. Administered Medications: 01/16 23:55 Drug: NS 0.9% IV 1000 ml IV at 1 bolus Per protocol; to be given as a bolus over 60 km10 minutes Route: IV; Rate: 1 bolus; Site: right antecubital; 01/17 01:02 Follow up: Response: No adverse reaction; IV Status: Completed infusion km10 Medication: 01:01 VIS not applicable for this client. km10 Outcome: 00:39 Discharge ordered by . gb1 00:59 Discharged to home via wheelchair, with family, km10 00:59 Condition: stable 00:59 Discharge instructions given to patient, family, Instructed on discharge instructions, follow up and referral plans. 01:02 Patient left the ED. km10 Signatures: Beatris Zapata RN RN ha1 Kimber Lamas MD MD gb1 Cristina William gm2 Jenni Hanna RN RN br2 Chester Mcgovern rs6 Rossy Leger RN RN km10 Corrections: (The following items were deleted from the chart) 01/16 23:14 23:04 BP 123 / 81; Pulse 72bpm; Resp 14bpm; Pulse Ox 100% RA; rs6 km10 01/17 01:02 00:59 Response: No adverse reaction [place] [id number]
[2025-01-17 01:17] VITALS: TEMP 98.8
[2025-01-17 01:23] VITALS: BP 133/81; O2SAT 98
--- NOTE | 2025-01-20 16:52 | EKG ---
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
== END 2025-01-17 01:02 | disposition home or self-care (01) ==
LOC: ER 22:24
DX: F41.9 Anxiety disorder, unspecified (principal); E87.6 Hypokalemia
CPT/HCPCS: 93005; 85025; 81001; 80048; 36415; 81025; 80076; 80307; 96360; 99285; 82077; J7030

== ENCOUNTER 2025-06-21 08:57 | Emergency (ER) | payer BC ==
[2025-06-21] MEDS ORDERED: HYDROMORPHONE HCL 1 MG/ML INJ ONE (09:37)
[2025-06-21] MEDS ORDERED: ONDANSETRON 4 MG/2 ML VIAL ONE (09:37)
[2025-06-21] MEDS ORDERED: DIAZEPAM 5 MG TABLET ONE (09:38)
[2025-06-21] MEDS ORDERED: KETOROLAC 30 MG/ML INJ ONE (09:38)
[2025-06-21] MEDS ORDERED: NA CHLORIDE 0.9% 1,000 ML ONE (09:38)
[2025-06-21 09:42] LABS: Absolute Lymphocytes (CBC) 2.2 K/uL (0.7-4.9); Hematocrit 36.0 % (36.0-45.0); Hemoglobin 12.0 g/dL (12.0-15.0); MCH 27.7 pg (27.0-35.0); MCHC 33.4 g/dL (32.0-36.0); MCV 83.0 fL (80-100); MPV 8.8 fL (7.6-11.3); Nucleated RBC Absolute Count 0.0 (0-0); Nucleated Red Blood Cells % 0.0 % (0-0); RBC Red Blood Cell Count 4.33 M/uL (3.86-4.86); White Blood Count 6.90 thou/uL (4.3-10.9)
[2025-06-21 09:48] LABS: Urine Crystals Unidentified Few /HPF (None Seen); Urine Culture Reflex Order NOT NEEDED; Urine Microscopic Reflex YN ORDER UMIC; Urine WBC Clump Rare /HPF (None Seen)
[2025-06-21 09:57] LABS: ALT/SGPT 22 U/L (13-56); AST/SGOT < 10 U/L (15-37); Albumin 3.7 g/dL (3.4-5.0); Albumin/Globulin Ratio 1.2 (1.1-1.8); Alkaline Phosphatase 61 U/L (45-117); Anion Gap 9.6 mEq/L (5.0-15.0); BUN Blood Urea Nitrogen 12 mg/dL (7-18); Globulin 3.1 g/dL (2.3-3.5); Glucose Level 94 mg/dL (74-106); Potassium 3.6 mEq/L (3.5-5.1)
--- NOTE | 2025-06-21 10:27 | RAD REPORT ---
EXAMINATION: CT CERVICAL SPINE WITHOUT CONTRAST HISTORY: PAIN COMPARISON: None TECHNIQUE: Multiple contiguous axial images were obtained in a CT of the cervical spine without IV co ntrast. Sagittal and coronal reformats were performed. One or more of the following dose reduction techniques were used: Automated exposure control, adjustment of the mA and kV according to patient si ze, and iterative reconstruction. Unless otherwise specified, incidental findings do not require dedicated imaging follow-up. FINDINGS: The vertebral bodies and intervertebral discs demonstrate normal height without fracture or subluxat ion. Prominent disc protrusion suspected at C5-6. Reversal of normal cervical lordosis. No prevertebral soft tissue swelling is seen. The odontoid appears normal and the lateral masses are symmetric. The lung apices are unremarkable. IMPRESSION: No evidence of acute osseous abnormality of the cervical spine. Disc protrusion suspected C5-6, age indeterminate. Nonemergent MRI cervical spine follow up suggested
--- NOTE | 2025-06-21 10:28 | RAD REPORT ---
EXAMINATION: ONE VIEW CHEST XR CLINICAL INDICATION: COUGH TECHNIQUE: Frontal chest projection is submitted. Examination is limited by patient positioning and t echnique. COMPARISON: 10/11/2024 FINDINGS: The lungs are well inflated and clear. The heart is normal in size. No displaced fractures identified . IMPRESSION: No acute intrathoracic abnormalities.
--- NOTE | 2025-06-21 10:29 | RAD REPORT ---
EXAM: CT THORACIC SPINE WITHOUT CONTRAST HISTORY: PAIN COMPARISON: None TECHNIQUE: Multiple contiguous axial images were obtained in a CT of the thoracic spine without contr ast. Sagittal and coronal reformats were performed. One or more of the following dose reduction techniques were used: Automated exposure control, adjustment of the mA and kV according to patient si ze, and iterative reconstruction. Unless otherwise specified, incidental findings do not require dedicated imaging follow-up. FINDINGS: The vertebral bodies and intervertebral discs demonstrate normal height and alignment witho ut fracture or subluxation. . No degenerative changes are present. Mild dextroscoliosis of the thoracic spine. . The prevertebral and paraspinal soft tissues are unrem arkable. The included portions of the lungs and mediastinum are unremarkable. IMPRESSION: No evidence of acute osseous abnormality of the thoracic spine.
--- NOTE | 2025-06-21 10:30 | RAD REPORT ---
EXAMINATION: CT LUMBAR SPINE WITHOUT CONTRAST CLINICAL INDICATION: Female, 30 years old. PAIN TECHNIQUE: Axial CT images were obtained through the lumbar spine in soft tissue and bone windows wit hout intravenous contrast. Coronal and Sagittal reformatted images were created from the data set. One or more of the following dose reduction techniques were used: Automated exposure control, adjustm ent of the mA and/ or kV according to patient size, and/or iterative reconstruction. Unless otherwise specified, incidental findings do not require dedicated imaging follow-up. COMPARISON: No prior exam. FINDINGS: For purposes of this dictation, it is assumed that there are 5 non rib-bearing lumbar type vertebrae, and the most caudal fully segmented lumbar vertebra is labeled L5. ALIGNMENT: Subtle levoscoliosis lower lumbar spine. BONES: No significant soft tissue abnormalities. No aggressive osseous lesions. DISCS: Prominent posterior disc bulges L4-5 and L5-S1. LEVELS: Canal narrowing, moderate in severity suspected L4-5 and L5-S1. SOFT TISSUE: No soft tissue abnormalities. IMPRESSION: No acute lumbar spine abnormalities. Mild/moderate lower lumbar spondylosis. Nonemergent follow-up MR lumbar spine may be useful for furth er characterization.
[2025-06-21] MEDS ORDERED: CIPROFLOXACIN HCL 500 MG TAB ONE (10:32)
--- NOTE | 2025-06-21 11:31 | ER ---
Nurse's Notes [facility] Name: Cathleen Willson Age: 30 yrs Sex: Female : 1995 Arrival Date: 06/21/2025 Time: 08:57 Bed 7 Private MD: Diagnosis: UTI/ Urinary tract infection, site not specified;Family history of other diseases of the musculoskeletal system and connective tissue;Sciatica;Cervical disc disorder with radiculopathy, cervicothoracic region;Radiculopathy, lumbar region;Intervertebral disc disorders with radiculopathy, lumbar region Presentation: 06/21 09:12 Chief complaint: Patient states: she was rolling over in bed this morning and heard a ap3 "pop" in her neck. patient is reporting pain in her neck that radiates into both shoulders. patient currently rates pain as an 8/10 on the pain scale. Coronavirus screen: At this time, the client does not indicate any symptoms associated with coronavirus-19. Ebola Screen: No symptoms or risks identified at this time. Initial Sepsis Screen: Does the patient meet any 2 criteria? No. Patient's initial sepsis screen is negative. Does the patient have a suspected source of infection? No. Patient's initial sepsis screen is negative. Risk Assessment: Do you want to hurt yourself or someone else? Patient reports no desire to harm self or others. Onset of symptoms was June 21, 2025. 09:12 Method Of Arrival: Wheelchair ap3 09:12 Acuity: MIGUEL 3 ap3 Triage Assessment: 09:14 General: Appears uncomfortable, Behavior is calm, cooperative, appropriate for age. ap3 Pain: Complains of pain in neck Pain radiates to left trapezius and right trapezius Pain currently is 8 out of 10 on a pain scale. Pain began suddenly. Neuro: Level of Consciousness is awake, alert, obeys commands, Oriented to person, place, time, situation, Appropriate for age Gait is steady, Speech is normal. Cardiovascular: Patient's skin is warm and dry. Respiratory: Airway is patent Respiratory effort is even, unlabored, Respiratory pattern is regular, symmetrical. 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 - Infectious Disease History:: Denies. - Social history:: Smoking status: Patient denies any tobacco usage or history of. - Family history:: not pertinent. Screenin:15 [facility] ED Fall Risk Assessment (Adult) History of falling in the last 3 months, ap3 including since admission No falls in past 3 months (0 pts) Confusion or Disorientation No (0 pts) Intoxicated or Sedated No (0 pts) Impaired Gait No (0 pts) Mobility Assist Device Used No (0 pt) Altered Elimination No (0 pt) Score/Fall Risk Level 0 - 2 = Low Risk Oriented to surroundings, Maintained a safe environment, Educated pt \\T\\ family on fall prevention, incl call for assistance when getting out of bed, Assessed \\T\\ reinforced patient's understanding of fall precautions, Hourly rounding (assess needs \\T\\ fall precautionary measures) done, Used ambulatory aids as needed (educated on \\T\\ assisted with). Abuse screen: Denies threats or abuse. Nutritional screening: No deficits noted. Tuberculosis screening: No symptoms or risk factors identified. Assessment: 10:43 Reassessment: No changes from previously documented assessment. Patient and/or family ap3 updated on plan of care and expected duration. Pain level reassessed. Patient states feeling better. Patient states symptoms have improved. Vital Signs: 09:12 BP 123 / 85; Pulse 89; Resp 18; Temp 98.4; Pulse Ox 99% ; Weight 61.23 kg; Height 5 ft. ap3 10 in. ; Pain 8/10; 10:38 BP 115 / 77; Pulse 70; Resp 17; Pulse Ox 100% on R/A; ap3 12:04 BP 127 / 76; Pulse 70; Resp 18; Pulse Ox 100% ; ap3 09:12 Body Mass Index 19.37 (61.23 kg, 177.8 cm) ap3 09:12 Pain Scale: Adult ap3 ED Course: 08:58 Patient arrived in ED. cj3 09:01 Alex Ibanez MD is Attending Physician. arvind 09:03 Maria A Johnson, RN is Primary Nurse. kb4 09:12 Francisca George, LUCIO is Primary Nurse. ap3 09:13 Triage completed. ap3 09:15 Arm band placed on right wrist. ap3 09:55 Inserted saline lock: 20 gauge in right forearm, using aseptic technique. Blood ap3 collected. Flushed with 10 mL NS. 10:19 CT C Spine In Process Unspecified. EDMS 10:19 CT Thoracic Spine Wo Cont In Process Unspecified. EDMS 10:19 CT Lumbar Spine Wo Con In Process Unspecified. EDMS 10:24 Chest Single View XRAY In Process Unspecified. EDMS 11:31 Farrukh Mitchell MD is Referral Physician. arvind 12:05 Patient has correct armband on for positive identification. Bed in low position. Call ap3 light in reach. Side rails up X 1. Provided Education on: discharged instructions. 12:05 No provider procedures requiring assistance completed. IV discontinued, intact, ap3 bleeding controlled, No redness/swelling at site. Pressure dressing applied. Administered Medications: 09:45 Drug: NS 0.9% IV 1000 ml IV at 1 bolus Per protocol; to be given as a bolus over 60 aa5 minutes Route: IV; Rate: 1 bolus; Site: right antecubital; 12:04 Follow up: IV Status: Completed infusion; IV Intake: 1000ml ap3 09:45 Drug: Decadron - Dexamethasone IVP 10 mg IVP once Route: IVP; Site: right antecubital; aa5 10:37 Follow up: Response: No adverse reaction; Pain is decreased ap3 09:47 Drug: HYDROmorphone IVP 1 mg IVP once Route: IVP; Site: right antecubital; aa5 10:37 Follow up: Response: No adverse reaction; Pain is decreased; RASS: Alert and Calm (0) ap3 09:48 Drug: Ondansetron IVP 8 mg IVP once; over 2 minutes Route: IVP; Site: right antecubital;aa5 10:37 Follow up: Response: No adverse reaction ap3 09:54 Drug: Diazepam PO 10 mg PO once Route: PO; aa5 10:37 Follow up: Response: No adverse reaction; Pain is decreased ap3 09:55 Drug: Ketorolac IVP 30 mg IVP once Route: IVP; Site: right forearm; ap3 10:37 Follow up: Response: No adverse reaction; Pain is decreased ap3 10:36 Not Given (pt allergyy): Rocephin - rocephin (ceftriaxone)1 grams IVPB once over 30 ap3 mins; (mix in 50 mL NS) 10:36 Drug: Ciprofloxacin PO 500 mg PO once Route: PO; ap3 12:06 Follow up: Response: No adverse reaction ap3 Medication: 12:05 VIS not applicable for this client. ap3 Intake: 12:04 IV: 1000ml; Total: 1000ml. ap3 Outcome: 11:31 Discharge ordered by MD. samuels 12:05 Condition: good ap3 12:06 Discharged to home with family, ap3 12:06 Discharge instructions given to patient, Instructed on discharge instructions, follow up and referral plans. medication usage, Demonstrated understanding of instructions, follow-up care, medications, Prescriptions given X 4, 12:06 Patient left the ED. ap3 Signatures: Dispatcher [employer] EDMS Alex Ibanez MD MD cha Calderon, Audri, RN RN aa5 Francisca George RN RN ap3 Maria A Johnson RN RN kb4 Charity Watson 3
--- NOTE | 2025-06-21 11:31 | EDPHYS ---
Physician Documentation [facility] Name: Cathleen Willson Age: 30 yrs Sex: Female : 1995 Arrival Date: 06/21/2025 Time: 08:57 Bed 7 Private MD: RAYMON Physician Alex Ibanez HPI: 06/21 10:08 This 30 yrs old Female presents to ER via Wheelchair with complaints of Neck arvind Injury, Numbness - LT FOOT. 10:08 The patient or guardian complains of decreased range of motion, pain. The symptoms are arvind located diffusely. Onset: The symptoms/episode began/occurred 1 day(s) ago. Context: The problem was sustained at home. Associated signs and symptoms: The patient has no apparent associated signs or symptoms. Modifying factors: The symptoms are alleviated by remaining still, the symptoms are aggravated by nothing. Severity of symptoms: At their worst the symptoms were mild, in the emergency department the symptoms have resolved. 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 - Infectious Disease History:: Denies. - Social history:: Smoking status: Patient denies any tobacco usage or history of. - Family history:: not pertinent. ROS: 10:08 Constitutional: Negative for fever, chills, and weight loss, Eyes: Negative for injury, arvind pain, redness, and discharge, ENT: Negative for injury, pain, and discharge, Neck: Negative for injury, pain, and swelling, Cardiovascular: Negative for chest pain, palpitations, and edema, Respiratory: Negative for shortness of breath, cough, wheezing, and pleuritic chest pain, Abdomen/GI: Negative for abdominal pain, nausea, vomiting, diarrhea, and constipation, Back: Negative for injury and pain, : Negative for injury, bleeding, discharge, and swelling, Skin: Negative for injury, rash, and discoloration, Neuro: Negative for headache, weakness, numbness, tingling, and seizure, Psych: Negative for depression, anxiety, suicide ideation, homicidal ideation, and hallucinations, Allergy/Immunology: Negative for hives, rash, and allergies, Endocrine: Negative for neck swelling, polydipsia, polyuria, polyphagia, and marked weight changes, Hematologic/Lymphatic: Negative for swollen nodes, abnormal bleeding, and unusual bruising, 10:08 MS/extremity: Positive for decreased range of motion, pain, Exam: 10:08 Constitutional: This is a well developed, well nourished patient who is awake, alert, arvind and in no acute distress. Head/Face: Normocephalic, atraumatic. Eyes: Pupils equal round and reactive to light, extra-ocular motions intact. Lids and lashes normal. Conjunctiva and sclera are non-icteric and not injected. Cornea within normal limits. Periorbital areas with no swelling, redness, or edema. ENT: Nares patent. No nasal discharge, no septal abnormalities noted. Tympanic membranes are normal and external auditory canals are clear. Oropharynx with no redness, swelling, or masses, exudates, or evidence of obstruction, uvula midline. Mucous membranes moist. Neck: Trachea midline, no thyromegaly or masses palpated, and no cervical lymphadenopathy. Supple, full range of motion without nuchal rigidity, or vertebral point tenderness. No Meningismus. Chest/axilla: Normal chest wall appearance and motion. Nontender with no deformity. No lesions are appreciated. Cardiovascular: Regular rate and rhythm with a normal S1 and S2. No gallops, murmurs, or rubs. Normal PMI, no JVD. No pulse deficits. Respiratory: Lungs have equal breath sounds bilaterally, clear to auscultation and percussion. No rales, rhonchi or wheezes noted. No increased work of breathing, no retractions or nasal flaring. Abdomen/GI: Soft, non-tender, with normal bowel sounds. No distension or tympany. No guarding or rebound. No evidence of tenderness throughout. Back: No spinal tenderness. No costovertebral tenderness. Full range of motion. Skin: Warm, dry with normal turgor. Normal color with no rashes, no lesions, and no evidence of cellulitis. MS/ Extremity: Pulses equal, no cyanosis. Neurovascular intact. Full, normal range of motion., bilateral aka Neuro: Awake and alert, GCS 15, oriented to person, place, time, and situation. Cranial nerves II-XII grossly intact. Motor strength 5/5 in all extremities. Sensory grossly intact. Cerebellar exam normal. Normal gait. Psych: Awake, alert, with orientation to person, place and time. Behavior, mood, and affect are within normal limits. 10:08 Neuro: Orientation: is normal, appropriate for stated age, no acute changes, Mentation: is normal, appropriate for stated age, no acute changes, Memory: is normal, appropriate for stated age, no acute changes, Cranial nerves: grossly normal, is grossly normal based on the patient's age, no acute changes, Motor: moves all fours, strength is normal, Gait: limited by pain, Vital Signs: 09:12 BP 123 / 85; Pulse 89; Resp 18; Temp 98.4; Pulse Ox 99% ; Weight 61.23 kg; Height 5 ft. ap3 10 in. ; Pain 8/10; 10:38 BP 115 / 77; Pulse 70; Resp 17; Pulse Ox 100% on R/A; ap3 12:04 BP 127 / 76; Pulse 70; Resp 18; Pulse Ox 100% ; ap3 09:12 Body Mass Index 19.37 (61.23 kg, 177.8 cm) ap3 09:12 Pain Scale: Adult ap3 MDM: 09:01 Medical Screening Exam initiated arvind 10:13 Data reviewed: vital signs, nurses notes, lab test result(s), radiologic studies, CT arvind scan, plain films. Consideration of Admission/Observation Escalation of care including admission/observation considered. I considered the following discharge prescriptions or medication management in the emergency department Medications were administered in the Emergency Department. See MAR. Independent interpretation of the following test(s) in the Emergency Department CT Scan: My interpretation is ct spine. Historians other than the Patient: Parent: mom well informed. Care significantly affected by the following chronic conditions: nathalie cuevas. 06/21 09:11 Order name: CBC with Diff; Complete Time: 10:12 arvind 06/21 09:11 Order name: CMP; Complete Time: 10:12 arvind 06/21 09:11 Order name: UA Rfx Geroge Cult if indicated; Complete Time: 10:12 arvind 06/21 09:11 Order name: PREGU; Complete Time: 10:12 [facility] 06/21 09:11 Order name: CT C Spine; Complete Time: 11:29 [facility] 06/21 09:11 Order name: CT Thoracic Spine Wo Cont; Complete Time: 11:29 [facility] 06/21 09:11 Order name: CT Lumbar Spine Wo Con; Complete Time: 11:29 [facility] 06/21 10:13 Order name: Chest Single View XRAY; Complete Time: 11:29 arvind Administered Medications: 09:45 Drug: NS 0.9% IV 1000 ml IV at 1 bolus Per protocol; to be given as a bolus over 60 aa5 minutes Route: IV; Rate: 1 bolus; Site: right antecubital; 12:04 Follow up: IV Status: Completed infusion; IV Intake: 1000ml ap3 09:45 Drug: Decadron - Dexamethasone IVP 10 mg IVP once Route: IVP; Site: right antecubital; aa5 10:37 Follow up: Response: No adverse reaction; Pain is decreased ap3 09:47 Drug: HYDROmorphone IVP 1 mg IVP once Route: IVP; Site: right antecubital; aa5 10:37 Follow up: Response: No adverse reaction; Pain is decreased; RASS: Alert and Calm (0) ap3 09:48 Drug: Ondansetron IVP 8 mg IVP once; over 2 minutes Route: IVP; Site: right antecubital;aa5 10:37 Follow up: Response: No adverse reaction ap3 09:54 Drug: Diazepam PO 10 mg PO once Route: PO; aa5 10:37 Follow up: Response: No adverse reaction; Pain is decreased ap3 09:55 Drug: Ketorolac IVP 30 mg IVP once Route: IVP; Site: right forearm; ap3 10:37 Follow up: Response: No adverse reaction; Pain is decreased ap3 10:36 Not Given (pt allergyy): Rocephin - rocephin (ceftriaxone)1 grams IVPB once over 30 ap3 mins; (mix in 50 mL NS) 10:36 Drug: Ciprofloxacin PO 500 mg PO once Route: PO; ap3 12:06 Follow up: Response: No adverse reaction ap3 Disposition Summary: 06/21/25 11:31 Discharge Ordered Notes: Location: Home arvind Problem: new arvind Symptoms: have improved ravind Condition: Stable arvind Diagnosis - UTI/ Urinary tract infection, site not specified arvind - Family history of other diseases of the musculoskeletal system and connective tissuecha - Sciatica arvind - Cervical disc disorder with radiculopathy, cervicothoracic region arvind - Radiculopathy, lumbar region arvind - Intervertebral disc disorders with radiculopathy, lumbar region arvind Followup: arvind - With: Private Physician - When: 2 - 3 days - Reason: Recheck today's complaints, Continuance of care, Re-evaluation by your physician Followup: [facility] - With: Farrukh Mitchell MD - When: 2 - 3 days - Reason: Recheck today's complaints, Re-evaluation by your physician Discharge Instructions: - Discharge Summary Sheet arvind - Lumbosacral Radiculopathy arvind - Musculoskeletal Pain arvind - Urinary Tract Infection, Adult arvind - Cervical Radiculopathy, [id number] arvind - Radicular Pain [facility] Forms: - Medication Reconciliation Form arvind - Antibiotic Education arvind - Prescription Opioid Use arvind - Patient Portal Instructions [facility] - Leadership Thank You Letter [facility] Prescriptions: - diclofenac sodium 50 mg Oral tablet, delayed release (enteric coated) - take 1 tablet ORAL route 3 times per day; 21 tablet; Refills: 0, Product arvind Selection Permitted - Cipro 250 mg Oral tablet - take 1 tablet ORAL route every 12 hours; 14 tablet; Refills: 0, Product arvind Selection Permitted - methocarbamol 750 mg Oral tablet - take 1 tablet ORAL route 4 times per day; 30 tablet; Refills: 0, Product arvind Selection Permitted - Dexamethasone 4mg Oral tablet - take 1 tablet ORAL route daily for 4 days; 4 tablet; Refills: 0, Product arvind Selection Permitted Signatures: Dispatcher [employer] EDMS Alex Ibanez MD MD cha Calderon, Audri, RN RN aa5 Francisca George RN RN ap3 Corrections: (The following items were deleted from the chart) 09:12 09:12 Thoracic Spine WO Cont+CT.RAD.BRZ ordered. EDMS EDMS 09:12 09:12 Spine Lumbar Wo Con+CT.RAD.BRZ ordered. EDMS EDMS 10:13 10:13 Chest Single View+RAD.RAD.BRZ ordered. EDMS EDMS
[2025-06-21 16:35] VITALS: TEMP 98.4
[2025-06-21 16:40] VITALS: O2SAT 100
[2025-06-21 16:46] VITALS: BP 127/76
== END 2025-06-21 12:06 | disposition home or self-care (01) ==
LOC: ER 08:57
DX: N39.0 Urinary tract infection, site not specified (principal); M54.30 Sciatica, unspecified side; M54.16 Radiculopathy, lumbar region; Z82.69 Family history of other diseases of the musculoskeletal system and connective tissue
CPT/HCPCS: 85025; 81001; 36415; 81025; 80053; 72131; 72125; 72128; 71045; 99284; J1885; J1100; J1171; J2405; J7030

== ENCOUNTER 2025-07-01 12:41 | Emergency (ER) | payer BC ==
[2025-07-01 13:55] LABS: Absolute Lymphocytes (CBC) 0.5 K/uL (0.7-4.9); Hematocrit 37.9 % (36.0-45.0); Hemoglobin 13.1 g/dL (12.0-15.0); MCH 29.0 pg (27.0-35.0); MCHC 34.7 g/dL (32.0-36.0); MCV 83.5 fL (80-100); MPV 8.4 fL (7.6-11.3); Nucleated RBC Absolute Count 0.0 (0-0); Nucleated Red Blood Cells % 0.0 % (0-0); RBC Red Blood Cell Count 4.53 M/uL (3.86-4.86); White Blood Count 10.40 thou/uL (4.3-10.9)
[2025-07-01 13:57] LABS: Influenza A Ag Negative; Influenza B Ag Negative; SARS-CoV-2 Antigen Rapid Res Negative (Negative)
[2025-07-01 13:57] LABS: Urine Culture Reflex Order NOT NEEDED; Urine Microscopic Reflex YN ORDER UMIC; Urine WBC Clump Rare /HPF (None Seen); Urine Yeast (Budding) Trace /HPF (None Seen)
[2025-07-01 14:20] LABS: ALT/SGPT 33.0 U/L (13-56); AST/SGOT 12.0 U/L (15-37); Albumin 3.8 g/dL (3.4-5.0); Albumin/Globulin Ratio 1.2 (1.1-1.8); Alkaline Phosphatase 60.0 U/L (45-117); Anion Gap 7.0 mEq/L (5.0-15.0); BUN Blood Urea Nitrogen 21.0 mg/dL (7-18); Globulin 3.3 g/dL (2.3-3.5); Glucose Level 105.0 mg/dL (74-106); Potassium 4.0 mEq/L (3.5-5.1)
[2025-07-01 14:30] LABS: Blood Morphology Comment NOT SEEN (NOT SEEN); White Blood Cell Scan OK (OK)
[2025-07-01] MEDS ORDERED: NA CHLORIDE 0.9% 1,000 ML ONE (15:29)
[2025-07-01] MEDS ORDERED: DIPHENHYDRAMINE 50 MG/ML VIAL ONE (16:11)
[2025-07-01] MEDS ORDERED: METHYLPREDNISOLONE 125 MG INJ ONE (16:11)
--- NOTE | 2025-07-01 16:35 | RAD REPORT ---
EXAMINATION: CTA CHEST PE CLINICAL INDICATION: Female, 30 years old. syncope TECHNIQUE: This examination was performed according to an angiographic protocol with 3D post-processi ng. This involves 3D reconstructions, MIPs, volume rendered images and/or shaded surface rendering. One or more of the following dose reduction techniques were used: Automated exposure control, adjustm ent of the mA and/or kV according to patient size, and/or iterative reconstruction. Unless otherwise specified, incidental findings do not require dedicated imaging follow-up. [id number]. COMPARISON: No priors. FINDINGS: LOWER NECK: Visualized thyroid gland and soft tissues are normal. MEDIASTINUM AND LYMPH NODES: No mediastinal mass or fluid collection. Normal size mediastinal, hilar, and axillary lymph nodes. Moderate distal esophageal thickening which could reflect esophagitis. Surgical changes at the gastroesophageal junction. THORACIC AORTA: No thoracic aortic aneurysm. PULMONARY ARTERIES: Caliber is within normal limits. No pulmonary emboli identified. HEART: Normal heart size. No coronary calcifications.No significant pericardial effusion. LUNGS AND AIRWAYS: No evidence of airspace or interstitial process. No suspicious and/or stable pulmo nary nodules. PLEURA: No pleural effusions. No pneumothorax. OSSEOUS STRUCTURES AND CHEST WALL: No fracture or suspicious osseous lesions. UPPER ABDOMEN: No acute abnormalities. IMPRESSION: Negative for pulmonary embolism. No other acute process identified in the chest.
--- NOTE | 2025-07-01 16:53 | ER ---
Nurse's Notes [facility] Name: Cathleen Willson Age: 30 yrs Sex: Female : 1995 Arrival Date: 07/01/2025 Time: 12:41 Bed 11 Private MD: Diagnosis: Myalgia;Syncope Near;Nausea with vomiting, unspecified;Chills (without fever) Presentation: 07/01 13:21 Chief complaint: Patient states: Discharged last week on Cipro for urinary symptoms, jl7 worsening symptoms lower abdominal pain, lower back pain. Coronavirus screen: At this time, the client does not indicate any symptoms associated with coronavirus-19. Ebola Screen: No symptoms or risks identified at this time. Initial Sepsis Screen: Does the patient meet any 2 criteria? No. Patient's initial sepsis screen is negative. Does the patient have a suspected source of infection? No. Patient's initial sepsis screen is negative. Risk Assessment: Do you want to hurt yourself or someone else? Patient reports no desire to harm self or others. Onset of symptoms is unknown. 13:21 Method Of Arrival: Ambulatory [facility] 13:21 Acuity: MIGUEL 3 jl7 Triage Assessment: 13:23 General: Appears in no apparent distress. uncomfortable, ill, Behavior is calm, jl7 cooperative, appropriate for age. Pain: Complains of pain in back and abdomen Pain currently is 8 out of 10 on a pain scale. Musculoskeletal: Range of motion: intact in all extremities. 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 - Infectious Disease History:: Denies. - Social history:: Smoking status: Patient denies any tobacco usage or history of. Screenin:10 [facility] ED Fall Risk Assessment (Adult) History of falling in the last 3 months, jb4 including since admission No falls in past 3 months (0 pts) Confusion or Disorientation No (0 pts) Intoxicated or Sedated No (0 pts) Impaired Gait No (0 pts) Mobility Assist Device Used No (0 pt) Altered Elimination No (0 pt) Score/Fall Risk Level 0 - 2 = Low Risk Oriented to surroundings, Maintained a safe environment. Abuse screen: Denies threats or abuse. Nutritional screening: No deficits noted. Tuberculosis screening: No symptoms or risk factors identified. Assessment: 15:45 Reassessment: Patient appears in no apparent distress at this time. Patient and/or jb4 family updated on plan of care and expected duration. Pain level reassessed. Pt in the hallway talking to Dr. Lobato. Noted to have a syncopal episode. Placed in bed 11. 17:10 Reassessment: Patient appears in no apparent distress at this time. Patient and/or jb4 family updated on plan of care and expected duration. Pain level reassessed. Patient is alert, oriented x 3, equal unlabored respirations, skin warm/dry/pink. PT now able to ambulate with steady gait, denies dizziness or feeling light headed. Vital Signs: 13:21 BP 98 / 71; Pulse 108; Resp 17; Temp 98.1; Pulse Ox 100% ; Weight 61.23 kg; Height 5 jl7 ft. 10 in. ; Pain 8/10; 16:08 BP 106 / 64; Pulse 89; Resp 16; Pulse Ox 98% on R/A; jb4 17:10 BP 106 / 61; Pulse 78; Resp 15; Pulse Ox 100% on R/A; jb4 13:21 Body Mass Index 19.37 (61.23 kg, 177.8 cm) jl7 13:21 Pain Scale: Adult jl7 ED Course: 12:45 Patient arrived in ED. cj3 12:52 Nikita Lobato DO is Attending Physician. ms3 13:23 Triage completed. jl7 13:23 Arm band placed on right wrist. jl7 13:51 Initial lab(s) drawn, by recyclable materials distributor, sent to lab. Inserted saline lock: 20 gauge in left ts3 antecubital area, using aseptic technique. Blood collected. Flushed with 10 mL NS. 13:51 Urine collected: clean catch specimen, sent to lab. ts3 16:06 Casey Blackwell, LUCIO is Primary Nurse. jb4 16:30 CT Chest For PE Angio In Process Unspecified. EDMS 17:10 Patient has correct armband on for positive identification. Bed in low position. Call jb4 light in reach. Side rails up X 1. Provided Education on: discharge instructions.. 17:10 No provider procedures requiring assistance completed. IV discontinued, intact, jb4 bleeding controlled, No redness/swelling at site. Pressure dressing applied. Administered Medications: 15:40 Drug: NS 0.9% IV 1000 ml IV at 1 bolus Per protocol; to be given as a bolus over 60 jb4 minutes Route: IV; Rate: 1 bolus; Site: left antecubital; 16:15 Drug: diphenhydrAMINE IVP 25 mg IVP once Route: IVP; Site: left antecubital; jb4 16:16 Drug: MethylPrednisoLONE IVP 125 mg IVP once Route: IVP; Site: left antecubital; jb4 Medication: 17:10 VIS not applicable for this client. jb4 Outcome: 16:52 Discharge ordered by MD. ms3 17:10 Discharged to home ambulatory, jb4 17:10 Condition: stable 17:10 Discharge instructions given to patient, Instructed on discharge instructions, follow up and referral plans. Demonstrated understanding of instructions, follow-up care, 17:12 Patient left the ED. jb4 Signatures: Dispatcher [employer] EDMS Casey Blackwell RN RN jb4 Yamilka De La Cruz RN RN jl7 Nikita Lobato DO DO ms3 Charity Watson cj3 Kelsey Johnson ts3
--- NOTE | 2025-07-01 16:53 | EDPHYS ---
Physician Documentation [facility] Name: Cathleen Willson Age: 30 yrs Sex: Female : 1995 Arrival Date: 07/01/2025 Time: 12:41 Bed 11 Private MD: ED Physician Nikita Lobato HPI: 07/01 15:52 This 30 yrs old Female presents to ER via Ambulatory with complaints of UTI, Fever, ms3 Back Pain, Nausea/Vomiting, Chest Tightness. 15:52 30-year-old female with past medical history of ADD, Carmen-Danlos, ovarian cyst, POTS ms3 presents to the emergency department after being diagnosed with urinary tract infection last week. Patient states she was discharged on ciprofloxacin and has not taken that as she has connective tissue disorder. Patient also notes she has not followed up since that time. Patient states that since that time she has become feeling worse and currently rates her discomfort an 8/10. Patient describes her discomfort as a dull ache and states it is worse with deep breathing. Patient states she is having bilateral lower back pain. Patient endorses nausea, vomiting, chills. Patient states symptoms began at 8 AM. 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 - Infectious Disease History:: Denies. - Social history:: Smoking status: Patient denies any tobacco usage or history of. ROS: 15:52 Cardiovascular: Negative for chest pain, and palpitations. Respiratory: Negative for ms3 shortness of breath, cough, wheezing, and pleuritic chest pain, Abdomen/GI: Negative for abdominal pain, nausea, vomiting, diarrhea, and constipation, 15:52 Skin: Negative for injury, rash, and discoloration, 15:52 Constitutional: Positive for body aches, chills, 15:52 MS/extremity: Positive for Back pain, Exam: 15:52 Constitutional: This is a well developed, well nourished patient who is awake, alert, ms3 and in no acute distress. Cardiovascular: Regular rate and rhythm with a normal S1 and S2. No gallops, murmurs, or rubs. Normal PMI, no JVD. No pulse deficits. Respiratory: Lungs have equal breath sounds bilaterally, clear to auscultation and percussion. No rales, rhonchi or wheezes noted. No increased work of breathing, no retractions or nasal flaring. Abdomen/GI: Soft, non-tender, with normal bowel sounds. No distension or tympany. No guarding or rebound. No evidence of tenderness throughout. Skin: Warm, dry with normal turgor. Normal color with no rashes, no lesions, and no evidence of cellulitis. MS/ Extremity: Pulses equal, no cyanosis. Neurovascular intact. Full, normal range of motion. 15:57 ECG was reviewed by the Attending Physician. ms3 Vital Signs: 13:21 BP 98 / 71; Pulse 108; Resp 17; Temp 98.1; Pulse Ox 100% ; Weight 61.23 kg; Height 5 jl7 ft. 10 in. ; Pain 8/10; 16:08 BP 106 / 64; Pulse 89; Resp 16; Pulse Ox 98% on R/A; jb4 17:10 BP 106 / 61; Pulse 78; Resp 15; Pulse Ox 100% on R/A; jb4 13:21 Body Mass Index 19.37 (61.23 kg, 177.8 cm) jl7 13:21 Pain Scale: Adult jl7 MDM: 13:24 Medical Screening Exam initiated ms3 15:31 ED course: Patient pulled from lobby and on discussing results became lightheaded with ms3 near syncopal episode. Patient placed in rolling chair and taken to room 11. Will add EKG, troponin, CTA of chest.. 15:52 Differential diagnosis: viral Infection, URI, UTI. ms3 16:02 ED course: Patient states she normally gets pre-medication prior to CT with IV contrast ms3 secondary to chest tightness with CTs with contrast. Solumedrol and Benadryl ordered.. 16:53 Data reviewed: vital signs, nurses notes, lab test result(s), EKG, radiologic studies, ms3 and as a result, I will discharge patient. I considered the following discharge prescriptions or medication management in the emergency department Medications were administered in the Emergency Department. See MAR. Independent interpretation of the following test(s) in the Emergency Department EKG: See my EKG interpretation above. Historians other than the Patient: Parent: Patient's mother. Counseling: I had a detailed discussion with the patient and/or guardian regarding the historical points, exam findings, and any diagnostic results supporting the discharge/admit diagnosis, lab results, radiology results, the need for outpatient follow up, to return to the emergency department if symptoms worsen or persist or if there are any questions or concerns that arise at home. Special discussion: I discussed with the patient/guardian in detail that at this point there is no indication for admission to the hospital. It is understood, however, that if the symptoms persist or worsen the patient needs to return immediately for re-evaluation. ED course: Discussed negative troponin, EKG with sinus arrhythmia, CT PE protocol without pulmonary embolism and normal aorta. Patient to follow-up with her primary care physician 2 to 3 days. Patient understands agrees with plan. Questions were answered. Return precautions were discussed to include worsening symptoms, or any other concerns.. 07/01 13:08 Order name: UA Rfx George Cult if indicated; Complete Time: 14:57 ms3 07/01 13:08 Order name: CBC with Diff; Complete Time: 14:57 ms3 07/01 13:08 Order name: CMP; Complete Time: 14:57 ms3 07/01 13:24 Order name: COVID-19 Ag + Flu A+B Ag; Complete Time: 14:57 ms3 07/01 14:10 Order name: CBC Smear Scan; Complete Time: 14:57 EDMS 07/01 15:27 Order name: Troponin High Sensitivity; Complete Time: 16:30 ms3 07/01 15:27 Order name: CT Chest For PE Angio; Complete Time: 16:45 ms3 07/01 15:30 Order name: EKG - Nurse/Tech; Complete Time: 15:37 ms3 EC:57 Rate is 81 beats/min. Rhythm is regular. QRS [place] is Normal. NE interval is normal. QRS ms3 interval is normal. Clinical impression: Normal ECG. Interpreted by me. Reviewed by me. Administered Medications: 15:40 Drug: NS 0.9% IV 1000 ml IV at 1 bolus Per protocol; to be given as a bolus over 60 jb4 minutes Route: IV; Rate: 1 bolus; Site: left antecubital; 16:15 Drug: diphenhydrAMINE IVP 25 mg IVP once Route: IVP; Site: left antecubital; jb4 16:16 Drug: MethylPrednisoLONE IVP 125 mg IVP once Route: IVP; Site: left antecubital; jb4 Disposition Summary: 07/01/25 16:52 Discharge Ordered Notes: Location: Home ms3 Condition: Stable ms3 Diagnosis - Myalgia ms3 - Syncope Near ms3 - Nausea with vomiting, unspecified ms3 - Chills (without fever) ms3 Followup: ms3 - With: Private Physician - When: 2 - 3 days - Reason: Recheck today's complaints Discharge Instructions: - Discharge Summary Sheet ms3 - Musculoskeletal Pain ms3 - Nausea and Vomiting, Adult ms3 - Near-Syncope ms3 Forms: - Medication Reconciliation Form ms3 - Antibiotic Education ms3 - Prescription Opioid Use ms3 - Patient Portal Instructions ms3 - Leadership Thank You Letter ms3 Signatures: Dispatcher [employer] EDCasey Castellon, RN RN jb4 Yamilka De La Cruz RN RN jl7 Nikita Lobato DO DO ms3 Corrections: (The following items were deleted from the chart) 13:24 13:24 COVID-19 Ag + Flu A+B Ag+I.LAB.BRZ ordered. EDMS EDMS 16:30 16:30 TEST, SERUM+SC.LAB.BRZ ordered. EDMS EDMS
[2025-07-01 23:42] VITALS: TEMP 98.1
[2025-07-01 23:45] VITALS: BP 106/61; O2SAT 100
== END 2025-07-01 17:12 | disposition home or self-care (01) ==
LOC: ER 12:41
DX: M79.10 Myalgia, unspecified site (principal); R55 Syncope and collapse; R11.2 Nausea with vomiting, unspecified; R68.83 Chills (without fever); Z11.52 Encounter for screening for COVID-19
CPT/HCPCS: 85025; 81001; 36415; 84484; 80053; 71275; 96375; 96374; 99284; 87428; Q9967; J1200; J2919; J7030